=== PATIENT | female | born 1980 | race Two or more races ===

== ENCOUNTER 2016-08-02 19:33 | Emergency (ER) | payer MEDICAID ==
[2016-08-02] MEDS ORDERED: ACETAMINOPHEN 325 MG TABLET PO ONE (20:27)
[2016-08-02] MEDS ORDERED: ONDANSETRON 4 MG TAB.RAPDIS PO ONE (20:27)
--- NOTE | 2016-08-02 20:27 | ER Document Report ---
ED Medical Screen (RME) - General Stated Complaint: ABDOMINAL PAIN/DIARRHEA Mode of Arrival: Ambulatory Information source: Patient Notes: pt c/o migraine [place], bodyaches, n/v/d that started today. Pt's child here with similiar symptoms. TRAVEL OUTSIDE OF THE [place] IN LAST 30 DAYS: No - Related Data Allergies/Adverse Reactions: No Known Allergies Allergy (Verified 08/20/15 14:48) Past Medical History - Social History Family history: Reviewed & Not Pertinent Pulmonary Medical History: Reports: Hx Asthma Psychiatric Medical History: Reports: Hx Anxiety, Hx Bipolar Disorder, Hx Schizophrenia Past Surgical History: Reports: Hx Adenoidectomy, Hx Tonsillectomy - Tonsils and Adenoids, Hx Tubal Ligation, Hx Urinary Tract Surgery - Immunizations Immunizations up to date: Yes Hx Diphtheria, Pertussis, Tetanus Vaccination: No - unk Physical Exam - General General appearance: Appears well, Alert In distress: None
[2016-08-02] MEDS ORDERED: NORMAL SALINE 1000 ML 1,000 ML IV ONE (22:27)
[2016-08-02] MEDS ORDERED: DIPHENHYDRAMINE HCL 50 MG/ML VIAL IV ONE (22:27)
[2016-08-02] MEDS ORDERED: METOCLOPRAMIDE HCL INJ/PF 10 MG/2 ML SDV IV ONE (22:27)
--- NOTE | 2016-08-02 22:32 | ER Document Report ---
ED General - General Chief Complaint: Flu Symptoms Stated Complaint: ABDOMINAL PAIN/DIARRHEA Mode of Arrival: Ambulatory Notes: Patient is a 35-year-old female who presents with complaint of a headache. Patient also has some diarrhea;. Some nausea. Her 2 sons had vomiting diarrheal 2 nights ago. She now has similar symptoms started today. She denies any fevers. She says when she gets sick she gets headaches. She has a headache because of right-sided neck and rest of her head. This is typical with her chronic headaches. She was referred to a neurologist when she lived in [place]. She's referred him because she has a family history of cerebral aneurysms. She missed an appointment and then moved here and has not seen a physician since. She has says headache is gradual in onset. She still concerned with her family history of cerebral aneurysms. No dysuria. No blood in emesis. No blood in stool. No other complaints at this time. TRAVEL OUTSIDE OF THE [place] IN LAST 30 DAYS: No - Related Data Allergies/Adverse Reactions: No Known Allergies Allergy (Verified 08/20/15 14:48) Past Medical History - General Information source: Patient - Social History Smoking Status: Unknown if Ever Smoked Frequency of alcohol use: None Drug Abuse: None Family History: Reviewed & Not Pertinent Patient has suicidal ideation: No Patient has homicidal ideation: No Pulmonary Medical History: Reports: Hx Asthma Psychiatric Medical History: Reports: Hx Anxiety, Hx Bipolar Disorder, Hx Schizophrenia Past Surgical History: Reports: Hx Adenoidectomy, Hx Tonsillectomy - Tonsils and Adenoids, Hx Tubal Ligation, Hx Urinary Tract Surgery - Immunizations Immunizations up to date: Yes Hx Diphtheria, Pertussis, Tetanus Vaccination: No - unk Review of Systems - Review of Systems Notes: My Normal Review Basic REVIEW OF SYSTEMS: CONSTITUTIONAL : Denies fever, chills, or sweats. Denies recent illness. EENT: Denies eye, ear, throat, or mouth pain or symptoms. Denies nasal or sinus congestion. RESPIRATORY: Denies cough, cold, or chest congestion. Denies shortness of breath, difficulty breathing, or wheezing. GASTROINTESTINAL: Denies abdominal pain. Vomiting and diarrhea. Denies constipation. Last BM: MUSCULOSKELETAL: Denies neck or back pain or joint pain or swelling. SKIN: Denies rash or skin lesions. NEUROLOGICAL: Denies altered mental status or loss of consciousness. Has a headache. Denies weakness or paralysis or loss of use of either side. Denies problems with gait or speech. Denies sensory or motor loss. PSYCHIATRIC: Denies anxiety or stress or depression. ALL OTHER SYSTEMS REVIEWED AND NEGATIVE. Physical Exam - Vital signs Vitals: Temp Pulse Resp BP Pulse Ox 98.8 F 80 16 126/69 H 100 08/02/16 20:30 08/02/16 20:30 08/02/16 20:30 08/02/16 20:30 08/02/16 20:30 - Notes Notes: General Appearance: Well nourished, alert, cooperative, no acute distress, moderate obvious discomfort. Vitals: reviewed, See vital signs table. Head: no swelling or tenderness to the head Eyes: PERRL, EOMI, Conjuctiva clear Mouth: No decreasd moisture Neck: Supple, some soreness to palpation of the right side of the neck. Neck tenderness, No thyromegaly Lungs: No wheezing, No rales, No rhonci, No accessory muscle use, good air exchange bilaterally. Heart: Normal rate, Regular rythm, No murmur, no rub Abdomen: Normal BS, soft, No rigidity, No abdominal tenderness, No guarding, no rebound, no abdominal masses, no organomegaly. No reproducible tenderness to palpation of the abdomen. Extremities: strength 5/5 in all extremities, good pulses in all extremities, no swelling or tenderness in the extremities, no edema. Skin: warm, dry, appropriate color, no rash Neuro: speech clear, oriented x 3, normal affect, responds appropriately to questions. They understood to 12 are intact. Distal sensation intact. Patient moves all extremities without difficulty. Course - Vital Signs Vital signs: Temp Pulse Resp BP Pulse Ox 98.8 F 80 16 126/69 H 100 08/02/16 20:30 08/02/16 20:30 08/02/16 20:30 08/02/16 20:30 08/02/16 20:30 - Laboratory Result Diagrams: 08/02/16 23:10 08/02/16 23:10 Laboratory results interpreted by me: 08/02/16 23:10 WBC 3.8 L Hgb 11.5 L Hct 34.1 L Eosinophils % 7.9 H - Transfer of Care Notes: 08/03/16 02:15 On reevaluation patient is feeling much improved. Patient looks well. She's had no further vomiting. Her headache is gone with Benadryl and Reglan. I do not suspect subarachnoid hemorrhage with her. This is because the headache is like a chronic recurrent headaches, gradual in onset, and she has no neurologic deficits so she with it. I did obtain a CT angios only because she doesn't family history of cerebral aneurysms and it would be pertinent to know if she does have any aneurysms on scan so that we can refer her to appropriate specialist to monitor these. Fortunately CTA was negative. I informed her that because her CT is negative does not mean that she cannot develop aneurysms future. Informed her she must return to ER immediately if she has severe and sudden onset headache are not typical of her regular occurrence. I encourage return to ER immediately if she has intractable vomiting, fevers, abdominal pain , or feels unwell. Patient agrees with plan will be discharged home. Dictation of this chart was performed using voice recognition software; therefore, there may be some unintended grammatical errors. Discharge - Discharge Clinical Impression: Vomiting and diarrhea Headache Qualifiers: Headache type: unspecified Headache chronicity pattern: episodic headache Intractability: not intractable Qualified Code(s): R51 - Headache Condition: Good Disposition: HOME, SELF-CARE Additional Instructions: HEADACHE: The physician does not feel that the headache you are experiencing has a serious underlying cause. Most headaches are due to emotional stress, with resultant muscle tension (tension headache). Occasionally, headaches are secondary to changes in the blood vessels of the scalp (vascular headache and migraine headache). Sometimes, a headache is the first symptom of another developing illness, such as a viral infection. You have no evidence of stroke, bleeding, meningitis, or other serious cause of your headache. The treatment of headaches varies with the severity and cause of the pain. Not all headaches need pain shots. In fact, there is evidence that using narcotics for headaches may make them worse in the long run. The physician will determine the therapy that's in your best interest. If you develop a fever, if the headache is different from any you've previously experienced, or if the headache progressively worsens, then call your physician at once or go to the emergency room. REGLAN (METOCLOPRAMIDE): Reglan has been prescribed. This medicine affects the stomach and intestines. It can be used to treat nausea and vomiting, to prevent reflux of stomach acid up into the esophagus, or to increase the contractions of the stomach and intestines. It is often prescribed for esophagitis, and for paralysis of the stomach in diabetics. Reglan can cause either mild restlessness or drowsiness. You should contact the doctor at once if you become extremely restless, anxious, or cannot sleep, or if you develop uncontrollable motions of the lips, tongue, or jaw. Do not take alcohol with this medicine. Do not drive or operate machinery until you have been taking this medicine long enough to know how it affects you. Call the doctor if you develop abdominal pains, lightheadedness, black stool, or blood in the stool or vomitus. USE OF DIPHENHYDRAMINE: Diphenhydramine (Benadryl) is an antihistamine and has been recommended to help treat your headache and to prevent side effects of other medications used to treat headaches. The medication can be repeated four times daily. Age Elixir (12.5 mg/tsp) 25 mg pill adult 1-2 tabs Antihistamines may cause drowsiness, especially with the first dose. Do not operate machinery or drive while under the effects of the medication. Do not combine the medication with alcohol, or with any other medication without talking to your doctor. FOLLOW-UP CARE: If you have been referred to a physician for follow-up care, call the physician s office for an appointment as you were instructed or within the next two days. If you experience worsening or a significant change in your symptoms, notify the physician immediately or return to the Emergency Department at any time for re-evaluation. Please return to ER immediately if you have severe sudden onset headache, intractable vomiting, fevers, abdominal pain, or feel that your symptoms are worsening. Please establish yourself with a primary care physician in the area to help continue monitor your chronic medical problems. Prescriptions: Diphenhydramine HCl [Benadryl] 25 mg PO Q6 PRN #30 capsule PRN Reason: Metoclopramide HCl [Reglan 10 mg Tablet] 1 tab PO ASDIR PRN #25 tablet PRN Reason: Referrals: ORLANDO WHALEY MD [Primary Care Provider] - Follow up in 3-5 days
[2016-08-02 23:31] LABS: ABSOLUTE EOSINOPHILS # (AUTO) 0.3 10^3/uL (0.0-0.6); ABSOLUTE LYMPHOCYTES (AUTO) 1.1 10^3/uL (0.5-4.7); ABSOLUTE MONOCYTES (AUTO) 0.3 10^3/uL (0.1-1.4); ABSOLUTE NEUT (AUTO) 2.1 10^3/uL (1.7-8.2); BASOPHILS % (AUTO) 0.3 % (0-2); EOSINOPHILS % (AUTO) 7.9 % (0-6); HEMATOCRIT 34.1 % (36.0-47.0); HEMOGLOBIN 11.5 g/dL (12.0-15.5); HGB HCT DIFFERENCE 0.4; LYMPHOCYTES % (AUTO) 28.1 % (13-45); MEAN CORPUSCULAR HEMOGLOBIN 29.1 pg (27.0-33.4); MEAN CORPUSCULAR HGB CONC 33.6 g/dL (32.0-36.0); MEAN CORPUSCULAR VOLUME 87 fl (80-97); RED BLOOD COUNT 3.94 10^6/uL (3.72-5.28); RED CELL DISTRIBUTION WIDTH 13.7 % (11.5-14.0); SEGMENTED NEUTROPHILS % (AUTO) 55.7 % (42-78); WHITE BLOOD COUNT 3.8 10^3/uL (4.0-10.5)
[2016-08-02 23:50] LABS: ANION GAP 9 (5-19); BLOOD UREA NITROGEN 11 mg/dL (7-20); CALCIUM 8.9 mg/dL (8.4-10.2); CARBON DIOXIDE 28 mmol/L (22-30); CHLORIDE 104 mmol/L (98-107); CREATININE RESULT 0.57 mg/dL (0.52-1.25); GLUCOSE 94 mg/dL (75-110); POTASSIUM 3.6 mmol/L (3.6-5.0); SODIUM 141.3 mmol/L (137-145)
[2016-08-03 02:21] VITALS: BP 112/56
== END 2016-08-03 02:29 | disposition home or self-care (01) ==
LOC: ER 19:33
DX: R51 Headache (principal); R19.7 Diarrhea, unspecified; R11.2 Nausea with vomiting, unspecified; Z82.49 Family history of ischemic heart disease and other diseases of the circulatory system; J45.909 Unspecified asthma, uncomplicated
CPT/HCPCS: 99284; 96361; 96374; 96375; 36415; 85025; 80048; 70496; J3490; J1200; J2765; J7030

== ENCOUNTER 2016-09-15 17:42 | Emergency (ER) | payer SELFPAY ==
--- NOTE | 2016-09-15 19:34 | ER Document Report ---
ED Medical Screen (RME) - General Stated Complaint: CHEST PAIN Notes: 35 year old female, smoker and former asthmatic reportedly, c/o 2 days of painful chest with cough, painful breathing, and body aches. Denies fever, vomiting, pain without cough. Denies shortness of breath. Used albuterol at home with no change. TRAVEL OUTSIDE OF THE [place] IN LAST 30 DAYS: No - Related Data Allergies/Adverse Reactions: No Known Allergies Allergy (Verified 08/20/15 14:48) Past Medical History - Social History Family history: Reviewed & Not Pertinent Pulmonary Medical History: Reports: Hx Asthma Psychiatric Medical History: Reports: Hx Anxiety, Hx Bipolar Disorder, Hx Schizophrenia Past Surgical History: Reports: Hx Adenoidectomy, Hx Tonsillectomy - Tonsils and Adenoids, Hx Tubal Ligation, Hx Urinary Tract Surgery - Immunizations Immunizations up to date: Yes Hx Diphtheria, Pertussis, Tetanus Vaccination: No - unk Physical Exam - Vital signs Vitals: Temp Pulse Resp BP Pulse Ox 98.3 F 79 14 121/71 100 09/15/16 18:36 09/15/16 18:36 09/15/16 18:36 09/15/16 18:36 09/15/16 18:36 - Respiratory Respiratory status: No respiratory distress. No: Labored, Tachypnea Breath sounds: No: Decreased air movement, Nonproductive cough, Wheezing Course - Vital Signs Vital signs: Temp Pulse Resp BP Pulse Ox 98.3 F 79 14 121/71 100 09/15/16 18:36 09/15/16 18:36 09/15/16 18:36 09/15/16 18:36 09/15/16 18:36
--- NOTE | 2016-09-15 21:50 | EKG REPORT ---
SEVERITY:- NORMAL ECG - SINUS RHYTHM : Confirmed by: Mike Diaz 15-Sep-2016 21:50:10
[2016-09-15] MEDS ORDERED: PREDNISONE 20 MG TABLET PO ONE (23:34)
--- NOTE | 2016-09-15 23:35 | ER Document Report ---
ED General - General Mode of Arrival: Ambulatory Information source: Patient TRAVEL OUTSIDE OF THE [place] IN LAST 30 DAYS: No - HPI Onset: Other - x4 days Onset/Duration: Persistent Quality of pain: Achy Severity: None Associated symptoms: Other - see narrative - General Chief Complaint: Pain All Over Stated Complaint: CHEST PAIN Notes: Patient is a 35-year-old female that presents to the emergency department today with complaints of generalized body aches and a "dry cough" with associated chest wall pain for the last 4 days. Patient states she has a history of asthma and she has inhalers and nebulizer treatments at home. Patient has several family members here that are being evaluated for similar complaints. Patient denies any fevers. (ADELE MCCULLOUGH) - Related Data Allergies/Adverse Reactions: No Known Allergies Allergy (Verified 08/20/15 14:48) Past Medical History - General Information source: Patient, [facility] Records - Social History Smoking Status: Current Every Day Smoker Cigarette use (# per day): Yes - 3 cigarettes/day Chew tobacco use (# tins/day): No Frequency of alcohol use: None Drug Abuse: None Lives with: Family Family History: Reviewed & Not Pertinent Patient has suicidal ideation: No Patient has homicidal ideation: No Pulmonary Medical History: Reports: Hx Asthma Psychiatric Medical History: Reports: Hx Anxiety, Hx Bipolar Disorder, Hx Schizophrenia Past Surgical History: Reports: Hx Adenoidectomy, Hx Tonsillectomy - Tonsils and Adenoids, Hx Tubal Ligation, Hx Urinary Tract Surgery - Immunizations Immunizations up to date: Yes Hx Diphtheria, Pertussis, Tetanus Vaccination: Yes - unk Review of Systems - Review of Systems Constitutional: denies: Fever EENT: No symptoms reported Cardiovascular: No symptoms reported Respiratory: See HPI, Cough - with associated chest pain Gastrointestinal: No symptoms reported Genitourinary: No symptoms reported Female Genitourinary: No symptoms reported Musculoskeletal: See HPI, Joint pain - generalized body aches Skin: No symptoms reported Hematologic/Lymphatic: No symptoms reported Neurological/Psychological: No symptoms reported -: Yes All other systems reviewed and negative Physical Exam - Vital signs Vitals: Temp Pulse Resp BP Pulse Ox 98.3 F 79 14 121/71 100 09/15/16 18:36 09/15/16 18:36 09/15/16 18:36 09/15/16 18:36 09/15/16 18:36 (ADELE MCCULLOUGH) (SAEID TORRES) - Notes Notes: Physical Exam: General: Alert, appears well. HEENT: Normocephalic. Atraumatic. PERRL. Extraocular movements intact. Oropharynx clear. Nasal congestion. Neck: Supple. Non-tender. Respiratory: No respiratory distress. Clear and equal breath sounds bilaterally. Anterior chest wall tenderness with palpation. Cardiovascular: Regular rate and rhythm. Abdominal: Obese. Non-tender. No distension. Normal Bowel Sounds. Back: Non-tender. No deformity or step off. Extremities: Moves all four extremities. Upper extremities: Normal inspection. Normal ROM. Lower extremities: Normal inspection. No edema.Normal ROM. Neurological: Normal cognition. AAOx4. Normal speech. Psychological: Normal affect. Normal Mood. Skin: Warm. Dry. Normal color. (ADELE MCCULLOUGH) Course - Re-evaluation Re-evalutation: 09/16/16 Patient is a 35-year-old female up her respiratory infection. She is chest wall pain that she can take [id number] medication for. No evidence for pneumonia. Vitals are stable. No wheezing. Patient has a history of asthma and states that she has been using her inhaler more and home. Patient be given prednisone and is to follow-up with her doctor. Return if any worsening or concerning symptoms. Stable for discharge. (SAEID TORRES) - Vital Signs Vital signs: Temp Pulse Resp BP Pulse Ox 98.0 F 70 18 113/66 100 09/15/16 23:50 09/15/16 23:50 09/15/16 23:50 09/15/16 23:50 09/15/16 23:50 (ADELE MCCULLOUGH) (SAEID TORRES) Discharge - Discharge Clinical Impression: Upper respiratory infection Qualifiers: URI type: unspecified URI Qualified Code(s): J06.9 - Acute upper respiratory infection, unspecified Asthma Qualifiers: Asthma severity: unspecified severity Asthma complication type: uncomplicated Qualified Code(s): J45.909 - Unspecified asthma, uncomplicated Condition: Stable Disposition: HOME, SELF-CARE Instructions: Upper Respiratory Illness ([facility]), Asthma ([facility]) Prescriptions: Prednisone 40 mg PO DAILY #6 tablet Forms: Return to Work Scribe Attestation: 09/16/16 03:19 I personally performed the services described in the documentation, reviewed and edited the documentation which was dictated to the scribe in my presence, and it accurately records my words and actions. (SAEID TORRES) Scribe Documentation - Scribe Written by Ashleigh:: Ashleigh Montez, [id number] 09/16/16 acting as scribe for :: Geo
[2016-09-15] MEDS ORDERED: ALBUTEROL SULFATE HFA (90 MCG/PUFF) 8 GM MDI (1 MDI/ER DISP) IH ONE (23:37)
[2016-09-16 00:02] VITALS: BP 113/66
== END 2016-09-16 | disposition home or self-care (01) ==
LOC: ER 17:42
DX: J06.9 Acute upper respiratory infection, unspecified (principal); J45.909 Unspecified asthma, uncomplicated; R07.89 Other chest pain; R05 Cough; M25.50 Pain in unspecified joint; F17.210 Nicotine dependence, cigarettes, uncomplicated
CPT/HCPCS: 93005; 99283; 71020; 93010; J7512; J3490

== ENCOUNTER 2016-10-01 21:18 | Emergency (ER) | payer SELFPAY ==
--- NOTE | 2016-10-02 01:53 | ER Document Report ---
ED General - General Chief Complaint: Cough Stated Complaint: COUGH/HEADACHE/BODY PAIN Notes: Patient is a 35-year-old patient, currently an active smoker with a history of asthma who presents with 3 weeks of intermittent cough. States that she was seen several weeks ago for the same complaint and had a normal chest x-ray at that time but has continued to have a persistent cough that has been unchanged since that time. She's been using an albuterol inhaler with minimal to no improvement of her symptoms. 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 States she's had similar symptoms in the past with upper respiratory infections. Denies any associated shortness of breath, vomiting, headache, neck pain or fever. Multiple sick contacts with similar illness. TRAVEL OUTSIDE OF THE [place] IN LAST 30 DAYS: No - Related Data Allergies/Adverse Reactions: No Known Allergies Allergy (Verified 08/20/15 14:48) Past Medical History - General Information source: Patient - Social History Smoking Status: Current Every Day Smoker Chew tobacco use (# tins/day): No Frequency of alcohol use: Occasional Drug Abuse: None Lives with: Family Family History: Reviewed & Not Pertinent Patient has suicidal ideation: No Patient has homicidal ideation: No Pulmonary Medical History: Reports: Hx Asthma Renal/ Medical History: Denies: Hx Peritoneal Dialysis Psychiatric Medical History: Reports: Hx Anxiety, Hx Bipolar Disorder, Hx Schizophrenia Past Surgical History: Reports: Hx Adenoidectomy, Hx Tonsillectomy - Tonsils and Adenoids, Hx Tubal Ligation, Hx Urinary Tract Surgery - Immunizations Immunizations up to date: Yes Hx Diphtheria, Pertussis, Tetanus Vaccination: Yes - unk Review of Systems - Review of Systems Notes: Constitutional: Negative for fever. HENT: Negative for sore throat. Eyes: Negative for visual changes. Cardiovascular: Negative for chest pain. Respiratory: Negative for shortness of breath. Positive for cough Gastrointestinal: Negative for abdominal pain, vomiting or diarrhea. Genitourinary: Negative for dysuria. Musculoskeletal: Negative for back pain. Skin: Negative for rash. Neurological: Negative for headaches, weakness or numbness. 10 point ROS negative except as marked above and in HPI. Physical Exam - Vital signs Vitals: Temp Pulse Resp BP Pulse Ox 98.0 F 81 16 120/62 99 10/01/16 21:49 10/01/16 21:49 10/01/16 21:49 10/01/16 21:49 10/01/16 21:49 Interpretation: Normal Notes: PHYSICAL EXAMINATION: GENERAL: Well-appearing, well-nourished and in no acute distress. HEAD: Atraumatic, normocephalic. EYES: Pupils equal round and reactive to light, extraocular movements intact, sclera anicteric, conjunctiva are normal. ENT: nares patent, oropharynx clear without exudates. Moist mucous membranes. NECK: Normal range of motion, supple without lymphadenopathy LUNGS: Breath sounds clear to auscultation bilaterally and equal. No wheezes rales or rhonchi. HEART: Regular rate and rhythm without murmurs ABDOMEN: Soft, nontender, normoactive bowel sounds. No guarding, no rebound. No masses appreciated. EXTREMITIES: Normal range of motion, no pitting or edema. No cyanosis. NEUROLOGICAL: No focal neurological deficits. Moves all extremities spontaneously and on command. PSYCH: Normal mood, normal affect. SKIN: Warm, Dry, normal turgor, no rashes or lesions noted. Course - Re-evaluation Re-evalutation: 10/02/16 01:52 Presentation is most consistent with a viral upper respiratory infection. Patient is overall well appearance, vitals within normal limits, well-hydrated. Patient denies any headache, neck pain, and has no evidence of meningismus on examination. Lungs are clear bilaterally. No evidence of respiratory distress. Based on clinical exam and history, I do not suspect an acute pneumonia, meningitis, strep pharyngitis, or an acute encephalitis. No laboratory or imaging testing is indicated at this time. At this time will discharge with return precautions and follow-up recommendations. Verbal discharge instructions given a the bedside and opportunity for questions given. Medication warnings reviewed. Patient is in agreement with this plan and has verbalized understanding of return precautions and the need for primary care follow-up in the next 24-72 hours. - Vital Signs Vital signs: Temp Pulse Resp BP Pulse Ox 98.5 F 57 L 16 116/67 98 10/02/16 02:14 10/02/16 02:14 10/02/16 02:14 10/02/16 02:14 10/02/16 02:14 Discharge - Discharge Clinical Impression: Bronchitis Condition: Good Disposition: HOME, SELF-CARE Additional Instructions: You were seen for symptoms most consistent with bronchitis. This can take up to 12 weeks to fully resolve. This is generally due to a viral infection. Please follow-up with your primary doctor in the next 2-3 days. Return if you develop worsening cough, vomiting, fever >100.4, pass out, begin coughing blood, or have any other symptoms that are concerning to you. Please use the medications prescribed today as directed. Forms: Return to Work
[2016-10-02 02:17] VITALS: BP 116/67
== END 2016-10-02 02:20 | disposition home or self-care (01) ==
LOC: ER 21:18
DX: J40 Bronchitis, not specified as acute or chronic (principal); R05 Cough; R51 Headache; R52 Pain, unspecified; F17.210 Nicotine dependence, cigarettes, uncomplicated
CPT/HCPCS: 99283

== ENCOUNTER 2016-11-25 19:06 | Emergency (ER) | payer SELFPAY ==
[2016-11-25 20:26] VITALS: BP 138/65
== END 2016-11-26 01:10 | disposition left against medical advice (07) ==
LOC: ER 19:06
DX: Z53.21 Procedure and treatment not carried out due to patient leaving prior to being seen by health care provider (principal)

== ENCOUNTER 2016-12-01 13:24 | Emergency (ER) | payer BC ==
--- NOTE | 2016-12-01 15:20 | ER Document Report ---
ED Medical Screen (RME) - General Chief Complaint: Headache Stated Complaint: HEADACHE Mode of Arrival: Ambulatory Information source: Patient TRAVEL OUTSIDE OF THE U.[place] IN LAST 30 DAYS: No - HPI Onset: Yesterday - LATE LAST PM Onset/Duration: Sudden, Constant, Waxing and waning Quality of pain: Achy, Dull Severity: Moderate Associated Symptoms: Nausea, Other - PHOTOPHOBIA. denies: Chills, Fever, Vomiting Exacerbated by: Movement, Other - LIGHT Relieved by: Denies Similar symptoms previously: Yes - PRESENT H.A. ENTIRELY TYPICAL Recently seen / treated by doctor: No - Related Data Smoking: Non-smoker Frequency of alcohol use: Rare Drug Abuse: None Allergies/Adverse Reactions: No Known Allergies Allergy (Verified 12/01/16 13:53) Past Medical History - General Information source: Patient - Social History Cigarette use (# per day): No Chew tobacco use (# tins/day): No Frequency of alcohol use: Rare Drug Abuse: None Lives with: Family Family history: Reviewed & Not Pertinent - Past Medical History Cardiac Medical History: Reports: None Pulmonary Medical History: Reports: Hx Asthma EENT Medical History: Reports: None Neurological Medical History: Reports: Hx Migraine Endocrine Medical History: Reports: None Renal/ Medical History: Reports: None. Denies: Hx Peritoneal Dialysis Malignancy Medical History: Reports: None GI Medical History: Reports: None Musculoskeltal Medical History: Reports None Psychiatric Medical History: Reports: Hx Anxiety, Hx Bipolar Disorder, Hx Schizophrenia Past Surgical History: Reports: Hx Adenoidectomy, Hx Breast Surgery - tumor removed, Hx Tonsillectomy - Tonsils and Adenoids, Hx Tubal Ligation, Hx Urinary Tract Surgery - Immunizations Immunizations up to date: Yes Hx Diphtheria, Pertussis, Tetanus Vaccination: Yes - unk Review of Systems - Review of Systems Constitutional: No symptoms reported. denies: Chills, Fever EENT: See HPI Cardiovascular: No symptoms reported Neurological/Psychological: See HPI Physical Exam - Vital signs Vitals: Temp Pulse Resp BP Pulse Ox 98.5 F 59 L 16 133/74 H 100 12/01/16 13:55 12/01/16 13:55 12/01/16 13:55 12/01/16 13:55 12/01/16 13:55 Interpretation: Normal. No: Hypertensive, Tachycardic, Febrile - General General appearance: Appears well, Alert In distress: None - HEENT Head: Normocephalic Eyes: Other - PHOTOPHOBIC O.D. Extraocular movements intact: Yes Neck: Supple Course - Re-evaluation Re-evalutation: 12/01/16 17:33 Patient reports headache is much improved. - Vital Signs Vital signs: Temp Pulse Resp BP Pulse Ox 98.5 F 59 L 16 133/74 H 100 12/01/16 13:55 12/01/16 13:55 12/01/16 13:55 12/01/16 13:55 12/01/16 13:55 Doctor's Discharge - Discharge Clinical Impression: Migraine headache Qualifiers: Migraine type: unspecified Status migrainosus presence: without status migrainosus Intractability: not intractable Qualified Code(s): G43.909 - Migraine, unspecified, not intractable, without status migrainosus Condition: Stable Disposition: HOME, SELF-CARE Instructions: Antinausea Medication ([facility]), Use of Diphenhydramine, Reglan ([facility]) , Migraine Headache ([facility]) Additional Instructions: REST, DRINK PLENTY OF FLUIDS. MEDS DIRECTED. FOLLOW UP WITH YOUR PRIMARY CARE PROVIDER NEEDED. Prescriptions: Metoclopramide HCl [Reglan 10 mg Tablet] 10 mg PO Q6HP PRN #14 tablet PRN Reason: For Headache Ondansetron [Zofran Odt 4 mg Tablet] 1 - 2 tab PO Q4H #10 tab.rapdis Forms: Return to Work
[2016-12-01] MEDS ORDERED: METOCLOPRAMIDE HCL 10 MG TABLET PO ONE (15:38)
[2016-12-01] MEDS ORDERED: DIPHENHYDRAMINE HCL 50 MG CAPSULE PO ONE (15:38)
[2016-12-01] MEDS ORDERED: ONDANSETRON 4 MG TAB.RAPDIS PO ONE (15:38)
[2016-12-01 17:33] VITALS: BP 124/76
== END 2016-12-01 17:36 | disposition home or self-care (01) ==
LOC: ER 13:24
DX: G43.909 Migraine, unspecified, not intractable, without status migrainosus (principal); H53.142 Visual discomfort, left eye; R11.0 Nausea; J45.909 Unspecified asthma, uncomplicated
CPT/HCPCS: 99283; S0119

== ENCOUNTER 2017-01-18 16:46 | Emergency (ER) | payer BC ==
--- NOTE | 2017-01-18 18:34 | ER Document Report ---
ED Medical Screen (RME) - General Chief Complaint: Abdominal Pain Stated Complaint: ABDOMINAL PAINS Time Seen by Provider: 01/18/17 17:10 Mode of Arrival: Ambulatory Information source: Patient TRAVEL OUTSIDE OF THE U.S. IN LAST 30 DAYS: No - HPI Patient complains to provider of: Lower abdominal pain with dysuria and vaginal discharge, fever Onset: Other - 2 days Quality of pain: Achy Notes: 01/18/17 18:34 Patient is a 36-year-old female who presents to the emergency room complaining of lower abdominal pain with dysuria, vaginal discharge and fever that has been present for 2 days, she denies nausea, vomiting or diarrhea, last menstrual period was November 26, she is questioning whether she could be - Related Data Allergies/Adverse Reactions: No Known Allergies Allergy (Verified 01/18/17 18:31) Past Medical History - Social History Family history: Reviewed & Not Pertinent Pulmonary Medical History: Reports: Hx Asthma Neurological Medical History: Reports: Hx Migraine Renal/ Medical History: Denies: Hx Peritoneal Dialysis Psychiatric Medical History: Reports: Hx Anxiety, Hx Bipolar Disorder, Hx Schizophrenia Past Surgical History: Reports: Hx Adenoidectomy, Hx Breast Surgery - tumor removed, Hx Tonsillectomy - Tonsils and Adenoids, Hx Tubal Ligation, Hx Urinary Tract Surgery - Immunizations Immunizations up to date: Yes Hx Diphtheria, Pertussis, Tetanus Vaccination: Yes - unk Physical Exam - Vital signs Vitals: Temp Pulse Resp BP Pulse Ox 99 F 70 16 129/66 H 98 01/18/17 17:04 01/18/17 17:04 01/18/17 17:04 01/18/17 17:04 01/18/17 17:04 Course - Vital Signs Vital signs: Temp Pulse Resp BP Pulse Ox 99 F 70 16 129/66 H 98 01/18/17 17:04 01/18/17 17:04 01/18/17 17:04 01/18/17 17:04 01/18/17 17:04
[2017-01-18 19:14] LABS: ABSOLUTE EOSINOPHILS # (AUTO) 0.3 10^3/uL (0.0-0.6); ABSOLUTE LYMPHOCYTES (AUTO) 1.9 10^3/uL (0.5-4.7); ABSOLUTE MONOCYTES (AUTO) 0.4 10^3/uL (0.1-1.4); ABSOLUTE NEUT (AUTO) 2.6 10^3/uL (1.7-8.2); BASOPHILS % (AUTO) 0.6 % (0-2); EOSINOPHILS % (AUTO) 6.6 % (0-6); HEMATOCRIT 38.5 % (36.0-47.0); HEMOGLOBIN 12.5 g/dL (12.0-15.5); LYMPHOCYTES % (AUTO) 36.3 % (13-45); MEAN CORPUSCULAR HEMOGLOBIN 29.2 pg (27.0-33.4); MEAN CORPUSCULAR HGB CONC 32.4 g/dL (32.0-36.0); MEAN CORPUSCULAR VOLUME 90 fl (80-97); MONOCYTES % (AUTO) 7.4 % (3-13); RED BLOOD COUNT 4.28 10^6/uL (3.72-5.28); RED CELL DISTRIBUTION WIDTH 13.6 % (11.5-14.0); SEGMENTED NEUTROPHILS % (AUTO) 49.1 % (42-78); WHITE BLOOD COUNT 5.2 10^3/uL (4.0-10.5)
[2017-01-18 19:20] LABS: APPEARANCE,URINE SLIGHTLY-CLOUDY; BILIRUBIN,URINE NEGATIVE (NEGATIVE); GLUCOSE, URINE NEGATIVE (NEGATIVE); KETONES,URINE NEGATIVE (NEGATIVE); LEUKOCYTE ESTERASE,URINE NEGATIVE (NEGATIVE); NITRITE,URINE NEGATIVE (NEGATIVE); PROTEIN,URINE NEGATIVE (NEGATIVE); URINE SPECIFIC GRAVITY 1.027; UROBILINOGEN,URINE NEGATIVE mg/dL (<2.0)
[2017-01-18 19:25] LABS: ALANINE AMINOTRANSFERASE 23 U/L (9-52); ALBUMIN 4.2 g/dL (3.5-5.0); ALKALINE PHOSPHATASE 49 U/L (38-126); ANION GAP 9 (5-19); ASPARTATE AMINO TRANSFERASE 13 U/L (14-36); BILIRUBIN,DIRECT 0.3 mg/dL (0.0-0.4); BILIRUBIN,TOTAL 0.4 mg/dL (0.2-1.3); BLOOD UREA NITROGEN 12 mg/dL (7-20); CALCIUM 9.4 mg/dL (8.4-10.2); CARBON DIOXIDE 26 mmol/L (22-30); CHLORIDE 106 mmol/L (98-107); CREATININE RESULT 0.59 mg/dL (0.52-1.25); GLUCOSE 110 mg/dL (75-110); POTASSIUM 4.4 mmol/L (3.6-5.0); SODIUM 140.9 mmol/L (137-145); TOTAL PROTEIN 7.2 g/dL (6.3-8.2)
--- NOTE | 2017-01-18 22:16 | ER Document Report ---
ED General - General Chief Complaint: Abdominal Pain Stated Complaint: ABDOMINAL PAINS Time Seen by Provider: 01/18/17 17:10 Mode of Arrival: Ambulatory Notes: Patient is a 36-year-old female without past medical history, no prior surgical history who presents with several days of lower abdominal pain. Does describe it as a dull, aching, cramping pain in the suprapubic region. Nothing improves or worsens her pain. She notes that she has had associated vaginal discharge. Denies any dysuria or vaginal bleeding. She has not seen a primary care doctor regarding today's concerns. She denies any fever or constitutional symptoms. Denies any history of similar symptoms in the past. She is sexually active and does not use protection. TRAVEL OUTSIDE OF THE [place] IN LAST 30 DAYS: No - Related Data Allergies/Adverse Reactions: No Known Allergies Allergy (Verified 01/18/17 18:31) Past Medical History - General Information source: Patient - Social History Smoking Status: Current Every Day Smoker Chew tobacco use (# tins/day): No Frequency of alcohol use: None Drug Abuse: None Lives with: Spouse/Significant other Family History: Reviewed & Not Pertinent Pulmonary Medical History: Reports: Hx Asthma Neurological Medical History: Reports: Hx Migraine Renal/ Medical History: Denies: Hx Peritoneal Dialysis Psychiatric Medical History: Reports: Hx Anxiety, Hx Bipolar Disorder, Hx Schizophrenia Past Surgical History: Reports: Hx Adenoidectomy, Hx Breast Surgery - tumor removed, Hx Tonsillectomy - Tonsils and Adenoids, Hx Tubal Ligation, Hx Urinary Tract Surgery - Immunizations Immunizations up to date: Yes Hx Diphtheria, Pertussis, Tetanus Vaccination: Yes - unk Review of Systems - Review of Systems Notes: Constitutional: Negative for fever. HENT: Negative for sore throat. Eyes: Negative for visual changes. Cardiovascular: Negative for chest pain. Respiratory: Negative for shortness of breath. Gastrointestinal: Positive for abdominal pain, negative for vomiting or diarrhea. Genitourinary: Positive for vaginal discharge Musculoskeletal: Negative for back pain. Skin: Negative for rash. Neurological: Negative for headaches, weakness or numbness. 10 point ROS negative except as marked above and in HPI. Physical Exam - Vital signs Vitals: Temp Pulse Resp BP Pulse Ox 99 F 70 16 129/66 H 98 01/18/17 17:04 01/18/17 17:04 01/18/17 17:04 01/18/17 17:04 01/18/17 17:04 Interpretation: Normal Notes: PHYSICAL EXAMINATION: GENERAL: Well-appearing, well-nourished and in no acute distress. HEAD: Atraumatic, normocephalic. EYES: Pupils equal round and reactive to light, extraocular movements intact, sclera anicteric, conjunctiva are normal. ENT: nares patent, oropharynx clear without exudates. Moist mucous membranes. NECK: Normal range of motion, supple without lymphadenopathy LUNGS: Breath sounds clear to auscultation bilaterally and equal. No wheezes rales or rhonchi. HEART: Regular rate and rhythm without murmurs ABDOMEN: Soft, nontender, normoactive bowel sounds. No guarding, no rebound. No masses appreciated. : No cervical motion tenderness, adnexal tenderness or suprapubic tenderness on palpation. Moderate amount of vaginal discharge. EXTREMITIES: Normal range of motion, no pitting or edema. No cyanosis. NEUROLOGICAL: No focal neurological deficits. Moves all extremities spontaneously and on command. PSYCH: Normal mood, normal affect. SKIN: Warm, Dry, normal turgor, no rashes or lesions noted. Course - Re-evaluation Re-evalutation: 01/18/17 22:11 Patient presents with 2 days of lower abdominal pain with associated vaginal discharge. On exam she is well in appearance, no distress, vitals within normal limits. She has no focal abdominal tenderness on examination. Pelvic exam without cervical motion tenderness or focal adnexal tenderness. There is a large amount of ivy white vaginal discharge. Patient's wet prep does show signs consistent with bacterial vaginosis. She also notes that she is high risk for sexually transmitted infections and has been empirically treated for gonorrhea and chlamydia. Based on exam and history do not suspect a tubo- ovarian abscess, ovarian torsion, pelvic inflammatory disease, or an acute appendicitis. At this time will discharge with return precautions and follow- up recommendations. Verbal discharge instructions given a the bedside and opportunity for questions given. Medication warnings reviewed. Patient is in agreement with this plan and has verbalized understanding of return precautions and the need for primary care follow-up in the next 24-72 hours. - Vital Signs Vital signs: Temp Pulse Resp BP Pulse Ox 98.7 F 70 18 124/68 100 01/18/17 23:00 01/18/17 23:00 01/18/17 23:00 01/18/17 23:00 01/18/17 23:00 - Laboratory Result Diagrams: 01/18/17 18:45 01/18/17 18:45 Laboratory results interpreted by me: 01/18/17 01/18/17 18:45 18:45 Eosinophils % 6.6 H AST 13 L Discharge - Discharge Clinical Impression: Vaginal discharge, Bacterial vaginosis, Lower abdominal pain Condition: Good Disposition: HOME, SELF-CARE Additional Instructions: You are being treated for bacterial vaginosis, an overgrowth of normal bacteria in the vagina. You are being sent home on an antibiotic called metronidazole. Take exactly as directed. Never drink alcohol while taking this antibiotic. Please return if you develop abdominal pain, fever greater than 101F, some vomiting, or any other symptoms that are concerning to you. You need to use protection every time you have sex. Failure to do so can result in transmission of infections or unintended . You have been treated for an sexually transmitted infection (STI) today. All of your partners should be tested and treated as they are also likely to be infected. Please return if you develop abdominal pain, fever, persistent vomiting, or any other symptoms that are concerning to you. Prescriptions: Metronidazole [Flagyl 500 mg Tablet] 500 mg PO Q6H #28 tablet Referrals: ERNIE SCOTT MD [Primary Care Provider] - Follow up as needed
[2017-01-18] MEDS ORDERED: LIDOCAINE 1% INJ-PF (10 MG/ML) 30 ML SDV INFIL ONE (22:19)
[2017-01-18] MEDS ORDERED: CEFTRIAXONE INJ 250 MG VIAL IM ONE (22:19)
[2017-01-18] MEDS ORDERED: AZITHROMYCIN 250 MG TABLET PO ONE (22:19)
[2017-01-18 23:08] VITALS: BP 124/68
[2017-01-18 23:24] LABS: CHLAM PCR NOT DETECTED (NOT DETECT)
== END 2017-01-18 23:08 | disposition home or self-care (01) ==
LOC: ER 16:46
DX: N76.0 Acute vaginitis (principal); B96.89 Other specified bacterial agents as the cause of diseases classified elsewhere; R10.30 Lower abdominal pain, unspecified; F17.200 Nicotine dependence, unspecified, uncomplicated; J45.909 Unspecified asthma, uncomplicated
CPT/HCPCS: 99284; 96372; 36415; 87086; 87210; 83690; 84703; 85025; 80053; 81001; 87491; 87591; J3490; J0696

== ENCOUNTER 2017-01-29 19:34 | Emergency (ER) | payer BC ==
--- NOTE | 2017-01-29 20:00 | ER Document Report ---
HPI - HPI Pain Level: 4 Notes: Patient is a 36-year-old female presents to the ED complaining of low back pain , right hip pain 2 weeks, but worsening over the last couple days. No known injury or recent trauma. No prior procedures to the back. Patient states that standing erect makes it worse as well as sitting straight up. She leans to the side it helps. She has been taking [id number] meds for symptoms without any relief. The pain does not radiate. Pain is described as aching, sore. She still eating and drinking with no problems. Her urinary and bowel movements remain normal. Patient has a history of anxiety and bipolar for which she takes Seroquel and Klonopin for. Denies any fever, headaches, URI, sore throat, neck pain, chest pain, palpitations, syncope, cough, wheeze, dyspnea, shortness of breath, abdominal pain, nausea/vomiting/diarrhea, melena, nausea, hematuria, dysuria, flank pain, numbness/tingling, muscle weakness/ paralysis, rash. No IV drug use. - ROS Notes: REVIEW OF SYSTEMS: CONSTITUTIONAL : Denies fever, chills, or sweats. Denies recent illness. EENT: Denies eye, ear, throat, or mouth pain or symptoms. Denies nasal or sinus congestion or discharge. Denies throat, tongue, or mouth swelling or difficulty swallowing. CARDIOVASCULAR: Denies chest pain. Denies palpitations or racing or irregular heart beat. Denies ankle edema. RESPIRATORY: Denies cough, cold, or chest congestion. Denies shortness of breath, difficulty breathing, or wheezing. GASTROINTESTINAL: Denies abdominal pain or distention. Denies nausea, vomiting , or diarrhea. Denies blood in vomitus, stools, or per rectum. Denies black, tarry stools. Denies constipation. GENITOURINARY: Denies difficulty urinating, painful urination, burning, frequency, blood in urine, or discharge. FEMALE GENITOURINARY: Denies vaginal bleeding, heavy or abnormal periods, irregular periods. Denies vaginal discharge or odor. MUSCULOSKELETAL: see hpi SKIN: Denies rash, lesions or sores. NEUROLOGICAL: Denies confusion or altered mental status. Denies passing out or loss of consciousness. Denies dizziness or lightheadedness. Denies headache. Denies weakness or paralysis or loss of use of either side. Denies problems with gait or speech. Denies sensory loss, numbness, or tingling. Denies seizures. ALL OTHER SYSTEMS REVIEWED AND NEGATIVE. Dictation was performed using [email or web address] voice recognition software - CARDIOVASCULAR Cardiovascular: DENIES: Chest pain - REPRODUCTIVE Reproductive: DENIES: : - DERM Skin Color: Normal Past Medical History - Social History Smoking Status: Unknown if Ever Smoked Family History: Reviewed & Not Pertinent Patient has suicidal ideation: No Patient has homicidal ideation: No Pulmonary Medical History: Reports: Hx Asthma Neurological Medical History: Reports: Hx Migraine Renal/ Medical History: Denies: Hx Peritoneal Dialysis Psychiatric Medical History: Reports: Hx Anxiety, Hx Bipolar Disorder, Hx Schizophrenia Past Surgical History: Reports: Hx Adenoidectomy, Hx Breast Surgery - tumor removed, Hx Tonsillectomy - Tonsils and Adenoids, Hx Tubal Ligation, Hx Urinary Tract Surgery - Immunizations Immunizations up to date: Yes Hx Diphtheria, Pertussis, Tetanus Vaccination: Yes - unk Vertical Provider Document - CONSTITUTIONAL Notes: PHYSICAL EXAMINATION: GENERAL: Well-appearing, well-nourished and in no acute distress. NECK: Normal range of motion, supple without lymphadenopathy LUNGS: Breath sounds clear to auscultation bilaterally and equal. No wheezes rales or rhonchi. HEART: Regular rate and rhythm without murmurs, rubs, gallops. ABDOMEN: Soft, nontender, nondistended abdomen. No guarding, no rebound. No masses appreciated. Normal bowel sounds present. No CVA tenderness bilaterally. No pulsatile mass. Musculoskeletal: FROM to passive/active. Strength 5+/5. SLR negative b/l. Back: No ecchymosis/deformity noted. FROM to passive/active. Strength 5+/5. No vertebral point tenderness. + tenderness to the rt SI joint. + tenderness to the rt troch bursa. Tenderness elicited is pain described by the patient. Extremities: No cyanosis, clubbing, or edema b/l. Peripheral pulses 2+. Capillary refill less than 3 seconds. NEUROLOGICAL: Normal gait. Normal sensory, motor exams. Reflexes 2+ b/l and peripherally. PSYCH: Normal mood, normal affect. SKIN: Warm, Dry, normal turgor, no rashes or lesions noted. - INFECTION CONTROL TRAVEL OUTSIDE OF THE [place].S. IN LAST 30 DAYS: No - RESPIRATORY O2 Sat by Pulse Oximetry: 100 Course - Re-evaluation Re-evalutation: 01/29/17 21:32 Patient is an afebrile, well-hydrated, 28-year-old female who presents to the ED with right sacroiliitis and right trochanteric bursitis based on H&P today. Vitals are stable. PE otherwise unremarkable. Low suspicion for any cauda equina, spinal abscess, disc herniation causing severe stenosis, dissection, or other systemic or spinal infection. Decadron 10 mg IM given today. Patient to be sent home with naproxen to take twice a day as needed for pain. Conservative measures as reviewed otherwise for symptoms. Conditions reviewed thoroughly with the patient. Reaffirm that she may need further evaluation and other treatment modalities including but not limited to injections, therapy, orthopedic consult. I would like her to get rechecked with her PCM in the next 2-3 days. Return to the ED with any worsening and/or other concerning symptoms as needed. Patient in agreement with plan. - Vital Signs Vital signs: Temp Pulse Resp BP Pulse Ox 98.7 F 72 18 130/70 H 100 01/29/17 19:36 01/29/17 19:36 01/29/17 19:36 01/29/17 19:36 01/29/17 19:36 Discharge - Discharge Clinical Impression: Sacroiliitis Trochanteric bursitis Qualifiers: Laterality: right Qualified Code(s): M70.61 - Trochanteric bursitis, right hip Condition: Stable Disposition: HOME, SELF-CARE Instructions: Ice Packs ([facility]), Low Back Pain ([facility]), Warm Packs ([facility]) Additional Instructions: Rest ice/ice massage heat may help stretch daily strength exercises tylenol/naproxen as needed Recheck with your PCM in 2-3 days for a recheck and possible further work up Return to the ED with any worsening symptoms and/or development of fever, headache, chest pain, palpitations, syncope, shortness of breath, trouble breathing, abdominal pain, n/v/d, blood in stool/urine, urinary retention, muscle weakness/paralysis, or other worsening symptoms that are concerning to you. Prescriptions: Naproxen 500 mg PO BID PRN #10 tablet PRN Reason: Referrals: [facility] [Provider Group] - Follow up as needed
[2017-01-29] MEDS ORDERED: DEXAMETHASONE SOD PHOS INJ 10 MG/1 ML VIAL IM ONE (20:51)
[2017-01-29 21:31] VITALS: BP 119/75
== END 2017-01-29 21:31 | disposition home or self-care (01) ==
LOC: ER 19:34
DX: M70.61 Trochanteric bursitis, right hip (principal); M46.1 Sacroiliitis, not elsewhere classified; M54.5 Low back pain; M25.551 Pain in right hip; F41.9 Anxiety disorder, unspecified; F31.9 Bipolar disorder, unspecified; Z79.899 Other long term (current) drug therapy; J45.909 Unspecified asthma, uncomplicated
CPT/HCPCS: 99283; 96372; J1100

== ENCOUNTER 2017-02-03 16:24 | Emergency (ER) | payer BC ==
[2017-02-03] MEDS ORDERED: DIPHENHYDRAMINE HCL 25 MG CAPSULE PO ONE (16:59)
[2017-02-03] MEDS ORDERED: PROMETHAZINE HCL 25 MG TABLET PO ONE (16:59)
[2017-02-03] MEDS ORDERED: KETOROLAC TROMETHAMINE 60 MG/2 ML SDV IM ONE (16:59)
--- NOTE | 2017-02-03 17:00 | ER Document Report ---
HPI - HPI Patient complains to provider of: headache, hip pain Onset: Other - 2 days Onset/Duration: Persistent Quality of pain: Achy Severity: Severe Pain Level: 4 Context: Patient presents emergency department with complaints of migraine headache and right sided hip pain. Reports this is a typical migraine headache. Patient reports she has a history of migraine headaches diagnosed in [place] by a neurologist. She reports she does not have a neurologist here. She does have a primary care provider, [facility] [place]. Patient reports noise and lights make her headache worse. She denies fever vomiting diarrhea. She has taken Excedrin extra strength and Tylenol for this headache without relief of symptoms. Denies trauma. Also complains of right hip pain. She was just evaluated on January 29 for this hip pain and has an appointment with [facility] for surgery on February 17. Reports her right hip hurts when she stands up for a long time. Associated Symptoms: None Exacerbated by: Denies Relieved by: Denies Similar symptoms previously: Yes - hip pain Recently seen / treated by doctor: Yes - 01/29/17 - REPRODUCTIVE LMP: 02/01/17 Reproductive: DENIES: : - DERM Skin Color: Normal Past Medical History - General Information source: Patient Last Menstrual Period: 02/01/17 - Social History Smoking Status: Current Every Day Smoker Cigarette use (# per day): Yes Frequency of alcohol use: None Drug Abuse: None Lives with: Family Family History: Reviewed & Not Pertinent Patient has suicidal ideation: No Patient has homicidal ideation: No Pulmonary Medical History: Reports: Hx Asthma Neurological Medical History: Reports: Hx Migraine Renal/ Medical History: Denies: Hx Peritoneal Dialysis Psychiatric Medical History: Reports: Hx Anxiety, Hx Bipolar Disorder, Hx Schizophrenia Past Surgical History: Reports: Hx Adenoidectomy, Hx Breast Surgery - tumor removed, Hx Tonsillectomy - Tonsils and Adenoids, Hx Tubal Ligation, Hx Urinary Tract Surgery - Immunizations Immunizations up to date: Yes Hx Diphtheria, Pertussis, Tetanus Vaccination: Yes - unk Vertical Provider Document - CONSTITUTIONAL Agree With Documented VS: Yes Exam Limitations: No Limitations General Appearance: WD/WN, No Apparent Distress - INFECTION CONTROL TRAVEL OUTSIDE OF THE [place] IN LAST 30 DAYS: No - HEENT HEENT: Atraumatic, Normal ENT Exam, Normocephalic, PERRLA. negative: Conjuctival Injection, Pharyngeal Exudate, Pharyngeal Tenderness, Pharyngeal Erythema, Tympanic Membrane Red, Tympanic Membrane Bulging - NECK Neck: Normal Inspection, Supple. negative: Lymphadenopathy-Left, Lymphadenopathy-Right - RESPIRATORY Respiratory: Breath Sounds Normal, No Respiratory Distress O2 Sat by Pulse Oximetry: 100 - CARDIOVASCULAR Cardiovascular: Regular Rate, Regular Rhythm - MUSCULOSKELETAL/EXTREMETIES Musculoskeletal/Extremeties: MAEW, FROM - ambulates without problems, no limp - NEURO Level of Consciousness: Awake, Alert, Appropriate Motor/Sensory: No Motor Deficit - DERM Integumentary: Warm, Dry Course - Re-evaluation Re-evalutation: 02/03/17 17:12 Patient has a ride home. Patient was instructed on the importance of follow-up with her primary care provider and orthopedics for her right hip pain. She verbalized understanding to all instructions. - Vital Signs Vital signs: Temp Pulse Resp BP Pulse Ox 98.3 F 57 L 20 136/80 H 100 02/03/17 16:27 02/03/17 16:27 02/03/17 16:27 02/03/17 16:27 02/03/17 16:27 Discharge - Discharge Clinical Impression: Elevated blood pressure reading Headache Qualifiers: Headache type: unspecified Headache chronicity pattern: unspecified pattern Intractability: not intractable Qualified Code(s): R51 - Headache Hip pain Qualifiers: Laterality: right Qualified Code(s): M25.551 - Pain in right hip Condition: Stable Disposition: HOME, SELF-CARE Instructions: Use of Diphenhydramine, Toradol Injection ([facility]), Antinausea Medication ([facility]), Headache ([facility]), Neurologist Additional Instructions: *You have been evaluated for a migraine headache, history of hip pain, elevated blood pressure reading *Rest, push fluids, take over the counter benadryl as indicated *Follow up with a primary care provider within one week for recheck *Follow up with a neurologist for evaluation within one week *Follow up with the orthopedic as scheduled *Return to ED for worsening condition, changes, needs Monitor your blood pressure. Your blood pressure was elevated today. This may be because you were anxious, in pain or because you need medication. It is important to follow up with your primary care provider for full evaluation. Forms: Elevated Blood Pressure
[2017-02-03 17:39] VITALS: BP 138/77
== END 2017-02-03 17:37 | disposition home or self-care (01) ==
LOC: ER 16:24
DX: G43.909 Migraine, unspecified, not intractable, without status migrainosus (principal); M25.551 Pain in right hip; R03.0 Elevated blood-pressure reading, without diagnosis of hypertension; J45.909 Unspecified asthma, uncomplicated; F17.210 Nicotine dependence, cigarettes, uncomplicated
CPT/HCPCS: 99283; 96372; J1885

== ENCOUNTER 2017-05-27 14:04 | Emergency (ER) | payer BC ==
--- NOTE | 2017-05-27 16:08 | ER Document Report ---
ED Neck/Back Problem - General Chief Complaint: Back Pain Stated Complaint: BACK PAIN Time Seen by Provider: 05/27/17 15:52 Mode of Arrival: Ambulatory Information source: Patient Notes: 36-year-old female presents to ED for complaint of lower back pain that radiates down her right leg. She states she also has right pelvic pain that has been getting worse for the last several days. Her back pain is been worse over the last 2-3 weeks. She states she has a history of trauma history of low back pain and has been considering going to pain management. She says this right pelvic pain is new for the last several days. She states she has been working 7 days a week 8-12 hours a day for the last 6 weeks due to increasing work at her job. TRAVEL OUTSIDE OF THE [place] IN LAST 30 DAYS: No - HPI Patient complains to provider of: Lower back Onset: Other - The pelvic pain has been for several days the low back pain is been 2-3 weeks with a history of chronic low back pain Onset: Chronic - Back pain is chronic pelvic pain is not Quality of pain: Achy, Sharp, Stabbing Severity: Moderate Recent injury: No Associated symptoms: Lower back pain, Other - Right pelvic pain Exacerbated by: Movement of trunk, Sitting position Relieved by: Nothing Similar symptoms previously: Yes Recently seen / treated by doctor: No - Related Data Allergies/Adverse Reactions: No Known Allergies Allergy (Verified 01/29/17 19:36) Past Medical History - General Information source: Patient - Social History Smoking Status: Current Every Day Smoker Cigarette use (# per day): Yes - 4 cigarettes a day Chew tobacco use (# tins/day): No Smoking Education Provided: Yes - Less than 1 minute Frequency of alcohol use: Rare Drug Abuse: None Occupation: [employer] Lives with: Family Family History: Reviewed & Not Pertinent Patient has suicidal ideation: No Patient has homicidal ideation: No - Past Medical History Cardiac Medical History: Reports: None Pulmonary Medical History: Reports: Hx Asthma EENT Medical History: Reports: None Neurological Medical History: Reports: Hx Migraine Endocrine Medical History: Reports: None Renal/ Medical History: Reports: None Malignancy Medical History: Reports: None GI Medical History: Reports: None Musculoskeltal Medical History: Reports Hx Arthritis, Reports Hx Musculoskeletal Deformity, Reports Hx Musculoskeletal Trauma Skin Medical History: Reports None Psychiatric Medical History: Reports: Hx Anxiety, Hx Bipolar Disorder, Hx Schizophrenia Traumatic Medical History: Reports: None Infectious Medical History: Reports: None Past Surgical History: Reports: Hx Adenoidectomy, Hx Breast Surgery - tumor removed, Hx Tonsillectomy, Hx Tubal Ligation, Hx Urinary Tract Surgery - Immunizations Immunizations up to date: Yes Hx Diphtheria, Pertussis, Tetanus Vaccination: Yes - unk Review of Systems - Review of Systems Constitutional: No symptoms reported EENT: No symptoms reported Cardiovascular: No symptoms reported Respiratory: No symptoms reported Gastrointestinal: No symptoms reported Genitourinary: No symptoms reported Female Genitourinary: Other - Right pelvic pain Musculoskeletal: Back pain Skin: No symptoms reported Hematologic/Lymphatic: No symptoms reported Neurological/Psychological: No symptoms reported -: Yes All other systems reviewed and negative Physical Exam - Vital signs Vitals: Temp Pulse Resp BP Pulse Ox 98.3 F 86 19 118/58 L 99 05/27/17 14:23 05/27/17 14:23 05/27/17 14:23 05/27/17 14:23 05/27/17 14:23 Interpretation: Normal - General General appearance: Appears well, Alert - HEENT Head: Normocephalic, Atraumatic Eyes: Normal Pupils: PERRL - Respiratory Respiratory status: No respiratory distress Chest status: Nontender Breath sounds: Normal Chest palpation: Normal - Cardiovascular Rhythm: Regular Heart sounds: Normal auscultation Murmur: No - Abdominal Inspection: Normal Distension: No distension Bowel sounds: Normal Tenderness: Tender - Right pelvic pain Organomegaly: No organomegaly - Back Back: Normal, Tender. No: Deformity/step-off, CVA tenderness, Vertebra tenderness, Scars, Scoliosis, Wounds, Other - Extremities General upper extremity: Normal inspection, Nontender, Normal color, Normal ROM , Normal temperature General lower extremity: Normal inspection, Nontender, Normal color, Normal ROM , Normal temperature, Normal weight bearing. No: Prashant's sign - Neurological Neuro grossly intact: Yes Cognition: Normal Orientation: AAOx4 [place]inio Coma Scale Eye Opening: Spontaneous [place] Coma Scale Verbal: Oriented [place]io Coma Scale Motor: Obeys Commands [place] Coma Scale Total: 15 Speech: Normal Motor strength normal: LUE, RUE, LLE, RLE Sensory: Normal - Psychological Associated symptoms: Normal affect, Normal mood - Skin Skin Temperature: Warm Skin Moisture: Dry Skin Color: Normal Course - Re-evaluation Re-evalutation: 05/27/17 16:15 Denies loss of sensation, loss of muscle control, control of bowel or bladder, no saddle anesthesia, no signs or symptoms of cauda equina. Patient states that the pelvic pain to the right is new. States that her back pain radiates down her right leg. States she has had the pain off and on for a long time but this time it is been for 2-3 weeks after she has worked for the last 6 weeks 10- 12 hours 7 days a week. 05/27/17 20:05 Patient had urine and ultrasound. The ultrasound showed a left ovarian cyst but did not say anything about the right ovary which is where her pain was. Consulted Dr. Mcdonough who recommended a noncontrasted CT as they were not able to visualize the right ovary. CT was completed with no acute processes noted. Patient was discharged home with a EyeLock dispense pack and instructed to follow- up with [employer] as she continued to have right pelvic pain. - Vital Signs Vital signs: Temp Pulse Resp BP Pulse Ox 98.2 F 90 18 127/57 H 99 05/27/17 20:23 05/27/17 20:23 05/27/17 20:23 05/27/17 20:23 05/27/17 20:23 - Laboratory Laboratory results interpreted by me: 05/27/17 16:29 Urine Blood SMALL H - Diagnostic Test Radiology reviewed: Image reviewed, Reports reviewed Discharge - Discharge Clinical Impression: Pelvic pain, Left ovarian cyst Low back pain Qualifiers: Chronicity: acute Back pain laterality: bilateral Sciatica presence: with sciatica Sciatica laterality: sciatica of right side Qualified Code(s): M54.41 - Lumbago with sciatica, right side Condition: Stable Disposition: HOME, SELF-CARE Instructions: Family Physicians / Practices Additional Instructions: LOW BACK PAIN: Three out of every four people will have an episode of disabling back pain during their lifetime. Most commonly the pain is due to straining of the muscles and ligaments in the low back. Usual treatment includes: (1) Rest on a firm surface. Avoid lying on your stomach. (2) Ice pack the painful area. After a few days, gentle heat may be used intermittently to relax the area, or ice packs can be continued. (3) Medication may be needed -- muscle relaxers and antiinflammatory medicines are commonly used. (4) As the back improves, exercises are prescribed to strengthen the back and abdominal muscles. Your doctor will advise you on the proper care for your back at each stage in your recovery. You may be better in a few days -- or healing may take several weeks. If new symptoms of a "herniated disc" (radiation of pain, numbness, or tingling down the back of the leg or weakness in the leg) occur, you should be re-examined. Further testing may be necessary. PELVIC PAIN: There are many causes of pain in the pelvic area. The cause could be the tubes, ovaries, uterus, intestines, appendix, pelvic muscles and connective tissue, or the urinary tract. The cause of your pelvic pain is not clear. However, it seems safe to treat you outside the hospital. If the pain sounds like a temporary problem, we sometimes wait to see if it goes away. Other patients may need additional tests, such as pelvic ultrasound or cultures. Conditions may change. Call us or come back for reexamination if any problems occur, such as: (1) Pain that becomes more severe, steady, or becomes concentrated in one specific area. Also, pain that is more severe with movement or coughing. (2) Vomiting that persists or becomes more frequent. (3) Blood in the vomitus, urine, or bowel movements. Blood in the stool may have a tarry or black appearance. (4) Shaking chills or fever greater than 100 degrees. (5) The abdomen becomes more distended or swollen. (6) Bowel movements cease. (7) Heavy vaginal bleeding. Ovarian Cyst Your examination shows the presence of an ovarian cyst. This is a ball of fluid attached to the ovary. Ovarian cysts in women of child-bearing age are usually innocent. However, the cyst may cause pain when it grows or bursts. An innocent ovarian cyst will usually go away by itself. When the cyst becomes painful, you should rest. Pain medication may be required. Some women find a hot water bottle soothing. The pain usually resolves within one or two days. After menopause, an ovarian cyst may mean a tumor, and requires more aggressive evaluation -- usually surgery is recommended to remove or biopsy the cyst. A very large cyst requires evaluation at any age. Most cysts (even the innocent ones) require follow-up examination. Call the doctor or return at any time if the pain increases significantly, if you become faint, or if you experience vaginal bleeding. ORAL NARCOTIC MEDICATION: You have been given a prescription for pain control. This medication is a narcotic. It's best taken with food, as nausea can result if taken on an empty stomach. Don't operate machinery or drive within six hours of taking this medication. Do not combine this medicine with alcohol, or with any medication which can cause sedation (such as cold tablets or sleeping pills) unless you get permission from the physician. Narcotics tend to cause constipation. If possible, drink plenty of fluids and eat a diet high in fiber and fruits. Please be aware that prescription narcotics also have the potential for abuse. People become addicted to these medications because of the general sense of wellbeing that they induce. This feeling along with a significant reduction in tension, anxiety, and aggression provides a stimulating seductive quality to these drugs. Once your pain is under control, we encourage you to discard your unused narcotics. TORADOL INJECTION: You have been given an injection of ketorolac tromethamine (Toradol). This is an excellent, safe drug for pain control. It also has potent antiinflammatory action. You should have significant pain relief within about one hour. Toradol is not addicting and is non-sedating. It does not interfere with driving or work. Call or return if you develop itching, hives, shortness of breath, or rash. ICE PACKS: Apply ice packs frequently against the painful area. Many different schedules are recommended, such as "20 minutes on, 20 minutes off" or "one hour ice, two hours rest." If you need to work, you may need to go longer between ice treatments. You should plan to have the area ice packed AT LEAST one fourth of the time. The ice should be applied over the wrap, tape, or splint, or over a layer of cloth -- not directly against the skin. Some ice bags have a built-in cloth and can be put directly on the skin. WARM PACKS: After approximately two days, apply gentle heat (such as a heating pad or hot water bottle) for about 20 to 30 minutes about every two hours -- at least four times daily. Warmth and elevation will help you make a more rapid recovery , and will ease the pain considerably. Do not use HOT heat, and never apply heat for longer than 30 minutes. The continuous heat can invisibly damage skin and muscles -- even when no burn is seen on the surface. Damaged muscles can make you MORE sore. FOLLOW-UP CARE: If you have been referred to a physician for follow-up care, call the physician s office for an appointment as you were instructed or within the next two days. If you experience worsening or a significant change in your symptoms, notify the physician immediately or return to the Emergency Department at any time for re-evaluation. A list of primary doctors given to you for follow-up also a name SARAH was given this is . you can follow-up for your back pain. Forms: Smoking Cessation Education, Return to Work Referrals: YUNIEL SMITH MD [ASSOCIATE] - Follow up as needed
[2017-05-27 17:17] LABS: APPEARANCE,URINE CLEAR; BILIRUBIN,URINE NEGATIVE (NEGATIVE); GLUCOSE, URINE NEGATIVE (NEGATIVE); KETONES,URINE NEGATIVE (NEGATIVE); LEUKOCYTE ESTERASE,URINE NEGATIVE (NEGATIVE); NITRITE,URINE NEGATIVE (NEGATIVE); PROTEIN,URINE NEGATIVE (NEGATIVE); URINE SPECIFIC GRAVITY 1.014; UROBILINOGEN,URINE NEGATIVE mg/dL (<2.0)
--- NOTE | 2017-05-27 18:16 | RADIOLOGY REPORT (SQ) ---
EXAM DESCRIPTION: U/S NON-OB PELVIS TV W/O DOP COMPLETED DATE/TIME: 05/27/2017 6:04 pm REASON FOR STUDY: right pelvic pain COMPARISON: 07/28/2016. TECHNIQUE: Dynamic and static grayscale images acquired of the pelvis via transvaginal approach and recorded on PACS. Additional selected color Doppler and spectral images recorded. LIMITATIONS: None. FINDINGS: UTERUS: Contour normal. No mass. ENDOMETRIAL STRIPE: No focal or generalized thickening. No masses. CERVIX: No nabothian cysts. RIGHT OVARY: Ovary not visualized. LEFT OVARY: 2 cm hypoechoic cyst. LEFT OVARY DOPPLER: Normal arterial vascular flow without evidence for torsion. FREE FLUID: None noted. OTHER: No other significant finding. MEASUREMENTS: UTERUS: 5.0 x 5.3 x 10.2 cm. ENDOMETRIAL STRIPE: 12 mm. RIGHT OVARY: Not visualized. LEFT OVARY: 3.3 x 3.6 x 3.9 cm. IMPRESSION: RIGHT OVARY NOT VISUALIZED. 2 CM CYST IN THE LEFT OVARY. TECHNICAL DOCUMENTATION: JOB ID: [id number] [employer]- All Rights Reserved
[2017-05-27] MEDS ORDERED: KETOROLAC TROMETHAMINE 60 MG/2 ML SDV IM ONE (18:26)
--- NOTE | 2017-05-27 19:14 | RADIOLOGY REPORT (SQ) ---
EXAM DESCRIPTION: CT ABD/PELVIS NO ORAL OR IV COMPLETED DATE/TIME: 05/27/2017 7:02 pm REASON FOR STUDY: right pelvic pain COMPARISON: None. TECHNIQUE: CT scan of the abdomen and pelvis performed without intravenous or oral contrast. Images reviewed with lung, soft tissue, and bone windows. Reconstructed coronal and sagittal MPR images revi ewed. All images stored on PACS. All CT scanners at this facility use dose modulation, iterative reconstruction, and/or weight based d osing when appropriate to reduce radiation dose to as low as reasonably achievable (ALARA). [facility]: Dose Right [facility]: CareDose [facility]: Dose Right [facility]: Teradose 4D [facility]: Smart Primitive Makeup RADIATION DOSE: Up-to-date CT equipment and radiation dose reduction techniques were employed. CTDIv ol: 13.2 mGy. DLP: 719 mGy-cm.mGy. LIMITATIONS: None. FINDINGS: LOWER CHEST: No significant findings. No nodules or infiltrates. NON-CONTRASTED LIVER, SPLEEN, ADRENALS: Evaluation limited by lack of IV contrast. No identified sign ificant masses. PANCREAS: No masses. No peripancreatic inflammatory changes. GALLBLADDER: No identified stones by CT criteria. No inflammatory changes to suggest cholecystitis. RIGHT KIDNEY AND URETER: No suspicious masses. Assessment limited by lack of IV contrast. No signif icant calcifications. No hydronephrosis or hydroureter. LEFT KIDNEY AND URETER: No suspicious masses. Assessment limited by lack of IV contrast. No signifi cant calcifications. No hydronephrosis or hydroureter. AORTA AND RETROPERITONEUM: No aneurysm. No retroperitoneal masses or adenopathy. BOWEL AND PERITONEAL CAVITY: No obvious masses or inflammatory changes. No free fluid. APPENDIX: Normal. PELVIS, BLADDER, AND ABDOMINAL WALL:No abnormal masses. No free fluid. Bladder normal. BONES: No significant findings. OTHER: No other significant finding. IMPRESSION: NO SIGNIFICANT OR ACUTE PROCESS IN THE ABDOMEN OR PELVIS. COMMENT: Quality ID # [id number]: Final reports with documentation of one or more dose reduction techniques (e.g., Automated exposure control, adjustment of the mA and/or kV according to patient size, use of iterative reconstruction technique) TECHNICAL DOCUMENTATION: JOB ID: [id number]- All Rights Reserved
[2017-05-27] MEDS ORDERED: HYDROCODONE/ACETAMINOPHEN 5-325 MG 6 TAB/DSPK PO PRN (20:05)
[2017-05-27 20:24] VITALS: BP 127/57
== END 2017-05-27 20:26 | disposition home or self-care (01) ==
LOC: ER 14:04
DX: M54.41 Lumbago with sciatica, right side (principal); N83.202 Unspecified ovarian cyst, left side; R10.2 Pelvic and perineal pain; F17.210 Nicotine dependence, cigarettes, uncomplicated; Z98.51 Tubal ligation status
CPT/HCPCS: 99284; 96372; 81025; 81001; 76830; 74176; J1885

== ENCOUNTER 2017-06-26 20:20 | Emergency (ER) | payer BC ==
[2017-06-26 21:06] VITALS: BP 119/69
[2017-06-26] MEDS ORDERED: ONDANSETRON HCL INJ/PF 4 MG/2 ML SDV IV ONE (21:14)
--- NOTE | 2017-06-26 21:28 | ER Document Report ---
ED General - General Chief Complaint: Pelvic Pain Stated Complaint: LEFT SIDE PAIN Time Seen by Provider: 06/26/17 21:12 TRAVEL OUTSIDE OF THE [place] IN LAST 30 DAYS: No - HPI Notes: Patient is a 36-year-old female with a history of asthma, MH, left ovarian cyst who presents the ED complaining of continued right lower pelvic pain does not radiate along with left side pain without any known injury. Patient states that the pelvic pain has been there over the last 3 weeks since her last evaluation. Patient states that the pain has remained unchanged. Patient did have a workup performed with transvaginal ultrasound that did not visualize the right ovary and a follow-up CT scan which was unremarkable for any acute pathology. Patient states that on occasion she will have intermittent nausea but she does now without any vomiting. Patient states that she is still eating and drinking without difficulties. She still urinating normally and having normal bowel movements. Patient states that she is sexually active. She has not noticed any vaginal discharge or odor. Patient states that the side pain started over the last day and is described as a soreness that is sensitive to the touch. She denies any other significant past medical history or drug allergies. Denies any IV drug use. [place] [facility] [place] Denies any headache, fever, neck pain, URI, sore throat, chest pain, palpitations, syncope, cough, shortness of breath, wheeze, dyspnea, vomiting/diarrhea, urinary retention, dysuria, hematuria, back pain, loss of control of bowel or bladder, numbness/ tingling, saddle anesthesia, muscle paralysis/weakness, or rash. - Related Data Allergies/Adverse Reactions: No Known Allergies Allergy (Verified 06/26/17 21:01) Past Medical History - Social History Smoking Status: Unknown if Ever Smoked Family History: Reviewed & Not Pertinent Pulmonary Medical History: Reports: Hx Asthma Neurological Medical History: Reports: Hx Migraine Renal/ Medical History: Denies: Hx Peritoneal Dialysis Musculoskeltal Medical History: Reports Hx Arthritis, Reports Hx Musculoskeletal Deformity, Reports Hx Musculoskeletal Trauma Psychiatric Medical History: Reports: Hx Anxiety, Hx Bipolar Disorder, Hx Schizophrenia Past Surgical History: Reports: Hx Adenoidectomy, Hx Breast Surgery - tumor removed, Hx Tonsillectomy - Tonsils and Adenoids, Hx Tubal Ligation, Hx Urinary Tract Surgery - Immunizations Immunizations up to date: Yes Hx Diphtheria, Pertussis, Tetanus Vaccination: Yes - unk Review of Systems - Review of Systems Notes: REVIEW OF SYSTEMS: CONSTITUTIONAL : Denies fever, chills, or sweats. Denies recent illness. EENT: Denies eye, ear, throat, or mouth pain or symptoms. Denies nasal or sinus congestion or discharge. Denies throat, tongue, or mouth swelling or difficulty swallowing. CARDIOVASCULAR: Denies chest pain. Denies palpitations or racing or irregular heart beat. Denies ankle edema. RESPIRATORY: Denies cough, cold, or chest congestion. Denies shortness of breath, difficulty breathing, or wheezing. GASTROINTESTINAL: see hpi. Denies blood in vomitus, stools, or per rectum. Denies black, tarry stools. Denies constipation. GENITOURINARY: Denies difficulty urinating, painful urination, burning, frequency, blood in urine, or discharge. FEMALE GENITOURINARY: see hpi. Denies vaginal bleeding, heavy or abnormal periods, irregular periods. Denies vaginal discharge or odor. MUSCULOSKELETAL: see hpi. Denies back or neck pain or stiffness. Denies joint pain or swelling. SKIN: Denies rash, lesions or sores. NEUROLOGICAL: Denies confusion or altered mental status. Denies passing out or loss of consciousness. Denies dizziness or lightheadedness. Denies headache. Denies weakness or paralysis or loss of use of either side. Denies problems with gait or speech. Denies sensory loss, numbness, or tingling. ALL OTHER SYSTEMS REVIEWED AND NEGATIVE. Dictation was performed using [employer] voice recognition software Physical Exam - Vital signs Vitals: Temp Pulse Resp BP Pulse Ox 98.4 F 64 16 119/69 100 06/26/17 21:05 06/26/17 21:05 06/26/17 21:05 06/26/17 21:05 06/26/17 21:05 Notes: PHYSICAL EXAMINATION: GENERAL: Well-appearing, well-nourished and in no acute distress. A&Ox4. Appears comfortable. moving around bed w/o discomfort. LUNGS: Breath sounds clear to auscultation bilaterally and equal. No wheezes rales or rhonchi. HEART: Regular rate and rhythm without murmurs ABDOMEN: Soft, nondistended abdomen. No guarding, no rebound. No masses appreciated. Normal bowel sounds present. CVA tenderness negative bilaterally. + mild tenderness to the rt pelvic area. No McBurney tenderness. Female : No inguinal adenopathy. External genitalia without erythema, lesions , or masses. Vaginal mucosa pink. Cervix parous, pink, and without discharge. Uterus is smooth. No adnexal tenderness. No CMT. Musculoskeletal: Left side: + mild tenderness to light palp of the lower rib approx #9-10 w/o ecchymosis, step-off, deformity, erythema, warmth, or swelling. Ext b/l: FROM to passive/active. Strength 5+/5. Extremities: No cyanosis/clubbing/edema b/l. Peripheral pulses 2+. Capillary refill less than 3 seconds. NEUROLOGICAL: Normal speech, normal gait. Normal sensory, motor exams PSYCH: Normal mood, normal affect. SKIN: Warm, Dry, normal turgor, no rashes or lesions noted. Course - Re-evaluation Re-evalutation: 06/26/17 23:46 Patient is an afebrile, well-hydrated, 36-year-old female who presents the ED with right lower pelvic pain not otherwise specified. Vitals are stable. PE is otherwise unremarkable. Historically this pain has been ongoing for the last 3 weeks It has remained unchanged and is not worsening. Patient had a negative workup at that time. CBC, CMP, , urinalysis, wet mount, chlamydia/gonorrhea are all unremarkable for any acute pathology. Transvaginal ultrasound was also unremarkable for any acute pathology. Patient is not tender to the right lower quadrant of the abdomen. Low suspicion/risk for acute appendicitis, bowel obstruction, acute cholecystitis, acute cholangitis, perforated diverticulitis, incarcerated hernia, pancreatitis, perforated ulcer, peritonitis, sepsis, pelvic inflammatory disease, ectopic , tubo- ovarian abscess, ovarian torsion, or other systemic emergent condition at this time. Patient is aware that her condition can change from initial presentation and she needs to monitor symptoms closely and seek medical attention if any acute changes. Toradol given IV today. Conservative measures otherwise for symptoms. Recheck with OBGYN in 3-5 days. Recheck with your PCM in 3-5 days. Return to the ED with any worsening/concerning symptoms otherwise as reviewed in discharge. Patient is in agreement. - Vital Signs Vital signs: Temp Pulse Resp BP Pulse Ox 98.4 F 64 16 119/69 100 06/26/17 21:05 06/26/17 21:05 06/26/17 21:05 06/26/17 21:05 06/26/17 21:05 - Laboratory Result Diagrams: 06/26/17 21:52 06/26/17 21:52 Laboratory results interpreted by me: 06/26/17 21:52 Eosinophils % 10.0 H Absolute Eosinophils 0.7 H Procedures - Pelvic Exam Pelvic exam Time completed: 21:30 Cultures obtained: Yes Wet prep obtained: Yes Bimanual exam performed: Yes - neg Witnessed by: 2 female nurses and 1 female tech Discharge - Discharge Clinical Impression: Pelvic pain Condition: Stable Disposition: HOME, SELF-CARE Instructions: Pelvic Pain ([facility]), Toradol Injection ([facility]) Additional Instructions: Maintain fluid intake Safe sexual practices with condoms everytime Tylenol/ibuprofen as needed Moist cool/warm compresses may help Your labs and imaging were unremarkable today for an emergent condition Return immediately if symptoms worsen F/u with your PCM in 3-5 days for a recheck F/u with OBGYN in 3-5 days* Return to the ED with any development of D[place]/fever, trouble with vision, eye redness, worsening pain, urethral discharge, urinary retention, blood in the urine, flank pain, abdominal pain, n/v, Chest Pain, shortness of breath, joint pains, trouble breathing, or any other worsening/concerning symptoms as needed otherwise. Referrals: [facility] [Provider Group] - Follow up in 3-5 days
[2017-06-26 21:51] LABS: APPEARANCE,URINE CLEAR; BILIRUBIN,URINE NEGATIVE (NEGATIVE); GLUCOSE, URINE NEGATIVE (NEGATIVE); KETONES,URINE NEGATIVE (NEGATIVE); LEUKOCYTE ESTERASE,URINE NEGATIVE (NEGATIVE); NITRITE,URINE NEGATIVE (NEGATIVE); PROTEIN,URINE NEGATIVE (NEGATIVE); URINE SPECIFIC GRAVITY 1.004; UROBILINOGEN,URINE NEGATIVE mg/dL (<2.0)
[2017-06-26 22:13] LABS: ABSOLUTE EOSINOPHILS # (AUTO) 0.7 10^3/uL (0.0-0.6); ABSOLUTE LYMPHOCYTES (AUTO) 2.4 10^3/uL (0.5-4.7); ABSOLUTE MONOCYTES (AUTO) 0.5 10^3/uL (0.1-1.4); ABSOLUTE NEUT (AUTO) 2.9 10^3/uL (1.7-8.2); BASOPHILS % (AUTO) 0.7 % (0-2); HEMOGLOBIN 12.1 g/dL (12.0-15.5); HGB HCT DIFFERENCE 0.3; LYMPHOCYTES % (AUTO) 36.9 % (13-45); MEAN CORPUSCULAR HEMOGLOBIN 30.1 pg (27.0-33.4); MEAN CORPUSCULAR HGB CONC 33.7 g/dL (32.0-36.0); MEAN CORPUSCULAR VOLUME 89 fl (80-97); RED BLOOD COUNT 4.03 10^6/uL (3.72-5.28); RED CELL DISTRIBUTION WIDTH 13.5 % (11.5-14.0); SEGMENTED NEUTROPHILS % (AUTO) 44.4 % (42-78); WHITE BLOOD COUNT 6.6 10^3/uL (4.0-10.5)
[2017-06-26 22:34] LABS: ALANINE AMINOTRANSFERASE 27 U/L (9-52); ALBUMIN 4.1 g/dL (3.5-5.0); ALKALINE PHOSPHATASE 53 U/L (38-126); ANION GAP 11 (5-19); ASPARTATE AMINO TRANSFERASE 19 U/L (14-36); BILIRUBIN,DIRECT 0.4 mg/dL (0.0-0.4); BILIRUBIN,TOTAL 0.4 mg/dL (0.2-1.3); BLOOD UREA NITROGEN 14 mg/dL (7-20); CALCIUM 9.5 mg/dL (8.4-10.2); CARBON DIOXIDE 29 mmol/L (22-30); CHLORIDE 104 mmol/L (98-107); CREATININE RESULT 0.62 mg/dL (0.52-1.25); GLUCOSE 101 mg/dL (75-110); LIPASE 98.1 U/L (23-300); POTASSIUM 4.6 mmol/L (3.6-5.0); SODIUM 143.5 mmol/L (137-145); TOTAL PROTEIN 6.7 g/dL (6.3-8.2)
[2017-06-26] MEDS ORDERED: LIDOCAINE 1% INJ-PF (10 MG/ML) 30 ML SDV INJ ONE (22:44)
[2017-06-26] MEDS ORDERED: AZITHROMYCIN 250 MG TABLET PO ONE (22:44)
[2017-06-26] MEDS ORDERED: CEFTRIAXONE INJ 250 MG VIAL IM ONE (22:44)
--- NOTE | 2017-06-26 23:14 | RADIOLOGY REPORT (SQ) ---
EXAM DESCRIPTION: U/S NON OB PEL TV W/DOPPLER COMPLETED DATE/TIME: 06/26/2017 10:57 pm REASON FOR STUDY: pelvic pain COMPARISON: 05.27.17 TECHNIQUE: Dynamic and static grayscale images acquired of the pelvis via transvaginal approach and recorded on PACS. Additional selected color Doppler and spectral images recorded. LIMITATIONS: Body habitus and bowel gas artifact. FINDINGS: UTERUS: Contour normal. No mass. ENDOMETRIAL STRIPE: No focal or generalized thickening. No masses. CERVIX: No nabothian cysts. RIGHT OVARY: Ovary not visualized. RIGHT OVARY DOPPLER: Ovary not visualized. LEFT OVARY: No abnormal masses. 4.5 cm left ovary contains a 3.1 cm cystic component within normal li mits. LEFT OVARY DOPPLER: Normal arterial vascular flow without evidence for torsion. FREE FLUID: None noted. OTHER: No other significant finding. MEASUREMENTS: UTERUS: 9 cm. ENDOMETRIAL STRIPE: 0.7 cm. RIGHT OVARY: Not visualized. LEFT OVARY: 4.5 cm. IMPRESSION: No acute findings. Right ovary not directly visualized. TECHNICAL DOCUMENTATION: JOB ID: [id number]- All Rights Reserved
[2017-06-26 23:20] LABS: CHLAM PCR NOT DETECTED (NOT DETECT)
[2017-06-26] MEDS ORDERED: KETOROLAC TROMETHAMINE INJ/PF 30 MG/1 ML SDV IV ONE (23:44)
== END 2017-06-27 00:02 | disposition home or self-care (01) ==
LOC: ER 20:20
DX: R10.2 Pelvic and perineal pain (principal)
CPT/HCPCS: 99284; 96374; 96375; 36415; 87086; 87210; 84702; 83690; 85025; 80053; 81001; 87491; 87591; 76830; 93976; J1885; J2405

== ENCOUNTER 2017-07-31 10:53 | Emergency (ER) | payer BC ==
--- NOTE | 2017-07-31 11:16 | ER Document Report ---
HPI - HPI Patient complains to provider of: Body aches congestion fever cough Onset: Yesterday - Sudden onset Quality of pain: Achy Pain Level: 4 Context: 36-year-old female complaining of sudden onset of body aches fever congestion cough yesterday. [place] [employer]. Chest hurts when she coughs. She did not get a flu shot. Exacerbated by: Denies Relieved by: Denies Similar symptoms previously: No Recently seen / treated by doctor: No - ROS ROS below otherwise negative: Yes Systems Reviewed and Negative: Yes All other systems reviewed and negative - CONSTITUTIONAL Constitutional: REPORTS: Fever, Chills - EENT EENT: REPORTS: Sore Throat, Ear Pain - RESPIRATORY Respiratory: REPORTS: Coughing - REPRODUCTIVE Reproductive: DENIES: : Past Medical History - General Information source: Patient - Social History Smoking Status: Current Every Day Smoker Frequency of alcohol use: None Drug Abuse: None Occupation: [employer] Lives with: Family Family History: Reviewed & Not Pertinent Patient has suicidal ideation: No Patient has homicidal ideation: No Pulmonary Medical History: Reports: Hx Asthma Neurological Medical History: Reports: Hx Migraine Renal/ Medical History: Denies: Hx Peritoneal Dialysis Musculoskeltal Medical History: Reports Hx Arthritis, Reports Hx Musculoskeletal Deformity, Reports Hx Musculoskeletal Trauma Psychiatric Medical History: Reports: Hx Anxiety, Hx Bipolar Disorder, Hx Schizophrenia Past Surgical History: Reports: Hx Adenoidectomy, Hx Breast Surgery - tumor removed Right breast, Hx Tonsillectomy - Tonsils and Adenoids, Hx Tubal Ligation , Hx Urinary Tract Surgery - Immunizations Immunizations up to date: Yes Hx Diphtheria, Pertussis, Tetanus Vaccination: Yes - unk Vertical Provider Document - CONSTITUTIONAL Agree With Documented VS: Yes Exam Limitations: No Limitations General Appearance: No Apparent Distress - INFECTION CONTROL TRAVEL OUTSIDE OF THE [place] IN LAST 30 DAYS: No - HEENT HEENT: Normocephalic, Pharyngeal Erythema. negative: Conjuctival Injection, Tympanic Membrane Red - NECK Neck: Supple. negative: Lymphadenopathy-Left, Lymphadenopathy-Right - RESPIRATORY Respiratory: Breath Sounds Normal, No Respiratory Distress O2 Sat by Pulse Oximetry: 100 - CARDIOVASCULAR Cardiovascular: Regular Rate, Regular Rhythm - MUSCULOSKELETAL/EXTREMETIES Musculoskeletal/Extremeties: FABIOLA HENLEY - NEURO Level of Consciousness: Awake, Alert, Appropriate - DERM Integumentary: Warm, Dry, No Rash Course - Re-evaluation Re-evalutation: 07/31/17 11:22 Patient had a very short period for 2 days and has had tubal ligation. Tamiflu is considered category C I will make sure she is not and if the influenza is positive treat her with Tamiflu since the symptoms started less than 24 hours ago 07/31/17 12:24 test and rapid flu is negative the patient has a viral upper respiratory infection. - Vital Signs Vital signs: Temp Pulse Resp BP Pulse Ox 98.7 F 82 18 133/73 H 100 07/31/17 10:57 07/31/17 10:57 07/31/17 10:57 07/31/17 10:57 07/31/17 10:57 Discharge - Discharge Clinical Impression: Upper respiratory infection Condition: Good Disposition: HOME, SELF-CARE Instructions: Acetaminophen, Use of [id number]-[id number] Ibuprofen ([facility]), Upper Respiratory Illness ([facility]) Additional Instructions: Rest Plenty of fluids Tylenol Motrin Return to the emergency room with any worsening of the symptoms. Forms: Return to Work Referrals: ERNIE SCOTT MD [Primary Care Provider] - Follow up as needed
[2017-07-31 12:07] LABS: A TYPE INFLUENZA AG NEGATIVE (NEGATIVE)
[2017-07-31 12:08] LABS: B INFLUENZA AG NEGATIVE (NEGATIVE)
[2017-07-31 12:35] VITALS: BP 126/77
== END 2017-07-31 12:38 | disposition home or self-care (01) ==
LOC: ER 10:53
DX: J02.8 Acute pharyngitis due to other specified organisms (principal); B97.89 Other viral agents as the cause of diseases classified elsewhere; R07.89 Other chest pain; R05 Cough; R50.9 Fever, unspecified; H92.09 Otalgia, unspecified ear; F17.200 Nicotine dependence, unspecified, uncomplicated; J45.909 Unspecified asthma, uncomplicated
CPT/HCPCS: 81025; 87804; 99283

== ENCOUNTER 2017-08-29 09:53 | Emergency (ER) | payer BC ==
[2017-08-29] MEDS ORDERED: NORMAL SALINE 1000 ML 1,000 ML IV ONE (10:23)
[2017-08-29] MEDS ORDERED: PROCHLORPERAZINE EDISYLATE INJ 10 MG/2 ML VIAL IV ONE (10:23)
[2017-08-29] MEDS ORDERED: DIPHENHYDRAMINE HCL 50 MG/ML VIAL IV ONE (10:23)
[2017-08-29] MEDS ORDERED: KETOROLAC TROMETHAMINE INJ/PF 30 MG/1 ML SDV IV ONE (10:23)
--- NOTE | 2017-08-29 10:48 | ER Document Report ---
ED Headache - General Chief Complaint: Headache Stated Complaint: HEADACHE Time Seen by Provider: 08/29/17 10:06 Mode of Arrival: Ambulatory Information source: Patient Notes: 36-year-old female presents to ED for complaint of headache 2 days. She states she is on her period at this time. She states she has been taken Excedrin migraine which is usually helps but this has not helped this time. She states she has had the Toradol Compazine and Benadryl in the past and it did help. 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 She is able to speak in complete full sentences, pupils are equal and react to light. Patient is alert oriented and answers questions appropriately. Patient is able to walk with the even steady gait. TRAVEL OUTSIDE OF THE [place] IN LAST 30 DAYS: No - HPI Patient complains to provider of: Headache Patient reports: Prior neurologic eval Onset: Other - 2 days Onset was: Gradual Timing: Still present Quality of pain: Pressure, Throbbing Severity: Severe Pain Level: 5 Associated symptoms: denies: Fever, Memory loss, Motion sickness, Motor/sensory loss to arm, Motor/sensory loss to leg, Nausea/vomiting, Neck pain, Stiff neck, Tingling/numb sensation, Trouble walking Exacerbated by: Light, Noise, Movement Similar symptoms previously: Yes Recently seen / treated by doctor: No - Related Data Allergies/Adverse Reactions: No Known Allergies Allergy (Verified 08/29/17 09:54) Past Medical History - General Information source: Patient - Social History Smoking Status: Current Every Day Smoker Cigarette use (# per day): Yes - 1 maybe 2 cigarettes a day Chew tobacco use (# tins/day): No Smoking Education Provided: Yes - 4 minutes Frequency of alcohol use: Rare Drug Abuse: None Occupation: [employer] Lives with: Family Family History: Arthritis, CVA, DM, Hyperlipidemia, Hypertension, Malignancy. denies: CAD, COPD, Thyroid Disfunction Patient has suicidal ideation: No Patient has homicidal ideation: No - Past Medical History Cardiac Medical History: Reports: None Pulmonary Medical History: Reports: Hx Asthma EENT Medical History: Reports: None Neurological Medical History: Reports: Hx Migraine Endocrine Medical History: Reports: None Renal/ Medical History: Reports: None Malignancy Medical History: Reports: None GI Medical History: Reports: None Musculoskeltal Medical History: Reports Hx Arthritis, Reports Hx Musculoskeletal Deformity, Reports Hx Musculoskeletal Trauma Skin Medical History: Reports None Psychiatric Medical History: Reports: Hx Anxiety, Hx Bipolar Disorder, Hx Schizophrenia Traumatic Medical History: Reports: Hx Fractures - Leg Infectious Medical History: Reports: None Past Surgical History: Reports: Hx Adenoidectomy, Hx Breast Surgery - tumor removed Right breast, Hx Tonsillectomy, Hx Tubal Ligation - Immunizations Immunizations up to date: Yes Hx Diphtheria, Pertussis, Tetanus Vaccination: Yes - 08/29/2017 patient states 5 years ago Review of Systems - Review of Systems Constitutional: No symptoms reported EENT: No symptoms reported Cardiovascular: No symptoms reported Respiratory: No symptoms reported Gastrointestinal: No symptoms reported Genitourinary: No symptoms reported Female Genitourinary: No symptoms reported Musculoskeletal: No symptoms reported Skin: No symptoms reported Hematologic/Lymphatic: No symptoms reported Neurological/Psychological: Headaches -: Yes All other systems reviewed and negative Physical Exam - Vital signs Vitals: Temp Pulse Resp BP Pulse Ox 98.0 F 73 20 131/70 H 100 08/29/17 09:57 08/29/17 09:57 08/29/17 09:57 08/29/17 09:57 08/29/17 09:57 Interpretation: Normal - General General appearance: Appears well, Alert - HEENT Head: Normocephalic, Atraumatic Eyes: Normal Pupils: PERRL Ears: Normal External canal: Normal Tympanic membrane: Normal Sinus: Normal Nasal: Swelling, Clear rhinorrhea Mouth/Lips: Normal Mucous membranes: Normal Pharynx: Normal Neck: Normal - Respiratory Respiratory status: No respiratory distress Chest status: Nontender Breath sounds: Normal Chest palpation: Normal - Cardiovascular Rhythm: Regular Heart sounds: Normal auscultation Murmur: No - Abdominal Inspection: Normal Distension: No distension Bowel sounds: Normal Tenderness: Nontender Organomegaly: No organomegaly - Back Back: Normal, Nontender - Extremities General upper extremity: Normal inspection, Nontender, Normal color, Normal ROM , Normal temperature General lower extremity: Normal inspection, Nontender, Normal color, Normal ROM , Normal temperature, Normal weight bearing. No: Prashant's sign - Neurological Neuro grossly intact: Yes Cognition: Normal Orientation: AAOx4 [place] Coma Scale Eye Opening: Spontaneous Higinio Coma Scale Verbal: Oriented Higinio Coma Scale Motor: Obeys Commands [place] Coma Scale Total: 15 Speech: Normal Cranial nerves: Normal Cerebellar coordination: Normal Motor strength normal: LUE, RUE, LLE, RLE Additional motor exam normals: Equal fur buyer Babinski reflex: Normal (flexor plantar) Sensory: Normal Biceps - Reflex grade: 2 = Normal Triceps - Reflex grade: 2 = Normal Brachioradialis - Reflex grade: 2 = Normal Knee - Reflex grade: 2 = Normal Ankle - Reflex grade: 2 = Normal - Psychological Associated symptoms: Normal affect, Normal mood - Skin Skin Temperature: Warm Skin Moisture: Dry Skin Color: Normal Course - Re-evaluation Re-evalutation: 08/29/17 10:49 Patient will be treated with Toradol Benadryl and Compazine IV with IV fluids for her migraine headache. 08/29/17 12:30 Patient was discharged from the emergency room at about 1215. She states she had relief from her headache and was feeling much better. She was discharged home with a prescription for Compazine and ibuprofen and instructed to follow- up with her primary doctor and with her migraine doctor. - Vital Signs Vital signs: Temp Pulse Resp BP Pulse Ox 98.4 F 51 L 18 116/66 100 08/29/17 12:13 08/29/17 12:13 08/29/17 12:13 08/29/17 12:13 08/29/17 12:13 Discharge - Discharge Clinical Impression: Migraine Qualifiers: Migraine type: unspecified Status migrainosus presence: without status migrainosus Intractability: not intractable Qualified Code(s): G43.909 - Migraine, unspecified, not intractable, without status migrainosus HTN (hypertension) Qualifiers: Hypertension type: unspecified Qualified Code(s): I10 - Essential (primary) hypertension Condition: Stable Disposition: HOME, SELF-CARE Additional Instructions: HEADACHE: The physician does not feel that the headache you are experiencing has a serious underlying cause. Most headaches are due to emotional stress, with resultant muscle tension (tension headache). Occasionally, headaches are secondary to changes in the blood vessels of the scalp (vascular headache and migraine headache). Sometimes, a headache is the first symptom of another developing illness, such as a viral infection. You have no evidence of stroke, bleeding, meningitis, or other serious cause of your headache. The treatment of headaches varies with the severity and cause of the pain. Not all headaches need pain shots. In fact, there is evidence that using narcotics for headaches may make them worse in the long run. The physician will determine the therapy that's in your best interest. If you develop a fever, if the headache is different from any you've previously experienced, or if the headache progressively worsens, then call your physician at once or go to the emergency room. USE OF DIPHENHYDRAMINE: Diphenhydramine (Benadryl) is an antihistamine and has been recommended to help treat your headache and to prevent side effects of other medications used to treat headaches. The medication can be repeated four times daily. Age Elixir (12.5 mg/tsp) 25 mg pill adult 1-2 tabs Antihistamines may cause drowsiness, especially with the first dose. Do not operate machinery or drive while under the effects of the medication. Do not combine the medication with alcohol, or with any other medication without talking to your doctor. ANTINAUSEA MEDICATION: You have been given a medication to suppress nausea and vomiting. This type of medication can be given as a shot, pill, or suppository. It will usually last for many hours. Pills and shots usually last six to eight hours, suppositories last about 12 hours. For the typical illness, only one or two doses of the medication may be necessary. Mild lightheadedness may occur. This type of medicine can cause drowsiness. Do not drive or operate dangerous machinery while under its influence. Do not mix with alcohol. See your doctor at once if you have muscle spasms or tightness, or uncontrollable motions (particularly of the neck, mouth, or jaw). Persistent vomiting or severe lightheadedness should also be evaluated by the physician. INTRAVENOUS COMPAZINE FOR HEADACHE: You have received therapy for headaches, using intravenous Compazine. This treatment is dramatically successful in relieving the headache in about 50 percent of cases. When it works, it provides a rapid method of eliminating the headache without resorting to narcotics (and the problems associated with them). Most patients still feel fully alert after the Compazine, but others may be slightly drowsy. It's best not to drive or work with machinery for six to eight hours. Do not take alcohol or other medication unless you discuss it with the doctor. If you develop tightness and spasms in your muscles, especially the neck and tongue, you should return. This is a side effect which can be treated. TORADOL INJECTION: You have been given an injection of ketorolac tromethamine (Toradol). This is an excellent, safe drug for pain control. It also has potent antiinflammatory action. You should have significant pain relief within about one hour. Toradol is not addicting and is non-sedating. It does not interfere with driving or work. Call or return if you develop itching, hives, shortness of breath, or rash. FOLLOW-UP CARE: If you have been referred to a physician for follow-up care, call the physician s office for an appointment as you were instructed or within the next two days. If you experience worsening or a significant change in your symptoms, notify the physician immediately or return to the Emergency Department at any time for re-evaluation. Prescriptions: Ibuprofen 600 mg PO Q6HP PRN #20 tablet PRN Reason: Prochlorperazine Maleate [Compazine 10 mg Tablet] 10 mg PO Q6HP PRN #10 tablet PRN Reason: Forms: Elevated Blood Pressure, Smoking Cessation Education, Return to Work Referrals: IRINA LISA DO [Primary Care Provider] - Follow up as needed
[2017-08-29 12:15] VITALS: BP 116/66
== END 2017-08-29 12:14 | disposition home or self-care (01) ==
LOC: ER 09:53
DX: G43.909 Migraine, unspecified, not intractable, without status migrainosus (principal); I10 Essential (primary) hypertension; J34.89 Other specified disorders of nose and nasal sinuses; J45.909 Unspecified asthma, uncomplicated; F17.210 Nicotine dependence, cigarettes, uncomplicated; Z71.6 Tobacco abuse counseling
CPT/HCPCS: 99406; 99283; 96361; 96374; 96375; J1200; J1885; J0780; J7030

== ENCOUNTER 2017-10-02 12:10 | Emergency (ER) | payer BC ==
[2017-10-02] MEDS ORDERED: PROCHLORPERAZINE EDISYLATE INJ 10 MG/2 ML VIAL IV ONE (12:55)
[2017-10-02] MEDS ORDERED: DIPHENHYDRAMINE HCL 50 MG/ML VIAL IV ONE (12:55)
[2017-10-02] MEDS ORDERED: NORMAL SALINE 1000 ML 1,000 ML IV ONE (12:55)
[2017-10-02] MEDS ORDERED: KETOROLAC TROMETHAMINE INJ/PF 30 MG/1 ML SDV IV ONE (12:55)
--- NOTE | 2017-10-02 12:56 | ER Document Report ---
ED Headache - General Chief Complaint: Headache Stated Complaint: HEADACHE Time Seen by Provider: 10/02/17 12:42 Mode of Arrival: Ambulatory Information source: Patient Notes: Patient presents complaining of headache pain for the past 2 days. Patient states headache is on the right side of her scalp. Patient states she is a history of migraines and this is typical presentation of migraine she has had in the past. Patient does complain of photophobia and phonophobia. Patient does report nausea but denies any vomiting or fever. TRAVEL OUTSIDE OF THE [place] IN LAST 30 DAYS: No - HPI Patient complains to provider of: Headache Onset: Other - 2 days Onset was: Gradual Timing: Still present Quality of pain: Pressure Pain Level: 4 Associated symptoms: Nausea/vomiting, Photophobia. denies: Fever, Neck pain, Stiff neck - Nausea Exacerbated by: Light, Noise Similar symptoms previously: Yes Recently seen / treated by doctor: No - Related Data Allergies/Adverse Reactions: No Known Allergies Allergy (Verified 10/02/17 12:13) Past Medical History - General Information source: Patient - Social History Smoking Status: Current Every Day Smoker Smoking Education Provided: Yes Frequency of alcohol use: None Drug Abuse: None Occupation: [employer] Lives with: Family Family History: Arthritis, CVA, DM, Hyperlipidemia, Hypertension, Malignancy. denies: CAD, COPD, Thyroid Disfunction Pulmonary Medical History: Reports: Hx Asthma Neurological Medical History: Reports: Hx Migraine Renal/ Medical History: Denies: Hx Peritoneal Dialysis Musculoskeltal Medical History: Reports Hx Arthritis, Reports Hx Musculoskeletal Deformity, Reports Hx Musculoskeletal Trauma Psychiatric Medical History: Reports: Hx Anxiety, Hx Bipolar Disorder, Hx Schizophrenia Traumatic Medical History: Reports: Hx Fractures - Leg Past Surgical History: Reports: Hx Adenoidectomy, Hx Breast Surgery - tumor removed Right breast, Hx Tonsillectomy, Hx Tubal Ligation, Hx Urinary Tract Surgery - Immunizations Immunizations up to date: Yes Hx Diphtheria, Pertussis, Tetanus Vaccination: Yes - 08/29/2017 patient states 5 years ago Review of Systems - Review of Systems Constitutional: No symptoms reported. denies: Fever, Recent illness EENT: No symptoms reported Cardiovascular: No symptoms reported. denies: Chest pain Respiratory: No symptoms reported. denies: Cough, Short of breath Gastrointestinal: Nausea. denies: Vomiting Genitourinary: No symptoms reported. denies: Dysuria Female Genitourinary: No symptoms reported Musculoskeletal: No symptoms reported. denies: Neck pain Skin: No symptoms reported Hematologic/Lymphatic: No symptoms reported Neurological/Psychological: Headaches. denies: Weakness Physical Exam - Vital signs Vitals: Temp Pulse Resp BP Pulse Ox 98.5 F 88 16 131/59 H 100 10/02/17 12:26 10/02/17 12:26 10/02/17 12:26 10/02/17 12:26 10/02/17 12:26 - General General appearance: Appears well, Alert In distress: None - HEENT Head: Normocephalic, Atraumatic. No: Racoon's eyes, Tenderness Eyes: Normal Conjunctiva: Normal Extraocular movements intact: Yes Eyelashes: Normal Pupils: PERRL Ears: Normal External canal: Normal Tympanic membrane: Normal Nasal: Normal Mouth/Lips: Normal Mucous membranes: Dry Pharynx: Normal. No: Erythema Neck: Normal, Supple. No: Lymphadenopathy, Meningismus - Respiratory Respiratory status: No respiratory distress Chest status: Nontender Breath sounds: Normal. No: Rales, Rhonchi, Stridor, Wheezing Chest palpation: Normal - Cardiovascular Rhythm: Regular Heart sounds: S1 appreciated, S2 appreciated Murmur: No - Back Back: Normal, Nontender. No: Vertebra tenderness - Extremities General upper extremity: Normal inspection, Nontender, Normal ROM General lower extremity: Normal inspection, Nontender, Normal ROM - Neurological Neuro grossly intact: Yes Cognition: Normal Orientation: AAOx4 Higinio Coma Scale Eye Opening: Spontaneous [place]inio Coma Scale Verbal: Oriented [place] Coma Scale Motor: Obeys Commands Higinio Coma Scale Total: 15 Speech: Normal. No: Dysarthria Cranial nerves: Normal. No: Facial palsy, Tongue deviation Cerebellar coordination: Normal - Psychological Associated symptoms: Normal affect, Normal mood - Skin Skin Temperature: Warm Skin Moisture: Dry Skin Color: Normal Course - Re-evaluation Re-evalutation: 10/02/17 14:18 The patient presents with headache without signs of [employer] bleed, stroke, infection , or other serious etiology. The patient is neurologically intact. Given the extremely low risk of these diagnoses further testing and evaluation for these possibilities does not appear to be indicated at this time. The patient has been instructed to return if the symptoms worsen or change in any way. - Vital Signs Vital signs: Temp Pulse Resp BP Pulse Ox 98.5 F 69 16 121/73 100 10/02/17 12:26 10/02/17 15:00 10/02/17 15:00 10/02/17 15:00 10/02/17 15:00 Discharge - Discharge Clinical Impression: Headache Qualifiers: Headache type: unspecified Headache chronicity pattern: unspecified pattern Intractability: not intractable Qualified Code(s): R51 - Headache Condition: Stable Disposition: HOME, SELF-CARE Instructions: Intravenous Compazine for Headaches ([facility]), Use of Diphenhydramine , Headache ([facility]), Toradol Injection ([facility]) Additional Instructions: Return immediately for any new or worsening symptoms Followup with your primary care provider, call tomorrow to make a followup appointment Prescriptions: Butalb/Acetaminophen/Caffeine [Fioricet (50-325-40 mg) Tablet] 1 - 2 tab PO Q4H PRN #12 each PRN Reason: Forms: Smoking Cessation Education, Return to Work Referrals: ERNIE SCOTT MD [Primary Care Provider] - Follow up as needed
[2017-10-02 15:21] VITALS: BP 121/73
== END 2017-10-02 15:15 | disposition home or self-care (01) ==
LOC: ER 12:10
DX: R51 Headache (principal); R11.2 Nausea with vomiting, unspecified; H53.149 Visual discomfort, unspecified; R11.0 Nausea; F17.200 Nicotine dependence, unspecified, uncomplicated; Z98.51 Tubal ligation status
CPT/HCPCS: 99283; 96361; 96374; 96375; J1200; J1885; J0780; J7030

== ENCOUNTER 2017-10-29 07:30 | Emergency (ER) | payer BC ==
[2017-10-29 08:13] LABS: APPEARANCE,URINE SLIGHTLY HAZY; BILIRUBIN,URINE NEGATIVE (NEGATIVE); COLOR,URINE YELLOW; GLUCOSE, URINE NEGATIVE (NEGATIVE); KETONES,URINE NEGATIVE (NEGATIVE); PROTEIN,URINE 30 mg/dL (NEGATIVE); URINE SPECIFIC GRAVITY 1.026
[2017-10-29 08:14] LABS: LEUKOCYTE ESTERASE,URINE LARGE (NEGATIVE); NITRITE,URINE NEGATIVE (NEGATIVE); UROBILINOGEN,URINE NEGATIVE mg/dL (<2.0)
--- NOTE | 2017-10-29 08:38 | ER Document Report ---
ED General - General Chief Complaint: Abdominal Pain Stated Complaint: ABDOMINAL CRAMPING Time Seen by Provider: 10/29/17 07:52 Mode of Arrival: Ambulatory Information source: Patient TRAVEL OUTSIDE OF THE [place] IN LAST 30 DAYS: No - HPI Notes: 36-year-old female presents today with complaints of right lower quadrant tenderness, right flank pain with vaginal discharge 2 days. Denies any nausea vomiting or diarrhea pain is consistent and constant, 6 out of 10. Patient's last menstrual period was on October 18, she has been sexually active without any protection since that time. Worse with time, nothing makes better. Eating and drinking without issues. Patient's is 9 para 6, states she had 1 stillborn births and 2 miscarriages. History of tubal ligation. Denies fevers , chills, chest pain, palpitations, shortness of breath, dyspnea, nausea, vomiting, diarrhea, hematuria,blurred vision, double vision, loss of vision, speech changes, LH, dizziness, syncope, headaches, wheezing, ST, URI, neck pain , weakness, bowel or bladder dysfunction, saddle anesthesia, numbness or tingling in bilateral upper or lower extremities equally, muscle paralysis, weakness in bilateral upper or lower extremities equally or rash. Denies IV drug use. - Related Data Allergies/Adverse Reactions: No Known Allergies Allergy (Verified 10/29/17 07:31) Past Medical History - Social History Smoking Status: Current Every Day Smoker Chew tobacco use (# tins/day): No Frequency of alcohol use: Occasional Drug Abuse: None Family History: Arthritis, CVA, DM, Hyperlipidemia, Hypertension, Malignancy. denies: CAD, COPD, Thyroid Disfunction Patient has suicidal ideation: No Patient has homicidal ideation: No Pulmonary Medical History: Reports: Hx Asthma Neurological Medical History: Reports: Hx Migraine Renal/ Medical History: Denies: Hx Peritoneal Dialysis Musculoskeltal Medical History: Reports Hx Arthritis, Reports Hx Musculoskeletal Deformity, Reports Hx Musculoskeletal Trauma Psychiatric Medical History: Reports: Hx Anxiety, Hx Bipolar Disorder, Hx Schizophrenia Traumatic Medical History: Reports: Hx Fractures - Leg Past Surgical History: Reports: Hx Adenoidectomy, Hx Breast Surgery - tumor removed Right breast, Hx Tonsillectomy, Hx Tubal Ligation, Hx Urinary Tract Surgery - Immunizations Immunizations up to date: Yes Hx Diphtheria, Pertussis, Tetanus Vaccination: Yes - 08/29/2017 patient states 5 years ago Review of Systems - Review of Systems Notes: REVIEW OF SYSTEMS: CONSTITUTIONAL : Denies fever, chills, or sweats. Denies recent illness. EENT: Denies eye, ear, throat, or mouth pain or symptoms. Denies nasal or sinus congestion or discharge. Denies throat, tongue, or mouth swelling or difficulty swallowing. CARDIOVASCULAR: Denies chest pain. Denies palpitations or racing or irregular heart beat. Denies ankle edema. RESPIRATORY: Denies cough, cold, or chest congestion. Denies shortness of breath, difficulty breathing, or wheezing. GASTROINTESTINAL: reports lower abdominal pain. Denies abdominal distention. Denies nausea, vomiting, or diarrhea. Denies blood in vomitus, stools, or per rectum. Denies black, tarry stools. Denies constipation. GENITOURINARY: Denies difficulty urinating, painful urination, burning, frequency, blood in urine, or discharge. FEMALE GENITOURINARY: Reports vaginal discharge and odor, simliar to when she had BC. Denies vaginal bleeding, heavy or abnormal periods, irregular periods. MUSCULOSKELETAL: Denies back or neck pain or stiffness. Denies joint pain or swelling. SKIN: Denies rash, lesions or sores. HEMATOLOGIC : Denies easy bruising or bleeding. LYMPHATIC: Denies swollen, enlarged glands. NEUROLOGICAL: Denies confusion or altered mental status. Denies passing out or loss of consciousness. Denies dizziness or lightheadedness. Denies headache. Denies weakness or paralysis or loss of use of either side. Denies problems with gait or speech. Denies sensory loss, numbness, or tingling. Denies seizures. PSYCHIATRIC: Denies anxiety or stress. Denies depression, suicidal ideation, or homicidal ideation. ALL OTHER SYSTEMS REVIEWED AND NEGATIVE. PHYSICAL EXAMINATION: GENERAL: Well-appearing, well-nourished and in no acute distress. HEAD: Atraumatic, normocephalic. EYES: Pupils equal round and reactive to light, extraocular movements intact, conjunctiva are normal. ENT: Nares patent, oropharynx clear without exudates. Moist mucous membranes. NECK: Normal range of motion, supple without lymphadenopathy LUNGS: Breath sounds clear to auscultation bilaterally and equal. No wheezes rales or rhonchi. HEART: Regular rate and rhythm without murmurs ABDOMEN: Soft, nontender, nondistended abdomen. Tenderness to right lower quadrant and left lower quadrant, no rebound tenderness noted. Right CVA tenderness appreciated, no CVA tenderness on left. No guarding, no rebound. No masses appreciated. Female : deferred Musculoskeletal: Normal range of motion, no pitting or edema. No cyanosis. NEUROLOGICAL: Cranial nerves grossly intact. Normal speech, normal gait. Normal sensory, motor exams PSYCH: Normal mood, normal affect. SKIN: Warm, Dry, normal turgor, no rashes or lesions noted. Dictation was performed using [employer] voice recognition software Physical Exam - Vital signs Vitals: Temp Pulse Resp BP Pulse Ox 98.5 F 76 18 130/72 H 99 10/29/17 07:32 10/29/17 07:32 10/29/17 07:32 10/29/17 07:32 10/29/17 07:32 Course - Re-evaluation Re-evalutation: 10/29/17 11:19 28-year-old female who is afebrile not in any distress is here for evaluation of right lower quadrant tenderness, right flank pain with vaginal discharge 2 days. CBC negative for any leukocytosis or anemia. CMP negative for any renal or hepatic dysfunction, no electrolyte disturbances. Lipase is negative. Urinalysis shows patient has a UTI. CT abdomen pelvis with IV and oral contrast shows an appendix that is normal, no nephrolithiasis seen bilaterally. No acute findings seen by radiology and CT abdomen pelvis or pelvic ultrasound. Well as pelvic ultrasound unremarkable for an ectopic, ovarian torsion, ovarian cyst or free fluid. will empirically treat for GC chlamydia with 1 g of azithromycin 250 mg IM of Rocephin due to patient having a new sexual partner. pt does not want to wait for wet mount results are GC, will write her prescription for Flagyl though she likely has is due to positive whiff test. Advised her to take Flagyl unless she gets a phone call from me saying that her wet mount was negative for BV. Do not drink alcohol while taking medication as this will cause nausea and vomiting. All questions and concerns answered by this provider. Advised patient to follow-up with [facility] as well as her PCP within 3 days. Return to the emergency room if experiencing any worsening abdominal pain, nausea, vomiting, fever. All questions and concerns answered by this provider. Patient was discharged home with strict instructions to return to the ER for worsening abdominal pain. After performing a Medical Screening Examination, I estimate there is LOW risk for ACUTE APPENDICITIS, BOWEL OBSTRUCTION, ACUTE CHOLECYSTITIS, PERFORATED DIVERTICULITIS, INCARCERATED HERNIA, PANCREATITIS, PELVIC INFLAMMATORY DISEASE, PERFORATED ULCER, ECTOPIC , or TUBO-OVARIAN ABSCESS, thus I consider the discharge disposition reasonable. Also, there is no evidence or peritonitis , sepsis, or toxicity. I have reevaluated this patient multiple times and no significant life threatening changes are noted. The patient and I have discussed the diagnosis and risks, and we agree with discharging home with close follow-up with the understanding that symptoms and presentations can change. We also discussed returning to the Emergency Department immediately if new or worsening symptoms occur. We have discussed the symptoms which are most concerning (e.g., bloody stool, fever, changing or worsening pain, vomiting) that necessitate immediate return. - Vital Signs Vital signs: Temp Pulse Resp BP Pulse Ox 98.5 F 55 L 16 119/59 L 100 10/29/17 13:09 10/29/17 13:09 10/29/17 13:09 10/29/17 13:09 10/29/17 13:09 - Laboratory Result Diagrams: 10/29/17 09:20 10/29/17 09:20 Laboratory results interpreted by me: 10/29/17 07:47 Urine Protein 30 H Ur Leukocyte Esterase LARGE H Discharge - Discharge Clinical Impression: Bacterial vaginosis UTI (urinary tract infection) Qualifiers: Urinary tract infection type: acute cystitis Hematuria presence: without hematuria Qualified Code(s): N30.00 - Acute cystitis without hematuria Condition: Good Disposition: HOME, SELF-CARE Instructions: Nitrofurantoin ([facility]), Observation for Appendicitis ([facility]), Urinary Tract Infection ([facility]), Vaginosis, Bacterial ([facility]) Additional Instructions: Urinary Tract Infection Your evaluation indicates that you have a urinary tract infection. This is due to germs growing in the bladder. This is a common problem. This infection usually responds quickly to antibiotics. Your antibiotic should be taken exactly as prescribed. Drink plenty of fluids -- three to four quarts a day. Occasionally, a bladder anesthetic will be prescribed to help stop the feeling of urgency until the antibiotic has a chance to clear the infection. This may cause your urine to be dark orange. Certain urine infections require a culture. If the doctor obtained a culture, the results will be back in two days. You should call to see if a change in treatment is needed. A repeat urinalysis after you finish treatment is often recommended. The physician will let you know if further testing is required. Call the doctor if you develop fever, chills, flank pain, inability to urinate, or blood in the urine. Vaginosis, Bacterial Your exam shows you have bacterial vaginosis. This condition is due to an overgrowth of bacteria in the vagina. Symptoms may include vaginal itching or pain, a smelly discharge, and sometimes burning with urination. Normally this is not transmitted by sexual contact. Vaginosis can be treated with oral or topical antibiotics. Metronidazole ( Flagyl) pills are usually effective. Topical vaginal creams include Cleocin and Metro-Gel. You should avoid sexual contact until your symptoms are all better. Call the doctor if you develop pelvic pain, fever, or problems with urination, or if you don't improve as expected. Abdominal Pain There are many causes of abdominal pain. Pain can mean a serious problem requiring surgery (such as appendicitis). It can also be an innocent problem that goes away on its own (such as a viral infection). Often, time must pass to determine the cause of pain. The physician does not feel that hospitalization is necessary, at present. Things may change within the next 24 hours. Call the doctor or come back for re- examination if any problems occur, such as: (1) Pain that becomes more severe, steady, or becomes concentrated in one specific area. Also, pain that is more severe with movement or coughing. (2) Vomiting that persists or becomes more frequent. (3) Blood in the vomitus, urine, or bowel movements. Blood in the stool may have a tarry or black appearance. (4) Shaking chills or fever greater than 100 degrees F. (5) The abdomen becomes more distended or swollen. (6) Bowel movements cease. (7) Failure to improve as expected. Take antibiotic as directed for UTI. We will call you with results of your wet mount. Increase oral hydration. If you do not taking Flagyl do not drink nausea vomiting diarrhea. Experiencing fever, nausea related to medication, lower quadrant pain return to the emergency room as soon as possible. Follow- up with primary care provider and [facility] within 3 days. Return immediately for any new or worsening symptoms. Follow up with primary care provider, call tomorrow to make followup appointment. Prescriptions: Metronidazole [Flagyl] 500 mg PO BID #14 tablet Nitrofurantoin Monohyd/M-Cryst [Macrobid 100 mg Capsule] 100 mg PO BID #14 capsule Forms: Return to Work Referrals: CARLOS TORREZ MD [ACTIVE STAFF] - Follow up in 1 week ERNIE SCOTT MD [Primary Care Provider] - Follow up in 3-5 days
[2017-10-29] MEDS ORDERED: NORMAL SALINE 1000 ML 1,000 ML IV ONE (08:40)
[2017-10-29 09:49] LABS: ABSOLUTE EOSINOPHILS # (AUTO) 0.2 10^3/uL (0.0-0.6); ABSOLUTE LYMPHOCYTES (AUTO) 1.7 10^3/uL (0.5-4.7); ABSOLUTE MONOCYTES (AUTO) 0.4 10^3/uL (0.1-1.4); ABSOLUTE NEUT (AUTO) 2.5 10^3/uL (1.7-8.2); BASOPHILS % (AUTO) 0.6 % (0-2); EOSINOPHILS % (AUTO) 4.4 % (0-6); HEMATOCRIT 36.2 % (36.0-47.0); HEMOGLOBIN 12.1 g/dL (12.0-15.5); LYMPHOCYTES % (AUTO) 35.1 % (13-45); MEAN CORPUSCULAR HEMOGLOBIN 29.3 pg (27.0-33.4); MEAN CORPUSCULAR HGB CONC 33.5 g/dL (32.0-36.0); MEAN CORPUSCULAR VOLUME 88 fl (80-97); MONOCYTES % (AUTO) 8.1 % (3-13); PLATELET COUNT 205 10^3/uL (150-450); RED BLOOD COUNT 4.13 10^6/uL (3.72-5.28); RED CELL DISTRIBUTION WIDTH 13.6 % (11.5-14.0); SEGMENTED NEUTROPHILS % (AUTO) 51.8 % (42-78); TOTAL CELLS COUNTED % (AUTO) 100 %; WHITE BLOOD COUNT 4.8 10^3/uL (4.0-10.5)
--- NOTE | 2017-10-29 10:11 | RADIOLOGY REPORT (SQ) ---
EXAM DESCRIPTION: U/S NON-OB PELVIS W/O DOP COMPLETED DATE/TIME: 10/29/2017 9:55 am REASON FOR STUDY: R pelvic tenderness. unsure of preg, LMP 10/18 COMPARISON: None. TECHNIQUE: Dynamic and static grayscale images acquired of the pelvis via transabdominal approach an d recorded on PACS. Additional selected color Doppler and spectral images recorded. LIMITATIONS: None. FINDINGS: UTERUS: Contour normal. No mass. ENDOMETRIAL STRIPE: No focal or generalized thickening. No masses. CERVIX: No nabothian cysts. RIGHT OVARY: No abnormal masses. RIGHT OVARY DOPPLER: Normal arterial vascular flow without evidence for torsion. LEFT OVARY: No abnormal masses. LEFT OVARY DOPPLER: Normal arterial vascular flow without evidence for torsion. FREE FLUID: None noted. OTHER: No other significant finding. MEASUREMENTS: UTERUS: 12.1 x 6.1 x 4.4 cm ENDOMETRIAL STRIPE: 9 mm RIGHT OVARY: 3.8 x 2.6 x 2.3 cm LEFT OVARY: 2.4 x 2.2 x 1.8 cm IMPRESSION: NORMAL PELVIC ULTRASOUND BY TRANSABDOMINAL TECHNIQUE. TECHNICAL DOCUMENTATION: JOB ID: [id number] [employer]- All Rights Reserved Reading location - IP/workstation name: [email or web address]
[2017-10-29 10:15] LABS: ALANINE AMINOTRANSFERASE 23 U/L (9-52); ALBUMIN 4.1 g/dL (3.5-5.0); ALKALINE PHOSPHATASE 55 U/L (38-126); ANION GAP 6 (5-19); ASPARTATE AMINO TRANSFERASE 14 U/L (14-36); BILIRUBIN,DIRECT 0.4 mg/dL (0.0-0.4); BILIRUBIN,TOTAL 0.6 mg/dL (0.2-1.3); BLOOD UREA NITROGEN 9 mg/dL (7-20); CALCIUM 9.2 mg/dL (8.4-10.2); CARBON DIOXIDE 30 mmol/L (22-30); CHLORIDE 106 mmol/L (98-107); GLUCOSE 101 mg/dL (75-110); LIPASE 50.2 U/L (23-300); POTASSIUM 4.3 mmol/L (3.6-5.0); TOTAL PROTEIN 6.7 g/dL (6.3-8.2)
--- NOTE | 2017-10-29 12:02 | RADIOLOGY REPORT (SQ) ---
EXAM DESCRIPTION: CT ABD/PELVIS WITH IV ORAL COMPLETED DATE/TIME: 10/29/2017 11:47 am REASON FOR STUDY: R pelvic tenderness. unsure of preg, LMP 10/18 COMPARISON: 05/27/2017 TECHNIQUE: CT scan of the abdomen and pelvis performed with intravenous and oral contrast using andreina stefany scanning technique with dynamic intravenous contrast injection. Images reviewed with lung, soft t issue, and bone windows. Reconstructed coronal and sagittal MPR images reviewed. Delayed images for e valuation of the urinary system also acquired. All images stored on PACS. All CT scanners at this facility use dose modulation, iterative reconstruction, and/or weight based d osing when appropriate to reduce radiation dose to as low as reasonably achievable (ALARA). [facility]: Dose Right [facility]: CareDose [facility]: Dose Right [facility]: Teradose 4D [facility]: BookingNest CONTRAST TYPE AND DOSE: contrast/concentration: Isovue mg/ml; Total Contrast Delivered: 69.0 ml; To sujata Saline Delivered: 66.0 ml RENAL FUNCTION: GFR > 60. RADIATION DOSE: CT Rad equipment meets quality standard of care and radiation dose reduction techniq ues were employed. CTDIvol: 12.1 - 16.8 mGy. DLP: 1629 mGy-cm. . LIMITATIONS: Patient motion. FINDINGS: LOWER CHEST: No significant findings. No nodules or infiltrates. LIVER: Normal size. No masses. No dilated ducts. SPLEEN: Normal size. No focal lesions. PANCREAS: No masses. No significant calcifications. No adjacent inflammation or peripancreatic fluid collections. Pancreatic duct not dilated. GALLBLADDER: No identified stones by CT criteria. No inflammatory changes to suggest cholecystitis. ADRENAL GLANDS: No significant masses or asymmetry. RIGHT KIDNEY AND URETER: No solid masses. No significant calcifications. No hydronephrosis or hyd roureter. LEFT KIDNEY AND URETER: No solid masses. No significant calcifications. No hydronephrosis or hydr oureter. AORTA AND VESSELS: No aneurysm. No dissection. Renal arteries, SMA, celiac without stenosis. RETROPERITONEUM: No retroperitoneal adenopathy, hemorrhage or masses. BOWEL AND PERITONEAL CAVITY: No obstruction. No visualized masses. No free fluid. No inflammatory ch anges or thickening of bowel wall. APPENDIX: Normal. PELVIS: No significant masses. Normal bladder. No free fluid. ABDOMINAL WALL: No masses. No hernias. BONES: No significant or acute findings. OTHER: No other significant finding. IMPRESSION: NO SIGNIFICANT OR ACUTE FINDINGS IN THE ABDOMEN OR PELVIS. TECHNICAL DOCUMENTATION: JOB ID: [id number] Quality ID # [id number]: Final reports with documentation of one or more dose reduction techniques (e.g., Au tomated exposure control, adjustment of the mA and/or kV according to patient size, use of iterative reconstruction technique) 2010 [employer]- All Rights Reserved Reading location - IP/workstation name: [email or web address]
[2017-10-29] MEDS ORDERED: AZITHROMYCIN 250 MG TABLET PO ONE (12:51)
[2017-10-29 13:14] VITALS: BP 119/59
[2017-10-29 13:20] LABS: BACTERIA (WET MOUNT) 3+ BACTERIA SEEN; EPITHELIALS (WET MOUNT) 4+ EPITHELIALS SEEN; RBCS (WET MOUNT) RARE RBCS SEEN; T.VAGINALIS (WET MOUNT) NO TRICHOMONAS SEEN; WBCS (WET MOUNT) NO WBCS SEEN; YEAST (WET MOUNT) NO YEAST SEEN
[2017-10-29 14:43] LABS: CHLAM PCR NOT DETECTED (NOT DETECT); GON PCR NOT DETECTED (NOT DETECT)
== END 2017-10-29 13:14 | disposition home or self-care (01) ==
LOC: ER 07:30
DX: N76.0 Acute vaginitis (principal); B96.89 Other specified bacterial agents as the cause of diseases classified elsewhere; N30.00 Acute cystitis without hematuria; J45.909 Unspecified asthma, uncomplicated; F17.200 Nicotine dependence, unspecified, uncomplicated; Z87.59 Personal history of other complications of pregnancy, childbirth and the puerperium; Z98.51 Tubal ligation status
CPT/HCPCS: 99284; 96360; 36415; 87086; 87210; 83690; 85025; 81025; 87088; 80053; 81001; 87491; 87591; 76856; 74177; J7030

== ENCOUNTER 2017-12-05 19:21 | Emergency (ER) | payer BC ==
--- NOTE | 2017-12-05 20:17 | ER Document Report ---
HPI - HPI Pain Level: 3 - REPRODUCTIVE Reproductive: DENIES: : Past Medical History - Social History Family History: Arthritis, CVA, DM, Hyperlipidemia, Hypertension, Malignancy. denies: CAD, COPD, Thyroid Disfunction Pulmonary Medical History: Reports: Hx Asthma Neurological Medical History: Reports: Hx Migraine Renal/ Medical History: Denies: Hx Peritoneal Dialysis Musculoskeltal Medical History: Reports Hx Arthritis, Reports Hx Musculoskeletal Deformity, Reports Hx Musculoskeletal Trauma Psychiatric Medical History: Reports: Hx Anxiety, Hx Bipolar Disorder, Hx Schizophrenia Traumatic Medical History: Reports: Hx Fractures - Leg Past Surgical History: Reports: Hx Adenoidectomy, Hx Breast Surgery - tumor removed Right breast, Hx Tonsillectomy, Hx Tubal Ligation, Hx Urinary Tract Surgery - Immunizations Immunizations up to date: Yes Hx Diphtheria, Pertussis, Tetanus Vaccination: Yes - 08/29/2017 patient states 5 years ago Vertical Provider Document - INFECTION CONTROL TRAVEL OUTSIDE OF THE [place] IN LAST 30 DAYS: No Course - Vital Signs Vital signs: Temp Pulse Resp BP Pulse Ox 98.9 F 98 17 136/79 H 99 12/05/17 19:30 12/05/17 19:30 12/05/17 19:30 12/05/17 19:30 12/05/17 19:30
--- NOTE | 2017-12-05 20:24 | ER Document Report ---
HPI - HPI Patient complains to provider of: right low back pain, right pelvic pain Onset: Other - 4 days Onset/Duration: Gradual Pain Level: 3 Context: 37 yo female with new sex partner c/o right low back pain worse with movement, sitting, standing too long, deep breath, and c/o right pelvic pain- both for 4 days. Thinks she has BV again, increased vaginal discharge. No fever. Hx ovarian cyst. No hx std. Associated Symptoms: None Exacerbated by: Other - see above Relieved by: Denies Similar symptoms previously: No Recently seen / treated by doctor: No - ROS ROS below otherwise negative: Yes Systems Reviewed and Negative: Yes All other systems reviewed and negative - REPRODUCTIVE Reproductive: DENIES: : Past Medical History - General Information source: Patient - Social History Smoking Status: Current Every Day Smoker Frequency of alcohol use: Occasional Drug Abuse: None Occupation: [employer] on [employer] Family History: Arthritis, CVA, DM, Hyperlipidemia, Hypertension, Malignancy Pulmonary Medical History: Reports: Hx Asthma Neurological Medical History: Reports: Hx Migraine Renal/ Medical History: Denies: Hx Peritoneal Dialysis Musculoskeltal Medical History: Reports Hx Arthritis, Reports Hx Musculoskeletal Deformity, Reports Hx Musculoskeletal Trauma Psychiatric Medical History: Reports: Hx Anxiety, Hx Bipolar Disorder, Hx Schizophrenia Traumatic Medical History: Reports: Hx Fractures - Leg Past Surgical History: Reports: Hx Adenoidectomy, Hx Breast Surgery - tumor removed Right breast, Hx Tonsillectomy, Hx Tubal Ligation, Hx Urinary Tract Surgery - Immunizations Immunizations up to date: Yes Hx Diphtheria, Pertussis, Tetanus Vaccination: Yes - 08/29/2017 patient states 5 years ago Vertical Provider Document - CONSTITUTIONAL Agree With Documented VS: Yes Exam Limitations: No Limitations General Appearance: No Apparent Distress - INFECTION CONTROL TRAVEL OUTSIDE OF THE [place] IN LAST 30 DAYS: No - HEENT HEENT: Normocephalic - NECK Neck: Supple - RESPIRATORY Respiratory: Breath Sounds Normal, No Respiratory Distress - CARDIOVASCULAR Cardiovascular: Regular Rate, Regular Rhythm - GI/ABDOMEN Gastrointestinal: Abdomen Soft, Abdomen Tender - right low pelvic and suprapubic , No Organomegaly - BACK Back: Normal Inspection. negative: CVA Tenderness-Right, CVA Tenderness-Left Notes: tender right low back over the SI joint and lateral towards hip. - MUSCULOSKELETAL/EXTREMETIES Musculoskeletal/Extremeties: MAEW, Tender - see above - NEURO Level of Consciousness: Awake - DERM Integumentary: Warm, Dry Course - Re-evaluation Re-evalutation: 12/05/17 21:12 ua negative, hcg negative, wet mount-BV, wants tx for std in case they are positive- results pending several hours - Vital Signs Vital signs: Temp Pulse Resp BP Pulse Ox 98.9 F 98 17 136/79 H 99 12/05/17 19:30 12/05/17 19:30 12/05/17 19:30 12/05/17 19:30 12/05/17 19:30 Discharge - Discharge Clinical Impression: Bacterial vaginosis, Pelvic pain Right low back pain Qualifiers: Chronicity: acute Sciatica presence: without sciatica Qualified Code(s): M54.5 - Low back pain Condition: Good Disposition: HOME, SELF-CARE Instructions: Warm Packs ([facility]), Low Back Pain ([facility]), Vaginosis, Bacterial ([facility]) , Metronidazole ([facility]), Acetaminophen, Ibuprofen (General) ([facility]), Pelvic Pain ( [facility]) Additional Instructions: warm compress to low back tylenol motrin rocephin for possible gonorrhea azithromycin for possible chlamydia call me tomorrow for the STD culture results [phone] metronidazole for bacterial vaginosis, no alcohol with this medication to er if worse Prescriptions: Ibuprofen [Motrin 800 mg Tablet] 800 mg PO Q8HP PRN #30 tablet PRN Reason: Metronidazole [Flagyl 500 mg Tablet] 500 mg PO BID #14 tablet Forms: Return to Work Referrals: ISAAK FELIPE MD [ACTIVE STAFF] - Follow up as needed
[2017-12-05 20:57] LABS: APPEARANCE,URINE SLIGHTLY-CLOUDY; BILIRUBIN,URINE NEGATIVE (NEGATIVE); COLOR,URINE YELLOW; GLUCOSE, URINE NEGATIVE (NEGATIVE); KETONES,URINE NEGATIVE (NEGATIVE); LEUKOCYTE ESTERASE,URINE NEGATIVE (NEGATIVE); NITRITE,URINE NEGATIVE (NEGATIVE); PROTEIN,URINE NEGATIVE (NEGATIVE); UROBILINOGEN,URINE NEGATIVE mg/dL (<2.0)
[2017-12-05 20:59] LABS: BACTERIA (WET MOUNT) 3+ BACTERIA SEEN; EPITHELIALS (WET MOUNT) 3+ EPITHELIALS SEEN; T.VAGINALIS (WET MOUNT) NO TRICHOMONAS SEEN; WBCS (WET MOUNT) FEW WBCS SEEN; YEAST (WET MOUNT) NO YEAST SEEN
[2017-12-05] MEDS ORDERED: CEFTRIAXONE INJ 250 MG VIAL IM ONE (21:06)
[2017-12-05] MEDS ORDERED: LIDOCAINE 1% INJ-PF (10 MG/ML) 30 ML SDV INJ ONE (21:07)
[2017-12-05] MEDS ORDERED: ONDANSETRON 4 MG TAB.RAPDIS PO ONE (21:07)
[2017-12-05] MEDS ORDERED: AZITHROMYCIN 250 MG TABLET PO ONE (21:07)
[2017-12-05] MEDS ORDERED: METRONIDAZOLE 500 MG TABLET PO ONE (21:08)
[2017-12-05] MEDS ORDERED: IBUPROFEN 800 MG TABLET PO ONE (21:12)
[2017-12-05 21:56] VITALS: BP 122/63
[2017-12-05 22:23] LABS: CHLAM PCR NOT DETECTED (NOT DETECT); GON PCR NOT DETECTED (NOT DETECT)
== END 2017-12-05 21:57 | disposition home or self-care (01) ==
LOC: ER 19:21
DX: N76.0 Acute vaginitis (principal); B96.89 Other specified bacterial agents as the cause of diseases classified elsewhere; R10.2 Pelvic and perineal pain; M54.5 Low back pain; F17.200 Nicotine dependence, unspecified, uncomplicated; J45.909 Unspecified asthma, uncomplicated
CPT/HCPCS: 99283; 96372; 87086; 87210; 81025; 81001; 87491; 87591; S0119; J3490; J0696

== ENCOUNTER 2018-01-09 17:03 | Emergency (ER) | payer BC ==
[2018-01-09] MEDS ORDERED: KETOROLAC TROMETHAMINE 60 MG/2 ML SDV IM ONE (17:36)
--- NOTE | 2018-01-09 17:38 | ER Document Report ---
ED Medical Screen (RME) - General Chief Complaint: Abdominal Pain Stated Complaint: LOWER ABDOMINAL/BACK PAIN Time Seen by Provider: 01/09/18 17:36 Mode of Arrival: Ambulatory Information source: Patient Notes: This is a 37-year-old female presenting with right adnexal pain, vaginal discharge for a few days. She denies fever, chills, nausea, vomiting. She states she has had ovarian cysts before and it feels like that. I have greeted and performed a rapid initial assessment of this patient. A comprehensive ED assessment and evaluation of the patient, analysis of test results and completion of medical decision making process we will be contacted by additional ED providers. TRAVEL OUTSIDE OF THE [place] IN LAST 30 DAYS: No - Related Data Allergies/Adverse Reactions: No Known Allergies Allergy (Verified 01/09/18 17:03) Past Medical History - Social History Family history: Reviewed & Not Pertinent Pulmonary Medical History: Reports: Hx Asthma Neurological Medical History: Reports: Hx Migraine Renal/ Medical History: Denies: Hx Peritoneal Dialysis Musculoskeltal Medical History: Reports Hx Arthritis, Reports Hx Musculoskeletal Deformity, Reports Hx Musculoskeletal Trauma Psychiatric Medical History: Reports: Hx Anxiety, Hx Bipolar Disorder, Hx Schizophrenia Traumatic Medical History: Reports: Hx Fractures - Leg Past Surgical History: Reports: Hx Adenoidectomy, Hx Breast Surgery - tumor removed Right breast, Hx Tonsillectomy, Hx Tubal Ligation, Hx Urinary Tract Surgery - Immunizations Immunizations up to date: Yes Hx Diphtheria, Pertussis, Tetanus Vaccination: Yes - 08/29/2017 patient states 5 years ago Physical Exam - Vital signs Vitals: Temp Pulse Resp BP Pulse Ox 98.8 F 74 16 134/67 H 98 01/09/18 17:10 01/09/18 17:10 01/09/18 17:10 01/09/18 17:10 01/09/18 17:10 Course - Vital Signs Vital signs: Temp Pulse Resp BP Pulse Ox 98.8 F 74 16 134/67 H 98 01/09/18 17:10 01/09/18 17:10 01/09/18 17:10 01/09/18 17:10 01/09/18 17:10
[2018-01-09 18:32] LABS: APPEARANCE,URINE SLIGHTLY-CLOUDY; BILIRUBIN,URINE NEGATIVE (NEGATIVE); COLOR,URINE YELLOW; GLUCOSE, URINE NEGATIVE (NEGATIVE); KETONES,URINE NEGATIVE (NEGATIVE); LEUKOCYTE ESTERASE,URINE NEGATIVE (NEGATIVE); NITRITE,URINE NEGATIVE (NEGATIVE); PROTEIN,URINE NEGATIVE (NEGATIVE); URINE SPECIFIC GRAVITY 1.028; UROBILINOGEN,URINE NEGATIVE mg/dL (<2.0)
--- NOTE | 2018-01-09 18:38 | ER Document Report ---
ED General - General Chief Complaint: Abdominal Pain Stated Complaint: LOWER ABDOMINAL/BACK PAIN Time Seen by Provider: 01/09/18 17:36 Mode of Arrival: Ambulatory Notes: Patient is a 37-year-old female who presents emergency department the chief complaint of suprapubic pelvic pain and vaginal discharge for the past 4 days. Patient states that she has had symptoms like this in the past admits to history of ovarian cyst versus previous diagnoses of STDs. Patient states that she is sexually active with her boyfriend not using protection. States that her last menstrual period was December 19 and admits to previous tubal ligation. She denies any nausea, vomiting, change in bowel habits, diarrhea constipation. She admits to vaginal discharge which is white and cloudy and thick in consistency without odor denies any associated itching or pain. TRAVEL OUTSIDE OF THE [place] IN LAST 30 DAYS: No - Related Data Allergies/Adverse Reactions: No Known Allergies Allergy (Verified 01/09/18 17:03) Past Medical History - General Information source: Patient - Social History Smoking Status: Current Every Day Smoker Family History: Arthritis, CVA, DM, Hyperlipidemia, Hypertension, Malignancy Patient has suicidal ideation: No Patient has homicidal ideation: No Pulmonary Medical History: Reports: Hx Asthma Neurological Medical History: Reports: Hx Migraine Renal/ Medical History: Denies: Hx Peritoneal Dialysis Musculoskeltal Medical History: Reports Hx Arthritis, Reports Hx Musculoskeletal Deformity, Reports Hx Musculoskeletal Trauma Psychiatric Medical History: Reports: Hx Anxiety, Hx Bipolar Disorder, Hx Schizophrenia Traumatic Medical History: Reports: Hx Fractures - Leg Past Surgical History: Reports: Hx Adenoidectomy, Hx Breast Surgery - tumor removed Right breast, Hx Tonsillectomy, Hx Tubal Ligation, Hx Urinary Tract Surgery - Immunizations Immunizations up to date: Yes Hx Diphtheria, Pertussis, Tetanus Vaccination: Yes - 08/29/2017 patient states 5 years ago Review of Systems - Review of Systems Constitutional: No symptoms reported Cardiovascular: No symptoms reported Respiratory: No symptoms reported Gastrointestinal: No symptoms reported Genitourinary: denies: Burning, Dysuria, Frequency, Urgency Female Genitourinary: See HPI -: Yes All other systems reviewed and negative Physical Exam - Vital signs Vitals: Temp Pulse Resp BP Pulse Ox 98.8 F 74 16 134/67 H 98 01/09/18 17:10 01/09/18 17:10 01/09/18 17:10 01/09/18 17:10 01/09/18 17:10 - Notes Notes: PHYSICAL EXAM GENERAL: Alert, interacts well. HEAD: Normocephalic, atraumatic. EYES: Pupils equal, round, and reactive to light. Extraocular movements intact. ENT: Oral mucosa moist, tongue midline. NECK: Full range of motion. Supple. Trachea midline. LUNGS: Clear to auscultation bilaterally, no wheezes, rales, or rhonchi. No respiratory distress. HEART: Regular rate and rhythm. No murmurs, gallops, or rubs. ABDOMEN: Soft, nondistended, nontender. No guarding, rebound, or rigidity.. Bowel sounds present in all 4 quadrants. FEMALE : Normal external exam. No evidence of lesions, lacerations, bruising or vesicles. Speculum exam normal cervix closed. There is evidence of white vaginal discharge with odor. No evidence of lesions. No vaginal bleeding. Bimanual exam normal no cervical motion tenderness. No adnexal mass or adnexal tenderness. EXTREMITIES: Moves all 4 extremities spontaneously. No edema, radial and dorsalis pedis pulses 2/4 bilaterally. No cyanosis. NEUROLOGICAL: Alert and oriented x4. Normal speech. PSYCH: Normal affect, normal mood. SKIN: Warm, dry, normal turgor. No rashes or lesions noted. Course - Re-evaluation Re-evalutation: 01/09/18 20:22 Presentation of vaginal discharge. Abdominal exam is benign without any focal tenderness. Vitals are normal at the time of arrival. Laboratories are unremarkable without evidence of cystitis, , or leukocytosis. Patient is overall very well in appearance. Based on clinical history and examination I do not suspect an acute appendicitis, tubo-ovarian abscess, related pathology, pelvic inflammatory disease, mesenteric ischemia, or pyelonephritis. Pelvic exam without cervical motion tenderness or focal adnexal tenderness. Will discharge home with return precautions and followup recommendations. - Vital Signs Vital signs: Temp Pulse Resp BP Pulse Ox 97.6 F 59 L 18 126/67 H 100 01/09/18 20:44 01/09/18 20:44 01/09/18 20:44 01/09/18 20:44 01/09/18 20:44 Discharge - Discharge Clinical Impression: Bacterial vaginosis Condition: Good Disposition: HOME, SELF-CARE Instructions: Vaginosis, Bacterial ([facility]) Prescriptions: Metronidazole [Flagyl 500 mg Tablet] 500 mg PO BID #14 tablet Referrals: [facility] [Provider Group] - Follow up in 3-5 days
[2018-01-09 20:10] LABS: T.VAGINALIS (WET MOUNT) NO TRICHOMONAS SEEN; YEAST (WET MOUNT) NO YEAST SEEN
[2018-01-09 20:11] LABS: BACTERIA (WET MOUNT) 3+ BACTERIA SEEN; EPITHELIALS (WET MOUNT) 4+ EPITHELIALS SEEN; WBCS (WET MOUNT) RARE WBCS SEEN
[2018-01-09] MEDS ORDERED: CEFTRIAXONE INJ 250 MG VIAL IM ONE (20:23)
[2018-01-09] MEDS ORDERED: AZITHROMYCIN 250 MG TABLET PO ONE (20:23)
[2018-01-09] MEDS ORDERED: LIDOCAINE 1% INJ-PF (10 MG/ML) 30 ML SDV INJ ONE (20:23)
[2018-01-09] MEDS ORDERED: METRONIDAZOLE 500 MG TABLET PO ONE (20:23)
[2018-01-09 20:46] VITALS: BP 126/67
[2018-01-09 21:34] LABS: CHLAM PCR NOT DETECTED (NOT DETECT); GON PCR NOT DETECTED (NOT DETECT)
== END 2018-01-09 20:45 | disposition home or self-care (01) ==
LOC: ER 17:03
DX: N76.0 Acute vaginitis (principal); B96.89 Other specified bacterial agents as the cause of diseases classified elsewhere; R10.2 Pelvic and perineal pain; F17.200 Nicotine dependence, unspecified, uncomplicated; J45.909 Unspecified asthma, uncomplicated; Z98.51 Tubal ligation status; Z87.42 Personal history of other diseases of the female genital tract
CPT/HCPCS: 99284; 96372; 87210; 81025; 81001; 87491; 87591; J1885; J3490; J0696

== ENCOUNTER 2018-01-27 11:44 | Emergency (ER) | payer BC ==
[2018-01-27] MEDS ORDERED: ACETAMINOPHEN 325 MG TABLET PO ONE (12:15)
[2018-01-27] MEDS ORDERED: ONDANSETRON 4 MG TAB.RAPDIS PO ONE (12:15)
--- NOTE | 2018-01-27 12:16 | ER Document Report ---
ED Medical Screen (RME) - General Chief Complaint: Abdominal Pain Stated Complaint: RIGHT SIDE ABDOMINAL PAIN Time Seen by Provider: 01/27/18 12:12 Notes: RAPID MEDICAL EVALUATION DISCLOSURE I have seen this patient as part of a Rapid Medical Evaluation and, if applicable, placed any initially appropriate orders. The patient will be seen and fully evaluated, including a full history and physical exam, by a provider ( in Main ED or Fast Track) when a room becomes available. 37-year-old female here with complaints of right lower quadrant and pelvic pain that started yesterday, sharp and lancinating, with associated vaginal bleeding that has now resolved however the pain persists. She does not have any vaginal discharge dysuria hematuria frequency hesitancy fevers chills nausea vomiting. She wonders if this could be an ovarian cyst but denies any prior history of similar. EXAM Mild to moderate right lower quadrant and right pelvic pain TRAVEL OUTSIDE OF THE [place] IN LAST 30 DAYS: No - Related Data Allergies/Adverse Reactions: No Known Allergies Allergy (Verified 01/27/18 11:45) Past Medical History - Social History Chew tobacco use (# tins/day): No Frequency of alcohol use: Occasional Drug Abuse: Marijuana Family history: Reviewed & Not Pertinent Pulmonary Medical History: Reports: Hx Asthma Neurological Medical History: Reports: Hx Migraine Renal/ Medical History: Denies: Hx Peritoneal Dialysis Musculoskeltal Medical History: Reports Hx Arthritis, Reports Hx Musculoskeletal Deformity, Reports Hx Musculoskeletal Trauma Psychiatric Medical History: Reports: Hx Anxiety, Hx Bipolar Disorder, Hx Schizophrenia Traumatic Medical History: Reports: Hx Fractures - Leg Past Surgical History: Reports: Hx Adenoidectomy, Hx Breast Surgery - tumor removed Right breast, Hx Tonsillectomy, Hx Tubal Ligation, Hx Urinary Tract Surgery - Immunizations Immunizations up to date: Yes Hx Diphtheria, Pertussis, Tetanus Vaccination: Yes - 08/29/2017 patient states 5 years ago Physical Exam - Vital signs Vitals: Temp Pulse Resp BP Pulse Ox 99.3 F 60 14 134/72 H 98 01/27/18 11:53 01/27/18 11:53 01/27/18 11:53 01/27/18 11:53 01/27/18 11:53 Course - Vital Signs Vital signs: Temp Pulse Resp BP Pulse Ox 99.3 F 60 14 134/72 H 98 01/27/18 11:53 01/27/18 11:53 01/27/18 11:53 01/27/18 11:53 01/27/18 11:53
[2018-01-27 12:51] LABS: APPEARANCE,URINE CLOUDY; BILIRUBIN,URINE NEGATIVE (NEGATIVE); COLOR,URINE YELLOW; GLUCOSE, URINE NEGATIVE (NEGATIVE); KETONES,URINE NEGATIVE (NEGATIVE); LEUKOCYTE ESTERASE,URINE NEGATIVE (NEGATIVE); NITRITE,URINE NEGATIVE (NEGATIVE); PROTEIN,URINE 30 mg/dL (NEGATIVE); URINE SPECIFIC GRAVITY 1.026; UROBILINOGEN,URINE NEGATIVE mg/dL (<2.0)
[2018-01-27] MEDS ORDERED: METOCLOPRAMIDE HCL 10 MG TABLET PO ONE (15:34)
[2018-01-27] MEDS ORDERED: KETOROLAC TROMETHAMINE 60 MG/2 ML SDV IM ONE (15:34)
[2018-01-27] MEDS ORDERED: DIPHENHYDRAMINE HCL 50 MG CAPSULE PO ONE (15:34)
--- NOTE | 2018-01-27 16:26 | ER Document Report ---
ED General - General Chief Complaint: Abdominal Pain Stated Complaint: RIGHT SIDE ABDOMINAL PAIN Time Seen by Provider: 01/27/18 12:12 Mode of Arrival: Ambulatory Information source: Patient Notes: 37-year-old female with history of bipolar depression, asthma presents with complaint of right lower quadrant, right low back pain that started 1 day prior to arrival. Patient states that yesterday while working a triple shift she developed right lower quadrant abdominal pain that she describes as stabbing, intermittent with radiation to her back. Patient's last menstrual period ended 3 days prior to arrival. She states that she had some mild vaginal bleeding yesterday that has now resolved. Patient denies any dysuria, hematuria, vaginal discharge. She has tried Tylenol and Motrin without relief. She denies any history of kidney stones. Patient denies any fever, chills, chest pain, shortness of breath. She does admit to some nausea without vomiting and a headache. TRAVEL OUTSIDE OF THE [place] IN LAST 30 DAYS: No - HPI Onset: Yesterday Onset/Duration: Gradual, Persistent Quality of pain: Achy, Cramping, Stabbing Severity: Moderate Pain Level: 2 Associated symptoms: Nausea. denies: Diarrhea, Fever, Vomiting Exacerbated by: Denies Relieved by: Denies Similar symptoms previously: No Recently seen / treated by doctor: No - Related Data Allergies/Adverse Reactions: No Known Allergies Allergy (Verified 01/27/18 11:45) Past Medical History - General Information source: Patient, [facility] Records - Social History Smoking Status: Current Every Day Smoker Cigarette use (# per day): Yes - 10-15 Chew tobacco use (# tins/day): No Smoking Education Provided: Yes - Patient counselled regarding cessation for 4 minutes Frequency of alcohol use: Occasional Drug Abuse: Marijuana Lives with: Family Family History: Arthritis, CVA, DM, Hyperlipidemia, Hypertension, Malignancy Patient has suicidal ideation: No Patient has homicidal ideation: No Pulmonary Medical History: Reports: Hx Asthma Neurological Medical History: Reports: Hx Migraine Renal/ Medical History: Denies: Hx Peritoneal Dialysis Musculoskeltal Medical History: Reports Hx Arthritis, Reports Hx Musculoskeletal Deformity, Reports Hx Musculoskeletal Trauma Psychiatric Medical History: Reports: Hx Anxiety, Hx Bipolar Disorder, Hx Schizophrenia Traumatic Medical History: Reports: Hx Fractures - Leg Past Surgical History: Reports: Hx Adenoidectomy, Hx Breast Surgery - tumor removed Right breast, Hx Tonsillectomy, Hx Tubal Ligation, Hx Urinary Tract Surgery - Immunizations Immunizations up to date: Yes Hx Diphtheria, Pertussis, Tetanus Vaccination: Yes - 08/29/2017 patient states 5 years ago Review of Systems - Review of Systems Notes: REVIEW OF SYSTEMS: CONSTITUTIONAL : Denies fever, chills, or sweats. Denies recent illness. Denies weight loss, recent hospitalizations. EENT: Denies visual changes, eye pain. Denies nasal or sinus congestion or discharge. Denies sore throat, oral lesions, difficulty swallowing. CARDIOVASCULAR: Denies chest pain. Denies palpitations. Denies lower extremity edema. RESPIRATORY: Denies cough, cold, or chest congestion. Denies shortness of breath, wheezing. GASTROINTESTINAL: Denies abdominal distention. Denies vomiting, or diarrhea. Denies blood in vomitus, stools, or per rectum. Denies black, tarry stools. Denies constipation. GENITOURINARY: Denies difficulty urinating, painful urination, frequency, blood in urine, or vaginal discharge. MUSCULOSKELETAL: Denies neck pain or stiffness. Denies joint pain or swelling. SKIN: Denies rash, lesions or sores. HEMATOLOGIC : Denies easy bruising or bleeding. LYMPHATIC: Denies swollen glands. NEUROLOGICAL: Denies confusion or altered mental status. Denies passing out or loss of consciousness. Denies dizziness or lightheadedness. Denies weakness or paralysis. Denies problems difficulty with ambulation, slurred speech. Denies sensory loss, numbness, or tingling. Denies seizures. PSYCHIATRIC: Denies anxiety or stress. Denies depression, suicidal ideation, or homicidal ideation. Denies visual or auditory hallucinations. Physical Exam - Vital signs Vitals: Temp Pulse Resp BP Pulse Ox 99.3 F 60 14 134/72 H 98 01/27/18 11:53 01/27/18 11:53 01/27/18 11:53 01/27/18 11:53 01/27/18 11:53 - Notes Notes: PHYSICAL EXAMINATION: GENERAL: Well-appearing, well-nourished and in no acute distress. HEAD: Atraumatic, normocephalic. EYES: Pupils equal round and reactive to light, extraocular movements intact, conjunctiva are normal. ENT: Nares patent, oropharynx clear without exudates. Moist mucous membranes. NECK: Normal range of motion, supple without lymphadenopathy LUNGS: Breath sounds clear to auscultation bilaterally and equal. No wheezes rales or rhonchi. HEART: Regular rate and rhythm without murmurs ABDOMEN: Tender to palpation in the right lower quadrant. Right CVA tenderness. No guarding, no rebound. No masses appreciated. Female : Scant vaginal bleeding, no cervical motion tenderness. No external vaginal lesions. No adnexal tenderness. Musculoskeletal: Normal range of motion, no pitting or edema. No cyanosis. NEUROLOGICAL: Cranial nerves grossly intact. Normal speech, normal gait. Normal sensory, motor exams PSYCH: Normal mood, normal affect. SKIN: Warm, Dry, normal turgor, no rashes or lesions noted. Course - Re-evaluation Re-evalutation: 01/27/18 20:15 Laboratory 01/27/18 01/27/18 12:20 16:50 Urine Color YELLOW Urine Appearance CLOUDY Urine pH 5.0 Ur Specific [place] 1.026 Urine Protein 30 H Urine Glucose (UA) NEGATIVE Urine Ketones NEGATIVE Urine Blood MODERATE H Urine Nitrite NEGATIVE Urine Bilirubin NEGATIVE Urine Urobilinogen NEGATIVE Ur Leukocyte Esterase NEGATIVE Urine WBC (Auto) 4 Urine RBC (Auto) 2 Squamous Epi Cells Auto 25 Urine Mucus (Auto) MANY Urine Ascorbic Acid NEGATIVE Urine HCG, Qual NEGATIVE Epi Cells (Wet Prep) 4+ EPITHELIALS SEEN Bacteria (Wet Prep) 4+ BACTERIA SEEN Trichomonas (Wet Prep) NO TRICHOMONAS SEEN Vaginal WBC 1+ WBCS SEEN Vaginal RBC 2+ RBCS SEEN Vaginal Yeast NO YEAST SEEN Transvaginal US 01/27/18 12:14 IMPRESSION: Ovaries not visualized. Otherwise normal. 01/27/18 20:16 37-year-old female with history of bipolar depression, asthma presents with complaint of right lower quadrant, right low back pain that started 1 day prior to arrival. Patient states that yesterday while working a triple shift she developed right lower quadrant abdominal pain that she describes as stabbing, intermittent with radiation to her back. Patient's last menstrual period ended 3 days prior to arrival. She states that she had some mild vaginal bleeding yesterday that has now resolved. Patient denies any dysuria, hematuria, vaginal discharge. She has tried Tylenol and Motrin without relief. She denies any history of kidney stones. Patient was seen by myself upon arrival. Vital signs were reviewed. Patient is afebrile, normotensive and not hypoxic. Patient does not appear toxic or dehydrated. They are in no acute distress. Previous medical records and nursing notes reviewed. Significant findings include hematuria, bacterial vaginosis. Patient is not . Transvaginal ultrasound did not visualize the ovary. Patient received Zofran, Toradol and Tylenol and on reevaluation reports relief in pain. Bedside ultrasound was performed to assess for hydronephrosis which was absent. Patient's exam and symptoms are suspicious for urolithiasis. Patient was discharged home with prescription for Motrin, Zofran. Patient provided the opportunity to ask questions, and express concerns. Discharge instructions discussed. Patient is agreeable with discharge home. Return indications explained and discussed with the patient who displays understanding. Patient encouraged to return to the emergency department immediately with any concerns. 01/27/18 20:16 - Vital Signs Vital signs: Temp Pulse Resp BP Pulse Ox 99.1 F 45 L 14 126/66 H 99 01/27/18 17:50 01/27/18 17:50 01/27/18 11:53 01/27/18 17:50 01/27/18 17:50 - Laboratory Laboratory results interpreted by me: 01/27/18 12:20 Urine Protein 30 H Urine Blood MODERATE H - Diagnostic Test Radiology reviewed: Image reviewed, Reports reviewed Procedures - Ultrasound/Bedside Ultrasound/Bedside Time completed: 17:01 - Renal ultrasound was performed to assess for hydronephrosis which was absent bilaterally. Urine jets visualized bilaterally. Discharge - Discharge Clinical Impression: RLQ abdominal pain, Bacterial vaginosis Hematuria Qualifiers: Hematuria type: unspecified type Qualified Code(s): R31.9 - Hematuria, unspecified Condition: Good Disposition: HOME, SELF-CARE Instructions: Abdominal Pain ([facility]), Hematuria ([facility]), Low Back Pain ([facility]), Observation for Appendicitis ([facility]), Toradol Injection ([facility]), Vaginosis, Bacterial ([facility]) Additional Instructions: Follow up with your physician tomorrow for further care or return to the ED IMMEDIATELY if symptoms worsen or new concerns occur. If you cannot afford to follow up with your primary care physician a list of low cost clinics have been provided at the end of your discharge papers as well. Prescriptions: Ibuprofen [Motrin 600 Mg Tablet] 600 mg PO TID #15 tablet Metronidazole [Flagyl 500 mg Tablet] 500 mg PO BID #14 tablet Ondansetron [Zofran Odt 4 mg Tablet] 1 - 2 tab PO Q4H PRN #15 tab.rapdis PRN Reason: For Nausea/Vomiting Forms: Elevated Blood Pressure, Smoking Cessation Education, Return to Work Referrals: JAVIER LEARY MD [ACTIVE STAFF] - Follow up in 3-5 days
--- NOTE | 2018-01-27 16:28 | RADIOLOGY REPORT (SQ) ---
EXAM DESCRIPTION: U/S NON OB PEL TV W/DOPPLER COMPLETED DATE/TIME: 01/27/2018 4:02 pm REASON FOR STUDY: R pelvic pain; eval cyst torsion COMPARISON: 10/29/2017 and multiple priors TECHNIQUE: Dynamic and static grayscale images acquired of the pelvis via transvaginal approach and recorded on PACS. Additional selected color Doppler and spectral images recorded. LIMITATIONS: None. FINDINGS: UTERUS: Contour normal. No mass. ENDOMETRIAL STRIPE: No focal or generalized thickening. No masses. CERVIX: No nabothian cysts. RIGHT OVARY AND DOPPLER: Ovary not visualized. LEFT OVARY AND DOPPLER: Ovary not visualized. FREE FLUID: None noted. OTHER: No other significant finding. MEASUREMENTS: UTERUS: 9.8 cm ENDOMETRIAL STRIPE: 3.4 mm RIGHT OVARY: Not visualized. LEFT OVARY: Not visualized. IMPRESSION: Ovaries not visualized. Otherwise normal. TECHNICAL DOCUMENTATION: JOB ID: [id number] [employer] All Rights Reserved Rev-12/18 Reading location - IP/workstation name: [email or web address]
[2018-01-27 17:21] LABS: BACTERIA (WET MOUNT) 4+ BACTERIA SEEN; EPITHELIALS (WET MOUNT) 4+ EPITHELIALS SEEN; RBCS (WET MOUNT) 2+ RBCS SEEN; T.VAGINALIS (WET MOUNT) NO TRICHOMONAS SEEN; WBCS (WET MOUNT) 1+ WBCS SEEN; YEAST (WET MOUNT) NO YEAST SEEN
[2018-01-27] MEDS ORDERED: METRONIDAZOLE 500 MG TABLET PO ONE (17:40)
[2018-01-27 17:57] VITALS: BP 126/66
[2018-01-27 20:21] LABS: CHLAM PCR NOT DETECTED (NOT DETECT); GON PCR NOT DETECTED (NOT DETECT)
== END 2018-01-27 17:56 | disposition home or self-care (01) ==
LOC: ER 11:44
DX: N76.0 Acute vaginitis (principal); B96.89 Other specified bacterial agents as the cause of diseases classified elsewhere; R31.9 Hematuria, unspecified; R10.31 Right lower quadrant pain; M54.5 Low back pain; R11.0 Nausea; R51 Headache; F17.210 Nicotine dependence, cigarettes, uncomplicated; J45.909 Unspecified asthma, uncomplicated
CPT/HCPCS: 99284; 96372; 87210; 81025; 81001; 87491; 87591; 76830; 93976; J1885; S0119

== ENCOUNTER 2018-02-10 18:26 | Emergency (ER) | payer BC ==
[2018-02-10] MEDS ORDERED: METOCLOPRAMIDE HCL INJ/PF 10 MG/2 ML SDV IV ONE (19:23)
[2018-02-10] MEDS ORDERED: DIPHENHYDRAMINE HCL 50 MG/ML VIAL IV ONE (19:23)
[2018-02-10] MEDS ORDERED: NORMAL SALINE 1000 ML 1,000 ML IV ONE (19:23)
--- NOTE | 2018-02-10 19:23 | ER Document Report ---
ED Medical Screen (RME) - General Chief Complaint: Headache <24 hrs old Stated Complaint: HEADACHE/NAUSEA Time Seen by Provider: 02/10/18 19:19 Notes: Patient is a 37-year-old female, past medical history migraines, presents with 1 day of her usual right-sided headache and neck pain. She tried Motrin without much relief her symptoms. Says the headache cocktail has helped her in the past multiple times. Has not seen a neurologist yet due to her job. PE: Uncomfortable. 5/5 strength in all 4 extremities. Afebrile. No neck tenderness. I have greeted and performed a rapid initial assessment of this patient. A comprehensive ED assessment and evaluation of the patient, analysis of test results and completion of the medical decision making process will be conducted by additional ED providers. TRAVEL OUTSIDE OF THE [place] IN LAST 30 DAYS: No - Related Data Allergies/Adverse Reactions: No Known Allergies Allergy (Verified 02/10/18 18:28) Past Medical History - Social History Family history: Reviewed & Not Pertinent Pulmonary Medical History: Reports: Hx Asthma Neurological Medical History: Reports: Hx Migraine Renal/ Medical History: Denies: Hx Peritoneal Dialysis Musculoskeltal Medical History: Reports Hx Arthritis, Reports Hx Musculoskeletal Deformity, Reports Hx Musculoskeletal Trauma Psychiatric Medical History: Reports: Hx Anxiety, Hx Bipolar Disorder, Hx Schizophrenia Traumatic Medical History: Reports: Hx Fractures - Leg Past Surgical History: Reports: Hx Adenoidectomy, Hx Breast Surgery - tumor removed Right breast, Hx Tonsillectomy, Hx Tubal Ligation, Hx Urinary Tract Surgery - Immunizations Immunizations up to date: Yes Hx Diphtheria, Pertussis, Tetanus Vaccination: Yes - 08/29/2017 patient states 5 years ago Physical Exam - Vital signs Vitals: Temp Pulse Resp BP Pulse Ox 97.6 F 77 20 139/69 H 100 02/10/18 18:35 02/10/18 18:35 02/10/18 18:35 02/10/18 18:35 02/10/18 18:35 Course - Vital Signs Vital signs: Temp Pulse Resp BP Pulse Ox 97.6 F 77 20 139/69 H 100 02/10/18 18:35 02/10/18 18:35 02/10/18 18:35 02/10/18 18:35 02/10/18 18:35
[2018-02-10 19:55] LABS: APPEARANCE,URINE SLIGHTLY-CLOUDY; BILIRUBIN,URINE NEGATIVE (NEGATIVE); COLOR,URINE YELLOW; GLUCOSE, URINE NEGATIVE (NEGATIVE); KETONES,URINE NEGATIVE (NEGATIVE); LEUKOCYTE ESTERASE,URINE NEGATIVE (NEGATIVE); NITRITE,URINE NEGATIVE (NEGATIVE); PROTEIN,URINE NEGATIVE (NEGATIVE); URINE SPECIFIC GRAVITY 1.023; UROBILINOGEN,URINE NEGATIVE mg/dL (<2.0)
--- NOTE | 2018-02-10 20:37 | ER Document Report ---
ED General - General Chief Complaint: Headache <24 hrs old Stated Complaint: HEADACHE/NAUSEA Time Seen by Provider: 02/10/18 19:19 Mode of Arrival: Ambulatory Information source: Patient Notes: 37-year-old female with anxiety, migraine headaches, bipolar disorder presents with complaint of headache that began this morning upon awakening. Patient states that she took 2 Motrin and then proceeded to go to work. She states at work the headache worsened, migrated to her right eye and that is when the patient knew she was going to have a migraine. Patient was unable to continue work and was brought to the hospital by a coworker. Patient states that she suffers from migraine headaches frequently. She denies any recent illness, fever, neck stiffness. She admits to photophobia, nausea without vomiting. TRAVEL OUTSIDE OF THE [place] IN LAST 30 DAYS: No - HPI Onset: This morning Onset/Duration: Gradual, Persistent, Worse Quality of pain: Throbbing Severity: Moderate Pain Level: 2 Associated symptoms: Nausea Exacerbated by: Denies Relieved by: Denies Similar symptoms previously: Yes Recently seen / treated by doctor: Yes - Related Data Allergies/Adverse Reactions: No Known Allergies Allergy (Verified 02/10/18 18:28) Past Medical History - General Information source: Patient, [facility] Records - Social History Smoking Status: Current Every Day Smoker Cigarette use (# per day): Yes - 10 Smoking Education Provided: Yes - Patient counselled regarding cessation for 4 minutes Frequency of alcohol use: Occasional Drug Abuse: None Lives with: Family Family History: Arthritis, CVA, DM, Hyperlipidemia, Hypertension, Malignancy Patient has suicidal ideation: No Patient has homicidal ideation: No Pulmonary Medical History: Reports: Hx Asthma Neurological Medical History: Reports: Hx Migraine Renal/ Medical History: Denies: Hx Peritoneal Dialysis Musculoskeletal Medical History: Reports Hx Arthritis, Reports Hx Musculoskeletal Deformity, Reports Hx Musculoskeletal Trauma Psychiatric Medical History: Reports: Hx Anxiety, Hx Bipolar Disorder, Hx Schizophrenia Traumatic Medical History: Reports: Hx Fractures - Leg Past Surgical History: Reports: Hx Adenoidectomy, Hx Breast Surgery - tumor removed Right breast, Hx Tonsillectomy, Hx Tubal Ligation, Hx Urinary Tract Surgery - Immunizations Immunizations up to date: Yes Hx Diphtheria, Pertussis, Tetanus Vaccination: Yes - 08/29/2017 patient states 5 years ago Review of Systems - Review of Systems Notes: REVIEW OF SYSTEMS: CONSTITUTIONAL : Denies fever, chills, or sweats. Denies recent illness. Denies weight loss, recent hospitalizations. EENT: Denies visual changes, eye pain. Denies nasal or sinus congestion or discharge. Denies sore throat, oral lesions, difficulty swallowing. CARDIOVASCULAR: Denies chest pain. Denies palpitations. Denies lower extremity edema. RESPIRATORY: Denies cough, cold, or chest congestion. Denies shortness of breath, wheezing. GASTROINTESTINAL: Denies abdominal pain or distention. Denies vomiting, or diarrhea. Denies blood in vomitus, stools, or per rectum. Denies black, tarry stools. Denies constipation. GENITOURINARY: Denies difficulty urinating, painful urination, frequency, blood in urine, or vaginal discharge. MUSCULOSKELETAL: Denies back or neck pain or stiffness. Denies joint pain or swelling. SKIN: Denies rash, lesions or sores. HEMATOLOGIC : Denies easy bruising or bleeding. LYMPHATIC: Denies swollen glands. NEUROLOGICAL: Denies confusion or altered mental status. Denies passing out or loss of consciousness. Denies dizziness or lightheadedness. Denies weakness or paralysis. Denies problems difficulty with ambulation, slurred speech. Denies sensory loss, numbness, or tingling. Denies seizures. PSYCHIATRIC: Denies anxiety or stress. Denies depression, suicidal ideation, or homicidal ideation. Denies visual or auditory hallucinations. Physical Exam - Vital signs Vitals: Temp Pulse Resp BP Pulse Ox 97.6 F 77 20 139/69 H 100 02/10/18 18:35 02/10/18 18:35 02/10/18 18:35 02/10/18 18:35 02/10/18 18:35 Interpretation: Normal - Notes Notes: PHYSICAL EXAMINATION: GENERAL: Well-appearing, well-nourished and in no acute distress. HEAD: Atraumatic, normocephalic. EYES: Pupils equal round and reactive to light, extraocular movements intact, conjunctiva are normal. ENT: Nares patent, oropharynx clear without exudates. Moist mucous membranes. NECK: Normal range of motion, supple without lymphadenopathy LUNGS: Breath sounds clear to auscultation bilaterally and equal. No wheezes rales or rhonchi. HEART: Regular rate and rhythm without murmurs ABDOMEN: Soft, nontender, nondistended abdomen. No guarding, no rebound. No masses appreciated. Female : deferred Musculoskeletal: Normal range of motion, no pitting or edema. No cyanosis. NEUROLOGICAL: Cranial nerves grossly intact. Normal speech, normal gait. Normal sensory, motor exams PSYCH: Normal mood, normal affect. SKIN: Warm, Dry, normal turgor, no rashes or lesions noted. Course - Re-evaluation Re-evalutation: Laboratory 02/10/18 19:20 Urine Color YELLOW Urine Appearance SLIGHTLY-CLOUDY Urine pH 6.0 Ur Specific [place] 1.023 Urine Protein NEGATIVE Urine Glucose (UA) NEGATIVE Urine Ketones NEGATIVE Urine Blood SMALL H Urine Nitrite NEGATIVE Urine Bilirubin NEGATIVE Urine Urobilinogen NEGATIVE Ur Leukocyte Esterase NEGATIVE Urine WBC (Auto) 2 Urine RBC (Auto) 27 Squamous Epi Cells Auto 8 Urine Mucus (Auto) MANY Urine Ascorbic Acid NEGATIVE Urine HCG, Qual NEGATIVE 37-year-old female with anxiety, migraine headaches, bipolar disorder presents with complaint of headache that began this morning upon awakening. Patient states that she took 2 Motrin and then proceeded to go to work. She states at work the headache worsened, migrated to her right eye and that is when the patient knew she was going to have a migraine. Patient states that she suffers from migraine headaches frequently. She denies any recent illness. She admits to photophobia, nausea without vomiting. Upon arrival vitals were reviewed, patient is afebrile, mildly hypertensive. Patient has a normal neurologic funduscopic exam. She was administered Reglan, Benadryl, Toradol during her ED course. 02/10/18 21:58 Patient reevaluated and reports improvement of her headache. She is resting comfortably. 02/10/18 21:58 02/12/18 07:43 Patient provided the opportunity to ask questions, and express concerns. Discharge instructions discussed. Patient is agreeable with discharge home. Return indications explained and discussed with the patient who displays understanding. Patient encouraged to return to the emergency department immediately with any concerns. - Vital Signs Vital signs: Temp Pulse Resp BP Pulse Ox 98 F 65 18 116/56 L 100 02/10/18 23:12 02/10/18 23:12 02/10/18 23:12 02/10/18 23:12 02/10/18 23:12 - Laboratory Laboratory results interpreted by me: 02/10/18 19:20 Urine Blood SMALL H Discharge - Discharge Clinical Impression: Headache Qualifiers: Headache type: unspecified Headache chronicity pattern: unspecified pattern Intractability: not intractable Qualified Code(s): R51 - Headache Condition: Good Disposition: HOME, SELF-CARE Instructions: Headache ([facility]) Additional Instructions: Follow up with your physician tomorrow for further care or return to the ED IMMEDIATELY if symptoms worsen or new concerns occur. If you cannot afford to follow up with your primary care physician a list of low cost clinics have been provided at the end of your discharge papers as well. Prescriptions: Ibuprofen [Motrin 600 Mg Tablet] 600 mg PO TID #15 tablet Forms: Elevated Blood Pressure, Return to Work
[2018-02-10] MEDS ORDERED: LORAZEPAM INJ 2 MG/1 ML VIAL IV ONE (21:57)
[2018-02-10] MEDS ORDERED: KETOROLAC TROMETHAMINE INJ/PF 30 MG/1 ML SDV IV ONE (21:57)
[2018-02-10 23:16] VITALS: BP 116/56
== END 2018-02-10 22:52 | disposition home or self-care (01) ==
LOC: ER 18:26
DX: R51 Headache (principal); R11.0 Nausea
CPT/HCPCS: 99284; 96361; 96374; 96375; 81025; 81001; J1200; J1885; J2765; J2060; J7030

== ENCOUNTER 2018-03-22 08:46 | Emergency (ER) | payer BC ==
[2018-03-22] MEDS ORDERED: KETOROLAC TROMETHAMINE 60 MG/2 ML SDV IM ONE (09:45)
--- NOTE | 2018-03-22 09:51 | ER Document Report ---
HPI - HPI Patient complains to provider of: Sore throat, body aches Pain Level: 4 Context: Patient is a 37-year-old healthy female complaining of body aches, sore throat, pain to her right hip radiating to her right leg and leg cramps times several days. Patient works at the [employer] and admits to working 80 hours + 60 hours over time this past week. She sweats a lot during her job. She admits to inadequate hydration Associated Symptoms: Body/muscle aches, Headache, Sore throat. denies: Nausea, Vomiting, Shortness of breath Exacerbated by: Standing, Movement, Walking Relieved by: Denies Similar symptoms previously: Yes Recently seen / treated by doctor: No - ROS Systems Reviewed and Negative: Yes All other systems reviewed and negative - REPRODUCTIVE Reproductive: DENIES: : Past Medical History - General Information source: Patient - Social History Smoking Status: Current Every Day Smoker Frequency of alcohol use: Rare Drug Abuse: None Lives with: Family Family History: Arthritis, CVA, DM, Hyperlipidemia, Hypertension, Malignancy - Medical History Medical History: Negative Pulmonary Medical History: Reports: Hx Asthma Neurological Medical History: Reports: Hx Migraine Renal/ Medical History: Denies: Hx Peritoneal Dialysis Musculoskeletal Medical History: Reports Hx Arthritis, Reports Hx Musculoskeletal Deformity, Reports Hx Musculoskeletal Trauma Psychiatric Medical History: Reports: Hx Anxiety, Hx Bipolar Disorder, Hx Schizophrenia Traumatic Medical History: Reports: Hx Fractures - Leg Past Surgical History: Reports: Hx Adenoidectomy, Hx Breast Surgery - tumor removed Right breast, Hx Tonsillectomy, Hx Tubal Ligation, Hx Urinary Tract Surgery - Immunizations Immunizations up to date: Yes Hx Diphtheria, Pertussis, Tetanus Vaccination: Yes - 08/29/2017 patient states 5 years ago Vertical Provider Document - CONSTITUTIONAL Agree With Documented VS: Yes Exam Limitations: No Limitations - INFECTION CONTROL TRAVEL OUTSIDE OF THE [place] IN LAST 30 DAYS: No - HEENT HEENT: Atraumatic, PERRLA, Pharyngeal Erythema. negative: Pharyngeal Exudate - NECK Neck: Normal Inspection, Supple - RESPIRATORY Respiratory: Breath Sounds Normal, No Respiratory Distress - CARDIOVASCULAR Cardiovascular: Regular Rate, Regular Rhythm - GI/ABDOMEN Gastrointestinal: Abdomen Soft, Abdomen Non-Tender - BACK Back: Abnormal Inspection Notes: Generalized trapezius muscle tenderness. Mild right lumbar paraspinal tenderness positive right SI tenderness. Negative straight leg test. No foot drop. Walks independently without difficulty - MUSCULOSKELETAL/EXTREMETIES Musculoskeletal/Extremeties: MAEW, FROM, Tender - Generalized muscle tenderness - NEURO Level of Consciousness: Awake, Alert, Appropriate - DERM Integumentary: Warm, Dry, No Rash Course - Vital Signs Vital signs: Temp Pulse Resp BP Pulse Ox 99.0 F 87 16 129/62 H 96 03/22/18 08:58 03/22/18 08:58 03/22/18 08:58 03/22/18 08:58 03/22/18 08:58 Discharge - Discharge Clinical Impression: Myalgia, Mild dehydration, Sore throat Condition: Stable Disposition: HOME, SELF-CARE Instructions: Sore Throat ([facility]), Dehydration ([facility]), Toradol Injection ([facility]), Muscle Relaxers ([facility]), Ibuprofen (General) ([facility]) Additional Instructions: Take meds as prescribed rest and hydrate recommend Gatorade to replace lost electrolytes from excessive sweating Follow-up with your primary care if symptoms persist Prescriptions: Ibuprofen [Motrin 800 Mg Tablet] 800 mg PO Q6H #20 tablet Methocarbamol [Robaxin 500 Mg Tablet] 1,000 mg PO Q6 #30 tablet Forms: Return to Work
[2018-03-22 10:23] VITALS: BP 127/67
== END 2018-03-22 10:23 | disposition home or self-care (01) ==
LOC: ER 08:46
DX: J02.9 Acute pharyngitis, unspecified (principal); E86.0 Dehydration; M79.1 Myalgia; M25.551 Pain in right hip; R51 Headache; F17.200 Nicotine dependence, unspecified, uncomplicated; J45.909 Unspecified asthma, uncomplicated
CPT/HCPCS: 99283; 96372; J1885

== ENCOUNTER 2018-03-31 22:28 | Emergency (ER) | payer BC ==
--- NOTE | 2018-04-01 01:11 | ER Document Report ---
HPI - HPI Pain Level: 4 Notes: Patient is an otherwise healthy 37-year-old female who presents with 3 day history of nasal congestion, productive cough, bilateral ear pain as well as sinus congestion. Patient reports that multiple family members at her home and work are all sick with similar symptoms. Patient denies any fever. - REPRODUCTIVE LMP: 02-14-18 Reproductive: DENIES: : Past Medical History - General Information source: Patient - Social History Smoking Status: Never Smoker Frequency of alcohol use: None Drug Abuse: None Family History: Arthritis, CVA, DM, Hyperlipidemia, Hypertension, Malignancy Pulmonary Medical History: Reports: Hx Asthma Neurological Medical History: Reports: Hx Migraine Renal/ Medical History: Denies: Hx Peritoneal Dialysis Musculoskeletal Medical History: Reports Hx Arthritis, Reports Hx Musculoskeletal Deformity, Reports Hx Musculoskeletal Trauma Psychiatric Medical History: Reports: Hx Anxiety, Hx Bipolar Disorder, Hx Schizophrenia Traumatic Medical History: Reports: Hx Fractures - Leg Past Surgical History: Reports: Hx Adenoidectomy, Hx Breast Surgery - tumor removed Right breast, Hx Tonsillectomy, Hx Tubal Ligation, Hx Urinary Tract Surgery - Immunizations Immunizations up to date: Yes Hx Diphtheria, Pertussis, Tetanus Vaccination: Yes - 08/29/2017 patient states 5 years ago Vertical Provider Document - CONSTITUTIONAL Notes: PHYSICAL EXAMINATION: GENERAL: Well-appearing, well-nourished and in no acute distress. HEAD: Atraumatic, normocephalic. EYES: Pupils equal round extraocular movements intact, conjunctiva are normal. ENT: Nares patent NECK: Normal range of motion LUNGS: No respiratory distress, lung sounds clear and equal bilaterally. Musculoskeletal: Normal range of motion NEUROLOGICAL: Normal speech, normal gait. PSYCH: Normal mood, normal affect. SKIN: Warm, Dry, normal turgor, no rashes or lesions noted. - INFECTION CONTROL TRAVEL OUTSIDE OF THE [place] IN LAST 30 DAYS: No Course - Re-evaluation Re-evalutation: Examination is consistent with viral upper respiratory illness. Patient will be given supportive treatment for symptoms. Patient understands ED return precautions. - Vital Signs Vital signs: Temp Pulse Resp BP Pulse Ox 98.2 F 64 18 119/72 100 03/31/18 23:43 03/31/18 23:43 03/31/18 23:43 03/31/18 23:43 03/31/18 23:43 Discharge - Discharge Clinical Impression: Upper respiratory infection Qualifiers: URI type: unspecified viral URI Qualified Code(s): J06.9 - Acute upper respiratory infection, unspecified Condition: Stable Disposition: HOME, SELF-CARE Additional Instructions: UPPER RESPIRATORY ILLNESS: You have a viral infection of the respiratory passages -- a "cold." This common infection causes nasal congestion, drainage, and often sore throat and cough. It is highly contagious. The disease usually lasts about 10 to 14 days. There is no "cure" for the viral infection -- it must run its course. If there is a complication, such as bacterial infection in the nose, sinuses, middle ear, or bronchial tubes, antibiotics may be required. The antibiotics won't affect the virus. Drink plenty of fluids. A humidifier may help. An expectorant medication or decongestant may make you more comfortable. Use acetaminophen or ibuprofen for fever or aches. See the doctor if fever persists over two days, if there is any significant worsening of your symptoms, or if you simply fail to improve as expected. BRONCHOSPASM: You have tightness in the bronchial tubes, called bronchospasm. This often occurs with bronchial infections. Allergies, inhaled chemicals, and polluted or cold air can also provoke bronchospasm. It's more likely in patients with asthma in the family. Emergency treatment of bronchospasm may include adrenaline shots or bronchodilator aerosol. You may feel lightheaded and have a rapid pulse for an hour or two. Rest and get plenty of fluids. At home, we'll treat you with a bronchodilator inhaler. Antibiotics and corticosteroids may be required for some patients. Until you recover, avoid chemical fumes, dusts, pollens, and exercising in very cold or dry air. If you smoke, stop now!! If you develop a fever, increased wheezing, chest pain, or severe shortness of breath, you should contact the doctor immediately. FOLLOW-UP CARE: If you have been referred to a physician for follow-up care, call the physician s office for an appointment as you were instructed or within the next two days. If you experience worsening or a significant change in your symptoms, notify the physician immediately or return to the Emergency Department at any time for re-evaluation. Prescriptions: Guaifenesin/Codeine Phos [Guiatuss Ac Syrup] 10 ml PO QHS #100 ml Benzonatate [Tessalon Perles 100 mg Capsule] 100 mg PO Q8HP PRN #40 capsule PRN Reason: Fluticasone Propionate [Flonase Nasal [place] 50 Mcg/[place] 16 gm] 2 sprays NASL Q12 #1 inhaler Forms: Return to Work
[2018-04-01 02:10] VITALS: BP 126/82
== END 2018-04-01 02:08 | disposition home or self-care (01) ==
LOC: ER 22:28
DX: J06.9 Acute upper respiratory infection, unspecified (principal); R09.81 Nasal congestion; H92.03 Otalgia, bilateral; Z98.51 Tubal ligation status
CPT/HCPCS: 99283

== ENCOUNTER 2018-06-20 15:25 | Emergency (ER) | payer OTHER, BC ==
[2018-06-20 15:43] VITALS: BP 128/60
--- NOTE | 2018-06-20 16:02 | ER Document Report ---
ED Medical Screen (RME) - General Chief Complaint: Back Pain Stated Complaint: BACK PAIN Time Seen by Provider: 06/20/18 15:55 Mode of Arrival: Ambulatory Information source: Patient TRAVEL OUTSIDE OF THE [place] IN LAST 30 DAYS: No - HPI Patient complains to provider of: R flank pain Onset: Yesterday - pt with onset of R flank/ LBP since yesterday with occasional radiation to R side of abdomen - Related Data Allergies/Adverse Reactions: No Known Allergies Allergy (Verified 03/22/18 08:47) Past Medical History - Social History Chew tobacco use (# tins/day): No Frequency of alcohol use: None Drug Abuse: None Family history: Reviewed & Not Pertinent Pulmonary Medical History: Reports: Hx Asthma Neurological Medical History: Reports: Hx Migraine Renal/ Medical History: Denies: Hx Peritoneal Dialysis Musculoskeltal Medical History: Reports Hx Arthritis, Reports Hx Musculoskeletal Deformity, Reports Hx Musculoskeletal Trauma Psychiatric Medical History: Reports: Hx Anxiety, Hx Bipolar Disorder, Hx Schizophrenia Traumatic Medical History: Reports: Hx Fractures - Leg Past Surgical History: Reports: Hx Adenoidectomy, Hx Breast Surgery - tumor removed Right breast, Hx Tonsillectomy, Hx Tubal Ligation, Hx Urinary Tract Surgery - Immunizations Immunizations up to date: Yes Hx Diphtheria, Pertussis, Tetanus Vaccination: Yes - 08/29/2017 patient states 5 years ago Physical Exam - Vital signs Vitals: Temp Pulse Resp BP Pulse Ox 98.5 F 79 20 128/60 H 98 06/20/18 15:41 06/20/18 15:41 06/20/18 15:41 06/20/18 15:41 06/20/18 15:41 Course - Vital Signs Vital signs: Temp Pulse Resp BP Pulse Ox 98.5 F 79 20 128/60 H 98 06/20/18 15:41 06/20/18 15:41 06/20/18 15:41 06/20/18 15:41 06/20/18 15:41
[2018-06-20 16:17] LABS: APPEARANCE,URINE SLIGHTLY-CLOUDY; BILIRUBIN,URINE NEGATIVE (NEGATIVE); COLOR,URINE YELLOW; GLUCOSE, URINE NEGATIVE (NEGATIVE); KETONES,URINE NEGATIVE (NEGATIVE); LEUKOCYTE ESTERASE,URINE SMALL (NEGATIVE); NITRITE,URINE NEGATIVE (NEGATIVE); PROTEIN,URINE 30 mg/dL (NEGATIVE); URINE SPECIFIC GRAVITY 1.018; UROBILINOGEN,URINE NEGATIVE mg/dL (<2.0)
[2018-06-20 16:40] LABS: ABSOLUTE EOSINOPHILS # (AUTO) 0.1 10^3/uL (0.0-0.6); ABSOLUTE MONOCYTES (AUTO) 0.4 10^3/uL (0.1-1.4); HEMOGLOBIN 12.8 g/dL (12.0-15.5); MEAN CORPUSCULAR VOLUME 88 fl (80-97); RED CELL DISTRIBUTION WIDTH 13.4 % (11.5-14.0); TOTAL CELLS COUNTED % (AUTO) 100 %
[2018-06-20 16:44] LABS: ABSOLUTE BASOPHILS # (AUTO) 0.1 10^3/uL (0.0-0.2); ABSOLUTE LYMPHOCYTES (AUTO) 1.5 10^3/uL (0.5-4.7); BASOPHILS % (AUTO) 0.9 % (0-2); HEMATOCRIT 37.8 % (36.0-47.0); LYMPHOCYTES % (AUTO) 25.1 % (13-45); MEAN CORPUSCULAR HEMOGLOBIN 29.9 pg (27.0-33.4); PLATELET COUNT 213 10^3/uL (150-450); WHITE BLOOD COUNT 6.2 10^3/uL (4.0-10.5)
[2018-06-20 16:57] LABS: ALANINE AMINOTRANSFERASE 13 U/L (9-52); ALBUMIN 4.3 g/dL (3.5-5.0); ALKALINE PHOSPHATASE 50 U/L (38-126); ANION GAP 13 (5-19); ASPARTATE AMINO TRANSFERASE 13 U/L (14-36); BILIRUBIN,DIRECT 0.1 mg/dL (0.0-0.4); BILIRUBIN,TOTAL 0.4 mg/dL (0.2-1.3); BLOOD UREA NITROGEN 14 mg/dL (7-20); CALCIUM 9.9 mg/dL (8.4-10.2); CARBON DIOXIDE 25 mmol/L (22-30); CHLORIDE 106 mmol/L (98-107); GLUCOSE 96 mg/dL (75-110); POTASSIUM 4.2 mmol/L (3.6-5.0); SODIUM 144.4 mmol/L (137-145); TOTAL PROTEIN 7.2 g/dL (6.3-8.2)
--- NOTE | 2018-06-20 16:57 | RADIOLOGY REPORT (SQ) ---
EXAM DESCRIPTION: CT LTD RENAL STONE PROTOCOL ON COMPLETED DATE/TIME: 06/20/2018 4:42 pm REASON FOR STUDY: R flank pain COMPARISON: None. TECHNIQUE: CT scan of the abdomen and pelvis performed without intravenous or oral contrast. Images reviewed with lung, soft tissue, and bone windows. Reconstructed coronal and sagittal MPR images revi ewed. All images stored on PACS. All CT scanners at this facility use dose modulation, iterative reconstruction, and/or weight based d osing when appropriate to reduce radiation dose to as low as reasonably achievable (ALARA). [facility]: Dose Right [facility]: CareDose [facility]: Dose Right [facility]: Teradose 4D [facility]: [employer] RADIATION DOSE: CT Rad equipment meets quality standard of care and radiation dose reduction techniq ues were employed. CTDIvol: 7.8 mGy. DLP: 420 mGy-cm.mGy. LIMITATIONS: None. FINDINGS: LOWER CHEST: No significant findings. No nodules or infiltrates. NON-CONTRASTED LIVER, SPLEEN, ADRENALS: Evaluation limited by lack of IV contrast. No identified sign ificant masses. PANCREAS: No masses. No peripancreatic inflammatory changes. GALLBLADDER: No identified stones by CT criteria. No inflammatory changes to suggest cholecystitis. RIGHT KIDNEY AND URETER: No suspicious masses. Assessment limited by lack of IV contrast. No signif icant calcifications. No hydronephrosis or hydroureter. LEFT KIDNEY AND URETER: No suspicious masses. Assessment limited by lack of IV contrast. No signifi cant calcifications. No hydronephrosis or hydroureter. AORTA AND RETROPERITONEUM: No aneurysm. No retroperitoneal masses or adenopathy. BOWEL AND PERITONEAL CAVITY: No obvious masses or inflammatory changes. No free fluid. APPENDIX: Normal. PELVIS, BLADDER, AND ABDOMINAL WALL:No abnormal masses. No free fluid. Bladder normal. BONES: No significant findings. OTHER: No other significant finding. IMPRESSION: NO SIGNIFICANT OR ACUTE PROCESS IN THE ABDOMEN OR PELVIS. COMMENT: Quality ID # [id number]: Final reports with documentation of one or more dose reduction techniques (e.g., Automated exposure control, adjustment of the mA and/or kV according to patient size, use of iterative reconstruction technique) TECHNICAL DOCUMENTATION: JOB ID: [id number] [employer]- All Rights Reserved Reading location - IP/workstation name: [email or web address]
--- NOTE | 2018-06-20 18:33 | ER Document Report ---
ED General - General Chief Complaint: Back Pain Stated Complaint: BACK PAIN Time Seen by Provider: 06/20/18 15:55 Mode of Arrival: Ambulatory Information source: Patient Notes: 37-year-old female presents emergency department with complaints of right flank pain that radiates into the right lower quadrant and suprapubic area. Patient denies any dysuria, hematuria but she is having some increased urgency and frequency. Patient states that yesterday she did lift a 5 gallon bucket of water while at work. This pain is separate from her R flank pain. She states that immediately she began feeling the back pain. She states that it did not radiate anywhere. Denies numbness, tingling, weakness, bowel or bladder incontinence. Able to ambulate. Patient denies any nausea, vomiting, diarrhea, constipation. TRAVEL OUTSIDE OF THE [place] IN LAST 30 DAYS: No - HPI Onset: Yesterday Onset/Duration: Sudden Quality of pain: Achy Associated symptoms: None Exacerbated by: Denies Relieved by: Denies Similar symptoms previously: No Recently seen / treated by doctor: No - Related Data Allergies/Adverse Reactions: No Known Allergies Allergy (Verified 03/22/18 08:47) Past Medical History - General Information source: Patient - Social History Smoking Status: Current Every Day Smoker Chew tobacco use (# tins/day): No Frequency of alcohol use: None Drug Abuse: None Family History: Arthritis, CVA, DM, Hyperlipidemia, Hypertension, Malignancy Patient has suicidal ideation: No Patient has homicidal ideation: No Pulmonary Medical History: Reports: Hx Asthma Neurological Medical History: Reports: Hx Migraine Renal/ Medical History: Denies: Hx Peritoneal Dialysis Musculoskeletal Medical History: Reports Hx Arthritis, Reports Hx Musculoskeletal Deformity, Reports Hx Musculoskeletal Trauma Psychiatric Medical History: Reports: Hx Anxiety, Hx Bipolar Disorder, Hx Schizophrenia Traumatic Medical History: Reports: Hx Fractures - Leg Past Surgical History: Reports: Hx Adenoidectomy, Hx Breast Surgery - tumor removed Right breast, Hx Tonsillectomy, Hx Tubal Ligation, Hx Urinary Tract Surgery - Immunizations Immunizations up to date: Yes Hx Diphtheria, Pertussis, Tetanus Vaccination: Yes - 08/29/2017 patient states 5 years ago Review of Systems - Review of Systems Constitutional: No symptoms reported EENT: No symptoms reported Cardiovascular: No symptoms reported Gastrointestinal: No symptoms reported Genitourinary: Frequency, Urgency Female Genitourinary: No symptoms reported Musculoskeletal: Back pain Skin: No symptoms reported Hematologic/Lymphatic: No symptoms reported Neurological/Psychological: No symptoms reported -: Yes All other systems reviewed and negative Physical Exam - Vital signs Vitals: Temp Pulse Resp BP Pulse Ox 98.5 F 79 20 128/60 H 98 06/20/18 15:41 06/20/18 15:41 06/20/18 15:41 06/20/18 15:41 06/20/18 15:41 - Notes Notes: PHYSICAL EXAMINATION: GENERAL: Well-appearing, well-nourished and in no acute distress. HEAD: Atraumatic, normocephalic. EYES: Pupils equal round and reactive to light, extraocular movements intact, conjunctiva are normal. ENT: Nares patent, oropharynx clear without exudates. Moist mucous membranes. NECK: Normal range of motion, supple without lymphadenopathy LUNGS: Breath sounds clear to auscultation bilaterally and equal. No wheezes rales or rhonchi. HEART: Regular rate and rhythm without murmurs ABDOMEN: Soft, tenderness to palpation in the R flank, RLQ and suprapubic area. No rebound or guarding. Normal active bowel sounds. Female : deferred Musculoskeletal: Normal range of motion, no pitting or edema. No cyanosis. NEUROLOGICAL: Cranial nerves grossly intact. Normal speech, normal gait. Normal sensory, motor exams PSYCH: Normal mood, normal affect. SKIN: Warm, Dry, normal turgor, no rashes or lesions noted. Course - Re-evaluation Re-evalutation: 06/20/18 18:33 Patient denies any vaginal bleeding, vaginal discharge. She is not concerned about sexually transmitted diseases. Labs and imaging were obtained. CT abdomen pelvis was ordered by the triage physician. No acute process was identified. Patient's white blood cell count is normal. Urine shows signs of infection. Patient does have some increased urgency and frequency. She did have tenderness to palpation in the RLQ and suprapubic area. I will start her on antibiotics and discharge her home. Patient instructed to take the medication prescribed as directed, to follow-up with the primary care physician this week, and to return for worsening symptoms. 06/20/18 18:41 - Vital Signs Vital signs: Temp Pulse Resp BP Pulse Ox 98.5 F 79 20 128/60 H 98 06/20/18 15:41 06/20/18 15:41 06/20/18 15:41 06/20/18 15:41 06/20/18 15:41 - Laboratory Result Diagrams: 06/20/18 16:25 06/20/18 16:25 Laboratory results interpreted by me: 06/20/18 06/20/18 16:05 16:25 AST 13 L Urine Protein 30 H Urine Blood LARGE H Ur Leukocyte Esterase SMALL H Discharge - Discharge Clinical Impression: Urinary tract infection Qualifiers: Urinary tract infection type: site unspecified Hematuria presence: without hematuria Qualified Code(s): N39.0 - Urinary tract infection, site not specified Condition: Good Disposition: HOME, SELF-CARE Instructions: Levofloxacin, Urinary Tract Infection ([facility]) Prescriptions: Levofloxacin [Levaquin 250 mg Tablet] 750 mg PO DAILY #5 tablet
== END 2018-06-20 19:00 | disposition home or self-care (01) ==
LOC: ER 15:25
DX: N39.0 Urinary tract infection, site not specified (principal); M54.9 Dorsalgia, unspecified; X50.0XXA Overexertion from strenuous movement or load, initial encounter; Y99.0 Civilian activity done for income or pay; F17.200 Nicotine dependence, unspecified, uncomplicated; J45.909 Unspecified asthma, uncomplicated
CPT/HCPCS: 36415; 76380; 80053; 81001; 81025; 85025; 99284

== ENCOUNTER 2018-06-24 09:31 | Emergency (ER) | payer BC, OTHER ==
[2018-06-24 09:38] VITALS: BP 126/70
--- NOTE | 2018-06-24 09:41 | ER Document Report ---
ED Hand/Wrist Injury - General Chief Complaint: Thumb Injury Stated Complaint: RIGHT THUMB INJURY Time Seen by Provider: 06/24/18 09:40 Mode of Arrival: Ambulatory Information source: Patient Notes: 37-year-old female presents to ED for complaint of right thumb pain. She states she hit the thumb on the stair railing yesterday causing an injury. She states the swelling bruising and increased pain with palpation and movement. She states she did not yesterday and went to work and came in here today. She states she sometimes smokes rarely drinks no drugs. She works the [email or web address]. Patient is alert and oriented respirations regular and unlabored speaking in full sentences walks with a even steady gait. TRAVEL OUTSIDE OF THE [place] IN LAST 30 DAYS: No - HPI Injury to: Thumb Onset: Yesterday Where: Home, Indoors Timing: Still present Quality of pain: Achy Severity: Moderate Pain Level: 3 Context: Other - Contusion - Related Data Allergies/Adverse Reactions: No Known Allergies Allergy (Verified 06/24/18 09:32) Past Medical History - General Information source: Patient - Social History Smoking Status: Current Some Day Smoker Cigarette use (# per day): Yes Frequency of alcohol use: Rare Drug Abuse: None Occupation: [employer] Lives with: Family Family History: Arthritis, CVA, DM, Hyperlipidemia, Hypertension, Malignancy Patient has suicidal ideation: No Patient has homicidal ideation: No - Past Medical History Cardiac Medical History: Reports: None Pulmonary Medical History: Reports: Hx Asthma EENT Medical History: Reports: None Neurological Medical History: Reports: Hx Migraine Endocrine Medical History: Reports: None GI Medical History: Reports: None Musculoskeletal Medical History: Reports Hx Arthritis, Reports Hx Musculoskeletal Deformity, Reports Hx Musculoskeletal Trauma Skin Medical History: Reports None Psychiatric Medical History: Reports: Hx Anxiety, Hx Bipolar Disorder, Hx Schizophrenia Traumatic Medical History: Reports: Hx Fractures - Leg Infectious Medical History: Reports: None Past Surgical History: Reports: Hx Adenoidectomy, Hx Breast Surgery - tumor removed Right breast, Hx Tonsillectomy, Hx Tubal Ligation, Hx Urinary Tract Surgery - Immunizations Immunizations up to date: Yes Hx Diphtheria, Pertussis, Tetanus Vaccination: Yes - 08/29/2017 patient states 5 years ago Review of Systems - Review of Systems Notes: REVIEW OF SYSTEMS: CONSTITUTIONAL : Denies fever, chills, or sweats. Denies recent illness. EENT: Denies eye, ear, throat, or mouth pain or symptoms. Denies nasal or sinus congestion or discharge. Denies throat, tongue, or mouth swelling or difficulty swallowing. CARDIOVASCULAR: Denies chest pain. Denies palpitations or racing or irregular heart beat. Denies ankle edema. RESPIRATORY: Denies cough, cold, or chest congestion. Denies shortness of breath, difficulty breathing, or wheezing. GASTROINTESTINAL: Denies abdominal pain or distention. Denies nausea, vomiting , or diarrhea. Denies blood in vomitus, stools, or per rectum. Denies black, tarry stools. Denies constipation. GENITOURINARY: Denies difficulty urinating, painful urination, burning, frequency, blood in urine, or discharge. FEMALE GENITOURINARY: Denies vaginal bleeding, heavy or abnormal periods, irregular periods. Denies vaginal discharge or odor. MUSCULOSKELETAL: Denies back or neck pain or stiffness. Pain with swelling and bruising to the right thumb MIP and PIP joint. X-ray negative. SKIN: Denies rash, lesions or sores. HEMATOLOGIC : Denies easy bruising or bleeding. LYMPHATIC: Denies swollen, enlarged glands. NEUROLOGICAL: Denies confusion or altered mental status. Denies passing out or loss of consciousness. Denies dizziness or lightheadedness. Denies headache. Denies weakness or paralysis or loss of use of either side. Denies problems with gait or speech. Denies sensory loss, numbness, or tingling. Denies seizures. PHYSICAL EXAMINATION: GENERAL: Well-appearing, well-nourished and in no acute distress. HEAD: Atraumatic, normocephalic. EYES: Pupils equal round and reactive to light, extraocular movements intact, conjunctiva are normal. ENT: Nares patent, oropharynx clear without exudates. Moist mucous membranes. NECK: Normal range of motion, supple without lymphadenopathy LUNGS: Breath sounds clear to auscultation bilaterally and equal. No wheezes rales or rhonchi. HEART: Regular rate and rhythm without murmurs ABDOMEN: Soft, nontender, nondistended abdomen. No guarding, no rebound. No masses appreciated. Female : deferred Musculoskeletal: Normal range of motion, no pitting or edema. No cyanosis. NEUROLOGICAL: Cranial nerves grossly intact. Normal speech, normal gait. Normal sensory, motor exams PSYCH: Normal mood, normal affect. SKIN: Warm, Dry, normal turgor, no rashes or lesions noted. PSYCHIATRIC: Denies anxiety or stress. Denies depression, suicidal ideation, or homicidal ideation. ALL OTHER SYSTEMS REVIEWED AND NEGATIVE. Dictation was performed using [id number] voice recognition software Physical Exam - Vital signs Vitals: Temp Pulse Resp BP Pulse Ox 98.3 F 93 16 126/70 H 97 06/24/18 09:37 06/24/18 09:37 06/24/18 09:37 06/24/18 09:37 06/24/18 09:37 Course - Re-evaluation Re-evalutation: 06/24/18 10:33 Traction placed on the thumb and patient pulled back and there was a pop and patient received relief from pain. There was no dislocation the thumb was slightly jammed. Splint was applied to the thumb and patient was discharged home with instructions for elevation ice ibuprofen and Tylenol. Patient was instructed to follow-up with orthopedics for continued pain. - Vital Signs Vital signs: Temp Pulse Resp BP Pulse Ox 98.3 F 93 16 126/70 H 97 06/24/18 09:37 06/24/18 09:37 06/24/18 09:37 06/24/18 09:37 06/24/18 09:37 - Diagnostic Test Radiology reviewed: Image reviewed, Reports reviewed Procedures - Immobilization Right Finger Thumb Time completed: 10:27 Immobilizer type: Finger protection Performed by: PCT Post-Proc Neuro Vasc Exam: Normal Alignment checked and good: Yes Discharge - Discharge Clinical Impression: Contusion of right thumb Qualifiers: Encounter type: initial encounter Damage to nail status: without damage Qualified Code(s): S60.011A - Contusion of right thumb without damage to nail, initial encounter Condition: Stable Disposition: HOME, SELF-CARE Additional Instructions: CONTUSION: Your injury has resulted in a contusion -- a crushing of the deep tissues. No injury to important structures was detected during the physician's exam. Contusions vary in the amount of pain they cause, and in the length of time required for healing. Typically, the area will become bruised, and will remain painful to touch for two or three weeks. However, most patients are back to working and playing within a few days. After the initial period of rest and cold-packs, your symptoms (together with the doctor's recommendations) will determine how rapidly you can get back to full activity. Usually this means "do what feels okay, but don't do things that hurt." If re-examination was recommended, it's important to follow up as instructed. Call the doctor or return any time if pain increases, if swelling becomes severe, if you develop numbness or weakness in an injured extremity, or if any other alarming symptoms occur. USE OF TYLENOL (ACETAMINOPHEN): Acetaminophen may be taken for pain relief or fever control. It's much safer than aspirin, offering a wider range of "safe" dosages. It is safe during . Some brand names are Tylenol, Panadol, Datril, Anacin 3, Tempra, and Liquiprin. Acetaminophen can be repeated every four hours. The following are maximum recommended dosages: WEIGHT Dose Drops Elixir Chewable( 80mg) (LBS.) drprs=droppers tsp=teaspoon 6 40 mg 0.4 ml (1/2) 6-11 80 mg 0.8 ml (full) tsp 1 tab 12-16 120 mg 1 1/2 drprs 3/4 tsp 1 1/2 tabs 17-23 160 mg 2 drprs 1 tsp 2 tabs 24-30 240 mg 3 drprs 1 1/2 tsp 3 tabs 30-35 320 mg 2 tsp 4 tabs 36-41 360 mg 2 1/4 tsp 4 1/2 tabs 42-47 400 mg 2 1/2 tsp 5 tabs 48-53 480 mg 3 tsp 6 tabs 54-59 520 mg 3 1/4 tsp 6 1/2 tabs 60-64 560 mg 3 1/2 tsp 7 tabs 65-70 600 mg 3 3/4 tsp 7 1/2 tabs 71-76 640 mg 4 tsp 8 tabs 77-82 720 mg 4 1/2 tsp 9 tabs 83-88 800 mg 5 tsp 10 tabs >89 pounds or adults 650 mg to 900 mg Acetaminophen can be repeated every four hours. Maximum dose not to exceed 4000 mg a day. These maximum recommended dosages are slightly higher than the dosages written on the product container, but these dosages are very safe and below the toxic dosage for acetaminophen. ICE & ELEVATION: Apply ice packs frequently against the painful area. Many different schedules are recommended, such as "20 minutes on, 20 minutes off" or "one hour ice, two hours rest." If you need to work, you may need to go longer between ice treatments. You should plan to have the area ice packed AT LEAST one- fourth of the time. The ice should be applied over the wrap, tape, or splint, or over a layer of cloth -- not directly against the skin. Some ice bags have a built-in cloth and can be put directly on the skin. Your injured part should be elevated as much as possible over the next 48 hours. Try to keep the injury above the level of the heart. Avoid use of the injured area. Elevation and rest will decrease the swelling. USE OF [id number] IBUPROFEN: Ibuprofen (Advil, Nuprin, Medipren, Motrin IB) is a medication for fever and pain control. In addition, it has anti- inflammatory effects which may be beneficial, especially in the treatment of injuries. It's best to take ibuprofen with food. Persons with ulcer disease or allergy to aspirin should notify their physician of this before taking ibuprofen. Ibuprofen can be given every four to six hours, for a total of four doses daily. Age Pain or fever dose Antiinflammatory dose 6-8 yr 200 mg (1 tab) 200 mg (1 tab) 9-11 yr 200 mg (1 tab) 200-400 mg (1-2 tab) 11-14 yr 200-400 mg (1-2 tab) 400 mg (2 tab) 15-adult 400 mg (2 tab) 600 mg (3 tab) FOLLOW-UP CARE: If you have been referred to a physician for follow-up care, call the physician s office for an appointment as you were instructed or within the next two days. If you experience worsening or a significant change in your symptoms, notify the physician immediately or return to the Emergency Department at any time for re-evaluation. Forms: Smoking Cessation Education, Return to Work, Elevated Blood Pressure Referrals: KIKA SOMERS MD [ACTIVE STAFF] - Follow up as needed
[2018-06-24] MEDS ORDERED: IBUPROFEN 800 MG TABLET PO ONE (09:52)
[2018-06-24] MEDS ORDERED: ACETAMINOPHEN 325 MG TABLET PO ONE (09:52)
--- NOTE | 2018-06-24 09:59 | RADIOLOGY REPORT (SQ) ---
EXAM DESCRIPTION: FINGER RIGHT COMPLETED DATE/TIME: 06/24/2018 9:48 am REASON FOR STUDY: sore thumb COMPARISON: None. NUMBER OF VIEWS: Three views right hand and thumb. LIMITATIONS: None. FINDINGS: No bone pathology. Joints maintained. No foreign body. Mild proximal thumb soft tissue swelling is suggested. OTHER: No other significant finding. IMPRESSION: No fracture or foreign body evident. TECHNICAL DOCUMENTATION: JOB ID: [id number] Reading location - IP/workstation name: [email or web address]
== END 2018-06-24 10:37 | disposition home or self-care (01) ==
LOC: ER 09:31
DX: S60.011A Contusion of right thumb without damage to nail, initial encounter (principal); M79.644 Pain in right finger(s); W22.09XA Striking against other stationary object, initial encounter; Y92.009 Unspecified place in unspecified non-institutional (private) residence as the place of occurrence of the external cause; F17.210 Nicotine dependence, cigarettes, uncomplicated; J45.909 Unspecified asthma, uncomplicated
CPT/HCPCS: 99283

== ENCOUNTER 2018-07-25 14:14 | Emergency (ER) | payer BC ==
--- NOTE | 2018-07-25 14:54 | ER Document Report ---
ED Medical Screen (RME) - General Chief Complaint: Flank Pain Stated Complaint: PAIN ON BOTH SIDES Time Seen by Provider: 07/25/18 14:52 Mode of Arrival: Ambulatory Information source: Patient TRAVEL OUTSIDE OF THE [place] IN LAST 30 DAYS: No - HPI Patient complains to provider of: flank pain Onset: Other - pt with bilateral intermittent flank pain for the past 2 days. - Related Data Allergies/Adverse Reactions: No Known Allergies Allergy (Verified 07/25/18 14:15) Past Medical History - Social History Family history: Reviewed & Not Pertinent Pulmonary Medical History: Reports: Hx Asthma Neurological Medical History: Reports: Hx Migraine Renal/ Medical History: Denies: Hx Peritoneal Dialysis Musculoskeltal Medical History: Reports Hx Arthritis, Reports Hx Musculoskeletal Deformity, Reports Hx Musculoskeletal Trauma Psychiatric Medical History: Reports: Hx Anxiety, Hx Bipolar Disorder, Hx Schizophrenia Traumatic Medical History: Reports: Hx Fractures - Leg Past Surgical History: Reports: Hx Adenoidectomy, Hx Breast Surgery - tumor removed Right breast, Hx Tonsillectomy, Hx Tubal Ligation, Hx Urinary Tract Surgery - Immunizations Immunizations up to date: Yes Hx Diphtheria, Pertussis, Tetanus Vaccination: Yes - 08/29/2017 patient states 5 years ago Physical Exam - Vital signs Vitals: Temp Pulse Resp BP Pulse Ox 98.4 F 87 16 121/67 98 07/25/18 14:22 07/25/18 14:22 07/25/18 14:22 07/25/18 14:22 07/25/18 14:22 Course - Vital Signs Vital signs: Temp Pulse Resp BP Pulse Ox 98.4 F 87 16 121/67 98 07/25/18 14:22 07/25/18 14:22 07/25/18 14:22 07/25/18 14:22 07/25/18 14:22
[2018-07-25 15:27] LABS: APPEARANCE,URINE CLEAR; BILIRUBIN,URINE NEGATIVE (NEGATIVE); COLOR,URINE YELLOW; GLUCOSE, URINE NEGATIVE (NEGATIVE); KETONES,URINE NEGATIVE (NEGATIVE); LEUKOCYTE ESTERASE,URINE NEGATIVE (NEGATIVE); NITRITE,URINE NEGATIVE (NEGATIVE); PROTEIN,URINE NEGATIVE (NEGATIVE); URINE SPECIFIC GRAVITY 1.023; UROBILINOGEN,URINE NEGATIVE mg/dL (<2.0)
--- NOTE | 2018-07-25 15:28 | RADIOLOGY REPORT (SQ) ---
EXAM DESCRIPTION: CT LTD RENAL STONE PROTOCOL ON COMPLETED DATE/TIME: 07/25/2018 3:17 pm REASON FOR STUDY: bilateral flank pain COMPARISON: 06/20/2018 TECHNIQUE: CT scan of the abdomen and pelvis performed without intravenous or oral contrast. Images reviewed with lung, soft tissue, and bone windows. Reconstructed coronal and sagittal MPR images revi ewed. All images stored on PACS. All CT scanners at this facility use dose modulation, iterative reconstruction, and/or weight based d osing when appropriate to reduce radiation dose to as low as reasonably achievable (ALARA). [facility]: Dose Right [facility]: CareDose [facility]: Dose Right [facility]: Teradose 4D [facility]: Smart stiQRd RADIATION DOSE: CT Rad equipment meets quality standard of care and radiation dose reduction techniq ues were employed. CTDIvol: 7.0 mGy. DLP: 410 mGy-cm.mGy. LIMITATIONS: None. FINDINGS: LOWER CHEST: No significant findings. No nodules or infiltrates. NON-CONTRASTED LIVER, SPLEEN, ADRENALS: Evaluation limited by lack of IV contrast. No identified sign ificant masses. PANCREAS: No masses. No peripancreatic inflammatory changes. GALLBLADDER: No identified stones by CT criteria. No inflammatory changes to suggest cholecystitis. RIGHT KIDNEY AND URETER: No suspicious masses. Assessment limited by lack of IV contrast. No signif icant calcifications. No hydronephrosis or hydroureter. LEFT KIDNEY AND URETER: No suspicious masses. Assessment limited by lack of IV contrast. No signifi cant calcifications. No hydronephrosis or hydroureter. AORTA AND RETROPERITONEUM: No aneurysm. No retroperitoneal masses or adenopathy. BOWEL AND PERITONEAL CAVITY: No obvious masses or inflammatory changes. No free fluid. APPENDIX: Normal. PELVIS, BLADDER, AND ABDOMINAL WALL:No abnormal masses. Trace free fluid in the dependent pelvis. B ladder normal. BONES: No significant findings. OTHER: No other significant finding. IMPRESSION: Trace nonspecific free fluid in the dependent pelvis, likely functional in the reproduct leigha age setting. No noncontrast CT findings to explain acute bilateral flank pain. No evidence of u rinary tract calculus or hydronephrosis. Normal appendix. COMMENT: Quality ID # [id number]: Final reports with documentation of one or more dose reduction techniques (e.g., Automated exposure control, adjustment of the mA and/or kV according to patient size, use of iterative reconstruction technique) TECHNICAL DOCUMENTATION: JOB ID: [id number] [employer]- All Rights Reserved Reading location - IP/workstation name: [email or web address]
[2018-07-25] MEDS ORDERED: NORMAL SALINE 1000 ML 1,000 ML IV ONE (15:39)
[2018-07-25] MEDS ORDERED: KETOROLAC TROMETHAMINE INJ/PF 30 MG/1 ML SDV IV ONE (15:39)
[2018-07-25 16:13] LABS: ABSOLUTE EOSINOPHILS # (AUTO) 0.3 10^3/uL (0.0-0.6); ABSOLUTE LYMPHOCYTES (AUTO) 1.7 10^3/uL (0.5-4.7); ABSOLUTE MONOCYTES (AUTO) 0.4 10^3/uL (0.1-1.4); ABSOLUTE NEUT (AUTO) 2.5 10^3/uL (1.7-8.2); BASOPHILS % (AUTO) 0.7 % (0-2); EOSINOPHILS % (AUTO) 5.7 % (0-6); HEMATOCRIT 37.3 % (36.0-47.0); HEMOGLOBIN 12.6 g/dL (12.0-15.5); LYMPHOCYTES % (AUTO) 34.3 % (13-45); MEAN CORPUSCULAR HEMOGLOBIN 29.7 pg (27.0-33.4); MEAN CORPUSCULAR HGB CONC 33.9 g/dL (32.0-36.0); MEAN CORPUSCULAR VOLUME 88 fl (80-97); MONOCYTES % (AUTO) 7.8 % (3-13); PLATELET COUNT 219 10^3/uL (150-450); RED BLOOD COUNT 4.25 10^6/uL (3.72-5.28); RED CELL DISTRIBUTION WIDTH 13.7 % (11.5-14.0); SEGMENTED NEUTROPHILS % (AUTO) 51.5 % (42-78); TOTAL CELLS COUNTED % (AUTO) 100 %; WHITE BLOOD COUNT 4.9 10^3/uL (4.0-10.5)
[2018-07-25] MEDS ORDERED: MORPHINE SULFATE 10 MG/ML INJ IV ONE (16:22)
[2018-07-25 16:25] LABS: ALANINE AMINOTRANSFERASE 13 U/L (9-52); ALBUMIN 4.1 g/dL (3.5-5.0); ALKALINE PHOSPHATASE 42 U/L (38-126); ASPARTATE AMINO TRANSFERASE 28 U/L (14-36); BILIRUBIN,DIRECT 0.2 mg/dL (0.0-0.4); BILIRUBIN,TOTAL 0.5 mg/dL (0.2-1.3); BLOOD UREA NITROGEN 15 mg/dL (7-20); CALCIUM 9.5 mg/dL (8.4-10.2); GLUCOSE 112 mg/dL (75-110); POTASSIUM 4.7 mmol/L (3.6-5.0); TOTAL PROTEIN 7.1 g/dL (6.3-8.2)
[2018-07-25 16:31] LABS: ANION GAP 5 (5-19); CARBON DIOXIDE 28 mmol/L (22-30); CHLORIDE 107 mmol/L (98-107); SODIUM 140.3 mmol/L (137-145)
--- NOTE | 2018-07-25 17:50 | RADIOLOGY REPORT (SQ) ---
EXAM DESCRIPTION: U/S NON OB PEL TV W/DOPPLER COMPLETED DATE/TIME: 07/25/2018 5:07 pm REASON FOR STUDY: RLQ/pelvic pain COMPARISON: 07/25/2018 CT TECHNIQUE: Dynamic and static grayscale images acquired of the pelvis via transvaginal approach and recorded on PACS. Additional selected color Doppler and spectral images recorded. LIMITATIONS: Limited visualization due to poor acoustical windows. FINDINGS: UTERUS: Contour normal. No mass. ENDOMETRIAL STRIPE: No focal or generalized thickening. No masses. CERVIX: No nabothian cysts. RIGHT OVARY AND DOPPLER: Ovary not visualized. LEFT OVARY AND DOPPLER: Ovary not visualized. FREE FLUID: Free fluid in the cul de sac. OTHER: No other significant finding. MEASUREMENTS: UTERUS: 0.8 cm ENDOMETRIAL STRIPE: 1.6 cm RIGHT OVARY: Not visualized. LEFT OVARY: Not visualized. IMPRESSION: Ovaries not visualized. Uterus normal. Free fluid in the cul de sac. TECHNICAL DOCUMENTATION: JOB ID: [id number]- All Rights Reserved Rev-12/18 Reading location - IP/workstation name: [email or web address]
[2018-07-25] MEDS ORDERED: HYDROCODONE/ACETAMINOPHEN 5-325 MG (6 TAB/ER DISP) PO PRN (18:48)
--- NOTE | 2018-07-25 18:52 | ER Document Report ---
ED General - General Chief Complaint: Flank Pain Stated Complaint: PAIN ON BOTH SIDES Time Seen by Provider: 07/25/18 14:52 Mode of Arrival: Ambulatory Notes: Patient is an otherwise healthy 37-year-old female who presents with chief complaint of bilateral pain. Patient reports this is been going on for 2-3 days. She denies any associated symptoms to include nausea, vomiting, diarrhea, fever or chills. She denies any urinary symptoms. TRAVEL OUTSIDE OF THE [place] IN LAST 30 DAYS: No - Related Data Allergies/Adverse Reactions: No Known Allergies Allergy (Verified 07/25/18 14:15) Past Medical History - General Information source: Patient - Social History Smoking Status: Current Every Day Smoker Frequency of alcohol use: Occasional Drug Abuse: None Family History: Arthritis, CVA, DM, Hyperlipidemia, Hypertension, Malignancy Patient has suicidal ideation: No Patient has homicidal ideation: No Pulmonary Medical History: Reports: Hx Asthma Neurological Medical History: Reports: Hx Migraine Renal/ Medical History: Denies: Hx Peritoneal Dialysis Musculoskeletal Medical History: Reports Hx Arthritis, Reports Hx Musculoskeletal Deformity, Reports Hx Musculoskeletal Trauma Psychiatric Medical History: Reports: Hx Anxiety, Hx Bipolar Disorder, Hx Schizophrenia Traumatic Medical History: Reports: Hx Fractures - Leg Past Surgical History: Reports: Hx Adenoidectomy, Hx Breast Surgery - tumor removed Right breast, Hx Tonsillectomy, Hx Tubal Ligation, Hx Urinary Tract Surgery - Immunizations Immunizations up to date: Yes Hx Diphtheria, Pertussis, Tetanus Vaccination: Yes - 08/29/2017 patient states 5 years ago Review of Systems - Review of Systems Gastrointestinal: Abdominal pain. denies: Diarrhea, Nausea, Vomiting, Constipation Physical Exam - Vital signs Vitals: Temp Pulse Resp BP Pulse Ox 98.4 F 87 16 121/67 98 07/25/18 14:22 07/25/18 14:22 07/25/18 14:22 07/25/18 14:22 07/25/18 14:22 - Notes Notes: PHYSICAL EXAMINATION: GENERAL: Well-appearing, well-nourished and in no acute distress. HEAD: Atraumatic, normocephalic. EYES: Pupils equal round and reactive to light, extraocular movements intact, conjunctiva are normal. ENT: Nares patent, oropharynx clear without exudates. Moist mucous membranes. NECK: Normal range of motion, supple without lymphadenopathy LUNGS: Breath sounds clear to auscultation bilaterally and equal. No wheezes rales or rhonchi. HEART: Regular rate and rhythm without murmurs ABDOMEN: Soft, nondistended abdomen. No guarding, no rebound. No masses appreciated. Tenderness to palpation to right lower quadrant. Female : No CVA tenderness. Musculoskeletal: Normal range of motion, no pitting or edema. No cyanosis. NEUROLOGICAL: Cranial nerves grossly intact. Normal speech, normal gait. Normal sensory, motor exams PSYCH: Normal mood, normal affect. SKIN: Warm, Dry, normal turgor, no rashes or lesions noted. Course - Re-evaluation Re-evalutation: Patient was initially seen by provider in triage ordered a urine and a CT renal stone protocol. Both of these are unremarkable. There is no evidence of any renal stones and the appendix appears normal. On initial physical examination of this patient she has pain to the right lower quadrant. I will obtain labs and send patient down for a transvaginal ultrasound to evaluate for possible ovarian cyst. CBC and CMP are unremarkable. HCG is negative. Transvaginal ultrasound is rel atively unremarkable however the ovaries were not visualized due to passing bowel gas. Patient will be discharged home in stable condition as she appears much more comfortable in her abdominal assessment is improved. - Vital Signs Vital signs: Temp Pulse Resp BP Pulse Ox 98.0 F 64 16 125/60 100 07/25/18 18:56 07/25/18 18:56 07/25/18 14:22 07/25/18 18:56 07/25/18 18:56 - Laboratory Result Diagrams: 07/25/18 15:58 07/25/18 15:58 Laboratory results interpreted by me: 07/25/18 15:58 Glucose 112 H Discharge - Discharge Clinical Impression: Abdominal pain Qualifiers: Abdominal location: lower abdomen, unspecified Qualified Code(s): R10.30 - Lower abdominal pain, unspecified Condition: Stable Disposition: HOME, SELF-CARE Additional Instructions: Abdominal Pain There are many causes of abdominal pain. Pain can mean a serious problem requiring surgery (such as appendicitis). It can also be an innocent problem that goes away on its own (such as a viral infection). Often, time must pass to determine the cause of pain. The physician does not feel that hospitalization is necessary, at present. Things may change within the next 24 hours. Call the doctor or come back for re- examination if any problems occur, such as: (1) Pain that becomes more severe, steady, or becomes concentrated in one specific area. Also, pain that is more severe with movement or coughing. (2) Vomiting that persists or becomes more frequent. (3) Blood in the vomitus, urine, or bowel movements. Blood in the stool may have a tarry or black appearance. (4) Shaking chills or fever greater than 100 degrees F. (5) The abdomen becomes more distended or swollen. (6) Bowel movements cease. (7) Failure to improve as expected. Ovarian Cyst Your examination shows the presence of an ovarian cyst. This is a ball of fluid attached to the ovary. Ovarian cysts in women of child-bearing age are usually innocent. However, the cyst may cause pain when it grows or bursts. An innocent ovarian cyst will usually go away by itself. When the cyst becomes painful, you should rest. Pain medication may be required. Some women find a hot water bottle soothing. The pain usually resolves within one or two days. After menopause, an ovarian cyst may mean a tumor, and requires more aggressive evaluation -- usually surgery is recommended to remove or biopsy the cyst. A very large cyst requires evaluation at any age. Most cysts (even the innocent ones) require follow-up examination. Call the doctor or return at any time if the pain increases significantly, if you become faint, or if you experience vaginal bleeding. Your blood work and urine were normal today. Your CAT scan showed that your appendix looked fine. There was no evidence of any kidney stones. Your pain is most consistent with an ovarian cyst. Please take the medications as I have prescribed. Return to the emergency department if you develop worsening pain or you develop vomiting that is unrelieved by the nausea medication that I have given you or if you develop a fever with the abdominal pain. Prescriptions: Hydrocodone Bit/Acetaminophen [Hydrocodon-Acetaminophen 5-325] 1 each PO Q4H #8 tablet Ondansetron [Zofran Odt 4 mg Tablet] 1 - 2 tab PO Q4H PRN #15 tab.rapdis PRN Reason: For Nausea/Vomiting Forms: Return to Work
[2018-07-25 18:57] VITALS: BP 125/60
== END 2018-07-25 19:05 | disposition home or self-care (01) ==
LOC: ER 14:14
DX: R10.30 Lower abdominal pain, unspecified (principal); F17.200 Nicotine dependence, unspecified, uncomplicated; Z98.51 Tubal ligation status
CPT/HCPCS: 99284; 96361; 96374; 96375; 36415; 85025; 81025; 80053; 81001; 76830; 93976; 76380; J1885; J2270; J7030

== ENCOUNTER 2018-07-27 20:15 | Emergency (ER) | payer BC ==
[2018-07-27] MEDS ORDERED: NORMAL SALINE 1000 ML 1,000 ML IV ONE ×2 (21:12→21:54)
[2018-07-27 21:14] LABS: ABSOLUTE BASOPHILS # (AUTO) 0.1 10^3/uL (0.0-0.2); ABSOLUTE EOSINOPHILS # (AUTO) 0.3 10^3/uL (0.0-0.6); ABSOLUTE MONOCYTES (AUTO) 0.5 10^3/uL (0.1-1.4); ABSOLUTE NEUT (AUTO) 2.3 10^3/uL (1.7-8.2); BASOPHILS % (AUTO) 1.1 % (0-2); EOSINOPHILS % (AUTO) 5.5 % (0-6); HEMATOCRIT 34.8 % (36.0-47.0); HEMOGLOBIN 11.7 g/dL (12.0-15.5); LYMPHOCYTES % (AUTO) 39.2 % (13-45); MEAN CORPUSCULAR HEMOGLOBIN 29.6 pg (27.0-33.4); MEAN CORPUSCULAR HGB CONC 33.6 g/dL (32.0-36.0); MEAN CORPUSCULAR VOLUME 88 fl (80-97); MONOCYTES % (AUTO) 9.4 % (3-13); PLATELET COUNT 213 10^3/uL (150-450); RED BLOOD COUNT 3.95 10^6/uL (3.72-5.28); RED CELL DISTRIBUTION WIDTH 13.6 % (11.5-14.0); SEGMENTED NEUTROPHILS % (AUTO) 44.8 % (42-78); TOTAL CELLS COUNTED % (AUTO) 100 %; WHITE BLOOD COUNT 5.1 10^3/uL (4.0-10.5)
[2018-07-27] MEDS ORDERED: KETOROLAC TROMETHAMINE INJ/PF 30 MG/1 ML SDV IV ONE (21:16)
[2018-07-27] MEDS ORDERED: ONDANSETRON HCL INJ/PF 4 MG/2 ML SDV IV ONE (21:16)
[2018-07-27 21:30] LABS: ALANINE AMINOTRANSFERASE 17 U/L (9-52); ALBUMIN 4.1 g/dL (3.5-5.0); ALKALINE PHOSPHATASE 45 U/L (38-126); ANION GAP 5 (5-19); ASPARTATE AMINO TRANSFERASE 23 U/L (14-36); BILIRUBIN,DIRECT 0.2 mg/dL (0.0-0.4); BILIRUBIN,TOTAL 0.3 mg/dL (0.2-1.3); BLOOD UREA NITROGEN 18 mg/dL (7-20); CALCIUM 9.2 mg/dL (8.4-10.2); CARBON DIOXIDE 28 mmol/L (22-30); CHLORIDE 108 mmol/L (98-107); GLUCOSE 97 mg/dL (75-110); LIPASE 72.1 U/L (23-300); SODIUM 141.2 mmol/L (137-145)
--- NOTE | 2018-07-27 22:36 | RADIOLOGY REPORT (SQ) ---
EXAM DESCRIPTION: US TRANSVAGINAL COMPLETED DATE/TME: 07/27/2018 21:16 CLINICAL HISTORY: 37 years, Female, right adnexal pain increasing COMPARISON: Prior ultrasound 07/25/2018. TECHNIQUE: Transverse and longitudinal transvaginal sonographic images of the pelvis LIMITATIONS: None. FINDINGS: The uterus measures 9.9 x 6.0 x 4.9 cm. Endometrium measures 9 mm in thickness. The myometrium is homogenous. The right ovary measures 2.7 x 1.8 x 2.0 cm. The left ovary measures 3.2 x 1.8 x 1.9 cm. Doppler and spectral analysis with color flow was utilized. Arterial and venous flow to both ovaries. No adnexal cyst or mass. No free fluid. IMPRESSION: Unremarkable pelvic ultrasound copyright 2010 [employer]- All Rights Reserved
[2018-07-27] MEDS ORDERED: DICYCLOMINE HCL INJ 20 MG/2 ML AMPULE IM ONE (22:46)
[2018-07-27 22:56] LABS: APPEARANCE,URINE CLEAR; BILIRUBIN,URINE NEGATIVE (NEGATIVE); COLOR,URINE YELLOW; GLUCOSE, URINE NEGATIVE (NEGATIVE); KETONES,URINE NEGATIVE (NEGATIVE); LEUKOCYTE ESTERASE,URINE NEGATIVE (NEGATIVE); NITRITE,URINE NEGATIVE (NEGATIVE); PROTEIN,URINE NEGATIVE (NEGATIVE); URINE SPECIFIC GRAVITY 1.023; UROBILINOGEN,URINE NEGATIVE mg/dL (<2.0)
[2018-07-27 23:11] LABS: URINE AMPHETAMINES SCREEN NEGATIVE; URINE BARBITURATES SCREEN NEGATIVE; URINE BENZODIAZEPINES SCREEN NEGATIVE; URINE COCAINE SCREEN NEGATIVE; URINE MARIJUANA (THC) SCREEN NEGATIVE; URINE METHADONE SCREEN NEGATIVE; URINE PHENCYCLIDINE SCREEN NEGATIVE
[2018-07-27 23:15] VITALS: BP 104/56
--- NOTE | 2018-07-27 23:23 | ER Document Report ---
ED General - General Chief Complaint: Abdominal Pain Stated Complaint: LEFT FLANK PAIN, NAUSEA Time Seen by Provider: 07/27/18 20:41 TRAVEL OUTSIDE OF THE [place] IN LAST 30 DAYS: No - HPI Patient complains to provider of: Nausea right lower abdominal pain Notes: Patient was seen approximate 48 hours ago for similar pain and was diagnosed with ovarian cyst. Patient states pain continues therefore came back to the ER for further evaluation. Patient denies any fevers chills states slight nausea no vomiting no diarrhea. Patient denies any trauma. Patient in no obvious distress upon my evaluation - Related Data Allergies/Adverse Reactions: No Known Allergies Allergy (Verified 07/25/18 14:15) Past Medical History - Social History Smoking Status: Current Some Day Smoker Frequency of alcohol use: Occasional Drug Abuse: None Family History: Arthritis, CVA, DM, Hyperlipidemia, Hypertension, Malignancy Patient has suicidal ideation: No Patient has homicidal ideation: No Pulmonary Medical History: Reports: Hx Asthma Neurological Medical History: Reports: Hx Migraine Renal/ Medical History: Denies: Hx Peritoneal Dialysis Musculoskeletal Medical History: Reports Hx Arthritis, Reports Hx Musculoskeletal Deformity, Reports Hx Musculoskeletal Trauma Psychiatric Medical History: Reports: Hx Anxiety, Hx Bipolar Disorder, Hx Schizophrenia Traumatic Medical History: Reports: Hx Fractures - Leg Past Surgical History: Reports: Hx Adenoidectomy, Hx Breast Surgery - tumor removed Right breast, Hx Tonsillectomy, Hx Tubal Ligation, Hx Urinary Tract Surgery - Immunizations Immunizations up to date: Yes Hx Diphtheria, Pertussis, Tetanus Vaccination: Yes - 08/29/2017 patient states 5 years ago Review of Systems - Review of Systems Constitutional: No symptoms reported EENT: No symptoms reported Cardiovascular: No symptoms reported Respiratory: No symptoms reported Gastrointestinal: Abdominal pain Genitourinary: No symptoms reported Female Genitourinary: No symptoms reported Musculoskeletal: No symptoms reported Skin: No symptoms reported Hematologic/Lymphatic: No symptoms reported Neurological/Psychological: No symptoms reported -: Yes All other systems reviewed and negative Physical Exam - Vital signs Vitals: Temp Pulse Resp BP Pulse Ox 98.9 F 77 18 130/70 H 99 07/27/18 20:21 07/27/18 20:21 07/27/18 20:21 07/27/18 20:21 07/27/18 20:21 Interpretation: Normal - General General appearance: Appears well, Alert - HEENT Head: Normocephalic, Atraumatic Eyes: Normal Pupils: PERRL - Respiratory Respiratory status: No respiratory distress Chest status: Nontender Breath sounds: Normal Chest palpation: Normal - Cardiovascular Rhythm: Regular Heart sounds: Normal auscultation Murmur: No - Abdominal Inspection: Normal Distension: No distension Bowel sounds: Normal Tenderness: Nontender Organomegaly: No organomegaly Notes: No tenderness while auscultating the abdomen however patient does wince in pain to palpation inconsistent abdominal tenderness - Back Back: Normal, Nontender - Extremities General upper extremity: Normal inspection, Nontender, Normal color, Normal ROM, Normal temperature General lower extremity: Normal inspection, Nontender, Normal color, Normal ROM, Normal temperature, Normal weight bearing. No: Prashant's sign - Neurological Neuro grossly intact: Yes Cognition: Normal Orientation: AAOx4 Higinio Coma Scale Eye Opening: Spontaneous Higinio Coma Scale Verbal: Oriented Higinio Coma Scale Motor: Obeys Commands Mosca Coma Scale Total: 15 Speech: Normal Motor strength normal: LUE, RUE, LLE, RLE Sensory: Normal - Psychological Associated symptoms: Normal affect, Normal mood - Skin Skin Temperature: Warm Skin Moisture: Dry Skin Color: Normal Course - Re-evaluation Re-evalutation: 07/28/18 02:46 The patient presents with abdominal pain without signs of peritonitis or other life-threatening or serious etiology. The patient appears stable for discharge and has been instructed to return immediately if the symptoms worsen in any way, or in 8-12hr if not improved for re-evaluation. The patient has been instructed to return if the symptoms worsen or change in any way. - Vital Signs Vital signs: Temp Pulse Resp BP Pulse Ox 98.9 F 54 L 16 104/56 L 100 07/27/18 20:21 07/27/18 23:48 07/27/18 23:48 07/27/18 23:48 07/27/18 23:48 - Laboratory Result Diagrams: 07/27/18 21:05 07/27/18 21:05 Laboratory results interpreted by me: 07/27/18 07/27/18 21:05 21:05 Hgb 11.7 L Hct 34.8 L Chloride 108 H Discharge - Discharge Clinical Impression: Abdominal pain Qualifiers: Abdominal location: right lower quadrant Qualified Code(s): R10.31 - Right lower quadrant pain Condition: Good Disposition: HOME, SELF-CARE Instructions: Abdominal Pain ([facility]) Additional Instructions: Your evaluation today does not show any signs of acute pathology or infection. There is no signs of any ovarian cyst on the ultrasound today he may have had a very symptoms ruptured. There is no signs of urinary tract infection. We recommend Tylenol Motrin for your pain control he may take the Bentyl as prescribed for pain return to the ER symptoms worsen Prescriptions: Dicyclomine HCl [Bentyl 20 mg Tablet] 20 mg PO QID #30 tablet Ondansetron [Zofran Odt 4 mg Tablet] 1 - 2 tab PO Q4H PRN #15 tab.rapdis PRN Reason: For Nausea/Vomiting Referrals: ERNIE SCOTT MD [Primary Care Provider] - Follow up as needed
== END 2018-07-27 23:48 | disposition home or self-care (01) ==
LOC: ER 20:15
DX: R10.31 Right lower quadrant pain (principal); R11.0 Nausea; F17.200 Nicotine dependence, unspecified, uncomplicated
CPT/HCPCS: 99284; 96372; 96361; 96374; 96375; 36415; 83690; 84703; 85025; 80053; 81001; 80307; 76830; J0500; J1885; J2405; J7030

== ENCOUNTER 2018-07-31 19:05 | Emergency (ER) | payer BC ==
--- NOTE | 2018-07-31 20:14 | ER Document Report ---
ED Medical Screen (RME) - General Chief Complaint: Abdominal Pain Stated Complaint: ABDOMINAL PAIN Time Seen by Provider: 07/31/18 20:07 Notes: 37-year-old female with chief complaint of abdominal pain, pain is mainly in the right mid to lower abdomen, she does feel radiation is to her back, she states this is her third visit for the pain. Pain started about 1 week ago. She states that pain is worse with eating but only at times. Has had intermittent upper abdominal pain. Denies vomiting, fever, dysuria, vaginal discharge. Past medical history of tubal ligation. TRAVEL OUTSIDE OF THE [place] IN LAST 30 DAYS: No - Related Data Allergies/Adverse Reactions: No Known Allergies Allergy (Verified 07/31/18 19:07) Past Medical History - Social History Family history: Reviewed & Not Pertinent Pulmonary Medical History: Reports: Hx Asthma Neurological Medical History: Reports: Hx Migraine Renal/ Medical History: Denies: Hx Peritoneal Dialysis Musculoskeltal Medical History: Reports Hx Arthritis, Reports Hx Musculoskeletal Deformity, Reports Hx Musculoskeletal Trauma Psychiatric Medical History: Reports: Hx Anxiety, Hx Bipolar Disorder, Hx Schizophrenia Traumatic Medical History: Reports: Hx Fractures - Leg Past Surgical History: Reports: Hx Adenoidectomy, Hx Breast Surgery - tumor removed Right breast, Hx Tonsillectomy, Hx Tubal Ligation, Hx Urinary Tract Surgery - Immunizations Immunizations up to date: Yes Hx Diphtheria, Pertussis, Tetanus Vaccination: Yes - 08/29/2017 patient states 5 years ago Physical Exam - Vital signs Vitals: Temp Pulse Resp BP Pulse Ox 98.5 F 68 16 134/64 H 100 07/31/18 19:13 07/31/18 19:13 07/31/18 19:13 07/31/18 19:13 07/31/18 19:13 - Abdominal Tenderness: Tender - some tenderness in the right mid to lower abdomen; no guarding; exam limited by sitting position Course - Re-evaluation Re-evalutation: I have greeted and performed a rapid initial assessment of this patient. A comprehensive ED assessment and evaluation of the patient, analysis of test results and completion of the medical decision making process will be conducted by additional ED providers. - Vital Signs Vital signs: Temp Pulse Resp BP Pulse Ox 98.5 F 68 16 134/64 H 100 07/31/18 19:13 07/31/18 20:03 07/31/18 19:13 07/31/18 19:13 07/31/18 19:13 Doctor's Discharge - Discharge Referrals: ERNIE SCOTT MD [Primary Care Provider] - Follow up as needed
[2018-07-31 21:29] LABS: ABSOLUTE EOSINOPHILS # (AUTO) 0.3 10^3/uL (0.0-0.6); ABSOLUTE LYMPHOCYTES (AUTO) 2.1 10^3/uL (0.5-4.7); ABSOLUTE MONOCYTES (AUTO) 0.5 10^3/uL (0.1-1.4); ABSOLUTE NEUT (AUTO) 2.2 10^3/uL (1.7-8.2); BASOPHILS % (AUTO) 0.5 % (0-2); EOSINOPHILS % (AUTO) 5.2 % (0-6); HEMATOCRIT 32.2 % (36.0-47.0); HEMOGLOBIN 11.1 g/dL (12.0-15.5); LYMPHOCYTES % (AUTO) 41.8 % (13-45); MEAN CORPUSCULAR HEMOGLOBIN 30.2 pg (27.0-33.4); MEAN CORPUSCULAR HGB CONC 34.4 g/dL (32.0-36.0); MEAN CORPUSCULAR VOLUME 88 fl (80-97); MONOCYTES % (AUTO) 9.2 % (3-13); PLATELET COUNT 217 10^3/uL (150-450); RED BLOOD COUNT 3.68 10^6/uL (3.72-5.28); RED CELL DISTRIBUTION WIDTH 13.3 % (11.5-14.0); SEGMENTED NEUTROPHILS % (AUTO) 43.3 % (42-78); TOTAL CELLS COUNTED % (AUTO) 100 %
[2018-07-31 21:32] LABS: APPEARANCE,URINE SLIGHTLY-CLOUDY; BILIRUBIN,URINE NEGATIVE (NEGATIVE); COLOR,URINE YELLOW; GLUCOSE, URINE NEGATIVE (NEGATIVE); KETONES,URINE NEGATIVE (NEGATIVE); LEUKOCYTE ESTERASE,URINE NEGATIVE (NEGATIVE); NITRITE,URINE NEGATIVE (NEGATIVE); PROTEIN,URINE NEGATIVE (NEGATIVE); URINE SPECIFIC GRAVITY 1.025; UROBILINOGEN,URINE NEGATIVE mg/dL (<2.0)
[2018-07-31 21:50] LABS: ALANINE AMINOTRANSFERASE 19 U/L (9-52); ALBUMIN 3.9 g/dL (3.5-5.0); ALKALINE PHOSPHATASE 45 U/L (38-126); ANION GAP 8 (5-19); ASPARTATE AMINO TRANSFERASE 12 U/L (14-36); BILIRUBIN,DIRECT 0.2 mg/dL (0.0-0.4); BILIRUBIN,TOTAL 0.2 mg/dL (0.2-1.3); BLOOD UREA NITROGEN 14 mg/dL (7-20); CALCIUM 9.5 mg/dL (8.4-10.2); CARBON DIOXIDE 26 mmol/L (22-30); CHLORIDE 106 mmol/L (98-107); GLUCOSE 102 mg/dL (75-110); LIPASE 92.9 U/L (23-300); POTASSIUM 4.4 mmol/L (3.6-5.0); SODIUM 140.3 mmol/L (137-145); TOTAL PROTEIN 6.4 g/dL (6.3-8.2)
--- NOTE | 2018-08-01 00:36 | ER Document Report ---
Addendum entered and electronically signed by SUAD VARGAS PA-C 08/01/18 03:23: Discharge - Discharge Clinical Impression: Bacterial vaginosis Abdominal pain Qualifiers: Abdominal location: right lower quadrant Qualified Code(s): R10.31 - Right lower quadrant pain Constipation Qualifiers: Constipation type: unspecified constipation type Qualified Code(s): K59.00 - Constipation, unspecified Condition: Good Disposition: HOME, SELF-CARE Instructions: Abdominal Pain ([facility]), Antispasmodics ([facility]), Bulk Laxatives Additional Instructions: You are seen in the emergency department this evening for abdominal pain and some chest pain. The chest pain that was in your right upper quadrant was most likely due to constipation because your x-ray showed a large amount of stool in that area that was pressing up against the diaphragm. Your cardiac workup was negative which is reassuring. I have prescribed you magnesium citrate for the constipation. Also, you were diagnosed with bacterial vaginosis and have given you prescription for Flagyl that he should take 2 times a day for 7 days. Please do not drink alcohol while taking this medication as it will make you very sick. If you develop high fever, severe abdominal pain that is intracta ble, severe unremitting chest pain or pass out please immediately return to the emergency department. Prescriptions: Dicyclomine HCl [Bentyl 20 mg Tablet] 20 mg PO QID #40 tablet Magnesium Citrate [Citrate of Magnesia 296 ml Bottle] 296 ml PO DAILY #1 bottle Metronidazole [Flagyl 500 mg Tablet] 500 mg PO BID #14 tablet Referrals: ERNIE SCOTT MD [Primary Care Provider] - Follow up as needed JEREMIAS HENRIQUEZ MD [ACTIVE STAFF] - Follow up as needed Original Note: ED General - General Chief Complaint: Abdominal Pain Stated Complaint: ABDOMINAL PAIN Time Seen by Provider: 07/31/18 20:07 Notes: 37-year-old female presents to the emergency department for right lower quadrant abdominal pain a chest pain. She has been in this emergency department several times recently for similar symptoms and per patient was previously diagnosed with an ovarian cyst on ultrasound. She said she was at work today and the pain returned and was severe enough that she had to leave work. She denies any dizziness, lightheadedness, shortness of breath, endorses chest pain, denies nausea/vomiting, endorses diarrhea, denies dysuria or frequency, denies any vaginal discharge. TRAVEL OUTSIDE OF THE [place] IN LAST 30 DAYS: No - Related Data Allergies/Adverse Reactions: No Known Allergies Allergy (Verified 07/31/18 19:07) Past Medical History - General Information source: Patient - Social History Smoking Status: Unknown if Ever Smoked Family History: Arthritis, CVA, DM, Hyperlipidemia, Hypertension, Malignancy Patient has suicidal ideation: No Patient has homicidal ideation: No Pulmonary Medical History: Reports: Hx Asthma Neurological Medical History: Reports: Hx Migraine Renal/ Medical History: Denies: Hx Peritoneal Dialysis Musculoskeletal Medical History: Reports Hx Arthritis, Reports Hx Musculoskeletal Deformity, Reports Hx Musculoskeletal Trauma Psychiatric Medical History: Reports: Hx Anxiety, Hx Bipolar Disorder, Hx Schizophrenia Traumatic Medical History: Reports: Hx Fractures - Leg Past Surgical History: Reports: Hx Adenoidectomy, Hx Breast Surgery - tumor removed Right breast, Hx Tonsillectomy, Hx Tubal Ligation, Hx Urinary Tract Surgery - Immunizations Immunizations up to date: Yes Hx Diphtheria, Pertussis, Tetanus Vaccination: Yes - 08/29/2017 patient states 5 years ago Review of Systems - Review of Systems Constitutional: See HPI EENT: See HPI Cardiovascular: See HPI Respiratory: No symptoms reported Gastrointestinal: See HPI Genitourinary: See HPI Female Genitourinary: See HPI Musculoskeletal: No symptoms reported Skin: No symptoms reported Hematologic/Lymphatic: No symptoms reported Neurological/Psychological: No symptoms reported Physical Exam - Vital signs Vitals: Temp Pulse Resp BP Pulse Ox 98.5 F 68 16 134/64 H 100 07/31/18 19:13 07/31/18 19:13 07/31/18 19:13 07/31/18 19:13 07/31/18 19:13 - Notes Notes: Reviewed vital signs and nursing note as charted by RN. CONSTITUTIONAL: Well-appearing, well-nourished, acting appropriately for age HEAD: Normocephalic, atraumatic, no swelling EYES: PERRL, Conjunctivae clear, no drainage, EOMI, no scleral icterus ENT: External ears without lesions, External auditory canal is patent, TMs without erythema, landmarks clear and well visualized, no rhinorrhea, Pharynx without erythema or lesions, no tonsillar hypertrophy, airway patent, mucous membranes pink and moist NECK: Supple, no cervical lymphadenopathy, no masses CARD: Regular rate and rhythm, no murmurs, no rubs, no gallops, capillary refill < 2 seconds, symmetric pulses RESP: The lungs are clear to auscultation bilaterally, no wheezing, no rales, no rhonchi. Respiratory rate and effort are normal, normal chest excursion. No respiratory distress, no retractions, no stridor, no nasal flaring, no accessory muscle use. Reproducible chest wall tenderness over sternum and left breast area ABD/GI: Normal bowel sounds, non-distended, soft, tender to palpation right lower quadrant and right mid quadrant, no rebound, no guarding, no palpable organomegaly EXT: Normal ROM in all joints, non-tender to palpation, no effusions, no edema SKIN: Normal color for age and race, warm, dry, good turgor, no acute lesions noted NEURO: No facial asymmetry, moves all extremities equally, motor and sensory function intact Course - Re-evaluation Re-evalutation: 08/01/18 00:32 37-year-old female presents to the emergency department for right lower quadrant abdominal pain that is sharp and stabbing and some chest pain that is reproducib le with breathing and palpation. Patient has not had a recent pelvic exam. Plan is to address the chest pain with an EKG and one troponin since the pain has been occurring for a couple of days. Will get a pelvic exam as well. If everything returns as normal then the best course of action for the patient is a gastroenterology referral as there is no emergent condition that needs to be addressed here in the emergency department this evening. 08/01/18 02:49 Lab work completed. No leukocytosis, no anemia, no electrolyte derangements. Troponin was negative. I have a very low suspicion for cardiac etiology therefore will not repeat troponin. KUB showed abundant stool which is consistent with patient's symptoms of abdominal pain. Pelvic exam performed and wet mount showed 4+ WBCs consistent with bacterial vaginosis. This correlates with the clinical exam as there was moderate white discharge in the vaginal vault. Will give Flagyl 500 mg p.o. tablet 1 time now in the emergency depar tment and sent her home with a prescription for Flagyl 500 mg p.o. tablet twice daily for 7 days. Also, I will give her a prescription for mag citrate and instructed her take half a bottle weight 24 hours and then take the other half if she does not start having bowel movements. Patient is safe for discharge. - Vital Signs Vital signs: Temp Pulse Resp BP Pulse Ox 98.5 F 68 16 134/64 H 100 07/31/18 19:13 07/31/18 20:03 07/31/18 19:13 07/31/18 19:13 07/31/18 19:13 - Laboratory Result Diagrams: 07/31/18 20:15 07/31/18 20:15 Laboratory results interpreted by me: 07/31/18 07/31/18 20:15 20:15 RBC 3.68 L Hgb 11.1 L Hct 32.2 L AST 12 L Discharge - Discharge Clinical Impression: Bacterial vaginosis Abdominal pain Qualifiers: Abdominal location: right lower quadrant Qualified Code(s): R10.31 - Right lower quadrant pain Constipation Qualifiers: Constipation type: unspecified constipation type Qualified Code(s): K59.00 - Constipation, unspecified Condition: Good Disposition: HOME, SELF-CARE Instructions: Abdominal Pain ([facility]), Antispasmodics ([facility]), Bulk Laxatives Additional Instructions: You are seen in the emergency department this evening for abdominal pain and some chest pain. The chest pain that was in your right upper quadrant was most likely due to constipation because your x-ray showed a large amount of stool in that area that was pressing up against the diaphragm. Your cardiac workup was negative which is reassuring. I have prescribed you magnesium citrate for the constipation. Also, you were diagnosed with bacterial vaginosis and have given you prescription for Flagyl that he should take 2 times a day for 7 days. Please do not drink alcohol while taking this medication as it will make you very sick. If you develop high fever, severe abdominal pain that is intractable, severe unremitting chest pain or pass out please immediately return to the emergency department. Prescriptions: Dicyclomine HCl [Bentyl 20 mg Tablet] 20 mg PO QID #40 tablet Magnesium Citrate [Citrate of Magnesia 296 ml Bottle] 296 ml PO DAILY #1 bottle Metronidazole [Flagyl 500 mg Tablet] 500 mg PO BID #14 tablet Referrals: ERNIE SCOTT MD [Primary Care Provider] - Follow up as needed
--- NOTE | 2018-08-01 02:02 | RADIOLOGY REPORT (SQ) ---
EXAM DESCRIPTION: XR ABDOMEN 1 VIEW (KUB) COMPLETED DATE/TME: 07/31/2018 23:46 CLINICAL HISTORY: 37 years, Female, abdominal pain COMPARISON: 07/28/2016 abdomen NUMBER OF VIEWS: 2 TECHNIQUE: AP abdomen LIMITATIONS: None. FINDINGS: Evaluation for free air limited on a supine view. The bowel gas pattern is nonspecific. Large amount stool throughout colon. IMPRESSION: Abundant stool in the colon copyright 2010 [employer]- All Rights Reserved
[2018-08-01 02:09] LABS: BACTERIA (WET MOUNT) 4+ BACTERIA SEEN; EPITHELIALS (WET MOUNT) 4+ EPITHELIALS SEEN; RBCS (WET MOUNT) RARE RBCS SEEN; T.VAGINALIS (WET MOUNT) NO TRICHOMONAS SEEN; WBCS (WET MOUNT) FEW WBCS SEEN; YEAST (WET MOUNT) NO YEAST SEEN
[2018-08-01] MEDS ORDERED: METRONIDAZOLE 500 MG TABLET PO ONE (02:47)
[2018-08-01 03:36] LABS: CHLAM PCR NOT DETECTED (NOT DETECT); GON PCR NOT DETECTED (NOT DETECT)
[2018-08-01 03:45] VITALS: BP 116/69
--- NOTE | 2018-08-01 08:54 | EKG REPORT ---
SEVERITY:- NORMAL ECG - SINUS RHYTHM : Confirmed by: Mike Diaz 01-Aug-2018 08:53:31
== END 2018-08-01 03:35 | disposition home or self-care (01) ==
LOC: ER 19:05
DX: N76.0 Acute vaginitis (principal); B96.89 Other specified bacterial agents as the cause of diseases classified elsewhere; R10.31 Right lower quadrant pain; K59.00 Constipation, unspecified; J45.909 Unspecified asthma, uncomplicated
CPT/HCPCS: 36415; 74018; 80053; 81001; 81025; 83690; 84484; 85025; 87210; 87491; 87591; 93005; 93010; 99284

== ENCOUNTER 2018-08-17 21:53 | Emergency (ER) | payer BC ==
[2018-08-17] MEDS ORDERED: ONDANSETRON HCL INJ/PF 4 MG/2 ML SDV IV ONE (23:40)
--- NOTE | 2018-08-17 23:41 | ER Document Report ---
ED Medical Screen (RME) - General Chief Complaint: Abdominal Pain Stated Complaint: ABDOMINAL PAIN Time Seen by Provider: 08/17/18 23:39 Notes: Patient is a 37-year-old female presents to the emergency department complaining of right lower pelvic pain. Patient is also complaining of nausea and diarrhea x5 in the last 24 hours denying any blood. Patient states she was recently treated for bacterial vaginosis but continues with malodorous and itchy vaginal discharge. Past medical history: Bipolar Medications: None Allergies: None Patient's last menstrual period was August 03, 2018 Physical exam: Generalized tenderness right pelvic region. Generalized epigastric and left upper quadrant pain. No McBurney's point tenderness, no Bear sign noted. I have greeted and performed a rapid initial assessment of this patient. A comprehensive ED assessment and evaluation of the patient, analysis of test results and completion of the medical decision making process will be conducted by additional ED providers.. TRAVEL OUTSIDE OF THE [place] IN LAST 30 DAYS: No - Related Data Allergies/Adverse Reactions: No Known Allergies Allergy (Verified 07/31/18 19:07) Past Medical History - Social History Family history: Reviewed & Not Pertinent Pulmonary Medical History: Reports: Hx Asthma Neurological Medical History: Reports: Hx Migraine Renal/ Medical History: Denies: Hx Peritoneal Dialysis Musculoskeltal Medical History: Reports Hx Arthritis, Reports Hx Musculoskeletal Deformity, Reports Hx Musculoskeletal Trauma Psychiatric Medical History: Reports: Hx Anxiety, Hx Bipolar Disorder, Hx Schizophrenia Traumatic Medical History: Reports: Hx Fractures - Leg Past Surgical History: Reports: Hx Adenoidectomy, Hx Breast Surgery - tumor removed Right breast, Hx Tonsillectomy, Hx Tubal Ligation, Hx Urinary Tract Surgery - Immunizations Immunizations up to date: Yes Hx Diphtheria, Pertussis, Tetanus Vaccination: Yes - 08/29/2017 patient states 5 years ago Physical Exam - Vital signs Vitals: Temp Pulse Resp BP Pulse Ox 98.0 F 85 14 126/69 H 100 08/17/18 22:00 08/17/18 22:00 08/17/18 22:00 08/17/18 22:00 08/17/18 22:00 Course - Vital Signs Vital signs: Temp Pulse Resp BP Pulse Ox 98.0 F 85 14 126/69 H 100 08/17/18 22:00 08/17/18 22:00 08/17/18 22:00 08/17/18 22:00 08/17/18 22:00 Doctor's Discharge - Discharge Referrals: ERNIE SCOTT MD [Primary Care Provider] - Follow up as needed
[2018-08-18 00:26] LABS: APPEARANCE,URINE SLIGHTLY-CLOUDY; BILIRUBIN,URINE NEGATIVE (NEGATIVE); COLOR,URINE YELLOW; GLUCOSE, URINE NEGATIVE (NEGATIVE); KETONES,URINE NEGATIVE (NEGATIVE); LEUKOCYTE ESTERASE,URINE MODERATE (NEGATIVE); NITRITE,URINE NEGATIVE (NEGATIVE); PROTEIN,URINE NEGATIVE (NEGATIVE); URINE SPECIFIC GRAVITY 1.018; UROBILINOGEN,URINE NEGATIVE mg/dL (<2.0)
[2018-08-18 00:31] LABS: ABSOLUTE EOSINOPHILS # (AUTO) 0.2 10^3/uL (0.0-0.6); ABSOLUTE LYMPHOCYTES (AUTO) 2.6 10^3/uL (0.5-4.7); ABSOLUTE MONOCYTES (AUTO) 0.4 10^3/uL (0.1-1.4); ABSOLUTE NEUT (AUTO) 2.1 10^3/uL (1.7-8.2); BASOPHILS % (AUTO) 0.8 % (0-2); EOSINOPHILS % (AUTO) 3.6 % (0-6); HEMATOCRIT 36.6 % (36.0-47.0); HEMOGLOBIN 12.3 g/dL (12.0-15.5); LYMPHOCYTES % (AUTO) 48.7 % (13-45); MEAN CORPUSCULAR HEMOGLOBIN 29.4 pg (27.0-33.4); MEAN CORPUSCULAR HGB CONC 33.6 g/dL (32.0-36.0); MEAN CORPUSCULAR VOLUME 87 fl (80-97); MONOCYTES % (AUTO) 8.1 % (3-13); PLATELET COUNT 251 10^3/uL (150-450); RED BLOOD COUNT 4.19 10^6/uL (3.72-5.28); RED CELL DISTRIBUTION WIDTH 13.1 % (11.5-14.0); SEGMENTED NEUTROPHILS % (AUTO) 38.8 % (42-78); TOTAL CELLS COUNTED % (AUTO) 100 %; WHITE BLOOD COUNT 5.4 10^3/uL (4.0-10.5)
[2018-08-18 00:44] LABS: ALANINE AMINOTRANSFERASE 28 U/L (9-52); ALBUMIN 4.5 g/dL (3.5-5.0); ALKALINE PHOSPHATASE 63 U/L (38-126); ANION GAP 6 (5-19); ASPARTATE AMINO TRANSFERASE 13 U/L (14-36); BILIRUBIN,DIRECT 0.1 mg/dL (0.0-0.4); BILIRUBIN,TOTAL 0.4 mg/dL (0.2-1.3); BLOOD UREA NITROGEN 12 mg/dL (7-20); CALCIUM 9.6 mg/dL (8.4-10.2); CARBON DIOXIDE 31 mmol/L (22-30); CHLORIDE 104 mmol/L (98-107); GLUCOSE 107 mg/dL (75-110); LIPASE 58.1 U/L (23-300); POTASSIUM 4.2 mmol/L (3.6-5.0); SODIUM 140.9 mmol/L (137-145); TOTAL PROTEIN 7.1 g/dL (6.3-8.2)
[2018-08-18 01:47] LABS: CHLAM PCR NOT DETECTED (NOT DETECT); GON PCR NOT DETECTED (NOT DETECT)
--- NOTE | 2018-08-18 02:09 | RADIOLOGY REPORT (SQ) ---
EXAM DESCRIPTION: US PELVIS COMPLETED DATE/TME: 08/17/2018 23:39 CLINICAL HISTORY: 37 years, Female, right pelvic pain COMPARISON: None. TECHNIQUE: Grayscale and Doppler sonogram of the pelvis. Transabdominal technique was used. LIMITATIONS: None. FINDINGS: Uterus: Measures 8.8 x 5.8 x 4.3 cm. Endometrial stripe: Measures 1.5 cm which is not thickened. Right ovary: Measures 3.3 x 2.4 x 2.1 cm. Normal doppler flow. Left ovary: Measures 2.8 x 2.0 x 2.2 cm. Normal doppler flow. Other: Free fluid: None. IMPRESSION: Unremarkable pelvic ultrasound copyright 2010 [employer] [facility] [employer]- All Rights Reserved
[2018-08-18 03:12] LABS: BACTERIA (WET MOUNT) 3+ BACTERIA SEEN; EPITHELIALS (WET MOUNT) 4+ EPITHELIALS SEEN; RBCS (WET MOUNT) RARE RBCS SEEN; T.VAGINALIS (WET MOUNT) NO TRICHOMONAS SEEN; WBCS (WET MOUNT) RARE WBCS SEEN; YEAST (WET MOUNT) NO YEAST SEEN
[2018-08-18] MEDS ORDERED: CEPHALEXIN 500 MG CAPSULE PO ONE (03:57)
[2018-08-18] MEDS ORDERED: METRONIDAZOLE 500 MG TABLET PO ONE (03:57)
--- NOTE | 2018-08-18 04:00 | ER Document Report ---
ED General - General Chief Complaint: Abdominal Pain Stated Complaint: ABDOMINAL PAIN Time Seen by Provider: 08/17/18 23:39 Notes: Patient is a 37-year-old female presents to the emergency department complaining of right lower pelvic pain. Patient is also complaining of nausea and diarrhea x5 in the last 24 hours denying any blood. Patient states she was recently treated for bacterial vaginosis but continues with malodorous and itchy vaginal discharge. Pt. also admits to urinary frequency and at times dysuria. Past medical history: Bipolar Medications: None Allergies: None Patient's last menstrual period was August 03, 2018 TRAVEL OUTSIDE OF THE [place] IN LAST 30 DAYS: No - Related Data Allergies/Adverse Reactions: No Known Allergies Allergy (Verified 07/31/18 19:07) Past Medical History - General Information source: Patient - Social History Smoking Status: Current Every Day Smoker Drug Abuse: None Family History: Arthritis, CVA, DM, Hyperlipidemia, Hypertension, Malignancy Patient has suicidal ideation: No Patient has homicidal ideation: No Pulmonary Medical History: Reports: Hx Asthma Neurological Medical History: Reports: Hx Migraine Renal/ Medical History: Denies: Hx Peritoneal Dialysis Musculoskeletal Medical History: Reports Hx Arthritis, Reports Hx Musculoskeletal Deformity, Reports Hx Musculoskeletal Trauma Psychiatric Medical History: Reports: Hx Anxiety, Hx Bipolar Disorder, Hx Schizophrenia Traumatic Medical History: Reports: Hx Fractures - Leg Past Surgical History: Reports: Hx Adenoidectomy, Hx Breast Surgery - tumor removed Right breast, Hx Tonsillectomy, Hx Tubal Ligation, Hx Urinary Tract Surgery - Immunizations Immunizations up to date: Yes Hx Diphtheria, Pertussis, Tetanus Vaccination: Yes - 08/29/2017 patient states 5 years ago Review of Systems - Review of Systems Constitutional: No symptoms reported EENT: No symptoms reported Cardiovascular: No symptoms reported Respiratory: No symptoms reported Gastrointestinal: See HPI Genitourinary: See HPI Female Genitourinary: See HPI Musculoskeletal: No symptoms reported Skin: No symptoms reported Hematologic/Lymphatic: No symptoms reported Neurological/Psychological: No symptoms reported Physical Exam - Vital signs Vitals: Temp Pulse Resp BP Pulse Ox 98.0 F 85 14 126/69 H 100 08/17/18 22:00 08/17/18 22:00 08/17/18 22:00 08/17/18 22:00 08/17/18 22:00 - Notes Notes: GENERAL: Alert, interacts well. No acute distress. HEAD: Normocephalic, atraumatic. EYES: Pupils equal, round, and reactive to light. Extraocular movements intact. ENT: Oral mucosa moist, tongue midline. NECK: Full range of motion. Supple. Trachea midline. LUNGS: Clear to auscultation bilaterally, no wheezes, rales, or rhonchi. No respiratory distress. HEART: Regular rate and rhythm. No murmur ABDOMEN: Soft, Non-distended. Bowel sounds present in all 4 quadrants. No McBurney's point tenderness, no Bear sign. Patient has generalized left upper quadrant pain, patient states is more of a nausea feeling than a pain. Patient also has minor suprapubic tenderness no right or left pelvic tenderness upon palpation. EXTREMITIES: Moves all 4 extremities spontaneously. No edema, normal radial and dorsalis pedis pulses bilaterally. No cyanosis. BACK: no cervical, thoracic, lumbar midline tenderness. No saddle anesthesia, normal distal neurovascular exam. NEUROLOGICAL: Alert and oriented x3. Normal speech. cranial nerves II through XII grossly intact PSYCH: Normal affect, normal mood. SKIN: Warm, dry, normal turgor. No rashes or lesions noted. Pelvic: Malodorous, white discharge in the cul-de-sac, no cervical motion tenderness noted, no right or left adnexal tenderness noted. Course - Re-evaluation Re-evalutation: 08/18/18 05:29 Transvaginal pelvic ultrasound was ordered and RME due to patient complaining of lower pelvic pain. Patient's ultrasound reveals no signs of abnormalities. Patient now denies any pelvic pain only minor suprapubic pain on palpation. Patient's labs showed no signs of anemia, no signs of ptosis, no signs of electrolyte abnormalities, hCG is negative. Patient's urine does show signs of infection and due to urinary frequency will treat for UTI. Patient's wet mount does show signs of bacterial vaginosis, negative gonorrhea or chlamydia. Discussed treatment modalities with patient at length at bedside she is agreeable. Close return precautions discussed. Stable for discharge. Patient has had no more episodes of vomiting, able to p.o. fluids with no difficulty. - Vital Signs Vital signs: Temp Pulse Resp BP Pulse Ox 97.6 F 68 18 114/86 H 100 08/18/18 04:06 08/18/18 04:06 08/18/18 04:06 08/18/18 04:06 08/18/18 04:06 - Laboratory Result Diagrams: 08/18/18 00:20 08/18/18 00:20 Laboratory results interpreted by me: 08/18/18 08/18/18 08/18/18 00:00 00:20 00:20 Seg Neutrophils % 38.8 L Lymphocytes % 48.7 H Carbon Dioxide 31 H AST 13 L Ur Leukocyte Esterase MODERATE H Discharge - Discharge Clinical Impression: Bacterial vaginosis Urinary tract infection Qualifiers: Urinary tract infection type: acute cystitis Hematuria presence: without hematuria Qualified Code(s): N30.00 - Acute cystitis without hematuria Condition: Stable Disposition: HOME, SELF-CARE Instructions: Cephalexin ([facility]), Urinary Tract Infection ([facility]), Vaginosis, Bacterial ([facility]) Additional Instructions: As we discussed you have been seen and treated in the emergency department for bacterial vaginosis and a urinary tract infection. Please take antibiotics as prescribed. Please follow-up with primary care provider in the next 24-48 hours. Please return to the emergency room for any other concerning symptoms. Prescriptions: Cephalexin Monohydrate [Keflex 500 mg Capsule] 500 mg PO BID 7 Days #14 capsule Metronidazole [Flagyl] 500 mg PO BID 7 Days #14 tablet Forms: Return to Work Referrals: ERNIE SCOTT MD [Primary Care Provider] - Follow up as needed
[2018-08-18 04:07] VITALS: BP 114/86
== END 2018-08-18 04:13 | disposition home or self-care (01) ==
LOC: ER 21:53
DX: N76.0 Acute vaginitis (principal); B96.89 Other specified bacterial agents as the cause of diseases classified elsewhere; N30.00 Acute cystitis without hematuria; R10.2 Pelvic and perineal pain; R11.0 Nausea; R19.7 Diarrhea, unspecified; R10.12 Left upper quadrant pain; F17.200 Nicotine dependence, unspecified, uncomplicated; J45.909 Unspecified asthma, uncomplicated
CPT/HCPCS: 99284; 96374; 36415; 87086; 87210; 83690; 84703; 85025; 80053; 81001; 87491; 87591; 76856; 93976; J2405

== ENCOUNTER 2018-09-24 07:37 | Emergency (ER) | payer BC ==
[2018-09-24] MEDS ORDERED: DIPHENHYDRAMINE HCL 50 MG CAPSULE PO ONE (08:05)
[2018-09-24] MEDS ORDERED: METOCLOPRAMIDE HCL 10 MG TABLET PO ONE (08:05)
[2018-09-24] MEDS ORDERED: NAPROXEN 250 MG TABLET PO ONE (08:05)
[2018-09-24] MEDS ORDERED: ONDANSETRON 4 MG TAB.RAPDIS PO ONE (08:05)
[2018-09-24 10:23] VITALS: BP 106/48
--- NOTE | 2018-09-27 08:57 | ER Document Report ---
Entered by ADELE MCCULLOUGH SCRIBE 09/24/18 0811 Acting as scribe for:TASHIA POLO MD ED Headache - General Chief Complaint: Headache Stated Complaint: HEADACHE Time Seen by Provider: 09/24/18 07:58 Primary Care Provider: ERNIE SCOTT MD [Primary Care Provider] - Follow up as needed Mode of Arrival: Ambulatory Information source: Patient Notes: 37-year-old female who presents to the emergency department today with complaints of a headache since yesterday. Patient states her headache began yesterday at work and has increased since onset. Patient was seen here about a month ago for a headache as well. Patient states her headache responded well to Reglan, Zofran, and Benadryl. Patient states she is nauseated but denies any vomiting. TRAVEL OUTSIDE OF THE [place] IN LAST 30 DAYS: No - Related Data Allergies/Adverse Reactions: No Known Allergies Allergy (Verified 09/24/18 08:25) Past Medical History - General Information source: Patient - Social History Smoking Status: Current Every Day Smoker Cigarette use (# per day): Yes Lives with: Family Family History: Arthritis, CVA, DM, Hyperlipidemia, Hypertension, Malignancy Pulmonary Medical History: Reports: Hx Asthma Neurological Medical History: Reports: Hx Migraine Musculoskeletal Medical History: Reports Hx Arthritis, Reports Hx Musculoskeletal Deformity, Reports Hx Musculoskeletal Trauma Psychiatric Medical History: Reports: Hx Anxiety, Hx Bipolar Disorder, Hx Schizophrenia Traumatic Medical History: Reports: Hx Fractures - Leg Past Surgical History: Reports: Hx Adenoidectomy, Hx Breast Surgery - tumor removed Right breast, Hx Tonsillectomy, Hx Tubal Ligation, Hx Urinary Tract Surgery - Immunizations Immunizations up to date: Yes Hx Diphtheria, Pertussis, Tetanus Vaccination: Yes - 08/29/2017 patient states 5 years ago Review of Systems - Review of Systems Constitutional: No symptoms reported EENT: No symptoms reported Cardiovascular: No symptoms reported Respiratory: No symptoms reported Gastrointestinal: See HPI, Nausea. denies: Vomiting Genitourinary: No symptoms reported Female Genitourinary: No symptoms reported Musculoskeletal: No symptoms reported Skin: No symptoms reported Hematologic/Lymphatic: No symptoms reported Neurological/Psychological: See HPI, Headaches -: Yes All other systems reviewed and negative Physical Exam - Vital signs Vitals: Temp Pulse Resp BP Pulse Ox 98.8 F 69 16 119/66 98 09/24/18 07:42 02/22/19 07:42 09/24/18 07:42 09/24/18 07:42 09/24/18 07:42 - Notes Notes: Physical Exam: General: Alert, appears uncomfortable. HEENT: Normocephalic. Atraumatic. PERRLA. Extraocular movements intact. Oropharynx clear. Right-sided temporal scalp musculature tenderness to palpation, no left-sided tenderness to palpation. Neck: Supple. Right-sided posterior cervical and right-sided trapezius musculature tenderness to palpation, no left-sided tenderness. Respiratory: No respiratory distress. Abdominal: Normal Inspection. No distension. Extremities: Moves all four extremities. Neurological: Normal cognition. AAOx4. Normal speech. Photophobic. Psychological: Normal affect. Normal Mood. Skin: Warm. Dry. Normal color. Course - Re-evaluation Re-evalutation: 09/24/18 09:39 Patient is sleeping soundly at this time. - Vital Signs Vital signs: Temp Pulse Resp BP Pulse Ox 98.8 F 69 16 119/66 98 09/24/18 07:42 09/24/18 07:42 09/24/18 07:42 09/24/18 07:42 09/24/18 07:42 Discharge - Discharge Clinical Impression: Headache Qualifiers: Headache type: tension-type Headache chronicity pattern: acute headache Intractability: not intractable Qualified Code(s): G44.209 - Tension-type headache, unspecified, not intractable Condition: Stable Disposition: HOME, SELF-CARE Additional Instructions: Tension Headache: Your problem has been diagnosed as muscle tension headache. This very common type of headache occurs because of tightness in the muscles of the head and neck. The headache may last hours or days. The treatment of uncomplicated tension headaches is rest and pain m edication. Often, the newer antiinflammatory pain medications are prescribed, as these also decrease the irritability of the painful tissues. Cold packs, or warm packs or alternating ice packs and moist heat are sometimes helpful. Anti- anxiety medication or narcotics are sometimes needed temporarily, but are best avoided in the long run. Your doctor has evaluated your headache problem, and finds no evidence of a serious health problem as a cause for the headache. If your headache becomes more severe, or if new symptoms develop (such as fever, stiff neck, vomiting, or decreasing alertness) you should be re-examined by the physician. Rest and sleep in a cool quiet dark room today. Take Tylenol and Motrin or ibuprofen for headache if needed. Follow-up with your doctor if not improving, or if the headaches become more frequent. RETURN TO THE EMERGENCY ROOM IF ANY NEW OR WORSENING SYMPTOMS. Forms: Return to Work Referrals: ERNIE SCOTT MD [Primary Care Provider] - Follow up as needed Scribe Attestation: 09/24/18 09:42 I personally performed the services described in the documentation, reviewed and edited the documentation which was dictated to the scribe in my presence, and it accurately records my words and actions. I personally performed the services described in the documentation, reviewed and edited the documentation which was dictated to the scribe in my presence, and it accurately records my words and actions.
== END 2018-09-24 10:23 | disposition home or self-care (01) ==
LOC: ER 07:37
DX: G44.209 Tension-type headache, unspecified, not intractable (principal); R11.0 Nausea; Z98.51 Tubal ligation status
CPT/HCPCS: 99283; S0119

== ENCOUNTER 2018-10-30 14:44 | Emergency (ER) | payer BC ==
--- NOTE | 2018-10-30 16:13 | ER Document Report ---
ED Medical Screen (RME) - General Stated Complaint: ABDOMINAL PAIN Time Seen by Provider: 10/30/18 16:08 Primary Care Provider: ERNIE SCOTT MD [Primary Care Provider] - Follow up as needed Notes: 37-year-old female patient comes emergency room complaining of right lower quadrant abdominal pain with some diarrhea for the past 3 days. She reports she can feel it in the right back also. She does indicate a lumbar region as the area she can feel it in her back. There is no fever, but she has felt chilled. She has not tried any medications such as Tylenol or Motrin. Her last menstrual period was 10/01/2018. I have greeted and performed a rapid initial assessment of this patient. A comprehensive ED assessment and evaluation of the patient, analysis of test results and completion of the medical decision making process will be conducted by additional ED providers. TRAVEL OUTSIDE OF THE [place] IN LAST 30 DAYS: No - Related Data Allergies/Adverse Reactions: No Known Allergies Allergy (Verified 10/30/18 14:47) Past Medical History - Social History Frequency of alcohol use: Occasional Drug Abuse: None Family history: Reviewed & Not Pertinent Pulmonary Medical History: Reports: Hx Asthma Neurological Medical History: Reports: Hx Migraine Renal/ Medical History: Denies: Hx Peritoneal Dialysis Musculoskeltal Medical History: Reports Hx Arthritis, Reports Hx Musculoskeletal Deformity, Reports Hx Musculoskeletal Trauma Psychiatric Medical History: Reports: Hx Anxiety, Hx Bipolar Disorder, Hx Schizophrenia Traumatic Medical History: Reports: Hx Fractures - Leg Past Surgical History: Reports: Hx Adenoidectomy, Hx Breast Surgery - tumor removed Right breast, Hx Tonsillectomy, Hx Tubal Ligation, Hx Urinary Tract Surgery - Immunizations Immunizations up to date: Yes Hx Diphtheria, Pertussis, Tetanus Vaccination: Yes - 08/29/2017 patient states 5 years ago Physical Exam - Vital signs Vitals: Temp Pulse Resp BP Pulse Ox 98.3 F 74 18 144/71 H 100 10/30/18 15:10 10/30/18 15:10 10/30/18 15:10 10/30/18 15:10 10/30/18 15:10 Course - Vital Signs Vital signs: Temp Pulse Resp BP Pulse Ox 98.3 F 74 18 144/71 H 100 10/30/18 15:10 10/30/18 15:10 10/30/18 15:10 10/30/18 15:10 10/30/18 15:10 Doctor's Discharge - Discharge Referrals: ERNIE SCOTT MD [Primary Care Provider] - Follow up as needed
[2018-10-30 16:26] LABS: APPEARANCE,URINE CLEAR; BILIRUBIN,URINE NEGATIVE (NEGATIVE); COLOR,URINE YELLOW; GLUCOSE, URINE NEGATIVE (NEGATIVE); KETONES,URINE NEGATIVE (NEGATIVE); LEUKOCYTE ESTERASE,URINE NEGATIVE (NEGATIVE); NITRITE,URINE NEGATIVE (NEGATIVE); PROTEIN,URINE NEGATIVE (NEGATIVE); URINE SPECIFIC GRAVITY 1.012; UROBILINOGEN,URINE NEGATIVE mg/dL (<2.0)
[2018-10-30 16:38] LABS: ABSOLUTE EOSINOPHILS # (AUTO) 0.1 10^3/uL (0.0-0.6); ABSOLUTE LYMPHOCYTES (AUTO) 1.3 10^3/uL (0.5-4.7); ABSOLUTE MONOCYTES (AUTO) 0.3 10^3/uL (0.1-1.4); BASOPHILS % (AUTO) 0.7 % (0-2); EOSINOPHILS % (AUTO) 1.9 % (0-6); HEMOGLOBIN 12.5 g/dL (12.0-15.5); MEAN CORPUSCULAR HEMOGLOBIN 29.1 pg (27.0-33.4); MEAN CORPUSCULAR HGB CONC 33.7 g/dL (32.0-36.0); MEAN CORPUSCULAR VOLUME 86 fl (80-97); MONOCYTES % (AUTO) 7.4 % (3-13); PLATELET COUNT 226 10^3/uL (150-450); RED BLOOD COUNT 4.29 10^6/uL (3.72-5.28); RED CELL DISTRIBUTION WIDTH 14.1 % (11.5-14.0); TOTAL CELLS COUNTED % (AUTO) 100 %; WHITE BLOOD COUNT 3.7 10^3/uL (4.0-10.5)
[2018-10-30 16:52] LABS: ALANINE AMINOTRANSFERASE 20 U/L (9-52); ALBUMIN 4.4 g/dL (3.5-5.0); ALKALINE PHOSPHATASE 56 U/L (38-126); ANION GAP 10 (5-19); ASPARTATE AMINO TRANSFERASE 10 U/L (14-36); BILIRUBIN,DIRECT 0.2 mg/dL (0.0-0.4); BILIRUBIN,TOTAL 0.4 mg/dL (0.2-1.3); BLOOD UREA NITROGEN 10 mg/dL (7-20); CALCIUM 9.4 mg/dL (8.4-10.2); CARBON DIOXIDE 26 mmol/L (22-30); CHLORIDE 106 mmol/L (98-107); GLUCOSE 102 mg/dL (75-110); POTASSIUM 3.9 mmol/L (3.6-5.0); SODIUM 141.8 mmol/L (137-145); TOTAL PROTEIN 6.9 g/dL (6.3-8.2)
--- NOTE | 2018-10-30 18:09 | ER Document Report ---
ED GI/ - General Chief Complaint: Abdominal Pain Stated Complaint: ABDOMINAL PAIN Time Seen by Provider: 10/30/18 16:08 Primary Care Provider: ERNIE SCOTT MD [ACTIVE STAFF] - Follow up as needed Mode of Arrival: Ambulatory Information source: Patient Notes: Patient is a 37-year-old female who presents to the emergency department with right upper quadrant and right lower quadrant abdominal pain that has been ongoing for 3 days. Patient reports associated nausea but denies any vomiting. She does report several episodes of diarrhea. She denies any fevers. She denies any abnormal vaginal discharge, pelvic pain or dysuria. TRAVEL OUTSIDE OF THE [place] IN LAST 30 DAYS: No - Related Data Allergies/Adverse Reactions: No Known Allergies Allergy (Verified 10/30/18 14:47) Past Medical History - General Information source: Patient - Social History Smoking Status: Current Every Day Smoker Frequency of alcohol use: Occasional Drug Abuse: None Family History: Arthritis, CVA, DM, Hyperlipidemia, Hypertension, Malignancy Patient has suicidal ideation: No Patient has homicidal ideation: No Pulmonary Medical History: Reports: Hx Asthma Neurological Medical History: Reports: Hx Migraine Renal/ Medical History: Denies: Hx Peritoneal Dialysis Musculoskeletal Medical History: Reports Hx Arthritis, Reports Hx Musculoskeletal Deformity, Reports Hx Musculoskeletal Trauma Psychiatric Medical History: Reports: Hx Anxiety, Hx Bipolar Disorder, Hx Schizophrenia Traumatic Medical History: Reports: Hx Fractures - Leg Past Surgical History: Reports: Hx Adenoidectomy, Hx Breast Surgery - tumor removed Right breast, Hx Tonsillectomy, Hx Tubal Ligation, Hx Urinary Tract Surgery - Immunizations Immunizations up to date: Yes Hx Diphtheria, Pertussis, Tetanus Vaccination: Yes - 08/29/2017 patient states 5 years ago Review of Systems - Review of Systems Constitutional: No symptoms reported. denies: Fever EENT: No symptoms reported Cardiovascular: No symptoms reported Respiratory: No symptoms reported Gastrointestinal: No symptoms reported, Abdominal pain, Diarrhea, Nausea. denies: Vomiting, Constipation Genitourinary: No symptoms reported. denies: Dysuria, Frequency, Hematuria Female Genitourinary: No symptoms reported Musculoskeletal: No symptoms reported Skin: No symptoms reported Hematologic/Lymphatic: No symptoms reported Neurological/Psychological: No symptoms reported Physical Exam - Vital signs Vitals: Temp Pulse Resp BP Pulse Ox 98.3 F 74 18 144/71 H 100 10/30/18 15:10 10/30/18 15:10 10/30/18 15:10 10/30/18 15:10 10/30/18 15:10 - Notes Notes: PHYSICAL EXAMINATION: GENERAL: Well-appearing, well-nourished and in no acute distress. HEAD: Atraumatic, normocephalic. EYES: Pupils equal round and reactive to light, extraocular movements intact, conjunctiva are normal. ENT: Nares patent, oropharynx clear without exudates. Moist mucous membranes. NECK: Normal range of motion, supple without lymphadenopathy LUNGS: Breath sounds clear to auscultation bilaterally and equal. No wheezes rales or rhonchi. HEART: Regular rate and rhythm without murmurs ABDOMEN: Soft, nondistended abdomen. Tenderness to palpation to right upper and lower quadrants. No guarding, no rebound. No masses appreciated. Female : No CVA tenderness. Musculoskeletal: Normal range of motion, no pitting or edema. No cyanosis. NEUROLOGICAL: Cranial nerves grossly intact. Normal speech, normal gait. Normal sensory, motor exams PSYCH: Normal mood, normal affect. SKIN: Warm, Dry, normal turgor, no rashes or lesions noted. Course - Re-evaluation Re-evalutation: 10/30/18 19:43 CBC, CMP and urinalysis are unremarkable. An ultrasound was performed of the right upper quadrant to evaluate patient's gallbladder and this ultrasound is without acute findings. Transvaginal ultrasound was also performed to evaluate for ovarian cyst. The ovaries were unfortunately unable to be identified. At this time patient's abdomen is soft, nontender with no guarding and no rebound. Given the patient's pain has been ongoing for 3 days and she does not have elevated white blood count nor does she have a fever I do not think that a CT is indicated at this time. I did discuss this with the patient and discussed ED return precautions to include worsening abdominal pain, development of fever or persistent vomiting and patient agrees to return if the symptoms occur. - Vital Signs Vital signs: Temp Pulse Resp BP Pulse Ox 98.3 F 74 18 144/71 H 100 10/30/18 15:10 10/30/18 15:10 10/30/18 15:10 10/30/18 15:10 10/30/18 15:10 - Laboratory Result Diagrams: 10/30/18 16:29 03/30/19 16:29 Laboratory results interpreted by me: 10/30/18 10/30/18 10/30/18 15:29 16:29 16:29 WBC 3.7 L RDW 14.1 H AST 10 L Urine Blood SMALL H Discharge - Discharge Clinical Impression: Abdominal pain Qualifiers: Abdominal location: unspecified location Qualified Code(s): R10.9 - Unspecified abdominal pain Condition: Stable Disposition: HOME, SELF-CARE Additional Instructions: Abdominal Pain There are many causes of abdominal pain. Pain can mean a serious problem requiring surgery (such as appendicitis). It can also be an innocent problem that goes away on its own (such as a viral infection). Often, time must pass to determine the cause of pain. The physician does not feel that hospitalization is necessary, at present. Things may change within the next 24 hours. Call the doctor or come back for re- examination if any problems occur, such as: (1) Pain that becomes more severe, steady, or becomes concentrated in one specific area. Also, pain that is more severe with movement or coughing. (2) Vomiting that persists or becomes more frequent. (3) Blood in the vomitus, urine, or bowel movements. Blood in the stool may have a tarry or black appearance. (4) Shaking chills or fever greater than 100 degrees F. (5) The abdomen becomes more distended or swollen. (6) Bowel movements cease. (7) Failure to improve as expected. Your workup today was normal. All of your blood work, urine and ultrasounds did not show any life-threatening cause of your abdominal pain. I have given you a prescription for Zofran to help with your nausea. Please return to the emergency department if you experience any the above warning signs as we have discussed. Please also call your primary care provider on Thursday to schedule a follow-up appointment for your chronic abdominal pain. Prescriptions: Ondansetron [Zofran Odt 4 mg Tablet] 1 - 2 tab PO Q4H PRN #15 tab.rapdis PRN Reason: For Nausea/Vomiting Forms: Return to Work Referrals: ERNIE SCOTT MD [ACTIVE STAFF] - Follow up as needed
[2018-10-30] MEDS ORDERED: KETOROLAC TROMETHAMINE INJ/PF 30 MG/1 ML SDV IV ONE (18:11)
[2018-10-30] MEDS ORDERED: KETOROLAC TROMETHAMINE 60 MG/2 ML SDV IM ONE (18:29)
--- NOTE | 2018-10-30 19:17 | RADIOLOGY REPORT (SQ) ---
EXAM DESCRIPTION: U/S ABDOMEN LIMITED W/O DOP COMPLETED DATE/TIME: 10/30/2018 7:12 pm REASON FOR STUDY: RUQ and RLQ pain COMPARISON: None. TECHNIQUE: Dynamic and static grayscale images acquired of the abdomen and recorded on PACS. Additio nal selected color Doppler and spectral images recorded. LIMITATIONS: None. FINDINGS: PANCREAS: No masses. Visualized pancreatic duct normal caliber. LIVER: No masses. Echotexture normal. LIVER VASCULATURE: Normal directional flow of the main portal vein and hepatic veins. GALLBLADDER: No stones. Normal wall thickness. No pericholecystic fluid. ULTRASOUND-DETECTED MEYER'S SIGN: Negative. INTRAHEPATIC DUCTS AND COMMON DUCT: CBD and intrahepatic ducts normal caliber. No filling defects. INFERIOR VENA CAVA: Normal flow. AORTA: No aneurysm. RIGHT KIDNEY: Normal size. Normal echogenicity. No solid or suspicious masses. No hydronephrosis. No calcifications. PERITONEAL AND RIGHT PLEURAL SPACE: No ascites or effusions. OTHER: No other significant findings. IMPRESSION: NORMAL RIGHT UPPER QUADRANT ULTRASOUND. TECHNICAL DOCUMENTATION: JOB ID: [id number]- All Rights Reserved Reading location - IP/workstation name: [email or web address]
--- NOTE | 2018-10-30 19:24 | RADIOLOGY REPORT (SQ) ---
EXAM DESCRIPTION: U/S NON OB PEL LTD W/DOPPLER COMPLETED DATE/TIME: 10/30/2018 7:15 pm REASON FOR STUDY: RUQ and RLQ pain COMPARISON: 08/18/2018. TECHNIQUE: Dynamic and static grayscale images acquired of the pelvis via transvaginal approach and recorded on PACS. Additional selected color Doppler and spectral images recorded. LIMITATIONS: None. FINDINGS: UTERUS: Contour normal. No mass. ENDOMETRIAL STRIPE: No focal or generalized thickening. No masses. CERVIX: No nabothian cysts. RIGHT OVARY AND DOPPLER: Ovary not visualized. LEFT OVARY AND DOPPLER: Ovary not visualized. FREE FLUID: None noted. OTHER: No other significant finding. MEASUREMENTS: UTERUS: 4.5 x 5.5 x 9.7 cm. ENDOMETRIAL STRIPE: 1.6 mm RIGHT OVARY: Not visualized. LEFT OVARY: Not visualized. IMPRESSION: OVARIES NOT VISUALIZED. OTHERWISE UNREMARKABLE TRANSVAGINAL PELVIC ULTRASOUND. TECHNICAL DOCUMENTATION: JOB ID: [id number] [employer]- All Rights Reserved Rev-12/18 Reading location - IP/workstation name: [email or web address]
[2018-10-30 20:00] VITALS: BP 115/52
== END 2018-10-30 20:00 | disposition home or self-care (01) ==
LOC: ER 14:44
DX: R10.11 Right upper quadrant pain (principal); R19.7 Diarrhea, unspecified; F17.200 Nicotine dependence, unspecified, uncomplicated; Z98.51 Tubal ligation status
CPT/HCPCS: 99284; 96372; 36415; 84703; 85025; 80053; 81001; 76705; 76857; 93976; J1885

== ENCOUNTER 2018-11-23 19:33 | Emergency (ER) | payer BC ==
[2018-11-23] MEDS ORDERED: KETOROLAC TROMETHAMINE INJ/PF 30 MG/1 ML SDV IM ONE (20:48)
[2018-11-23] MEDS ORDERED: METOCLOPRAMIDE HCL INJ/PF 10 MG/2 ML SDV IM ONE (20:48)
[2018-11-23] MEDS ORDERED: DIPHENHYDRAMINE HCL 50 MG/ML VIAL IM ONE (20:48)
--- NOTE | 2018-11-23 20:52 | ER Document Report ---
ED Headache - General Chief Complaint: Headache <24 hrs old Stated Complaint: HEADACHE Time Seen by Provider: 11/23/18 20:43 Mode of Arrival: Ambulatory Information source: Patient TRAVEL OUTSIDE OF THE [place] IN LAST 30 DAYS: No - HPI Patient complains to provider of: Headache, "Migraine" Notes: Patient here with complaints of migraine headache. The patient has a history of migraines. She states headache started this morning and is progressively gotten worse. Headache was not sudden onset, thunderclap in nature. No head injury. No fever. No blood thinners. Pain is constant, moderate, worse with light. She has nausea, but denies vomiting or diarrhea. No unilateral numbness, tingling, weakness. No chest pain or shortness of breath. No fever. No neck stiffness. Patient states this feels exactly like previous migraines that she has had in the past. She denies any other specific complaints at this time. - Related Data Allergies/Adverse Reactions: No Known Allergies Allergy (Verified 10/30/18 14:47) Past Medical History - Social History Smoking Status: Unknown if Ever Smoked Family History: Arthritis, CVA, DM, Hyperlipidemia, Hypertension, Malignancy Pulmonary Medical History: Reports: Hx Asthma Neurological Medical History: Reports: Hx Migraine Renal/ Medical History: Denies: Hx Peritoneal Dialysis Musculoskeletal Medical History: Reports Hx Arthritis, Reports Hx Musculoskeletal Deformity, Reports Hx Musculoskeletal Trauma Psychiatric Medical History: Reports: Hx Anxiety, Hx Bipolar Disorder, Hx Schizophrenia Traumatic Medical History: Reports: Hx Fractures - Leg Past Surgical History: Reports: Hx Adenoidectomy, Hx Breast Surgery - tumor removed Right breast, Hx Tonsillectomy, Hx Tubal Ligation, Hx Urinary Tract Surgery - Immunizations Immunizations up to date: Yes Hx Diphtheria, Pertussis, Tetanus Vaccination: Yes - 08/29/2017 patient states 5 years ago Review of Systems - Review of Systems -: Yes All other systems reviewed and negative Physical Exam - Vital signs Vitals: Temp Pulse Resp BP Pulse Ox 98.0 F 72 18 123/63 99 11/23/18 19:41 11/23/18 19:41 11/23/18 19:41 11/23/18 19:41 11/23/18 19:41 - Notes Notes: GENERAL: alert, cooperative, nontoxic, no distress. HEAD: normocephalic, atraumatic EYES: conjunctiva pink without discharge, no external redness or swelling. Pupils are equal, round, reactive to light. EARS: no external swelling, no external redness NOSE: atraumatic, no external swelling MOUTH/THROAT: mucous membranes moist and pink, posterior pharynx without erythema, swelling, exudate. No trismus or drooling. NECK: soft, supple, full range of motion, no meningismus. CHEST: no distress, lungs clear and equal throughout. No wheezing, rales, rhonchi. CARDIAC: regular rate and rhythm, no murmur, normal capillary refill, normal pulses. No peripheral edema noted. BACK: full range of motion, no CVA tenderness. EXTREMITIES: full range of motion of all extremities. No redness, no swelling. NEURO: alert and oriented x 3, cranial nerves II through XII are grossly intact. Upper and lower extremities are equal throughout. Normal sensation. No focal deficits, full range of motion of all extremities. normal finger to nose. PYSCH: appropriate mood, affect. Patient is cooperative. SKIN: pink, warm, dry, no rash. Course - Re-evaluation Re-evalutation: 11/23/18 20:49 Patient is nontoxic-appearing with stable vitals. Patient here with complaints of migraine headache. She has a history of migraines. She states this pain started this morning is gradually gotten worse throughout the day. No head injury, no blood thinners. This feels exactly like previous migraine she had in the past. She has a nonfocal exam. No fever. No neck stiffness or meningiomas. No sign of subarachnoid hemorrhage, abscess, infection, meningitis. Patient will be given a dose of Toradol, Reglan, Benadryl. I offered to keep her here and determine if her medications worked or to go ahead and let her go home when she is been watched for her shot time. She states she would prefer to go home and lay down in a quiet room her house. I do believe that this is reasonable. This sounds like the patient's typical migraines and not typical of any serious headache. The patient's emergency department workup and current diagnosis were explained to the patient and or family. Follow-up instructions were provided. Medications if prescribed were discussed. Instructions for when to return to the emergency department including specific worrisome symptoms were discussed with the patient and/or family. - Vital Signs Vital signs: Temp Pulse Resp BP Pulse Ox 98.0 F 72 18 123/63 99 11/23/18 19:41 11/23/18 19:41 11/23/18 19:41 11/23/18 19:41 11/23/18 19:41 Discharge - Discharge Clinical Impression: Headache Qualifiers: Headache type: unspecified Headache chronicity pattern: acute headache Intractability: not intractable Qualified Code(s): R51 - Headache Condition: Stable Disposition: HOME, SELF-CARE Instructions: Headache ([facility]), Migraine Headache ([facility]) Additional Instructions: Tylenol or Motrin as needed for pain. Drink plenty fluids. Follow-up if not better in the next 24 hours. Follow-up sooner for worsening pain, fever, numbness, tingling, weakness, persistent vomiting, neck stiffness, or for any further concerns. Forms: Return to Work Referrals: [facility] [Provider Group] - Follow up as needed
[2018-11-24 01:06] VITALS: BP 127/63
== END 2018-11-23 21:40 | disposition home or self-care (01) ==
LOC: ER 19:33
DX: R51 Headache (principal); R11.0 Nausea; J45.909 Unspecified asthma, uncomplicated
CPT/HCPCS: 99283; 96372; J1200; J1885; J2765

== ENCOUNTER → 2018-12-01 | Outpatient (CLI) | payer BC ==
--- NOTE | 2018-12-01 14:10 | WOMENS IMAGING REPORT ---
EXAM DESCRIPTION: BILAT SCREENING MAMMO W/CAD COMPLETED DATE/TIME: 12/01/2018 8:16 am REASON FOR STUDY: Z12.31 ENCOUNTER FOR SCREENING MAMMOGRAM FOR MALIGNANT NEOPLASM OF BREAST Z12.31 ENCNTR SCREEN MAMMOGRAM FOR MALIGNANT NEOPLASM OF [place] COMPARISON: No previous TECHNIQUE: Standard craniocaudal and mediolateral oblique views of each breast recorded using digita l acquisition. LIMITATIONS: None. FINDINGS: No masses, calcifications or architectural distortion. No areas of suspicion. Read with the assistance of CAD. IMPRESSION: NORMAL MAMMOGRAM. BIRADS 1. BREAST DENSITY: b. There are scattered areas of fibroglandular density. BIRAD: 1 NEGATIVE RECOMMENDATION: ROUTINE SCREENING COMMENT: The patient has been notified of the results by letter per MQSA requirements. Additional no tification policies are in place for contacting patient with suspicious or incomplete findings. Quality ID #[id number]: The [employer] recommends an annual screening mammogram for women aged 40 years or over. This facility utilizes a reminder system to ensure that all patients receive reminder letters, and/or direct phone calls for appointments. This includes reminders for routine scr eening mammograms, diagnostic mammograms, or other Breast Imaging Interventions when appropriate. Th is patient will be placed in the appropriate reminder system. TECHNICAL DOCUMENTATION: FINDING NUMBER: (1) ASSESSMENT: (1) JOB ID: [id number] [employer]- All Rights Reserved Reading location - IP/workstation name: [email or web address]
== END ==
LOC: WI 07:06
PROVIDERS: ATTEND Family Medicine
DX: Z12.31 Encounter for screening mammogram for malignant neoplasm of breast (principal)
CPT/HCPCS: 77067

== ENCOUNTER 2018-12-03 14:11 | Emergency (ER) | payer BC, MEDICAID ==
--- NOTE | 2018-12-03 15:21 | ER Document Report ---
ED Medical Screen (RME) - General Chief Complaint: Chest Pain Stated Complaint: TINGLING/NUMBNESS, LEFT ARM AND NECK Time Seen by Provider: 12/03/18 15:12 Primary Care Provider: IRINA LISA DO [Primary Care Provider] - Follow up as needed Mode of Arrival: Ambulatory Information source: Patient TRAVEL OUTSIDE OF THE [place] IN LAST 30 DAYS: No - HPI Patient complains to provider of: CHEST PAIN, LEFT ARM N/T Notes: 12/03/18 15:19 Patient is here with complaints of some intermittent chest pain for the last few days. She states that the pain is only present when she takes a deep breath. She also reports having numbness and tingling to her left arm and left leg for the last 2 days. No weakness. She feels like she is been having some intermittent periods of dizziness like everything is spinning. No blood thinners. No history of hypertension, high cholesterol, diabetes, CAD. No fevers. Exam No distress, nontoxic-appearing. Lungs clear and equal throughout. Heart sounds normal. Cranial nerves II through XII are grossly intact. Equal strength to the upper and lower extremities. Decreased sensation to the left upper and lower extremities. Normal pulses to the upper and lower extremity's. Plan CBC, CMP, coags, troponin, EKG, chest x-ray , Head CT An initial examination was made on the patient as part of the triage process, and it was determined a more comprehensive evaluation was necessary. Initial labs were ordered and patient was transferred to another provider in the ED who assumed care and finished evaluation and plan. - Related Data Allergies/Adverse Reactions: No Known Allergies Allergy (Verified 10/30/18 14:47) Past Medical History - Social History Frequency of alcohol use: Occasional Drug Abuse: None Family history: Reviewed & Not Pertinent Pulmonary Medical History: Reports: Hx Asthma Neurological Medical History: Reports: Hx Migraine Renal/ Medical History: Denies: Hx Peritoneal Dialysis Musculoskeltal Medical History: Reports Hx Arthritis, Reports Hx Musculoskeletal Deformity, Reports Hx Musculoskeletal Trauma Psychiatric Medical History: Reports: Hx Anxiety, Hx Bipolar Disorder, Hx Schizophrenia Traumatic Medical History: Reports: Hx Fractures - Leg Past Surgical History: Reports: Hx Adenoidectomy, Hx Breast Surgery - tumor removed Right breast, Hx Tonsillectomy, Hx Tubal Ligation, Hx Urinary Tract Surgery - Immunizations Immunizations up to date: Yes Hx Diphtheria, Pertussis, Tetanus Vaccination: Yes - 08/29/2017 patient states 5 years ago Physical Exam - Vital signs Vitals: Temp Pulse Resp BP 98.3 F 80 18 121/52 L 12/03/18 14:27 12/03/18 14:27 12/03/18 14:27 12/03/18 14:27 Course - Vital Signs Vital signs: Temp Pulse Resp BP Pulse Ox 98.3 F 80 18 121/52 L 12/03/18 14:27 12/03/18 14:27 12/03/18 14:27 12/03/18 14:27 Doctor's Discharge - Discharge Referrals: IRINA LISA DO [Primary Care Provider] - Follow up as needed
--- NOTE | 2018-12-03 15:44 | RADIOLOGY REPORT (SQ) ---
EXAM DESCRIPTION: CT HEAD WITHOUT COMPLETED DATE/TIME: 12/03/2018 3:36 pm REASON FOR STUDY: NUMBNESS LEFT ARM AND LEG COMPARISON: None. TECHNIQUE: Axial images acquired through the brain without intravenous contrast. Images reviewed wi th bone, brain and subdural windows. Additional sagittal and coronal reconstructions were generated. Images stored on PACS. All CT scanners at this facility use dose modulation, iterative reconstruction, and/or weight based d osing when appropriate to reduce radiation dose to as low as reasonably achievable (ALARA). [facility]: Dose Right [facility]: CareDose [facility]: Dose Right [facility]: Teradose 4D [facility]: InnoCyte RADIATION DOSE: CT Rad equipment meets quality standard of care and radiation dose reduction techniq ues were employed. CTDIvol: 53.2 mGy. DLP: 1070 mGy-cm. mGy. LIMITATIONS: None. FINDINGS: VENTRICLES: Normal size and contour. CEREBRUM: No masses. No hemorrhage. No midline shift. No evidence for acute infarction. Normal gra y/white matter differentiation. No areas of low density in the white matter. CEREBELLUM: No masses. No hemorrhage. No alteration of density. No evidence for acute infarction. EXTRAAXIAL SPACES: No fluid collections. No masses. ORBITS AND GLOBE: No intra- or extraconal masses. Normal contour of globe without masses. CALVARIUM: No fracture. PARANASAL SINUSES: No fluid or mucosal thickening. SOFT TISSUES: No mass or hematoma. OTHER: No other significant finding. IMPRESSION: NORMAL BRAIN CT WITHOUT CONTRAST. EVIDENCE OF ACUTE STROKE: NO. COMMENT: Quality ID # [id number]: Final reports with documentation of one or more dose reduction techniques (e.g., Automated exposure control, adjustment of the mA and/or kV according to patient size, use of iterative reconstruction technique) TECHNICAL DOCUMENTATION: JOB ID: [id number] [email or web address]- All Rights Reserved Reading location - IP/workstation name: [facility], [facility]-RR
--- NOTE | 2018-12-03 15:46 | RADIOLOGY REPORT (SQ) ---
EXAM DESCRIPTION: CHEST SINGLE VIEW COMPLETED DATE/TIME: 12/03/2018 3:38 pm REASON FOR STUDY: CP COMPARISON: 10/13/2016 NUMBER OF VIEWS: One view. TECHNIQUE: Single frontal radiographic view of the chest acquired. LIMITATIONS: None. FINDINGS: LUNGS AND PLEURA: No opacities, masses or pneumothorax. No pleural effusion. MEDIASTINUM AND HILAR STRUCTURES: No masses. Contour normal. HEART AND VASCULAR STRUCTURES: Heart normal in size. Normal vasculature. BONES: No acute findings. HARDWARE: None in the chest. OTHER: No other significant finding. IMPRESSION: NO SIGNIFICANT RADIOGRAPHIC FINDING IN THE CHEST. TECHNICAL DOCUMENTATION: JOB ID: [id number] [employer]- All Rights Reserved Reading location - IP/workstation name: [email or web address]
[2018-12-03 17:06] LABS: ABSOLUTE EOSINOPHILS # (AUTO) 0.3 10^3/uL (0.0-0.6); ABSOLUTE LYMPHOCYTES (AUTO) 1.9 10^3/uL (0.5-4.7); ABSOLUTE MONOCYTES (AUTO) 0.4 10^3/uL (0.1-1.4); ABSOLUTE NEUT (AUTO) 2.1 10^3/uL (1.7-8.2); BASOPHILS % (AUTO) 0.6 % (0-2); HEMATOCRIT 36.9 % (36.0-47.0); HEMOGLOBIN 12.1 g/dL (12.0-15.5); LYMPHOCYTES % (AUTO) 40.1 % (13-45); MEAN CORPUSCULAR HEMOGLOBIN 28.9 pg (27.0-33.4); MEAN CORPUSCULAR HGB CONC 32.7 g/dL (32.0-36.0); MEAN CORPUSCULAR VOLUME 89 fl (80-97); MONOCYTES % (AUTO) 8.5 % (3-13); PLATELET COUNT 231 10^3/uL (150-450); RED BLOOD COUNT 4.17 10^6/uL (3.72-5.28); RED CELL DISTRIBUTION WIDTH 14.6 % (11.5-14.0); SEGMENTED NEUTROPHILS % (AUTO) 44.8 % (42-78); TOTAL CELLS COUNTED % (AUTO) 100 %; WHITE BLOOD COUNT 4.7 10^3/uL (4.0-10.5)
[2018-12-03 17:18] LABS: INTERNATIONAL RATION (INR) 0.97; PARTIAL THROMBOPLASTIN TIME 21.7 SEC (23.5-35.8); PROTHROMBIN TIME 13.4 SEC (11.4-15.4)
[2018-12-03 17:25] LABS: ALANINE AMINOTRANSFERASE 19 U/L (9-52); ALBUMIN 4.3 g/dL (3.5-5.0); ALKALINE PHOSPHATASE 48 U/L (38-126); ANION GAP 8 (5-19); ASPARTATE AMINO TRANSFERASE 13 U/L (14-36); BILIRUBIN,DIRECT 0.2 mg/dL (0.0-0.4); BILIRUBIN,TOTAL 0.3 mg/dL (0.2-1.3); BLOOD UREA NITROGEN 15 mg/dL (7-20); CALCIUM 9.6 mg/dL (8.4-10.2); CARBON DIOXIDE 28 mmol/L (22-30); CHLORIDE 106 mmol/L (98-107); GLUCOSE 85 mg/dL (75-110); POTASSIUM 4.2 mmol/L (3.6-5.0); SODIUM 141.5 mmol/L (137-145); TOTAL PROTEIN 7.3 g/dL (6.3-8.2)
--- NOTE | 2018-12-03 18:51 | EKG REPORT ---
SEVERITY:- NORMAL ECG - SINUS RHYTHM : Confirmed by: Mike Diaz 03-Dec-2018 18:50:12
--- NOTE | 2018-12-03 23:01 | ER Document Report ---
ED General - General Chief Complaint: Chest Pain Stated Complaint: TINGLING/NUMBNESS, LEFT ARM AND NECK Time Seen by Provider: 12/03/18 15:12 Primary Care Provider: IRINA LISA DO [Primary Care Provider] - Follow up as needed Mode of Arrival: Ambulatory TRAVEL OUTSIDE OF THE [place] IN LAST 30 DAYS: No - HPI Notes: Patient is a 38-year-old female who presents to the emergency department for evaluation. She complains Primarily of numbness and tingling on the left side of her body. This is been happening intermittently for about the last 5 days. She states is primarily in her left leg and left arm. She states it happens intermittently, lasts a few hours. Nothing seems to make it better or worse. On occasion when this happens, she gets a chest pain, that sounds more just like palpitations. She states she can take a few breaths, calm herself down, and the palpitations will subside. It does not seem to be brought in by exertion. She denies any recent head injuries. She does state that she gets some dizziness and vertigo type symptoms when she moves her eyes or her head quickly. No difficulty seeing, speaking, swallowing. She states that when her hand feels numb she has some difficulty with pattern marker, but otherwise has no weakness. - Related Data Allergies/Adverse Reactions: No Known Allergies Allergy (Verified 10/30/18 14:47) Past Medical History - General Information source: Patient - Social History Smoking Status: Current Every Day Smoker Frequency of alcohol use: Occasional Drug Abuse: None Family History: Arthritis, CVA, DM, Hyperlipidemia, Hypertension, Malignancy Patient has suicidal ideation: No Patient has homicidal ideation: No Pulmonary Medical History: Reports: Hx Asthma Neurological Medical History: Reports: Hx Migraine Renal/ Medical History: Denies: Hx Peritoneal Dialysis Musculoskeletal Medical History: Reports Hx Arthritis, Reports Hx Musculoskeletal Deformity, Reports Hx Musculoskeletal Trauma Psychiatric Medical History: Reports: Hx Anxiety, Hx Bipolar Disorder, Hx Schizophrenia Traumatic Medical History: Reports: Hx Fractures - Leg Past Surgical History: Reports: Hx Adenoidectomy, Hx Breast Surgery - tumor removed Right breast, Hx Tonsillectomy, Hx Tubal Ligation, Hx Urinary Tract Surgery - Immunizations Immunizations up to date: Yes Hx Diphtheria, Pertussis, Tetanus Vaccination: Yes - 08/29/2017 patient states 5 years ago Review of Systems - Review of Systems Constitutional: No symptoms reported EENT: See HPI Cardiovascular: See HPI Respiratory: See HPI Gastrointestinal: No symptoms reported Genitourinary: No symptoms reported Musculoskeletal: No symptoms reported Skin: No symptoms reported Neurological/Psychological: No symptoms reported Physical Exam - Vital signs Vitals: Temp Pulse Resp BP 98.3 F 80 18 121/52 L 12/03/18 14:27 12/03/18 14:27 12/03/18 14:27 12/03/18 14:27 - Notes Notes: Vital signs reviewed, please refer to chart. Patient is normocephalic, atrauma tic. Pupils equal round, reactive to light. Mucosa is moist, pharynx is without erythema or exudate. TMs are pearly ivy with good light reflex. Neck is supple without meningismus. Heart is regular rate and rhythm. Lungs are clear to auscultation bilaterally. Abdomen is soft, nontender, normoactive bowel sounds throughout. Extremities without cyanosis, clubbing, edema. Peripheral pulses are equal. Skin is warm and dry. Patient is awake, alert, oriented x3. Cranial nerves II through XII are grossly intact without focal neurological deficits. Strength is plus 5 out of 5 bilateral upper and lower extremities. Reflexes symmetrical. Sensation is intact, equal, to light touch, pressure, two-point discrimination all 4 extremities. Intact [id number], rapid altering movements, [id number]. Course - Re-evaluation Re-evalutation: 12/03/18 22:59 Patient presented to the emergency department for evaluation of a litany of issues. She complains of chest pain, palpitations, left body numbness, as well as dizziness. Initial orders are as placed by triage. EKG fails to show anything acute or remarkable. Chest x-ray and head CT are unremarkable. Patient's neurological exam at this time she is absolutely no deficits. She does see her primary care physician regularly. She is actually not having any s ymptoms at this time. Certainly it sounds as if she is having vertigo that is positional only. Her chest pain is likely more anxiety induced, and she really describes more of a palpitation sensation then any sort of anginal type equivalent. I do not have a clear explanation for her numbness at this time. I told her that she needs to follow-up, she may require neurology referral. She voiced understanding to this. She is to return to the ED with worsening or new concerning symptoms of any sort. - Vital Signs Vital signs: Temp Pulse Resp BP Pulse Ox 98.3 F 80 18 121/52 L 12/03/18 14:27 12/03/18 14:27 12/03/18 14:27 12/03/18 14:27 - Laboratory Result Diagrams: 12/03/18 16:31 12/03/18 16:31 Laboratory results interpreted by me: 12/03/18 12/03/18 12/03/18 16:31 16:31 16:31 RDW 14.6 H APTT 21.7 L AST 13 L - Diagnostic Test Radiology reviewed: Reports reviewed Radiology results interpreted by me: 12/03/18 23:00 Chest X-Ray 12/03/18 15:18 IMPRESSION: NO SIGNIFICANT RADIOGRAPHIC FINDING IN THE CHEST. Head CT 12/03/18 15:18 IMPRESSION: NORMAL BRAIN CT WITHOUT CONTRAST. EVIDENCE OF ACUTE STROKE: NO. - EKG Interpretation by Me Additional EKG results interpreted by me: 12/03/18 23:01 Sinus mechanism with a rate of 75 bpm. Normal axis and intervals, no acute ST changes concerning for ischemia or infarction. Discharge - Discharge Clinical Impression: Palpitations, Numbness and tingling Chest pain Qualifiers: Chest pain type: unspecified Qualified Code(s): R07.9 - Chest pain, unspecified Benign paroxysmal positional vertigo Qualifiers: Laterality: unspecified laterality Qualified Code(s): H81.10 - Benign paroxysmal vertigo, unspecified ear Condition: Stable Disposition: HOME, SELF-CARE Instructions: Chest Pain of Unclear Cause ([facility]), Numbness or Paresthesia ([facility]), Palpitations (Irregular or Rapid Heartrate) ([facility]), Vertigo ([facility]) Additional Instructions: Follow-up with your primary care physician next week. You may require ENT or neurology referral for further evaluation. Return to the emergency department with worsening or new concerning symptoms of any sort. Referrals: IRINA LISA DO [Primary Care Provider] - Follow up as needed
[2018-12-03 23:39] VITALS: BP 112/54
== END 2018-12-03 23:39 | disposition home or self-care (01) ==
LOC: ER 14:11
DX: R00.2 Palpitations (principal); R20.0 Anesthesia of skin; R07.9 Chest pain, unspecified; H81.10 Benign paroxysmal vertigo, unspecified ear; F17.200 Nicotine dependence, unspecified, uncomplicated
CPT/HCPCS: 36415; 70450; 71045; 80053; 84484; 85025; 85610; 85730; 93005; 93010; 99284

== ENCOUNTER 2018-12-16 12:23 | Emergency (ER) | payer BC ==
[2018-12-16 12:30] VITALS: BP 113/61
--- NOTE | 2018-12-16 12:40 | ER Document Report ---
HPI - HPI Time Seen by Provider: 12/16/18 12:33 Pain Level: 4 Notes: Patient is an otherwise healthy 38-year-old female presented to the emergency department with chief complaint of diarrhea and vomiting that started early this morning. Patient reports her 12-year-old son has the same symptoms. She states that they ate the same thing for dinner last night. Patient denies any abdominal pain or fever. - REPRODUCTIVE Reproductive: DENIES: : Past Medical History - General Information source: Patient - Social History Smoking Status: Never Smoker Frequency of alcohol use: None Drug Abuse: None Family History: Arthritis, CVA, DM, Hyperlipidemia, Hypertension, Malignancy Pulmonary Medical History: Reports: Hx Asthma Neurological Medical History: Reports: Hx Migraine Renal/ Medical History: Denies: Hx Peritoneal Dialysis Musculoskeletal Medical History: Reports Hx Arthritis, Reports Hx Musculoskeletal Deformity, Reports Hx Musculoskeletal Trauma Psychiatric Medical History: Reports: Hx Anxiety, Hx Bipolar Disorder, Hx Schizophrenia Traumatic Medical History: Reports: Hx Fractures - Leg Past Surgical History: Reports: Hx Adenoidectomy, Hx Breast Surgery - tumor removed Right breast, Hx Tonsillectomy, Hx Tubal Ligation, Hx Urinary Tract Surgery - Immunizations Immunizations up to date: Yes Hx Diphtheria, Pertussis, Tetanus Vaccination: Yes - 08/29/2017 patient states 5 years ago Vertical Provider Document - CONSTITUTIONAL Notes: PHYSICAL EXAMINATION: GENERAL: Well-appearing, well-nourished and in no acute distress. HEAD: Atraumatic, normocephalic. EYES: Pupils equal round and reactive to light, extraocular movements intact, conjunctiva are normal. ENT: Nares patent, oropharynx clear without exudates. Moist mucous membranes. NECK: Normal range of motion, supple without lymphadenopathy LUNGS: Breath sounds clear to auscultation bilaterally and equal. No wheezes rales or rhonchi. HEART: Regular rate and rhythm without murmurs ABDOMEN: Soft, nontender, nondistended abdomen. No guarding, no rebound. No masses appreciated. Female : deferred Musculoskeletal: Normal range of motion, no pitting or edema. No cyanosis. NEUROLOGICAL: Cranial nerves grossly intact. Normal speech, normal gait. Normal sensory, motor exams PSYCH: Normal mood, normal affect. SKIN: Warm, Dry, normal turgor, no rashes or lesions noted. - INFECTION CONTROL TRAVEL OUTSIDE OF THE [place] IN LAST 30 DAYS: No Course - Re-evaluation Re-evalutation: Patient presents with her child with symptoms of nausea, vomiting and diarrhea. Patient appears well, nontoxic and her abdomen is soft and nontender. Patient afebrile and is not tachycardic. Her blood pressure is normal. Likely viral gastroenteritis. Patient will be discharged home with Zofran. Patient is agreeable to this plan. - Vital Signs Vital signs: Temp Pulse Resp BP Pulse Ox 98.4 F 96 16 113/61 98 12/16/18 12:28 12/16/18 12:28 12/16/18 12:28 12/16/18 12:28 12/16/18 12:28 Discharge - Discharge Clinical Impression: Nausea vomiting and diarrhea Condition: Stable Disposition: HOME, SELF-CARE Additional Instructions: As discussed I feel that your symptoms are most likely being caused by either a virus or food poisoning. Please drink plenty of fluids. Take the antinausea medication as prescribed. Allow the diarrhea to run its course. Return to the emergency department with any new or worsening symptoms to include development of abdominal pain, fever, persistent vomiting or any other symptom that is concerning to you. Prescriptions: Ondansetron [Zofran Odt 4 mg Tablet] 1 - 2 tab PO Q4H PRN #15 tab.rapdis PRN Reason: For Nausea/Vomiting Forms: Return to Work Referrals: IRINA LISA DO [Primary Care Provider] - Follow up as needed
== END 2018-12-16 12:49 | disposition home or self-care (01) ==
LOC: ER 12:23
DX: R19.7 Diarrhea, unspecified (principal); R11.2 Nausea with vomiting, unspecified; J45.909 Unspecified asthma, uncomplicated; Z98.51 Tubal ligation status
CPT/HCPCS: 99283

== ENCOUNTER 2018-12-21 09:07 | Emergency (ER) | payer BC, MEDICAID ==
[2018-12-21 09:15] VITALS: BP 138/75
[2018-12-21] MEDS ORDERED: KETOROLAC TROMETHAMINE INJ/PF 30 MG/1 ML SDV IM ONE (10:38)
[2018-12-21] MEDS ORDERED: METOCLOPRAMIDE HCL INJ/PF 10 MG/2 ML SDV IM ONE (10:38)
[2018-12-21] MEDS ORDERED: DIPHENHYDRAMINE HCL 50 MG/ML VIAL IM ONE (10:38)
--- NOTE | 2018-12-21 10:40 | ER Document Report ---
ED Medical Screen (RME) - General Chief Complaint: Headache Stated Complaint: HEADACHE Time Seen by Provider: 12/21/18 10:33 Primary Care Provider: IRINA LISA DO [Primary Care Provider] - Follow up as needed Mode of Arrival: Ambulatory Information source: Patient TRAVEL OUTSIDE OF THE [place] IN LAST 30 DAYS: No - HPI Patient complains to provider of: H/A Onset: Yesterday Notes: 12/21/18 10:38 Patient here with complaints of headache. The patient has a history of migraine headaches. She states that this feels exactly like previous headache she is had in the past. Headache is on the right side of her head. No head injury. No blood thinners. She has photophobia with nausea, no vomiting. No numbness, tingling, weakness. No fever. Patient had recent head CT earlier this month that was unremarkable. This headache was not sudden onset, thunderclap in nature. Exam Nontoxic, no distress. Patient does appear to be uncomfortable with obvious photophobia. Lungs clear and equal throughout. Heart sounds normal. Nonfocal neuro exam. Plan IM Toradol, Reglan, Benadryl and reassess. An initial examination was made on the patient as part of the triage process, and it was determined a more comprehensive evaluation was necessary. Initial labs were ordered and patient was transferred to another provider in the ED who assumed care and finished evaluation and plan. - Related Data Allergies/Adverse Reactions: No Known Allergies Allergy (Verified 12/21/18 09:07) Past Medical History - Social History Family history: Reviewed & Not Pertinent Pulmonary Medical History: Reports: Hx Asthma Neurological Medical History: Reports: Hx Migraine Renal/ Medical History: Denies: Hx Peritoneal Dialysis Musculoskeltal Medical History: Reports Hx Arthritis, Reports Hx Musculoskeletal Deformity, Reports Hx Musculoskeletal Trauma Psychiatric Medical History: Reports: Hx Anxiety, Hx Bipolar Disorder, Hx Schizophrenia Traumatic Medical History: Reports: Hx Fractures - Leg Past Surgical History: Reports: Hx Adenoidectomy, Hx Breast Surgery - tumor removed Right breast, Hx Tonsillectomy, Hx Tubal Ligation, Hx Urinary Tract Surgery - Immunizations Immunizations up to date: Yes Hx Diphtheria, Pertussis, Tetanus Vaccination: Yes - 08/29/2017 patient states 5 years ago Physical Exam - Vital signs Vitals: Temp Pulse Resp BP Pulse Ox 98.1 F 78 16 138/75 H 98 12/21/18 09:14 12/21/18 09:14 12/21/18 09:14 12/21/18 09:14 12/21/18 09:14 Course - Vital Signs Vital signs: Temp Pulse Resp BP Pulse Ox 98.1 F 78 16 138/75 H 98 12/21/18 09:14 12/21/18 09:14 12/21/18 09:14 12/21/18 09:14 12/21/18 09:14 Doctor's Discharge - Discharge Referrals: IRINA LISA DO [Primary Care Provider] - Follow up as needed
--- NOTE | 2018-12-21 12:24 | ER Document Report ---
ED Headache - General Chief Complaint: Headache Stated Complaint: HEADACHE Time Seen by Provider: 12/21/18 10:33 Primary Care Provider: IRINA LISA DO [Primary Care Provider] - Follow up as needed Mode of Arrival: Ambulatory Information source: Patient Notes: 38-year-old female who presents today with the onset last night of a left-sided slow progressive headache. No blurry vision, fevers, trauma, weakness or numbness. Patient states she has around 2 migraines per month for "many years". She does not have a neurologist. She does have a primary care physician. She states this feels just like her previous migraines. She states she has had imaging that has been unremarkable in the past for these headaches. Patient was given medications in triage and states that the headache is much improved. She still denies any blurry vision. TRAVEL OUTSIDE OF THE [place] IN LAST 30 DAYS: No - Related Data Allergies/Adverse Reactions: No Known Allergies Allergy (Verified 12/21/18 09:07) Past Medical History - General Information source: Patient - Social History Smoking Status: Current Every Day Smoker Family History: Arthritis, CVA, DM, Hyperlipidemia, Hypertension, Malignancy Patient has suicidal ideation: No Patient has homicidal ideation: No Pulmonary Medical History: Reports: Hx Asthma Neurological Medical History: Reports: Hx Migraine Renal/ Medical History: Denies: Hx Peritoneal Dialysis Musculoskeletal Medical History: Reports Hx Arthritis, Reports Hx Musculoskeletal Deformity, Reports Hx Musculoskeletal Trauma Psychiatric Medical History: Reports: Hx Anxiety, Hx Bipolar Disorder, Hx Schizophrenia Traumatic Medical History: Reports: Hx Fractures - Leg Past Surgical History: Reports: Hx Adenoidectomy, Hx Breast Surgery - tumor removed Right breast, Hx Tonsillectomy, Hx Tubal Ligation, Hx Urinary Tract Surgery - Immunizations Immunizations up to date: Yes Hx Diphtheria, Pertussis, Tetanus Vaccination: Yes - 08/29/2017 patient states 5 years ago Review of Systems - Review of Systems Constitutional: denies: Fever EENT: denies: Eye discharge, Blurred vision, Nose discharge Cardiovascular: denies: Chest pain, Palpitations Respiratory: denies: Short of breath Gastrointestinal: denies: Vomiting Genitourinary: denies: Dysuria Musculoskeletal: denies: Leg swelling Skin: Other - no hives. denies: Rash Neurological/Psychological: Other - no slurred speech -: Yes All other systems reviewed and negative Physical Exam - Vital signs Vitals: Temp Pulse Resp BP Pulse Ox 98.1 F 78 16 138/75 H 98 12/21/18 09:14 12/21/18 09:14 12/21/18 09:14 12/21/18 09:14 12/21/18 09:14 Notes: Reviewed vital signs and nursing note as charted by RN. CONSTITUTIONAL: Alert and oriented and responds appropriately to questions. Well-appearing; well-nourished HEAD: Normocephalic; atraumatic EYES: PERRL NECK: Supple without meningismus; non-tender CARD: Regular rate and rhythm; no murmurs; symmetric distal pulses RESP: Normal chest excursion without splinting or tachypnea; breath sounds clear and equal bilaterally ABD/GI: Normal bowel sounds; non-distended; soft, non-tender BACK: The back appears normal and is non-tender to palpation EXT: Normal ROM in all joints; non-tender to palpation; no edema SKIN: No acute lesions noted NEURO: CN 2-12 intact; 5/5 bilateral upper and lower extremity strength with sensation intact to light touch PSYCH: The patient's mood and manner are appropriate. Grooming and personal hygiene are appropriate. Course - Re-evaluation Re-evalutation: 12/21/18 12:22 Given the history and physical examination, resolution of the pain, no focal yuan rological deficits, soft globes, equal reactive pupils, no temporal redness or swelling, no trauma, no fever, do not believe any other imaging or laboratory work is necessary. Patient will be discharged home with strict return precautions and follow-up with her scheduled appointment tomorrow with her primary care physician. - Vital Signs Vital signs: Temp Pulse Resp BP Pulse Ox 98.1 F 78 16 138/75 H 98 12/21/18 09:14 12/21/18 09:14 12/21/18 09:14 12/21/18 09:14 12/21/18 09:14 Discharge - Discharge Clinical Impression: Headache Qualifiers: Headache type: unspecified Headache chronicity pattern: unspecified pattern Intractability: not intractable Qualified Code(s): R51 - Headache Condition: Good Disposition: HOME, SELF-CARE Additional Instructions: Come back immediately with any worsening headache, change in location or quality of the headache, fevers or vomiting, or any other acute problems. Please follow-up with your primary care physician tomorrow as discussed as well as possibly the neurologist as provided. Prescriptions: Promethazine HCl [Phenergan 25 mg Tablet] 25 mg PO Q6H PRN #10 tablet PRN Reason: Referrals: IRINA LISA DO [Primary Care Provider] - Follow up as needed LAN BOWENS MD [NO LOCAL MD] - Follow up as needed
== END 2018-12-21 12:39 | disposition home or self-care (01) ==
LOC: ER 09:07
DX: R51 Headache (principal); F17.200 Nicotine dependence, unspecified, uncomplicated; Z98.51 Tubal ligation status
CPT/HCPCS: 99283; 96372; J1200; J1885; J2765

== ENCOUNTER 2018-12-27 20:20 | Emergency (ER) | payer BC ==
[2018-12-27 20:32] VITALS: BP 122/72
[2018-12-27] MEDS ORDERED: DIPHENHYDRAMINE HCL 25 MG CAPSULE PO ONE (21:17)
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
== END 2018-12-27 22:00 | disposition home or self-care (01) ==
LOC: ER 20:20
DX: L29.9 Pruritus, unspecified (principal); R09.89 Other specified symptoms and signs involving the circulatory and respiratory systems; T50.905A Adverse effect of unspecified drugs, medicaments and biological substances, initial encounter; J45.909 Unspecified asthma, uncomplicated
CPT/HCPCS: 99283

== ENCOUNTER 2019-01-02 20:37 | Emergency (ER) | payer BC ==
[2019-01-02 22:54] LABS: ABSOLUTE EOSINOPHILS # (AUTO) 0.3 10^3/uL (0.0-0.6); ABSOLUTE LYMPHOCYTES (AUTO) 2.1 10^3/uL (0.5-4.7); ABSOLUTE MONOCYTES (AUTO) 0.4 10^3/uL (0.1-1.4); ABSOLUTE NEUT (AUTO) 2.1 10^3/uL (1.7-8.2); BASOPHILS % (AUTO) 0.9 % (0-2); EOSINOPHILS % (AUTO) 5.1 % (0-6); HEMATOCRIT 38.8 % (36.0-47.0); HEMOGLOBIN 12.9 g/dL (12.0-15.5); LYMPHOCYTES % (AUTO) 42.7 % (13-45); MEAN CORPUSCULAR HEMOGLOBIN 29.1 pg (27.0-33.4); MEAN CORPUSCULAR HGB CONC 33.3 g/dL (32.0-36.0); MEAN CORPUSCULAR VOLUME 88 fl (80-97); MONOCYTES % (AUTO) 8.5 % (3-13); PLATELET COUNT 240 10^3/uL (150-450); RED BLOOD COUNT 4.43 10^6/uL (3.72-5.28); RED CELL DISTRIBUTION WIDTH 13.9 % (11.5-14.0); SEGMENTED NEUTROPHILS % (AUTO) 42.8 % (42-78); TOTAL CELLS COUNTED % (AUTO) 100 %
[2019-01-02 23:00] LABS: APPEARANCE,URINE CLEAR; BILIRUBIN,URINE NEGATIVE (NEGATIVE); COLOR,URINE YELLOW; GLUCOSE, URINE NEGATIVE (NEGATIVE); KETONES,URINE NEGATIVE (NEGATIVE); LEUKOCYTE ESTERASE,URINE NEGATIVE (NEGATIVE); NITRITE,URINE NEGATIVE (NEGATIVE); PROTEIN,URINE NEGATIVE (NEGATIVE); URINE SPECIFIC GRAVITY 1.025; UROBILINOGEN,URINE NEGATIVE mg/dL (<2.0)
[2019-01-02 23:13] LABS: ALANINE AMINOTRANSFERASE 13 U/L (9-52); ALBUMIN 4.7 g/dL (3.5-5.0); ALKALINE PHOSPHATASE 52 U/L (38-126); ANION GAP 11 (5-19); ASPARTATE AMINO TRANSFERASE 13 U/L (14-36); BILIRUBIN,DIRECT 0.2 mg/dL (0.0-0.4); BILIRUBIN,TOTAL 0.2 mg/dL (0.2-1.3); BLOOD UREA NITROGEN 20 mg/dL (7-20); CALCIUM 9.7 mg/dL (8.4-10.2); CARBON DIOXIDE 23 mmol/L (22-30); CHLORIDE 108 mmol/L (98-107); LIPASE 91.9 U/L (23-300); POTASSIUM 4.5 mmol/L (3.6-5.0); SODIUM 141.9 mmol/L (137-145); TOTAL PROTEIN 7.5 g/dL (6.3-8.2)
[2019-01-02 23:19] LABS: GLUCOSE 69 mg/dL (75-110)
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
--- NOTE | 2019-01-03 01:04 | RADIOLOGY REPORT (SQ) ---
EXAM DESCRIPTION: XR CHEST 1 VIEW COMPLETED DATE/TME: 01/03/2019 00:08 CLINICAL HISTORY: 38 years, Female, chest discomfort COMPARISON: 12/03/2018 chest NUMBER OF VIEWS: 1 TECHNIQUE: Portable chest LIMITATIONS: None. FINDINGS: Heart size normal. Lungs clear. No pneumothorax IMPRESSION: Negative chest copyright 2010 [employer]- All Rights Reserved
[2019-01-03 02:10] VITALS: BP 110/60
== END 2019-01-03 01:30 | disposition home or self-care (01) ==
LOC: ER 20:37
DX: M94.0 Chondrocostal junction syndrome [Tietze] (principal); R19.7 Diarrhea, unspecified; F17.200 Nicotine dependence, unspecified, uncomplicated; J45.909 Unspecified asthma, uncomplicated
CPT/HCPCS: 36415; 71045; 80053; 81001; 81025; 83690; 85025; 99283

== ENCOUNTER 2019-01-24 19:01 | Emergency (ER) | payer BC ==
[2019-01-24] MEDS ORDERED: ACETAMINOPHEN 325 MG TABLET PO ONE (19:56)
[2019-01-24] MEDS ORDERED: DIPH/PERTUSS(ACELL)/TETANUS VAC/PF 0.5 ML SYR (>=10YO) IM ONE (19:58)
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
[2019-01-24 20:10] VITALS: BP 112/51
== END 2019-01-24 20:10 | disposition home or self-care (01) ==
LOC: ER 19:01
DX: S01.511A Laceration without foreign body of lip, initial encounter (principal); S01.81XA Laceration without foreign body of other part of head, initial encounter; W20.8XXA Other cause of strike by thrown, projected or falling object, initial encounter; Z23 Encounter for immunization
CPT/HCPCS: 90471; 90715; 99283

== ENCOUNTER 2019-03-04 05:03 | Emergency (ER) | payer BC ==
[2019-03-04] MEDS ORDERED: METOCLOPRAMIDE HCL INJ/PF 10 MG/2 ML SDV IV ONE (06:27)
[2019-03-04] MEDS ORDERED: DIPHENHYDRAMINE HCL 50 MG/ML VIAL IV ONE (06:27)
[2019-03-04] MEDS ORDERED: KETOROLAC TROMETHAMINE INJ/PF 30 MG/1 ML SDV IV ONE (06:27)
[2019-03-04 07:19] LABS: ALANINE AMINOTRANSFERASE 22 U/L (9-52); ALBUMIN 3.7 g/dL (3.5-5.0); ALKALINE PHOSPHATASE 41 U/L (38-126); ANION GAP 5 (5-19); ASPARTATE AMINO TRANSFERASE 17 U/L (14-36); BILIRUBIN,DIRECT 0.1 mg/dL (0.0-0.4); BILIRUBIN,TOTAL 0.2 mg/dL (0.2-1.3); BLOOD UREA NITROGEN 15 mg/dL (7-20); CALCIUM 8.8 mg/dL (8.4-10.2); CARBON DIOXIDE 28 mmol/L (22-30); CHLORIDE 108 mmol/L (98-107); GLUCOSE 118 mg/dL (75-110); POTASSIUM 3.9 mmol/L (3.6-5.0); TOTAL PROTEIN 6.3 g/dL (6.3-8.2)
[2019-03-04 07:25] LABS: ABSOLUTE EOSINOPHILS # (AUTO) 0.4 10^3/uL (0.0-0.6); ABSOLUTE LYMPHOCYTES (AUTO) 1.4 10^3/uL (0.5-4.7); ABSOLUTE MONOCYTES (AUTO) 0.4 10^3/uL (0.1-1.4); ABSOLUTE NEUT (AUTO) 3.1 10^3/uL (1.7-8.2); BASOPHILS % (AUTO) 0.8 % (0-2); EOSINOPHILS % (AUTO) 7.1 % (0-6); HEMOGLOBIN 11.1 g/dL (12.0-15.5); MEAN CORPUSCULAR HEMOGLOBIN 29.2 pg (27.0-33.4); MEAN CORPUSCULAR HGB CONC 33.6 g/dL (32.0-36.0); MEAN CORPUSCULAR VOLUME 87 fl (80-97); MONOCYTES % (AUTO) 7.4 % (3-13); PLATELET COUNT 203 10^3/uL (150-450); RED BLOOD COUNT 3.79 10^6/uL (3.72-5.28); SEGMENTED NEUTROPHILS % (AUTO) 57.7 % (42-78); TOTAL CELLS COUNTED % (AUTO) 100 %; WHITE BLOOD COUNT 5.3 10^3/uL (4.0-10.5)
[2019-03-04] MEDS ORDERED: NORMAL SALINE 1000 ML 1,000 ML IV ONE (07:42)
--- NOTE | 2019-03-04 07:47 | ER Document Report ---
ED General - General Chief Complaint: Headache Stated Complaint: HEADACHE Time Seen by Provider: 03/04/19 06:24 Primary Care Provider: IRINA LISA DO [Primary Care Provider] - Follow up as needed Notes: Patient is a 38-year-old female who presents emergency department with a chief complaint of a migraine headache. She states that she has had migraines in the past. Her headache started yesterday and has progressively worse. She was prescribed Fioricet and states that she has not gotten her prescription filled. Patient states that she feels nauseated and lightheaded. Pain is primarily on the right side of her head and it feels like her normal migraine headaches. Denies any paresthesias, weakness, or any other symptoms at this time. Admits to some nausea, but no vomiting. TRAVEL OUTSIDE OF THE [place] IN LAST 30 DAYS: No - Related Data Allergies/Adverse Reactions: metronidazole [From Flagyl] Adverse Reaction (Verified 03/04/19 05:05) Hives Past Medical History - Social History Smoking Status: Unknown if Ever Smoked Chew tobacco use (# tins/day): No Family History: Arthritis, CVA, DM, Hyperlipidemia, Hypertension, Malignancy Patient has suicidal ideation: No Patient has homicidal ideation: No Pulmonary Medical History: Reports: Hx Asthma Neurological Medical History: Reports: Hx Migraine Renal/ Medical History: Denies: Hx Peritoneal Dialysis Musculoskeletal Medical History: Reports Hx Arthritis, Reports Hx Musculoskeletal Deformity, Reports Hx Musculoskeletal Trauma Psychiatric Medical History: Reports: Hx Anxiety, Hx Bipolar Disorder, Hx Schizophrenia Traumatic Medical History: Reports: Hx Fractures - Leg Past Surgical History: Reports: Hx Adenoidectomy, Hx Breast Surgery - tumor removed Right breast, Hx Tonsillectomy, Hx Tubal Ligation, Hx Urinary Tract Surgery - Immunizations Immunizations up to date: Yes Hx Diphtheria, Pertussis, Tetanus Vaccination: Yes - 08/29/2017 patient states 5 years ago Review of Systems - Review of Systems Notes: REVIEW OF SYSTEMS: CONSTITUTIONAL : Denies recent illness. Denies recent unintentional weight loss. Denies fever, chills, or sweats. EENT: Denies eye, ear, throat, or mouth pain, discharge, or symptoms. Denies nasal or sinus congestion. CARDIOVASCULAR: Denies chest pain. RESPIRATORY: Denies shortness of breath, cough, congestion, difficulty breathing, or wheezing. GASTROINTESTINAL: Denies nausea, vomiting, and diarrhea. Denies abdominal pain. Denies constipation. GENITOURINARY: Denies difficulty urinating, burning, blood in urine, urgency or frequency. MUSCULOSKELETAL: Denies neck and back pain. Denies joint pain or swelling. SKIN: Denies rash, itchiness, or lesions HEMATOLOGIC : Denies easy bruising or bleeding. LYMPHATIC: Denies swollen, painful, enlarged glands. NEUROLOGICAL: See HPI PSYCHIATRIC: Denies stress, anxiety, alteration in sleep patterns, or dep ression. All other systems reviewed and negative. Physical Exam - Vital signs Vitals: Temp Pulse Resp BP Pulse Ox 98.2 F 75 20 143/92 H 99 03/04/19 05:06 03/04/19 05:06 03/04/19 05:06 03/04/19 05:06 03/04/19 05:06 - Notes Notes: PHYSICAL EXAMINATION: GENERAL: Appears well, healthy, well-nourished, no acute distress. HEAD: Normocephalic, atraumatic. EYES: PERRL, conjunctiva normal, all extraocular movements intact, sclera nonicteric ENT: Moist mucous membranes. NECK: Supple, no noticeable swelling, redness, rash. Normal range of motion. LUNGS: Equal breath sounds bilaterally and clear to auscultation. No wheezes rales or rhonchi. CARDIOVASCULAR: S1-S2, regular rate, regular rhythm. Radial pulses 2+, normal. ABDOMEN: Normoactive bowel sounds. Soft, nontender, no guarding, no rebound tenderness, and no masses palpated. EXTREMITIES: Normal strength and range of motion, no pitting or edema. No cyanosis. NEUROLOGICAL: Moves all extremities upon command. Strength 5/5 in all extremities. PSYCH: Normal mood, normal affect. SKIN: Warm, dry. No rash, lesions, ulcerations noted. Normal skin turgor. Course - Re-evaluation Re-evalutation: 03/05/19 07:00 Presentation of a headache that appears to be most consistent with tension versus migrainous type headache. Headache was not maximal in onset, patient has no focal neurologic deficits, no nuchal rigidity, vital signs within normal limits, no papilledema, and patient is overall well in appearance. Based on clinical history and examination I do not suspect an acute subarachnoid hemorrhage, dural venous sinus thrombosis, acute meningitis, or intercranial mass. Given my low clinical suspicion for any acute life-threatening etiology, I do not feel advanced neuro imaging or laboratory testing is indicated at this time. Will proceed with headache cocktail and reassess. 03/04/19 07:46 Patient states that she feels better after receiving migraine cocktail. Awaiting labs. 03/04/19 08:00 Chemistry and hematology are unremarkable at this time. Patient states that she has a complete resolution of her headache. I gave her instructions on Benadryl and ibuprofen use for migraine headache. She will follow-up with her neurologist. Follow-up precautions were given. Verbal discharge instructions were given to the patient. They verbalized understanding. They are stable for discharge. - Vital Signs Vital signs: Temp Pulse Resp BP Pulse Ox 98.2 F 57 L 18 111/55 L 100 03/04/19 05:06 03/04/19 09:18 03/04/19 09:18 03/04/19 09:18 03/04/19 09:18 - Laboratory Result Diagrams: 03/04/19 06:25 03/04/19 06:25 Laboratory results interpreted by me: 03/04/19 03/04/19 06:25 06:25 Hgb 11.1 L Hct 33.0 L Eosinophils % 7.1 H Chloride 108 H Glucose 118 H Discharge - Discharge Clinical Impression: Headache Qualifiers: Headache type: unspecified Headache chronicity pattern: acute headache Intractability: intractable Qualified Code(s): R51 - Headache Condition: Stable Disposition: HOME, SELF-CARE Instructions: Use of Diphenhydramine, Headache ([facility]) Additional Instructions: You were seen today for a migraine headache. Please follow-up with your primary care doctor regarding today's ED visit. Return to emergency department immediately if you develop a headache that gets to its maximum severity within 20 minutes of onset, you pass out, you develop weakness, numbness, changes in your vision, become unable to keep any fluids down for more than 12 hours, or develop a fever greater than 100.4 degrees Fahrenheit. If you develop a similar migraine headache in the future I recommend that you immediately take 600 mg of ibuprofen and 50 mg of Benadryl and go to sleep as quickly as possible. This can often prevent your migraine headache from becoming severe. Forms: Return to Work Referrals: IRINA LISA, [Primary Care Provider] - Follow up as needed
[2019-03-04 09:25] VITALS: BP 111/55
== END 2019-03-04 09:18 | disposition home or self-care (01) ==
LOC: ER 05:03
DX: R51 Headache (principal); R11.0 Nausea; R42 Dizziness and giddiness; J45.909 Unspecified asthma, uncomplicated
CPT/HCPCS: 99283; 96361; 96374; 96375; 36415; 85025; 80053; J1200; J1885; J2765; J7030

== ENCOUNTER 2019-06-16 19:17 | Emergency (ER) | payer BC, MEDICAID ==
[2019-06-16] MEDS ORDERED: CYCLOBENZAPRINE HCL 10 MG TABLET PO ONE (21:16)
[2019-06-16] MEDS ORDERED: KETOROLAC TROMETHAMINE INJ/PF 30 MG/1 ML SDV IM ONE (21:16)
--- NOTE | 2019-06-16 21:17 | ER Document Report ---
ED Medical Screen (RME) - General Chief Complaint: Back Pain Stated Complaint: BACK PAIN Time Seen by Provider: 06/16/19 21:12 Primary Care Provider: IRINA LISA DO [Primary Care Provider] - Follow up as needed Notes: Patient is a 38-year-old female who presents to emergency department with chief complaint of right lower back pain. Patient reports around 5 PM this afternoon she was attempting to lift a box that weighs about 50 pounds when she injured her right lower back during the movement. Patient reports the pain radiates down at the back of her right leg behind her knee. Patient reports movement makes it worse. Patient states she did not take anything for her discomfort. Patient denies numbness or tingling to her lower extremities. TRAVEL OUTSIDE OF THE [place] IN LAST 30 DAYS: No - Related Data Allergies/Adverse Reactions: metronidazole [From Flagyl] Adverse Reaction (Verified 03/04/19 05:05) Hives Past Medical History - Social History Family history: Reviewed & Not Pertinent Pulmonary Medical History: Reports: Hx Asthma Neurological Medical History: Reports: Hx Migraine Renal/ Medical History: Denies: Hx Peritoneal Dialysis Musculoskeltal Medical History: Reports Hx Arthritis, Reports Hx Musculoskeletal Deformity, Reports Hx Musculoskeletal Trauma Psychiatric Medical History: Reports: Hx Anxiety, Hx Bipolar Disorder, Hx S chizophrenia Traumatic Medical History: Reports: Hx Fractures - Leg Past Surgical History: Reports: Hx Adenoidectomy, Hx Breast Surgery - tumor removed Right breast, Hx Tonsillectomy, Hx Tubal Ligation, Hx Urinary Tract Surgery - Immunizations Immunizations up to date: Yes Hx Diphtheria, Pertussis, Tetanus Vaccination: Yes - 08/29/2017 patient states 5 years ago Physical Exam - Vital signs Vitals: Temp Pulse Resp BP Pulse Ox 98.3 F 80 20 121/60 100 06/16/19 19:48 06/16/19 19:48 06/16/19 19:48 06/16/19 19:48 06/16/19 19:48 Course - Re-evaluation Re-evalutation: 06/16/19 21:17 I have greeted and performed a rapid initial assessment of this patient. A comprehensive ED assessment and evaluation of the patient, analysis of test results and completion of the medical decision making process will be conducted by additional ED providers. - Vital Signs Vital signs: Temp Pulse Resp BP Pulse Ox 98.3 F 80 20 121/60 100 06/16/19 19:48 06/16/19 19:48 06/16/19 19:48 06/16/19 19:48 06/16/19 19:48 Doctor's Discharge - Discharge Referrals: IRINA LISA DO [Primary Care Provider] - Follow up as needed
--- NOTE | 2019-06-16 21:24 | ER Document Report ---
ED General - General Chief Complaint: Back Pain Stated Complaint: BACK PAIN Time Seen by Provider: 06/16/19 21:12 Primary Care Provider: IRINA LISA DO [Primary Care Provider] - Follow up as needed TRAVEL OUTSIDE OF THE [place] IN LAST 30 DAYS: No - HPI Patient complains to provider of: lower back pain Notes: 38 y/o presenting to ED for evaluation of right sided lower back pain onset after lifting a heavy box she states she has a h/o similar pain denies urinary symptoms no medications attempted for symptoms prior to coming to the ED no weakenss, numbness, incontinence, falls, h/o malignancy pain is a sharp shooting pain that goes into R leg - Related Data Allergies/Adverse Reactions: metronidazole [From Flagyl] Adverse Reaction (Verified 03/04/19 05:05) Hives Past Medical History - Social History Smoking Status: Current Every Day Smoker Frequency of alcohol use: Occasional Drug Abuse: None Family History: Arthritis, CVA, DM, Hyperlipidemia, Hypertension, Malignancy Patient has suicidal ideation: No Patient has homicidal ideation: No Pulmonary Medical History: Reports: Hx Asthma Neurological Medical History: Reports: Hx Migraine Renal/ Medical History: Denies: Hx Peritoneal Dialysis Musculoskeletal Medical History: Reports Hx Arthritis, Reports Hx Musculoskeletal Deformity, Reports Hx Musculoskeletal Trauma Psychiatric Medical History: Reports: Hx Anxiety, Hx Bipolar Disorder, Hx Schizophrenia Traumatic Medical History: Reports: Hx Fractures - Leg Past Surgical History: Reports: Hx Adenoidectomy, Hx Breast Surgery - tumor removed Right breast, Hx Tonsillectomy, Hx Tubal Ligation, Hx Urinary Tract Surgery - Immunizations Immunizations up to date: Yes Hx Diphtheria, Pertussis, Tetanus Vaccination: Yes - 08/29/2017 patient states 5 years ago Review of Systems - Review of Systems Constitutional: No symptoms reported EENT: No symptoms reported Cardiovascular: No symptoms reported Respiratory: No symptoms reported Gastrointestinal: No symptoms reported Genitourinary: No symptoms reported Female Genitourinary: No symptoms reported Musculoskeletal: Back pain Skin: No symptoms reported Hematologic/Lymphatic: No symptoms reported Neurological/Psychological: No symptoms reported Physical Exam - Vital signs Vitals: Temp Pulse Resp BP Pulse Ox 98.3 F 80 20 121/60 100 06/16/19 19:48 06/16/19 19:48 06/16/19 19:48 06/16/19 19:48 06/16/19 19:48 Interpretation: Normal - General General appearance: Appears well, Alert - HEENT Head: Normocephalic, Atraumatic Eyes: Normal Pupils: PERRL - Respiratory Respiratory status: No respiratory distress Chest status: Nontender Breath sounds: Normal Chest palpation: Normal - Cardiovascular Rhythm: Regular Heart sounds: Normal auscultation Murmur: No - Abdominal Inspection: Normal Distension: No distension Bowel sounds: Normal Tenderness: Nontender Organomegaly: No organomegaly - Back Back: Normal, Tender - R paraspinal lumbar region - Extremities General upper extremity: Normal inspection, Nontender, Normal color, Normal ROM, Normal temperature General lower extremity: Normal inspection, Nontender, Normal color, Normal ROM, Normal temperature, Normal weight bearing. No: Prashant's sign - Neurological Neuro grossly intact: Yes Cognition: Normal Orientation: AAOx4 [place] Coma Scale Eye Opening: Spontaneous [place] Coma Scale Verbal: Oriented [place] Coma Scale Motor: Obeys Commands [place] Coma Scale Total: 15 Speech: Normal Motor strength normal: LUE, RUE, LLE, RLE Sensory: Normal - Psychological Associated symptoms: Normal affect, Normal mood - Skin Skin Temperature: Warm Skin Moisture: Dry Skin Color: Normal Course - Re-evaluation Re-evalutation: 06/16/19 21:34 neuro intact w/o red flag symptoms on history treat w/ toradol/depomedrol IM and flexeril/ibuprofen at home recommend pcp follow up for persistent symptoms for consideration of PT/advanced imaging if pain continues - Vital Signs Vital signs: Temp Pulse Resp BP Pulse Ox 98.3 F 80 20 121/60 100 06/16/19 19:48 06/16/19 19:48 06/16/19 19:48 06/16/19 19:48 06/16/19 19:48 Discharge - Discharge Clinical Impression: Radicular low back pain Condition: Stable Disposition: HOME, SELF-CARE Instructions: Low Back Pain ([facility]) Additional Instructions: follow up with primary doctor for ongoing pain return to the ED with worsening take medicine as directed Prescriptions: Cyclobenzaprine HCl [Flexeril 10 mg Tablet] 10 mg PO TIDP PRN #15 tab PRN Reason: Ibuprofen [Motrin 800 mg Tablet] 800 mg PO Q8H PRN #30 tab PRN Reason: Referrals: IRINA LISA DO [Primary Care Provider] - Follow up as needed
[2019-06-16] MEDS ORDERED: METHYLPREDNISOLONE ACETATE INJ 80 MG/1 ML VIAL IM ONE (21:32)
[2019-06-16 22:12] VITALS: BP 124/61
== END 2019-06-16 22:13 | disposition home or self-care (01) ==
LOC: ER 19:17
DX: M54.5 Low back pain (principal); F17.200 Nicotine dependence, unspecified, uncomplicated; Z98.51 Tubal ligation status
CPT/HCPCS: J1040; J1885

== ENCOUNTER 2019-07-28 19:09 | Emergency (ER) | payer BC ==
[2019-07-28] MEDS ORDERED: DIPHENHYDRAMINE HCL 50 MG/ML VIAL IV ONE (22:13)
[2019-07-28] MEDS ORDERED: KETOROLAC TROMETHAMINE INJ/PF 30 MG/1 ML SDV IV ONE (22:13)
[2019-07-28] MEDS ORDERED: METOCLOPRAMIDE HCL INJ/PF 10 MG/2 ML SDV IV ONE (22:13)
--- NOTE | 2019-07-28 22:16 | ER Document Report ---
ED Medical Screen (RME) - General Chief Complaint: Headache Stated Complaint: FALL/HEAD PAIN Time Seen by Provider: 07/28/19 22:13 Primary Care Provider: IRINA LISA DO [Primary Care Provider] - Follow up as needed Notes: Patient is a 38-year-old female with a history of bipolar, schizophrenia migraines who presents emergency department with 2 complaints. Patient reports having a migraine headache for the past 3 days. Patient reports she has not taken anything for this. Patient reports this does feel like her typical migraine and is primarily on the right side of her face. Patient reports at times she does have some light sensitivity. Patient denies nausea or vomiting. Patient reports that she has had migraines that are worse in nature but she feels like this is the start of 1 that would not go away. Patient reports her last menstrual cycle was 2 weeks ago. Patient reports also yesterday she was walking to her home down a small hill when she slipped and fell. Patient reports she fell on her lower back. Patient complains of lower back pain that radiates to the right lower back. TRAVEL OUTSIDE OF THE [place] IN LAST 30 DAYS: No - Related Data Allergies/Adverse Reactions: metronidazole [From Flagyl] Adverse Reaction (Verified 07/28/19 22:12) Hives Past Medical History - Social History Family history: Reviewed & Not Pertinent Pulmonary Medical History: Reports: Hx Asthma Neurological Medical History: Reports: Hx Migraine Renal/ Medical History: Denies: Hx Peritoneal Dialysis Musculoskeltal Medical History: Reports Hx Arthritis, Reports Hx Musculoskeletal Deformity, Reports Hx Musculoskeletal Trauma Psychiatric Medical History: Reports: Hx Anxiety, Hx Bipolar Disorder, Hx Schizophrenia Traumatic Medical History: Reports: Hx Fractures - Leg Past Surgical History: Reports: Hx Adenoidectomy, Hx Breast Surgery - tumor removed Right breast, Hx Tonsillectomy, Hx Tubal Ligation, Hx Urinary Tract Surgery - Immunizations Immunizations up to date: Yes Hx Diphtheria, Pertussis, Tetanus Vaccination: Yes - 08/29/2017 patient states 5 years ago Physical Exam - Vital signs Vitals: Temp Pulse Resp BP Pulse Ox 98.2 F 69 17 122/59 L 100 07/28/19 19:42 07/28/19 19:42 07/28/19 19:42 07/28/19 19:42 07/28/19 19:42 - Back Back: Normal Notes: Patient does have lumbar midline spine spinal tenderness with palpation. Course - Re-evaluation Re-evalutation: 07/28/19 22:15 Patient reports she has had success with our migraine cocktail including Benadryl, Toradol and Reglan. We will go ahead and order this to treat the headache. We will also order a lumbar x-ray due to fall and trauma. Patient in agreement with this plan and denies questions. Patient nontoxic-appearing in triage. I have greeted and performed a rapid initial assessment of this patient. A comprehensive ED assessment and evaluation of the patient, analysis of test results and completion of the medical decision making process will be conducted by additional ED providers. - Vital Signs Vital signs: Temp Pulse Resp BP Pulse Ox 98.2 F 69 17 122/59 L 100 07/28/19 19:45 07/28/19 19:45 07/28/19 19:45 07/28/19 19:45 07/28/19 19:45 Doctor's Discharge - Discharge Referrals: IRINA LISA DO [Primary Care Provider] - Follow up as needed
--- NOTE | 2019-07-28 23:16 | RADIOLOGY REPORT (SQ) ---
EXAM DESCRIPTION: XR LUMBAR SPINE ANTEROPOSTERIOR, LATERAL, AND OBLIQUES COMPLETED DATE/TME: 07/28/2019 22:13 CLINICAL HISTORY: 38 years ,Female low back pain, fall yesterday COMPARISON: 11/30/2015. TECHNIQUE: Five views FINDINGS: Vertebral body alignment is unremarkable. No acute fractures are identified. No evidence of spondylolysis or spondylolisthesis. IMPRESSION: No acute fracture is identified.
[2019-07-29] MEDS ORDERED: METOCLOPRAMIDE HCL INJ/PF 10 MG/2 ML SDV IV ONE (03:00)
[2019-07-29] MEDS ORDERED: KETOROLAC TROMETHAMINE INJ/PF 30 MG/1 ML SDV IV ONE (03:00)
[2019-07-29] MEDS ORDERED: DIPHENHYDRAMINE HCL 50 MG/ML VIAL IV ONE (03:00)
[2019-07-29] MEDS ORDERED: METOCLOPRAMIDE HCL 10 MG TABLET PO ONE (03:13)
[2019-07-29] MEDS ORDERED: KETOROLAC TROMETHAMINE 60 MG/2 ML SDV IM ONE (03:13)
[2019-07-29] MEDS ORDERED: DIPHENHYDRAMINE HCL 50 MG CAPSULE PO ONE (03:13)
--- NOTE | 2019-07-29 03:39 | ER Document Report ---
ED General - General Chief Complaint: Headache Stated Complaint: FALL/HEAD PAIN Time Seen by Provider: 07/28/19 22:13 Primary Care Provider: IRINA LISA DO [Primary Care Provider] - Follow up as needed Notes: Patient is a 38-year-old female with a history of migraines that comes to the emergency department for chief complaint of migraine. She also states that she fell and landed on her lower back and wants this evaluated. Patient states she has had a headache for the past 3 days intermittently and it will not go away. She reports photophobia, nausea but denies vomiting. She states that she gets tight of the back of her head occasionally and along her neck. She denies neck stiffness, neck injury, head injury, fever. She states she has headaches that were much more severe than the one currently. Patient states she was walking on a small hill when she slipped and fell on her buttocks yesterday, she has generalized lower back pain that is mainly on the right side. She denies incontinence, numbness, fever, history of IV drug abuse. TRAVEL OUTSIDE OF THE [place] IN LAST 30 DAYS: No - Related Data Allergies/Adverse Reactions: metronidazole [From Flagyl] Adverse Reaction (Verified 07/28/19 22:12) Hives Past Medical History - General Information source: Patient - Social History Smoking Status: Current Every Day Smoker Frequency of alcohol use: Occasional Drug Abuse: None Lives with: Family Family History: Arthritis, CVA, DM, Hyperlipidemia, Hypertension, Malignancy Patient has suicidal ideation: No Patient has homicidal ideation: No Pulmonary Medical History: Reports: Hx Asthma Neurological Medical History: Reports: Hx Migraine Renal/ Medical History: Denies: Hx Peritoneal Dialysis Musculoskeletal Medical History: Reports Hx Arthritis, Reports Hx Musculoskelet al Deformity, Reports Hx Musculoskeletal Trauma Psychiatric Medical History: Reports: Hx Anxiety, Hx Bipolar Disorder, Hx Schizophrenia Traumatic Medical History: Reports: Hx Fractures - Leg Past Surgical History: Reports: Hx Adenoidectomy, Hx Breast Surgery - tumor removed Right breast, Hx Tonsillectomy, Hx Tubal Ligation, Hx Urinary Tract Surgery - Immunizations Immunizations up to date: Yes Hx Diphtheria, Pertussis, Tetanus Vaccination: Yes - 08/29/2017 patient states 5 years ago Review of Systems - Review of Systems Constitutional: No symptoms reported EENT: No symptoms reported Cardiovascular: No symptoms reported Respiratory: No symptoms reported Gastrointestinal: No symptoms reported Genitourinary: No symptoms reported Female Genitourinary: No symptoms reported Musculoskeletal: See HPI Skin: No symptoms reported Hematologic/Lymphatic: No symptoms reported Neurological/Psychological: See HPI Physical Exam - Vital signs Vitals: Temp Pulse Resp BP Pulse Ox 98.2 F 69 17 122/59 L 100 07/28/19 19:42 07/28/19 19:42 07/28/19 19:42 07/28/19 19:42 07/28/19 19:42 - Notes Notes: GENERAL: Alert, interacts well. No acute distress. HEAD: Normocephalic, atraumatic. EYES: Pupils equal, round, and reactive to light. Extraocular movements intact. ENT: Oral mucosa moist, tongue midline. Oropharynx unremarkable. Airway patent. NECK: Full range of motion. Supple. Trachea midline. LUNGS: Clear to auscultation bilaterally, no wheezes, rales, or rhonchi. No respiratory distress. HEART: Regular rate and rhythm. No murmur ABDOMEN: Soft, non-tender. Non-distended. Bowel sounds present in all 4 quadrants. GENITOURINARY: Deferred EXTREMITIES: Moves all 4 extremities spontaneously. No edema, normal radial and dorsalis pedis pulses bilaterally. No cyanosis. BACK: no cervical, thoracic, lumbar midline tenderness. No saddle anesthesia, normal distal neurovascular exam. Moves all extremities in full range of motion. NEUROLOGICAL: Alert and oriented x3. Normal speech. Cranial nerves II through XII grossly intact. PSYCH: Normal affect, normal mood. SKIN: Warm, dry, normal turgor. No rashes or lesions noted. Course - Re-evaluation Re-evalutation: Patient is actually extremely well-appearing. No signs of distress, talkative, alert, normal neurologic exam, nontender back, no signs of concerning back injury, no nuchal rigidity, no stiffness of the neck, completely normal physical exam. Patient states that she actually feels a lot better, she wants treatment by mouth instead of by IV and is requesting to be discharged. I did discuss negative x-ray, recommendations, provided with Fioricet for headaches later, discussed follow-up and return precautions. Patient states appreciation and agreement. Stable at time of discharge. - Vital Signs Vital signs: Temp Pulse Resp BP Pulse Ox 98.4 F 76 17 130/70 H 100 07/29/19 04:34 07/29/19 04:34 07/29/19 04:34 07/29/19 04:34 07/29/19 04:34 Discharge - Discharge Clinical Impression: Headache Qualifiers: Headache type: unspecified Headache chronicity pattern: acute headache Intractability: not intractable Qualified Code(s): R51 - Headache Fall Qualifiers: Encounter type: initial encounter Qualified Code(s): W19.XXXA - Unspecified fall, initial encounter Lower back pain Qualifiers: Chronicity: acute Back pain laterality: bilateral Sciatica presence: without sciatica Qualified Code(s): M54.5 - Low back pain Condition: Stable Disposition: HOME, SELF-CARE Additional Instructions: Your x-ray was normal, your evaluation from the fall is reassuring. Symptoms should simply resolve with time. Your evaluation is also consistent with a migraine, you also are likely having tension headaches. You can take the prescribed medication if needed for headaches in the future. Follow-up with primary care for additional evaluation and management of headaches and lower back pain. Return if you worsen including returned or severe headache, vomiting, fever, numbness in your legs, inability to control your bowel or bladder, or any other concerning or worsening symptoms. Prescriptions: Butalb/Acetaminophen/Caffeine [Fioricet (50-325-40 mg) Tablet] 1 tab PO Q4HP PRN #20 tab PRN Reason: Forms: Return to Work Referrals: IRINA LISA DO [Primary Care Provider] - Follow up as needed
[2019-07-29 04:38] VITALS: BP 130/70
== END 2019-07-29 04:34 | disposition home or self-care (01) ==
LOC: ER 19:09
DX: R51 Headache (principal); M54.5 Low back pain; R11.0 Nausea; H53.149 Visual discomfort, unspecified; W18.30XA Fall on same level, unspecified, initial encounter; F17.200 Nicotine dependence, unspecified, uncomplicated; Z98.51 Tubal ligation status
CPT/HCPCS: 99283; 96372; 72110; J1885

== ENCOUNTER 2019-08-12 11:23 | Emergency (ER) | payer SELFPAY ==
[2019-08-12] MEDS ORDERED: NORMAL SALINE 1000 ML 1,000 ML IV ONE (11:49)
[2019-08-12] MEDS ORDERED: DIPHENHYDRAMINE HCL 50 MG/ML VIAL IV ONE (11:49)
[2019-08-12] MEDS ORDERED: KETOROLAC TROMETHAMINE INJ/PF 30 MG/1 ML SDV IV ONE (11:49)
[2019-08-12] MEDS ORDERED: PROCHLORPERAZINE EDISYLATE INJ 10 MG/2 ML VIAL IV ONE (11:49)
--- NOTE | 2019-08-12 11:50 | ER Document Report ---
ED Medical Screen (RME) - General Chief Complaint: Headache Stated Complaint: HEADACHE,CHILLS,VOMITING Time Seen by Provider: 08/12/19 11:47 Primary Care Provider: IRINA LISA DO [Primary Care Provider] - Follow up as needed TRAVEL OUTSIDE OF THE [place] IN LAST 30 DAYS: No - HPI Notes: 08/12/19 11:49 Patient is a 38-year-old female with a history of migraines who presents com plaining of headache for the past 3 days. Patient states that she has flareups like this frequently and this is not the worst headache of her life and did not start as a thunderclap. Patient has been using medicines at home without any relief of symptoms. She did wake up today and had some nausea and vomiting. She does have some light sensitivity associated. No fever, chest pain, shortness of breath, abdominal pain. I have treated and performed a rapid initial assessment of this patient. A comprehensive ED assessment and evaluation of the patient, analysis of test results and completion of medical decision making process will be conducted by additional ED providers. PHYSICAL EXAMINATION: GENERAL: Well-appearing, well-nourished and in no acute distress. A&Ox4. Answers questions appropriately. Neuro: Cranial nerves grossly intact. NIH 0. GCS 15. Abdomen: Limited exam, otherwise grossly nontender. - Related Data Allergies/Adverse Reactions: metronidazole [From Flagyl] Adverse Reaction (Verified 07/28/19 22:12) Hives Past Medical History - Social History Frequency of alcohol use: Occasional Drug Abuse: None Family history: Reviewed & Not Pertinent Pulmonary Medical History: Reports: Hx Asthma Neurological Medical History: Reports: Hx Migraine Renal/ Medical History: Denies: Hx Peritoneal Dialysis Musculoskeltal Medical History: Reports Hx Arthritis, Reports Hx Musculoskeletal Deformity, Reports Hx Musculoskeletal Trauma Psychiatric Medical History: Reports: Hx Anxiety, Hx Bipolar Disorder, Hx Schizophrenia Traumatic Medical History: Reports: Hx Fractures - Leg Past Surgical History: Reports: Hx Adenoidectomy, Hx Breast Surgery - tumor removed Right breast, Hx Tonsillectomy, Hx Tubal Ligation, Hx Urinary Tract Surgery - Immunizations Immunizations up to date: Yes Hx Diphtheria, Pertussis, Tetanus Vaccination: Yes - 08/29/2017 patient states 5 years ago Physical Exam - Vital signs Vitals: Temp Pulse Resp BP Pulse Ox 97.6 F 65 18 134/69 H 100 08/12/19 11:32 08/12/19 11:32 08/12/19 11:32 08/12/19 11:32 08/12/19 11:32 Course - Vital Signs Vital signs: Temp Pulse Resp BP Pulse Ox 97.6 F 65 18 134/69 H 100 08/12/19 11:32 08/12/19 11:32 08/12/19 11:32 08/12/19 11:32 08/12/19 11:32 Doctor's Discharge - Discharge Referrals: IRINA LISA DO [Primary Care Provider] - Follow up as needed
[2019-08-12] MEDS ORDERED: ONDANSETRON ODT 4 MG TAB (6 TAB/ER DISP) PO PRN (13:39)
--- NOTE | 2019-08-12 13:39 | ER Document Report ---
ED General - General Chief Complaint: Headache Stated Complaint: HEADACHE,CHILLS,VOMITING Time Seen by Provider: 08/12/19 11:47 Primary Care Provider: IRINA LISA DO [Primary Care Provider] - Follow up as needed TRAVEL OUTSIDE OF THE [place] IN LAST 30 DAYS: No - HPI Notes: Patient is a 38-year-old female who presents emergency department for evaluation of a headache. It is right-sided, she has a history of migraines. She states it feels similar, except normally her headaches are constant, this and seems to come and go. It is worsened with bright light and loud noises. Nothing seems to make it better. She has had nausea with a few episodes of nonbloody, nonbilious emesis. No fevers. No sore throat, no neck stiffness. No rashes. She denies any difficulty seeing, speaking, swallowing. - Related Data Allergies/Adverse Reactions: metronidazole [From Flagyl] Adverse Reaction (Verified 07/28/19 22:12) Hives Past Medical History - General Information source: Patient - Social History Smoking Status: Never Smoker Frequency of alcohol use: Occasional Drug Abuse: None Family History: Arthritis, CVA, DM, Hyperlipidemia, Hypertension, Malignancy Patient has suicidal ideation: No Patient has homicidal ideation: No Pulmonary Medical History: Reports: Hx Asthma Neurological Medical History: Reports: Hx Migraine Renal/ Medical History: Denies: Hx Peritoneal Dialysis Musculoskeletal Medical History: Reports Hx Arthritis, Reports Hx Musculoskeletal Deformity, Reports Hx Musculoskeletal Trauma Psychiatric Medical History: Reports: Hx Anxiety, Hx Bipolar Disorder, Hx Schizophrenia Traumatic Medical History: Reports: Hx Fractures - Leg Past Surgical History: Reports: Hx Adenoidectomy, Hx Breast Surgery - tumor removed Right breast, Hx Tonsillectomy, Hx Tubal Ligation, Hx Urinary Tract Surgery - Immunizations Immunizations up to date: Yes Hx Diphtheria, Pertussis, Tetanus Vaccination: Yes - 08/29/2017 patient states 5 years ago Review of Systems - Review of Systems Constitutional: No symptoms reported EENT: See HPI Cardiovascular: No symptoms reported Respiratory: No symptoms reported Gastrointestinal: No symptoms reported Genitourinary: No symptoms reported Musculoskeletal: No symptoms reported Skin: No symptoms reported Neurological/Psychological: No symptoms reported Physical Exam - Vital signs Vitals: Temp Pulse Resp BP Pulse Ox 97.6 F 65 18 134/69 H 100 08/12/19 11:32 08/12/19 11:32 08/12/19 11:32 08/12/19 11:32 08/12/19 11:32 - Notes Notes: Vital signs reviewed, please refer to chart. Head is normocephalic, atraumatic. Pupils equal round, reactive to light. Neck is supple without meningismus. Heart is regular rate and rhythm. Lungs are clear to auscultation bilaterally. Abdomen is soft, nontender, normoactive bowel sounds throughout. Extremities without cyanosis, clubbing. Posterior calves are nontender. Peripheral pulses are equal. Skin is warm and dry. Patient is awake, alert, neurological exam is nonfocal. Patient is awake, alert, oriented x3. Cranial nerves II - XII are grossly intact without focal neurological deficits. Strength is plus 5 out of 5 bilateral upper and lower extremities. Sensation is intact. Reflexes symmetrical. Intact [id number], rapid alternating movements, heel-to- ramírez. Course - Re-evaluation Re-evalutation: 08/12/19 13:38 Patient presents to the emergency department for evaluation. She is a right- sided migraine. This is typical for her migraines. She does not get as many as she used to. I do not believe she qualifies for prophylactic medication. She is feeling significantly improved with treatment here. I will send her home with Zofran and close follow-up. She is to return to the ED with worsening. - Vital Signs Vital signs: Temp Pulse Resp BP Pulse Ox 97.6 F 65 18 134/69 H 100 08/12/19 11:32 08/12/19 11:32 08/12/19 11:32 08/12/19 11:32 08/12/19 11:32 Discharge - Discharge Clinical Impression: Migraine Qualifiers: Migraine type: without aura Status migrainosus presence: without status migr ainosus Intractability: not intractable Qualified Code(s): G43.009 - Migraine without aura, not intractable, without status migrainosus Condition: Stable Disposition: HOME, SELF-CARE Instructions: Headache ([facility]) Additional Instructions: Rest and stay well-hydrated. Zofran as needed for nausea. Follow-up with primary care next week. Return to the emergency department for worsening or new concerning symptoms of any sort. Referrals: IRINA LISA DO [Primary Care Provider] - Follow up as needed
[2019-08-12 14:56] VITALS: BP 111/62
== END 2019-08-12 14:53 | disposition home or self-care (01) ==
LOC: ER 11:23
DX: G43.909 Migraine, unspecified, not intractable, without status migrainosus (principal); R11.2 Nausea with vomiting, unspecified; J45.909 Unspecified asthma, uncomplicated
CPT/HCPCS: 99283; 96361; 96374; 96375; J1200; J1885; J0780; J7030

== ENCOUNTER 2019-08-25 17:26 | Emergency (ER) | payer SELFPAY ==
[2019-08-25 17:48] VITALS: BP 121/68
--- NOTE | 2019-08-25 19:10 | ER Document Report ---
ED Medical Screen (RME) - General Chief Complaint: Abdominal Pain Stated Complaint: LOWER BACK PAIN Time Seen by Provider: 08/25/19 19:06 Primary Care Provider: IRINA LISA DO [Primary Care Provider] - Follow up as needed Information source: Patient Notes: Patient presents complaining of right lower quadrant pelvic pain for the past 4 days that radiates to right flank area. Patient denies any fever nausea vomiting or diarrhea. Patient denies any vaginal bleeding. Patient does report vaginal discharge. I have greeted and performed a rapid initial assessment of this patient. A com prehensive ED assessment and evaluation of the patient, analysis of test results and completion of the medical decision making process will be conducted by additional ED providers. TRAVEL OUTSIDE OF THE [place] IN LAST 30 DAYS: No - Related Data Allergies/Adverse Reactions: metronidazole [From Flagyl] Adverse Reaction (Verified 07/28/19 22:12) Hives Past Medical History - Social History Chew tobacco use (# tins/day): No Frequency of alcohol use: None Drug Abuse: None Family history: Reviewed & Not Pertinent Pulmonary Medical History: Reports: Hx Asthma Neurological Medical History: Reports: Hx Migraine Renal/ Medical History: Denies: Hx Peritoneal Dialysis Musculoskeltal Medical History: Reports Hx Arthritis, Reports Hx Musculoskeletal Deformity, Reports Hx Musculoskeletal Trauma Psychiatric Medical History: Reports: Hx Anxiety, Hx Bipolar Disorder, Hx Schizophrenia Traumatic Medical History: Reports: Hx Fractures - Leg Past Surgical History: Reports: Hx Adenoidectomy, Hx Breast Surgery - tumor paulino marquis Right breast, Hx Tonsillectomy, Hx Tubal Ligation, Hx Urinary Tract Surgery - Immunizations Immunizations up to date: Yes Hx Diphtheria, Pertussis, Tetanus Vaccination: Yes - 08/29/2017 patient states 5 years ago Physical Exam - Vital signs Vitals: Temp Pulse Resp BP Pulse Ox 98.2 F 68 16 121/68 100 08/25/19 17:44 08/25/19 17:44 08/25/19 17:44 08/25/19 17:44 08/25/19 17:44 - Abdominal Tenderness: Tender - Right lower pelvic tenderness Course - Vital Signs Vital signs: Temp Pulse Resp BP Pulse Ox 98.2 F 68 16 121/68 100 08/25/19 17:44 08/25/19 17:44 08/25/19 17:44 08/25/19 17:44 08/25/19 17:44 Doctor's Discharge - Discharge Referrals: IRINA LISA DO [Primary Care Provider] - Follow up as needed
[2019-08-25 20:08] LABS: ABSOLUTE EOSINOPHILS # (AUTO) 0.2 10^3/uL (0.0-0.6); ABSOLUTE LYMPHOCYTES (AUTO) 1.8 10^3/uL (0.5-4.7); ABSOLUTE MONOCYTES (AUTO) 0.4 10^3/uL (0.1-1.4); ABSOLUTE NEUT (AUTO) 2.2 10^3/uL (1.7-8.2); BASOPHILS % (AUTO) 0.5 % (0-2); EOSINOPHILS % (AUTO) 5.2 % (0-6); HEMOGLOBIN 11.8 g/dL (12.0-15.5); LYMPHOCYTES % (AUTO) 37.5 % (13-45); MEAN CORPUSCULAR HEMOGLOBIN 29.9 pg (27.0-33.4); MEAN CORPUSCULAR HGB CONC 33.6 g/dL (32.0-36.0); MEAN CORPUSCULAR VOLUME 89 fl (80-97); MONOCYTES % (AUTO) 9.3 % (3-13); PLATELET COUNT 178 10^3/uL (150-450); RED BLOOD COUNT 3.93 10^6/uL (3.72-5.28); RED CELL DISTRIBUTION WIDTH 14.1 % (11.5-14.0); SEGMENTED NEUTROPHILS % (AUTO) 47.5 % (42-78); TOTAL CELLS COUNTED % (AUTO) 100 %; WHITE BLOOD COUNT 4.7 10^3/uL (4.0-10.5)
[2019-08-25 20:38] LABS: ALBUMIN 4.2 g/dL (3.5-5.0); ALKALINE PHOSPHATASE 41 U/L (38-126); ANION GAP 8 (5-19); ASPARTATE AMINO TRANSFERASE 17 U/L (14-36); BILIRUBIN,DIRECT 0.2 mg/dL (0.0-0.4); BILIRUBIN,TOTAL 0.2 mg/dL (0.2-1.3); BLOOD UREA NITROGEN 20 mg/dL (7-20); CALCIUM 9.5 mg/dL (8.4-10.2); CARBON DIOXIDE 27 mmol/L (22-30); CHLORIDE 104 mmol/L (98-107); GLUCOSE 89 mg/dL (75-110); POTASSIUM 4.3 mmol/L (3.6-5.0); TOTAL PROTEIN 6.9 g/dL (6.3-8.2)
--- NOTE | 2019-08-25 21:00 | RADIOLOGY REPORT (SQ) ---
US PELVIS TRANSVAGINAL HISTORY: 38 years Female right lower quadrant pain. COMPARISON: Pelvic ultrasound October 30, 2018 Technique: Endovaginal Imaging of the pelvis was performed. Color and spectral imaging was performed. Uterus: Is anteverted. The uterus measures 9.2 x 5.4 x 4.7 cm. Endometrium is normal measures 6.4 mm. Cervix is closed and measures 2.5 cm. No uterine mass.. Right Ovary: Measures 2.5 x 1.9 x 1.6 cm and is morphologically normal. Normal color and spectral doppler waveforms Left Ovary: Measures 3.6 x 2.9 x 2.5 cm and contains an anechoic cyst measuring 2.9 x 1.9 x 2.1 cm. No torsion.. Normal color and spectral doppler waveforms Other: No free fluid IMPRESSION: 1. Normal-appearing uterus and right ovary. 2. Simple cyst in the left ovary. No torsion.
[2019-08-25 21:46] LABS: CHLAM PCR NOT DETECTED (NOT DETECT)
--- NOTE | 2019-08-25 22:50 | ER Document Report ---
ED GI/ - General Chief Complaint: Abdominal Pain Stated Complaint: LOWER BACK PAIN Time Seen by Provider: 08/25/19 19:06 Primary Care Provider: IRINA LISA DO [Primary Care Provider] - Follow up as needed Notes: Patient is a 38-year-old female that comes emergency department for chief complaint of lower abdominal pain mainly in the pelvic areas, vaginal discharge, and painful intercourse. This is been going on for about 1 week. She denies fever, vomiting, or any other complaints. She has had a tubal ligation, denies surgeries otherwise. She does report a history of ovarian cysts. TRAVEL OUTSIDE OF THE [place] IN LAST 30 DAYS: No - Related Data Allergies/Adverse Reactions: metronidazole [From Flagyl] Adverse Reaction (Verified 07/28/19 22:12) Hives Past Medical History - General Information source: Patient - Social History Smoking Status: Never Smoker Chew tobacco use (# tins/day): No Frequency of alcohol use: None Drug Abuse: None Lives with: Family Family History: Arthritis, CVA, DM, Hyperlipidemia, Hypertension, Malignancy Patient has suicidal ideation: No Patient has homicidal ideation: No Pulmonary Medical History: Reports: Hx Asthma Neurological Medical History: Reports: Hx Migraine Renal/ Medical History: Denies: Hx Peritoneal Dialysis Musculoskeletal Medical History: Reports Hx Arthritis, Reports Hx Musculoskeletal Deformity, Reports Hx Musculoskeletal Trauma Psychiatric Medical History: Reports: Hx Anxiety, Hx Bipolar Disorder, Hx Schizophrenia Traumatic Medical History: Reports: Hx Fractures - Leg Past Surgical History: Reports: Hx Adenoidectomy, Hx Breast Surgery - tumor removed Right breast, Hx Tonsillectomy, Hx Tubal Ligation, Hx Urinary Tract Surgery - Immunizations Immunizations up to date: Yes Hx Diphtheria, Pertussis, Tetanus Vaccination: Yes - 08/29/2017 patient states 5 years ago Review of Systems - Review of Systems Constitutional: No symptoms reported EENT: No symptoms reported Cardiovascular: No symptoms reported Respiratory: No symptoms reported Gastrointestinal: See HPI Genitourinary: See HPI Female Genitourinary: See HPI Musculoskeletal: No symptoms reported Skin: No symptoms reported Hematologic/Lymphatic: No symptoms reported Neurological/Psychological: No symptoms reported Physical Exam - Vital signs Vitals: Temp Pulse Resp BP Pulse Ox 98.2 F 68 16 121/68 100 08/25/19 17:44 08/25/19 17:44 08/25/19 17:44 08/25/19 17:44 08/25/19 17:44 - Notes Notes: GENERAL: Alert, interacts well. No acute distress. HEAD: Normocephalic, atraumatic. EYES: Pupils equal, round, and reactive to light. Extraocular movements intact. ENT: Oral mucosa moist, tongue midline. Oropharynx unremarkable. Airway patent. LUNGS: Clear to auscultation bilaterally, no wheezes, rales, or rhonchi. No respiratory distress. HEART: Regular rate and rhythm. No murmur ABDOMEN: Soft, non-tender. Non-distended. Bowel sounds present in all 4 quadrants. GENITOURINARY: Unremarkable external exam, speculum exam shows scant minimal discharge, no cervical motion tenderness, no bleeding, no lesions. Exam performed with Jenniffer DIAZ at bedside. EXTREMITIES: Moves all 4 extremities spontaneously. No edema, normal radial and dorsalis pedis pulses bilaterally. No cyanosis. BACK: no cervical, thoracic, lumbar midline tenderness. No saddle anesthesia, normal distal neurovascular exam. Moves all extremities in full range of motion. NEUROLOGICAL: Alert and oriented x3. Normal speech. Cranial nerves II through XII grossly intact. PSYCH: Normal affect, normal mood. SKIN: Warm, dry, normal turgor. No rashes or lesions noted. Course - Re-evaluation Re-evalutation: Patient well-appearing. Soft benign abdomen. Unremarkable pelvic exam. CBC, chemistry, urinalysis unremarkable. Pelvic work-up unremarkable. Ultrasound showing left-sided ovarian cyst with no concerning findings. Simple cyst only. No torsion. Patient very well-appearing on reevaluation. Discussed findings. Patient is very pleased with this, discussed expectations, follow-up, and return precautions. Patient states appreciation and agreement. Stable time of discharge. - Vital Signs Vital signs: Temp Pulse Resp BP Pulse Ox 98.2 F 68 16 121/68 100 08/26/19 00:13 08/26/19 00:13 08/26/19 00:13 08/26/19 00:13 08/26/19 00:13 - Laboratory Result Diagrams: 08/25/19 19:25 08/25/19 19:25 Laboratory results interpreted by me: 08/25/19 19:25 Hgb 11.8 L Hct 35.0 L RDW 14.1 H Discharge - Discharge Clinical Impression: Lower abdominal pain Condition: Stable Disposition: HOME, SELF-CARE Additional Instructions: You have an ovarian cyst on the left side. This appears to be the cause of your pain. The remaining work-up does not show any concerning findings. This should resolve with time. Follow-up with primary care for additional management. If needed take the provided pain medication, otherwise take the naproxen. Stay hydrated. Return for any concerning symptoms including severe worsening pain, vomiting, fever, or any other concerning symptoms. Prescriptions: Naproxen 500 mg PO BID PRN #20 tablet PRN Reason: Referrals: IRINA LISA DO [Primary Care Provider] - Follow up as needed
[2019-08-25 23:19] LABS: APPEARANCE,URINE CLEAR; BILIRUBIN,URINE NEGATIVE (NEGATIVE); COLOR,URINE YELLOW; GLUCOSE, URINE NEGATIVE (NEGATIVE); KETONES,URINE NEGATIVE (NEGATIVE); LEUKOCYTE ESTERASE,URINE NEGATIVE (NEGATIVE); NITRITE,URINE NEGATIVE (NEGATIVE); PROTEIN,URINE NEGATIVE (NEGATIVE); URINE SPECIFIC GRAVITY 1.025; UROBILINOGEN,URINE NEGATIVE mg/dL (<2.0)
[2019-08-25 23:43] LABS: RBCS (WET MOUNT) RARE RBCS SEEN; T.VAGINALIS (WET MOUNT) NO TRICHOMONAS SEEN; WBCS (WET MOUNT) FEW WBCS SEEN; YEAST (WET MOUNT) NO YEAST SEEN
[2019-08-25] MEDS ORDERED: HYDROCODONE/ACETAMINOPHEN 5-325 MG (6 TAB/ER DISP) PO PRN (23:51)
== END 2019-08-26 00:13 | disposition home or self-care (01) ==
LOC: ER 17:26
DX: N83.202 Unspecified ovarian cyst, left side (principal); R10.2 Pelvic and perineal pain; N89.8 Other specified noninflammatory disorders of vagina; N94.10 Unspecified dyspareunia; J45.909 Unspecified asthma, uncomplicated; Z98.51 Tubal ligation status
CPT/HCPCS: 36415; 76830; 80053; 81001; 84703; 85025; 87210; 87491; 87591; 93976; 99284

== ENCOUNTER 2019-10-18 17:20 | Emergency (ER) | payer SELFPAY ==
[2019-10-18 17:25] VITALS: BP 129/85
--- NOTE | 2019-10-18 17:48 | ER Document Report ---
ED Respiratory Problem - General Chief Complaint: Cough Stated Complaint: COUGH Time Seen by Provider: 10/18/19 17:40 Primary Care Provider: IRINA LISA DO [Primary Care Provider] - Follow up as needed Mode of Arrival: Ambulatory Information source: Patient Notes: 38-year-old female presented to ED for complaint of cough cold congestion runny nose and chest discomfort with coughing for the last 2 days. She is alert oriented respirations regular nonlabored speaking in full sentences. She does not have any fever. TRAVEL OUTSIDE OF THE [place] IN LAST 30 DAYS: No - HPI Patient complains to provider of: Asthma, Cough Onset: Other - 2 days Duration: Intermittent episodes Initiating Event: URI Quality of pain: No pain Severity: None Pain Level: Denies Context: Hx asthma Cough: Nonproductive Sputum amount: None Associated symptoms: Cough, PND, Runny nose, Sinus pain/pressure. denies: Fever Similar symptoms previously: Yes Recently seen / treated by doctor: No - Related Data Allergies/Adverse Reactions: metronidazole [From Flagyl] Adverse Reaction (Verified 07/28/19 22:12) Hives Past Medical History - General Information source: Patient - Social History Smoking Status: Former Smoker Frequency of alcohol use: Rare Drug Abuse: None Lives with: Family Family History: Arthritis, CVA, DM, Hyperlipidemia, Hypertension, Malignancy Patient has suicidal ideation: No Patient has homicidal ideation: No - Past Medical History Cardiac Medical History: Reports: None Pulmonary Medical History: Reports: Hx Asthma EENT Medical History: Reports: None Neurological Medical History: Reports: Hx Migraine Endocrine Medical History: Reports: None Renal/ Medical History: Reports: None Malignancy Medical History: Reports: None GI Medical History: Reports: None Musculoskeletal Medical History: Reports Hx Arthritis, Reports Hx Musculoskeletal Deformity, Reports Hx Musculoskeletal Trauma Psychiatric Medical History: Reports: Hx Anxiety, Hx Bipolar Disorder, Hx Schizophrenia Traumatic Medical History: Reports: Hx Fractures - Leg Infectious Medical History: Reports: None Past Surgical History: Reports: Hx Adenoidectomy, Hx Breast Surgery - tumor removed Right breast, Hx Tonsillectomy, Hx Tubal Ligation, Hx Urinary Tract Surgery - Immunizations Immunizations up to date: Yes Hx Diphtheria, Pertussis, Tetanus Vaccination: Yes - 08/29/2017 patient states 5 years ago Review of Systems - Review of Systems Constitutional: No symptoms reported EENT: Nose congestion, Nose discharge, Sinus pressure, Sinus discharge Cardiovascular: No symptoms reported Respiratory: Cough Gastrointestinal: No symptoms reported Genitourinary: No symptoms reported Female Genitourinary: No symptoms reported Musculoskeletal: No symptoms reported Skin: No symptoms reported Hematologic/Lymphatic: No symptoms reported Neurological/Psychological: No symptoms reported -: Yes All other systems reviewed and negative Physical Exam - Vital signs Vitals: Temp Pulse Resp BP Pulse Ox 97.6 F 91 16 129/85 H 98 10/18/19 17:24 10/18/19 17:24 10/18/19 17:24 10/18/19 17:24 10/18/19 17:24 Interpretation: Normal - General General appearance: Appears well, Alert - HEENT Head: Normocephalic, Atraumatic Eyes: Normal Pupils: PERRL Ears: Normal External canal: Normal Tympanic membrane: Normal Sinus: Normal Nasal: Purulent discharge, Swelling Mouth/Lips: Normal Mucous membranes: Normal Pharynx: Post nasal drainage Neck: Normal - Respiratory Respiratory status: No respiratory distress Chest status: Nontender Breath sounds: Nonproductive cough Chest palpation: Normal - Cardiovascular Rhythm: Regular Heart sounds: Normal auscultation Murmur: No - Abdominal Inspection: Normal Distension: No distension Bowel sounds: Normal Tenderness: Nontender Organomegaly: No organomegaly - Back Back: Normal, Nontender - Extremities General upper extremity: Normal inspection, Nontender, Normal color, Normal ROM, Normal temperature General lower extremity: Normal inspection, Nontender, Normal color, Normal ROM, Normal temperature, Normal weight bearing. No: Prashant's sign - Neurological Neuro grossly intact: Yes Cognition: Normal Orientation: AAOx4 Higinio Coma Scale Eye Opening: Spontaneous [place] Coma Scale Verbal: Oriented Higinio Coma Scale Motor: Obeys Commands [place] Coma Scale Total: 15 Speech: Normal Motor strength normal: LUE, RUE, LLE, RLE Sensory: Normal - Psychological Associated symptoms: Normal affect, Normal mood - Skin Skin Temperature: Warm Skin Moisture: Dry Skin Color: Normal Course - Vital Signs Vital signs: Temp Pulse Resp BP Pulse Ox 97.6 F 91 16 129/85 H 98 10/18/19 17:24 10/18/19 17:24 10/18/19 17:24 10/18/19 17:24 10/18/19 17:24 Discharge - Discharge Clinical Impression: URI (upper respiratory infection) Qualifiers: URI type: unspecified viral URI Qualified Code(s): J06.9 - Acute upper respiratory infection, unspecified Condition: Stable Disposition: HOME, SELF-CARE Additional Instructions: UPPER RESPIRATORY ILLNESS: You have a viral infection of the respiratory passages -- a "cold." This common infection causes nasal congestion, drainage, and often sore throat and cough. It is highly contagious. The disease usually lasts about 10 to 14 days. There is no "cure" for the viral infection -- it must run its course. If there is a complication, such as bacterial infection in the nose, sinuses, middle ear, or bronchial tubes, antibiotics may be required. The antibiotics won't affect the virus. Drink plenty of fluids. A humidifier may help. An expectorant medication or decongestant may make you more comfortable. Use acetaminophen or ibuprofen for fever or aches. See the doctor if fever persists over two days, if there is any significant worsening of your symptoms, or if you simply fail to improve as expected. You have been recommended treatment with Flonase which is [id number] 1 spray each nostril twice a day. You could also use salt soda solution gargles. These will help to remove the drainage from the back your throat. Chloraseptic spray was [id number] that will also help with your sore throat. Salt and soda solution gargle 1 quart of water 1 tablespoon of salt 1 teaspoon of baking soda Mixed 3 ingredients together and boil for 1 minute Placed in a covered quart jar Use 1/2 ounce of cold solution to gargle 3 times a day USE OF ACETAMINOPHEN (Tylenol): Acetaminophen may be taken for pain relief or fever control. It's much safer than aspirin, offering a wider range of "safe" dosages. It is safe during . Some brand names are Tylenol, Panadol, Datril, Anacin 3, Tempra, and Liquiprin. Acetaminophen can be repeated every four hours. The following are maximum recommended dosages: >89 pounds or adults 650 mg to 900 mg Acetaminophen can be repeated every four hours. Maximum dose not to exceed 4000 mg a day. FOLLOW-UP CARE: If you have been referred to a physician for follow-up care, call the physicians office for an appointment as you were instructed or within the next two days. If you experience worsening or a significant change in your symptoms, notify the physician immediately or return to the Emergency Department at any time for re-evaluation. Forms: Elevated Blood Pressure, Return to Work Referrals: IRINA LISA DO [Primary Care Provider] - Follow up as needed
== END 2019-10-18 17:48 | disposition home or self-care (01) ==
LOC: ER 17:20
DX: J06.9 Acute upper respiratory infection, unspecified (principal); R05 Cough; R09.81 Nasal congestion; R09.89 Other specified symptoms and signs involving the circulatory and respiratory systems; R07.9 Chest pain, unspecified; R09.82 Postnasal drip; J45.909 Unspecified asthma, uncomplicated; Z88.8 Allergy status to other drugs, medicaments and biological substances; Z87.891 Personal history of nicotine dependence
CPT/HCPCS: 99283

== ENCOUNTER 2019-12-04 20:07 | Emergency (ER) | payer SELFPAY ==
--- NOTE | 2019-12-04 22:07 | RADIOLOGY REPORT (SQ) ---
EXAM DESCRIPTION: CLINICAL HISTORY: 39 years Female ,stepped in hole in yard; popping sensation and pain COMPARISON: None. TECHNIQUE: Left ankle, 3 view FINDINGS: No acute fractures or dislocations are identified. No osseous destructive lesions. No ankle joint effusion noted. IMPRESSION: No acute fracture is identified. Soft tissue swelling laterally
--- NOTE | 2019-12-04 22:09 | ER Document Report ---
ED Extremity Problem, Lower - General Chief Complaint: Ankle Injury Stated Complaint: FALL-LEFT ANKLE PAIN Time Seen by Provider: 12/04/19 22:08 Primary Care Provider: IRINA LISA DO [Primary Care Provider] - Follow up as needed ANA HEART DO [ACTIVE STAFF] - Follow up as needed (call if not improving in 2 to 3 days. ) Mode of Arrival: Wheelchair Information source: Patient Notes: 39 y/o female no previous medical history presents to the emergency room complaining of left ankle pain. was running when she fell into a ditch twisting her left ankle. Describes it as throbbing to left lateral ankle. No history of previous trauma or injury to her ankle. No medications for symptoms. is able to walk but is painful. Denies . TRAVEL OUTSIDE OF THE [place] IN LAST 30 DAYS: No - Related Data Allergies/Adverse Reactions: metronidazole [From Flagyl] Adverse Reaction (Verified 12/04/19 20:46) Hives Past Medical History - General Information source: Patient - Social History Smoking Status: Current Some Day Smoker Frequency of alcohol use: Occasional Drug Abuse: None Lives with: Family Family History: Arthritis, CVA, DM, Hyperlipidemia, Hypertension, Malignancy Patient has homicidal ideation: No Pulmonary Medical History: Reports: Hx Asthma Neurological Medical History: Reports: Hx Migraine Musculoskeletal Medical History: Reports Hx Arthritis, Reports Hx M usculoskeletal Deformity, Reports Hx Musculoskeletal Trauma Psychiatric Medical History: Reports: Hx Anxiety, Hx Bipolar Disorder, Hx Schizophrenia Traumatic Medical History: Reports: Hx Fractures - Leg Past Surgical History: Reports: Hx Adenoidectomy, Hx Breast Surgery - tumor removed Right breast, Hx Tonsillectomy, Hx Tubal Ligation, Hx Urinary Tract Surgery - Immunizations Immunizations up to date: Yes Hx Diphtheria, Pertussis, Tetanus Vaccination: Yes - 08/29/2017 patient states 5 years ago Review of Systems - Review of Systems Constitutional: No symptoms reported Cardiovascular: No symptoms reported Respiratory: No symptoms reported Gastrointestinal: No symptoms reported Musculoskeletal: Joint pain, Ankle swelling Skin: No symptoms reported Neurological/Psychological: No symptoms reported -: Yes All other systems reviewed and negative Physical Exam - Vital signs Vitals: Temp 98.4 F 12/04/19 20:46 - General General appearance: Appears well, Alert In distress: Mild - HEENT Head: Normocephalic, Atraumatic Eyes: Normal Pupils: PERRL - Respiratory Respiratory status: No respiratory distress Chest status: Nontender Breath sounds: Normal Chest palpation: Normal - Cardiovascular Rhythm: Regular Heart sounds: Normal auscultation Murmur: No - Back Back: Normal, Nontender - Extremities Ankle: Tender - Tenderness and swelling noted over the left lateral malleolus. Painful range of motion with flexion, extension, inversion of the left ankle. Nontender with eversion of the left ankle. There is no obvious deformity noted., Limited ROM, Unable to bear weight. No: Positive Ba's test - Neurological Neuro grossly intact: Yes Cognition: Normal Orientation: AAOx4 Motor strength normal: LLE Notes: Able to move all toes on left foot without difficulty. Positive left pedal pulse. Capillary refill less than 3 seconds. Course - Re-evaluation Re-evalutation: 12/04/19 23:02 Patient able to ambulate with splint in place, Awaiting crutches neurovasuclar intact. Counseled to rest, ice and elevate leg, Tylenol and or Motrin as needed for pain. Outpatient follow up with orthopaedics as discussed if not improving in 2 to 3 days, Given strict return to the emergency room guidelines, return for any new or worsening symptoms. All questions were answered, patient verbalizes u nderstanding and agrees with plan of care. - Vital Signs Vital signs: Temp Pulse Resp BP Pulse Ox 98.8 F 73 15 138/61 H 100 12/04/19 23:56 12/04/19 23:56 12/04/19 23:56 12/04/19 23:56 12/04/19 23:56 Discharge - Discharge Clinical Impression: Left ankle sprain Qualifiers: Encounter type: initial encounter Involved ligament of ankle: unspecified ligament Qualified Code(s): S93.402A - Sprain of unspecified ligament of left ankle, initial encounter Condition: Stable Disposition: HOME, SELF-CARE Instructions: Ankle Stirrup Splint ([facility]), Use of Crutches ([facility]), Sprained Ankle ([facility]) Additional Instructions: Rest, ice and elevate left leg, Call orthopaedics for outpatient follow up appoi ntment if not improving in 2 to 3 days, return to the emergency room for any new or worsening symptoms. Tylenol and or Motrin as needed for pain, Return to the emergency room for any new or worsening symptoms. Referrals: IRINA LISA, [Primary Care Provider] - Follow up as needed ANA HEART, [ACTIVE STAFF] - Follow up as needed (call if not improving in 2 to 3 days. )
[2019-12-04] MEDS ORDERED: HYDROCODONE/ACETAMINOPHEN 5-325 MG TABLET PO ONE (22:18)
[2019-12-05] VITALS: BP 138/61
== END 2019-12-04 23:55 | disposition home or self-care (01) ==
LOC: ER 20:07
DX: S93.402A Sprain of unspecified ligament of left ankle, initial encounter (principal); W17.89XA Other fall from one level to another, initial encounter; Y93.02 Activity, running; Y92.009 Unspecified place in unspecified non-institutional (private) residence as the place of occurrence of the external cause; F17.200 Nicotine dependence, unspecified, uncomplicated; J45.909 Unspecified asthma, uncomplicated
CPT/HCPCS: 99283

== ENCOUNTER 2019-12-09 23:10 | Emergency (ER) | payer SELFPAY ==
--- NOTE | 2019-12-10 01:28 | ER Document Report ---
ED Extremity Problem, Lower - General Chief Complaint: left foot pain Stated Complaint: LEFT ANKLE PAIN Time Seen by Provider: 12/10/19 01:25 Primary Care Provider: IRINA LISA DO [Primary Care Provider] - Follow up as needed Notes: 39-year-old woman presents to the emergency department with a history of injury to the left ankle on 12/04/2019. Apparently she was running and fell in the ditch injuring the left ankle. She was seen in the emergency department at that time and x-rays were performed which revealed soft tissue injury, no bony dislocation or fracture. She has attempted to work on her feet Thursday and Thursday and now presents to the emergency department with a complaint of increased pain and difficulty. He denies any new injury to her Left ankle. TRAVEL OUTSIDE OF THE [place] IN LAST 30 DAYS: No - Related Data Allergies/Adverse Reactions: metronidazole [From Flagyl] Adverse Reaction (Verified 12/04/19 20:46) Hives Past Medical History - Social History Smoking Status: Current Some Day Smoker Frequency of alcohol use: Occasional Drug Abuse: None Family History: Arthritis, CVA, DM, Hyperlipidemia, Hypertension, Malignancy Patient has homicidal ideation: No Pulmonary Medical History: Reports: Hx Asthma Neurological Medical History: Reports: Hx Migraine Musculoskeletal Medical History: Reports Hx Arthritis, Reports Hx Musculoskeletal Deformity, Reports Hx Musculoskeletal Trauma Psychiatric Medical History: Reports: Hx Anxiety, Hx Bipolar Disorder, Hx Schizophrenia Traumatic Medical History: Reports: Hx Fractures - Leg Past Surgical History: Reports: Hx Adenoidectomy, Hx Breast Surgery - tumor paulino marquis Right breast, Hx Tonsillectomy, Hx Tubal Ligation, Hx Urinary Tract Surgery - Immunizations Immunizations up to date: Yes Hx Diphtheria, Pertussis, Tetanus Vaccination: Yes - 08/29/2017 patient states 5 years ago Review of Systems - Review of Systems Notes: Constitutional: Negative for fever. HENT: Negative for sore throat. Eyes: Negative for visual changes. Cardiovascular: Negative for chest pain. Respiratory: Negative for shortness of breath. Gastrointestinal: Negative for abdominal pain, vomiting or diarrhea. Genitourinary: Negative for dysuria. Musculoskeletal: + Left ankle pain Skin: Negative for rash. Neurological: Negative for headaches, weakness or numbness. 10 point ROS negative except as marked above and in HPI. Physical Exam - Vital signs Vitals: Temp Pulse Resp BP Pulse Ox 98.7 F 86 16 128/67 H 100 12/09/19 23:13 12/09/19 23:13 12/09/19 23:13 12/09/19 23:13 12/09/19 23:13 - Notes Notes: PHYSICAL EXAMINATION: Physical Exam: General: Well-nourished well-developed in no acute distress HEENT: NC/AT, pupils equal round and reactive to light, MM moist,nares clear, oropharynx clear, airway patent Neck: supple, no adenopathy, no masses. Good range of motion Lungs: clear, no wheezing, no rales no rhonchi CVS: Regular rate and rhythm no murmur gallop or rub Abdomen: Soft, active, nontender, no masses, no hepatosplenomegaly Ext: + Anterior lateral left ankle pain, mild swelling noted left ankle. Neuro: Alert and responsive, moving all 4 extremities on command, cranial nerves intact, no focal findings Skin: Intact no open lesions, no rash PSYCH: Normal mood, normal affect. Course - Re-evaluation Re-evalutation: 12/10/19 01:36 We will treat patient with Toradol 60 mg IM and prescription for diclofenac will be given. Encouraged Navi wrap to be placed on the ankle with ice, elevation and rest. - Vital Signs Vital signs: Temp Pulse Resp BP Pulse Ox 98.7 F 86 16 128/67 H 100 12/09/19 23:15 12/09/19 23:13 12/09/19 23:13 12/09/19 23:13 12/09/19 23:13 Discharge - Discharge Clinical Impression: Left ankle sprain Qualifiers: Encounter type: sequela Involved ligament of ankle: unspecified ligament Qualified Code(s): S93.402S - Sprain of unspecified ligament of left ankle, sequela Left ankle pain Qualifiers: Chronicity: unspecified Qualified Code(s): M25.572 - Pain in left ankle and joints of left foot Condition: Good Disposition: HOME, SELF-CARE Instructions: Ice & Elevation ([facility]) Additional Instructions: Use diclofenac 75 mg twice daily for pain Continue to elevate ice and rest your ankle. You may follow-up with orthopedics as per previous recommendation HOME CARE INSTRUCTIONS & INFORMATION: Thank you for choosing us for your medical needs. We hope you're satisfied with the care you received. After you leave, you must properly care for your problem and, at the same time, observe its progress. Any condition can change. Some illnesses can change rapidly over hours or days. If your condition worsens, return to the Emergency Department or see your physician promptly. ABOUT YOUR X-RAYS AND EKG'S: If you had an EKG or X-rays taken, they have been read by the Emergency Physician. The X-rays and EKG's will also be read by a Radiologist or Diesel Engine Inspector within 24 hours. If discrepancies are noted, you will be notified by telephone. Please be certain the ED has a correct telephone number & address where you can be reached. Also, realize that some fractures or abnormalities do not show up on initial X-rays. If your symptoms continue, see your physician. ABOUT YOUR LABORATORY TEST: If you had laboratory tests, the results have been reviewed by the Emergency Physician. Some test results (for example cultures) may not be available for several days. You will be contacted if any test result shows you need additional treatment. Please be certain the ED has a correct telephone number and address where you can be reached. ABOUT YOUR MEDICATIONS: You will receive instructions on how to take your medicine on the prescription label you receive. Additional information may be provided by the Pharmacy. If you have questions afterwards, call the ED for clarification or further instructions. Some prescribed medications may cause drowsiness. Do not perform tasks such as driving a car or operating machinery without consulting your Pharmacist. If you feel you need a refill of pain medication, your condition will need re-evaluation. Please do not call for a refill of any medication. ABOUT YOUR SIGNATURE: Signature of this document acknowledges to followin. Understanding that you received emergency treatment and that you may be released before al medical problems are known or treated. Please be certain the ED has a correct phone number & address where you can be reached. 2. Acknowledgement that you will arrange for follow-up care as recommended. 3. Authorization for the Emergency Physician to provide information to your follow-up Physician in order to maximize your care. AT ANY TIME, IF YOUR SYMPTOMS CHANGE SIGNIFICANTLY OR WORSEN OR YOU DEVELOP NEW SYMPTOMS, RETURN TO THE EMERGENCY DEPARTMENT IMMEDIATELY FOR RE-EVALUATION. OUR GOAL IS TO PROVIDE EXCELLENT MEDICAL CARE! WE HOPE THAT WE HAVE MET YOUR EXPECTATIONS DURING YOUR EMERGENCY DEPARTMENT VISIT AND THAT YOU FEEL YOU HAVE RECEIVED EXCELLENT CARE! Prescriptions: Diclofenac Sodium 75 mg PO BID #20 tablet.dr Forms: Return to Work Referrals: IRINA LISA, [Primary Care Provider] - Follow up as needed
[2019-12-10] MEDS ORDERED: KETOROLAC TROMETHAMINE 60 MG/2 ML SDV IM ONE (01:37)
[2019-12-10 02:25] VITALS: BP 126/70
== END 2019-12-10 02:25 | disposition home or self-care (01) ==
LOC: ER 23:10
DX: M25.572 Pain in left ankle and joints of left foot (principal); S93.402S Sprain of unspecified ligament of left ankle, sequela; W19.XXXS Unspecified fall, sequela; F17.200 Nicotine dependence, unspecified, uncomplicated
CPT/HCPCS: 99283; 96372; J1885

== ENCOUNTER 2020-03-10 00:48 | Emergency (ER) | payer MEDICAID ==
[2020-03-10 01:28] LABS: BASOPHILS % (AUTO) 0.7 % (0-2); EOSINOPHILS % (AUTO) 2.4 % (0-6); HEMATOCRIT 34.8 % (36.0-47.0); HEMOGLOBIN 11.9 g/dL (12.0-15.5); LYMPHOCYTES % (AUTO) 22.3 % (13-45); MEAN CORPUSCULAR HEMOGLOBIN 29.6 pg (27.0-33.4); MEAN CORPUSCULAR HGB CONC 34.3 g/dL (32.0-36.0); MEAN CORPUSCULAR VOLUME 86 fl (80-97); MONOCYTES % (AUTO) 8.7 % (3-13); PLATELET COUNT 182 10^3/uL (150-450); RED BLOOD COUNT 4.03 10^6/uL (3.72-5.28); RED CELL DISTRIBUTION WIDTH 14.1 % (11.5-14.0); SEGMENTED NEUTROPHILS % (AUTO) 65.9 % (42-78); WHITE BLOOD COUNT 6.8 10^3/uL (4.0-10.5)
[2020-03-10 01:29] LABS: ABSOLUTE EOSINOPHILS # (AUTO) 0.2 10^3/uL (0.0-0.6); ABSOLUTE LYMPHOCYTES (AUTO) 1.5 10^3/uL (0.5-4.7); ABSOLUTE MONOCYTES (AUTO) 0.6 10^3/uL (0.1-1.4); ABSOLUTE NEUT (AUTO) 4.5 10^3/uL (1.7-8.2); TOTAL CELLS COUNTED % (AUTO) 100 %
[2020-03-10 01:33] LABS: APPEARANCE,URINE CLOUDY; BILIRUBIN,URINE NEGATIVE (NEGATIVE); COLOR,URINE YELLOW; GLUCOSE, URINE NEGATIVE (NEGATIVE); KETONES,URINE NEGATIVE (NEGATIVE); LEUKOCYTE ESTERASE,URINE LARGE (NEGATIVE); NITRITE,URINE NEGATIVE (NEGATIVE); PROTEIN,URINE 100 mg/dL (NEGATIVE); URINE SPECIFIC GRAVITY 1.023
[2020-03-10 01:49] LABS: ALBUMIN 4.1 g/dL (3.5-5.0); ALKALINE PHOSPHATASE 59 U/L (38-126); ANION GAP 7 (5-19); ASPARTATE AMINO TRANSFERASE 16 U/L (14-36); BILIRUBIN,TOTAL 0.3 mg/dL (0.2-1.3); BLOOD UREA NITROGEN 12 mg/dL (7-20); CALCIUM 9.4 mg/dL (8.4-10.2); CARBON DIOXIDE 27 mmol/L (22-30); CHLORIDE 107 mmol/L (98-107); GLUCOSE 98 mg/dL (75-110); POTASSIUM 4.6 mmol/L (3.6-5.0)
--- NOTE | 2020-03-10 07:49 | ER Document Report ---
ED General - General Chief Complaint: Abdominal Pain Stated Complaint: LOWER ABDOMINAL PAIN,BACK PAIN,SPOTTING Time Seen by Provider: 03/10/20 07:21 Primary Care Provider: IRINA LISA DO [Primary Care Provider] - Follow up as needed TRAVEL OUTSIDE OF THE [place] IN LAST 30 DAYS: No - HPI Notes: Chief complaint: Lower abdominal pain History of present illness: 39-year-old female 7 para 6 AB 1 with previous tubal ligation and no other abdominal surgery and normal menstrual period reported 2 weeks ago now presents with 3-day history of worsening right lower quadrant pain radiating to right flank. Pain presently 8/10 intensity and has been gradually increasing. She has had some vaginal spotting. No vaginal d ischarge. Mild urinary frequency and minimal dysuria. No nausea vomiting. No fever or chills. No diarrhea. Good appetite. Taking no regular medications. Allergy to metronidazole. - Related Data Allergies/Adverse Reactions: metronidazole [From Flagyl] Adverse Reaction (Verified 12/04/19 20:46) Hives Past Medical History - General Information source: Patient - Social History Smoking Status: Current Some Day Smoker Frequency of alcohol use: Occasional Drug Abuse: None Occupation: Works in a [employer] Lives with: Family Family History: Arthritis, CVA, DM, Hyperlipidemia, Hypertension, Malignancy Pulmonary Medical History: Reports: Hx Asthma Neurological Medical History: Reports: Hx Migraine Renal/ Medical History: Denies: Hx Kidney Stones Musculoskeletal Medical History: Reports Hx Arthritis, Reports Hx Mus culoskeletal Deformity, Reports Hx Musculoskeletal Trauma Psychiatric Medical History: Reports: Hx Anxiety, Hx Bipolar Disorder, Hx Schizophrenia Traumatic Medical History: Reports: Hx Fractures - Leg Past Surgical History: Reports: Hx Adenoidectomy, Hx Breast Surgery - tumor removed Right breast, Hx Tonsillectomy, Hx Tubal Ligation, Hx Urinary Tract Surgery - Immunizations Immunizations up to date: Yes Hx Diphtheria, Pertussis, Tetanus Vaccination: Yes - 08/29/2017 patient states 5 years ago Review of Systems - Review of Systems Notes: Constitutional: Negative for fever. HENT: Negative for sore throat. Eyes: Negative for visual changes. Cardiovascular: Negative for chest pain. Respiratory: Negative for shortness of breath. Gastrointestinal: As per HPI. Genitourinary: As per HPI. Musculoskeletal: Negative. Skin: Negative for rash. Neurological: Negative for headaches, weakness or numbness. 10 point ROS negative except as marked above and in HPI. Physical Exam - Vital signs Vitals: Temp Pulse Resp BP Pulse Ox 98.5 F 82 17 149/77 H 99 03/10/20 04:57 03/10/20 04:57 03/10/20 04:57 03/10/20 04:57 03/10/20 04:57 - Notes Notes: GENERAL: Well-developed well-nourished appearing in no acute distress. SKIN: Good turgor no rashes. HEAD: Normocephalic atraumatic. EYES: PERRLA. EOMI. Conjunctivae and sclerae clear. EARS: CANALS AND TMS CLEAR. NOSE: CLEAR. MOUTH: Moist mucosa. Good dentition. No stridor or edema. No drooling. NECK: Supple. No masses or thyromegaly. No adenopathy. Carotids 2+ without bruits. No JVD. BACK: Symmetrical with mild right CVA tenderness. CHEST: Respirations unlabored. Breath sounds clear and symmetrical. HEART: Regular rhythm. No murmur gallop or rub. ABDOMEN: Minimal tenderness right lower quadrant. Soft without masses, organomegaly or rebound. Bowel sounds normally active. No bruits. PELVIC: Normal external genitalia and hair distribution. Minimal white vaginal discharge. Cervix is parous with mild cervical motion tenderness. There is diffuse tenderness over the pelvis with no palpable masses or uterine enlargement. EXTREMITIES: No edema. No calf tenderness. Cap refill less than 1.5 seconds. Dorsalis pedis and posterior tibial pulses 3+ and symmetrical. NEUROLOGICAL: GCS 15. Alert and oriented x3. Normal gait. Fluent speech. Cranial nerves II through XII intact. Sensorimotor and cerebellar normal. Normal tone. PSYCHIATRIC: Appropriate affect. Course - Re-evaluation Re-evalutation: 03/10/20 11:11 CT scan shows no evidence of appendicitis. Patient has a dirty urine and on CT she has significant thickening of the bladder wall. I am giving her some IV Rocephin here and will send her out on some oral Keflex. She symptomatically improved after getting some IV Toradol. Will place her on some NSAID for relief her discomfort at home and have her follow-up with PMD. 03/10/20 11:15 Findings, clinical impression and plan of treatment have been discussed with patient/family. Understanding of current findings and recommendations has been acknowledged by them and there is agreement regarding disposition and follow-up. - Vital Signs Vital signs: Temp Pulse Resp BP Pulse Ox 98.5 F 82 17 149/77 H 99 03/10/20 04:57 03/10/20 04:57 03/10/20 04:57 03/10/20 04:57 03/10/20 04:57 - Laboratory Result Diagrams: 03/10/20 01:17 03/10/20 01:17 Laboratory results interpreted by me: 03/10/20 03/10/20 01:17 01:17 Hgb 11.9 L Hct 34.8 L RDW 14.1 H Urine Protein 100 H Urine Blood LARGE H Urine Urobilinogen 2.0 H Ur Leukocyte Esterase LARGE H - Diagnostic Test Radiology reviewed: Reports reviewed - CT abdomen pelvis with IV contrast per radiologist: Normal appendix. Significant thickening of the bladder wall consistent with chronic cystitis with possible superimposed acute urinary tract infection. No stones. Discharge - Discharge Clinical Impression: Urinary tract infection Qualifiers: Urinary tract infection type: site unspecified Hematuria presence: with h ematuria Qualified Code(s): N39.0 - Urinary tract infection, site not specified; R31.9 - Hematuria, unspecified Condition: Stable Disposition: HOME, SELF-CARE Instructions: Cephalexin ([facility]), Urinary Tract Infection ([facility]) Additional Instructions: Increase oral fluids. Take prescribed medication as directed. You will be provided a note for work for the next 3 days. Return here as needed for new or worsening symptoms: Pain that is worsening or unimproved Uncontrolled vomiting High fever or shaking chills Overall worsening Prescriptions: Cephalexin Monohydrate [Keflex 500 mg Capsule] 500 mg PO Q6H 5 Days #20 capsule Naproxen 500 mg PO BID PRN 7 Days #14 tablet PRN Reason: Forms: Return to Work Referrals: IRINA LISA DO [Primary Care Provider] - Follow up as needed
--- NOTE | 2020-03-10 07:58 | RADIOLOGY REPORT (SQ) ---
EXAM DESCRIPTION: CT HEAD WITHOUT IV CONTRAST COMPLETED DATE/TME: 03/10/2020 07:30 CLINICAL HISTORY: seizure COMPARISON: 12/03/2018 TECHNIQUE: Axial CT of the head obtained from the skull apex to the skull base without contrast. FINDINGS: No acute intracranial hemorrhage identified. No mass, mass effect, shift of the midline, abnormal extra-axial fluid collection or CT evidence of acute ischemic change identified. The ventricular system is unremarkable. No acute abnormalities of the supratentorial white matter, basal ganglia, cerebellum, or brainstem. The visualized paranasal sinuses and the mastoids are relatively well aerated. No skull fracture identified. Visualized orbits and globes are unremarkable. IMPRESSION: 1. No acute intracranial abnormality identified. This exam was performed according to our departmental dose-optimization program, which includes automated exposure control, adjustment of the mA and/or kV according to patient size and/or use of iterative reconstruction technique.
--- NOTE | 2020-03-10 08:01 | RADIOLOGY REPORT (SQ) ---
CLINICAL HISTORY: seizure COMPARISON: 01/03/2019. TECHNIQUE: XR CHEST 1 VIEW 03/10/2020 7:29 AM CDT FINDINGS: Cardiac silhouette is normal in size. Lungs are clear without consolidation, atelectasis, mass or edema. There is no pleural effusion. There is no pneumothorax. There are no acute osseous findings. IMPRESSION: Clear lungs.
[2020-03-10] MEDS ORDERED: KETOROLAC TROMETHAMINE INJ/PF 30 MG/1 ML SDV IV ONE (08:52)
[2020-03-10 09:30] LABS: BACTERIA (WET MOUNT) 3+ BACTERIA SEEN; EPITHELIALS (WET MOUNT) 3+ EPITHELIALS SEEN; T.VAGINALIS (WET MOUNT) NO TRICHOMONAS SEEN; WBCS (WET MOUNT) 1+ WBCS SEEN; YEAST (WET MOUNT) NO YEAST SEEN
--- NOTE | 2020-03-10 09:51 | RADIOLOGY REPORT (SQ) ---
EXAM DESCRIPTION: CT ABD/PELVIS WITH IV ONLY IMAGES COMPLETED DATE/TIME: 03/10/2020 8:37 am REASON FOR STUDY: RLQ pain COMPARISON: 10/29/2017. TECHNIQUE: CT scan of the abdomen and pelvis performed using helical scanning technique with dynamic intravenous contrast injection. No oral contrast. Images reviewed with lung, soft tissue, and bone windows. Reconstructed coronal and sagittal MPR images reviewed. Delayed images for evaluation of the urinary system also acquired. All images stored on PACS. All CT scanners at this facility use dose modulation, iterative reconstruction, and/or weight based d osing when appropriate to reduce radiation dose to as low as reasonably achievable (ALARA). [facility]: Dose Right [facility]: CareDose [facility]: Dose Right [facility]: Teradose 4D [facility]: Spectralmind CONTRAST TYPE AND DOSE: contrast/concentration: Isovue 350.00 mmol/ml; Total Contrast Delivered: 88. 0 ml; Total Saline Delivered: 70.0 ml RENAL FUNCTION: GFR > 60. RADIATION DOSE: CT Rad equipment meets quality standard of care and radiation dose reduction techniq ues were employed. CTDIvol: 11.2 - 15.7 mGy. DLP: 1404 mGy-cm.. LIMITATIONS: None. FINDINGS: LOWER CHEST: No significant findings. No nodules or infiltrates. LIVER: Normal size. No masses. No dilated ducts. SPLEEN: Normal size. No focal lesions. PANCREAS: No masses. No significant calcifications. No adjacent inflammation or peripancreatic fluid collections. Pancreatic duct not dilated. GALLBLADDER: No identified stones by CT criteria. No inflammatory changes to suggest cholecystitis. ADRENAL GLANDS: No significant masses or asymmetry. RIGHT KIDNEY AND URETER: No solid masses. No significant calcifications. No hydronephrosis or hyd roureter. LEFT KIDNEY AND URETER: No solid masses. No significant calcifications. No hydronephrosis or hydr oureter. AORTA AND VESSELS: No aneurysm. No dissection. Renal arteries, SMA, celiac without stenosis. RETROPERITONEUM: No retroperitoneal adenopathy, hemorrhage or masses. BOWEL AND PERITONEAL CAVITY: No masses or inflammatory changes. No free fluid or peritoneal masses. APPENDIX: Normal. PELVIS: The urinary bladder is relatively decompressed. Mild thickening of the bladder wall measurin g up to a 10 mm thickness. Uterus and ovaries have normal size. No adnexal mass. ABDOMINAL WALL: No masses. No hernias. BONES: No significant or acute findings. OTHER: No other significant finding. IMPRESSION: 1. Mild urinary bladder wall thickening which may be related to underdistention, however acute or chr onic cystitis can have this appearance. Clinical correlation and correlation with urinalysis recomme nded. TECHNICAL DOCUMENTATION: JOB ID: [id number] Quality ID # [id number]: Final reports with documentation of one or more dose reduction techniques (e.g., Au tomated exposure control, adjustment of the mA and/or kV according to patient size, use of iterative reconstruction technique) 2010 [employer]- All Rights Reserved Reading location - IP/workstation name: [email or web address]
[2020-03-10 10:59] LABS: CHLAM PCR NOT DETECTED (NOT DETECT)
[2020-03-10] MEDS ORDERED: CEFTRIAXONE INJ 1000 MG VIAL IV ONE (11:09)
[2020-03-10 11:50] VITALS: BP 118/60
[2020-03-10] MEDS ORDERED: NORMAL SALINE 1000 ML 1,000 ML with POTASSIUM CHLORIDE 20 MEQ, MAGNESIUM SULFATE 8 MEQ,... IV SCH ×5 (18:00)
== END 2020-03-10 11:54 | disposition home or self-care (01) ==
LOC: ER 00:48
DX: N39.0 Urinary tract infection, site not specified (principal); R31.9 Hematuria, unspecified; R10.31 Right lower quadrant pain; R10.813 Right lower quadrant abdominal tenderness; F17.200 Nicotine dependence, unspecified, uncomplicated; J45.909 Unspecified asthma, uncomplicated; Z98.51 Tubal ligation status; Z86.69 Personal history of other diseases of the nervous system and sense organs
CPT/HCPCS: 99284; 96374; 96375; 36415; 87210; 83690; 85025; 80053; 81001; 87491; 87591; 71045; 70450; 74177; J1885; J0696

== ENCOUNTER 2020-04-13 11:14 | Emergency (ER) | payer MEDICAID ==
[2020-04-13] MEDS ORDERED: IBUPROFEN 800 MG TABLET PO ONE (12:26)
[2020-04-13] MEDS ORDERED: PROCHLORPERAZINE MALEATE 10 MG TABLET PO ONE (12:26)
[2020-04-13] MEDS ORDERED: DIPHENHYDRAMINE HCL 25 MG CAPSULE PO ONE (12:27)
--- NOTE | 2020-04-13 12:31 | ER Document Report ---
ED Headache - General Chief Complaint: Headache Stated Complaint: MIGRAINE Time Seen by Provider: 04/13/20 12:22 Primary Care Provider: IRINA LISA DO [Primary Care Provider] - Follow up as needed Mode of Arrival: Ambulatory Information source: Patient Notes: 39-year-old female presented to ED for migraine that started yesterday. She states she took Tylenol and Benadryl which usually works but this did not work. She states she is nauseated at this time but no emesis. She is alert oriented respirations regular nonlabored speaking in full sentences. Did offer give her Compazine Benadryl and ibuprofen and sent her home and she states she is willing to try this. We will give her the Compazine Benadryl and ibuprofen and she is calling her right now if she feels better she will go home at that time. REVIEW OF SYSTEMS: CONSTITUTIONAL : Denies fever, chills, or sweats. Denies recent illness. EENT: Denies eye, ear, throat, or mouth pain or symptoms. Denies nasal or sinus congestion. CARDIOVASCULAR: Denies chest pain. RESPIRATORY: Denies cough, cold, or chest congestion. Denies shortness of breath, difficulty breathing, or wheezing. GASTROINTESTINAL: Denies abdominal pain. Denies nausea, vomiting, or diarrhea. Denies constipation. Last BM: GENITOURINARY: Denies difficulty urinating, painful urination, burning, frequency, or blood in urine. FEMALE GENITOURINARY: Denies vaginal bleeding, abnormal or irregular periods. LMP: MUSCULOSKELETAL: Denies neck or back pain or joint pain or swelling. SKIN: Denies rash or skin lesions. HEMATOLOGIC : Denies easy bruising or bleeding. LYMPHATIC: Denies swollen, enlarged glands. NEUROLOGICAL: Denies altered mental status or loss of consciousness. Denies weakness or paralysis or loss of use of either side. Denies problems with gait or speech. Denies sensory or motor loss. She states she has a migraine. She states she has a history of migraines. She states Tylenol and Benadryl usually take care of it but it did not last night. We will give her Compazine Benadryl and ibuprofen at this time. She stated if she felt better after that she would go home. PSYCHIATRIC: Denies anxiety or stress or depression. ALL OTHER SYSTEMS REVIEWED AND NEGATIVE. PHYSICAL EXAMINATION: GENERAL: Well-appearing, well-nourished and in no acute distress. HEAD: Atraumatic, normocephalic. EYES: Pupils equal round extraocular movements intact, conjunctiva are normal. ENT: Nares patent NECK: Normal range of motion LUNGS: No respiratory distress Musculoskeletal: Normal range of motion NEUROLOGICAL: Normal speech, normal gait. PSYCH: Normal mood, normal affect. SKIN: Warm, Dry, normal turgor, no rashes or lesions noted. TRAVEL OUTSIDE OF THE [place] IN LAST 30 DAYS: No - HPI Patient complains to provider of: Headache Patient reports: Hx chronic headaches Onset: Yesterday Onset was: Gradual Timing: Still present Quality of pain: Achy Severity: Moderate Pain Level: 3 Associated symptoms: Dizzy, Double/blurred vision, Nausea/vomiting Exacerbated by: Light, Noise, Movement, Position Similar symptoms previously: Yes Recently seen / treated by doctor: Yes - Related Data Allergies/Adverse Reactions: metronidazole [From Flagyl] Adverse Reaction (Verified 12/04/19 20:46) Hives Past Medical History - General Information source: Patient - Social History Smoking Status: Former Smoker Chew tobacco use (# tins/day): No Frequency of alcohol use: Rare Drug Abuse: None Lives with: Family Family History: Arthritis, CVA, DM, Hyperlipidemia, Hypertension, Malignancy - Past Medical History Cardiac Medical History: Reports: None Pulmonary Medical History: Reports: Hx Asthma EENT Medical History: Reports: None Neurological Medical History: Reports: Hx Migraine Endocrine Medical History: Reports: None Renal/ Medical History: Reports: None Malignancy Medical History: Reports: None GI Medical History: Reports: None Musculoskeletal Medical History: Reports Hx Arthritis, Reports Hx Musculoskeletal Deformity, Reports Hx Musculoskeletal Trauma Psychiatric Medical History: Reports: Hx Anxiety, Hx Bipolar Disorder, Hx Schizophrenia Traumatic Medical History: Reports: Hx Fractures - Leg Infectious Medical History: Reports: None Past Surgical History: Reports: Hx Adenoidectomy, Hx Breast Surgery - tumor removed Right breast, Hx Tonsillectomy, Hx Tubal Ligation, Hx Urinary Tract Surgery - Immunizations Immunizations up to date: Yes Hx Diphtheria, Pertussis, Tetanus Vaccination: Yes - 08/29/2017 patient states 5 years ago Physical Exam - Vital signs Vitals: Temp Pulse Resp BP Pulse Ox 97.8 F 81 16 144/92 H 99 04/13/20 11:47 04/13/20 11:47 04/13/20 11:47 04/13/20 11:47 04/13/20 11:47 Course - Re-evaluation Re-evalutation: 04/13/20 13:20 Presentation of a headache that appears to be most consistent with tension versus migrainous type headache. Headache was not maximal in onset, patient has no focal neurologic deficits, no nuchal rigidity, vital signs within normal limits, no papilledema, and patient is overall well in appearance. Based on clinical history and examination I do not suspect an acute subarachnoid hemorrhage, dural venous sinus thrombosis, acute meningitis, or intercranial mass. Given my low clinical suspicion for any acute life-threatening etiology, I do not feel advanced neuro imaging or laboratory testing is indicated at this time. Will proceed with headache cocktail and reassess. - Vital Signs Vital signs: Temp Pulse Resp BP Pulse Ox 97.7 F 73 18 132/88 H 100 04/13/20 13:16 04/13/20 13:16 04/13/20 13:16 04/13/20 13:16 04/13/20 13:16 Discharge - Discharge Clinical Impression: Headache Qualifiers: Headache type: unspecified Headache chronicity pattern: unspecified pattern Intractability: not intractable Qualified Code(s): R51 - Headache Condition: Stable Disposition: HOME, SELF-CARE Additional Instructions: HEADACHE: The physician does not feel that the headache you are experiencing has a serious underlying cause. Most headaches are due to emotional stress, with resultant muscle tension (tension headache). Occasionally, headaches are secondary to changes in the blood vessels of the scalp (vascular headache and migraine headache). Sometimes, a headache is the first symptom of another developing illness, such as a viral infection. You have no evidence of stroke, bleeding, meningitis, or other serious cause of your headache. The treatment of headaches varies with the severity and cause of the pain. Not all headaches need pain shots. In fact, there is evidence that using narcotics for headaches may make them worse in the long run. The physician will determine the therapy that's in your best interest. If you develop a fever, if the headache is different from any you've previously experienced, or if the headache progressively worsens, then call your physician at once or go to the emergency room. USE OF DIPHENHYDRAMINE: Diphenhydramine (Benadryl) is an antihistamine and has been recommended to help treat your headache and to prevent side effects of other medications used to treat headaches. The medication can be repeated four times daily. Age Elixir (12.5 mg/tsp) 25 mg pill adult 1-2 tabs Antihistamines may cause drowsiness, especially with the first dose. Do not operate machinery or drive while under the effects of the medication. Do not combine the medication with alcohol, or with any other medication without talking to your doctor. ANTINAUSEA MEDICATION: You have been given a medication to suppress nausea and vomiting. This type of medication can be given as a shot, pill, or suppository. It will usually last for many hours. Pills and shots usually last six to eight hours, suppositories last about 12 hours. For the typical illness, only one or two doses of the medication may be necessary. Mild lightheadedness may occur. This type of medicine can cause drowsiness. Do not drive or operate dangerous machinery while under its influence. Do not mix with alcohol. See your doctor at once if you have muscle spasms or tightness, or uncontrollable motions (particularly of the neck, mouth, or jaw). Persistent vomiting or severe lightheadedness should also be evaluated by the physician. COMPAZINE FOR HEADACHE: You have received therapy for headaches, using Compazine. This treatment is dramatically successful in relieving the headache in about 50 percent of cases. When it works, it provides a rapid method of eliminating the headache without resorting to narcotics (and the problems associated with them). Most patients still feel fully alert after the Compazine, but others may be slightly drowsy. It's best not to drive or work with machinery for six to eight hours. Do not take alcohol or other medication unless you discuss it with the doctor. If you develop tightness and spasms in your muscles, especially the neck and tongue, you should return. This is a side effect which can be treated. Ibuprofen Ibuprofen is an excellent, safe drug for pain control. In addition, it has potent antiinflammatory effects which are beneficial, especially in the treatment of injuries, arthritis, or tendonitis. It's best to take ibuprofen with food. Persons with ulcer disease or allergy to aspirin should notify their physician of this before taking ibuprofen. Take the medication exactly as prescribed. Don't take additional doses unless instructed to do so by your doctor. If you develop wheezing, shortness of breath, hives, faintness, stomach pain, vomiting, or dark black stools, return for re-evaluation at once. FOLLOW-UP CARE: If you have been referred to a physician for follow-up care, call the physicians office for an appointment as you were instructed or within the next two days. If you experience worsening or a significant change in your symptoms, notify the physician immediately or return to the Emergency Department at any time for re-evaluation. Prescriptions: Prochlorperazine Maleate [Compazine 10 mg Tablet] 10 mg PO Q6HP PRN #10 tablet PRN Reason: Forms: Elevated Blood Pressure, Return to Work Referrals: IRINA LISA DO [Primary Care Provider] - Follow up as needed
[2020-04-13 13:17] VITALS: BP 132/88
== END 2020-04-13 13:21 | disposition home or self-care (01) ==
LOC: ER 11:14
DX: R51 Headache (principal); Z79.899 Other long term (current) drug therapy; R42 Dizziness and giddiness; H53.8 Other visual disturbances; R11.2 Nausea with vomiting, unspecified; Z87.891 Personal history of nicotine dependence; J45.909 Unspecified asthma, uncomplicated
CPT/HCPCS: 99283; J3490 ×2; S0183

== ENCOUNTER 2020-06-05 21:01 | Emergency (ER) | payer MEDICAID ==
--- NOTE | 2020-06-05 21:23 | ER Document Report ---
ED Medical Screen (RME) - General Stated Complaint: DIZZINESS ANXIETY Time Seen by Provider: 06/05/20 21:18 Primary Care Provider: IRINA LISA DO [Primary Care Provider] - Follow up as needed Notes: Patient presents complaining of palpitations off and on for the past 2 weeks. Patient does report symptoms worsen with exertion and she does become dizzy. Patient describes dizziness as a rotational movement. Patient denies any shortness of breath or cough. Patient states that a few time she did have some lateral chest discomfort although none recently. Patient has a history of anxiety, bipolar disorder schizophrenia and asthma. I have greeted and performed a rapid initial assessment of this patient. A comprehensive ED assessment and evaluation of the patient, analysis of test results and completion of the medical decision making process will be conducted by additional ED providers. TRAVEL OUTSIDE OF THE [place] IN LAST 30 DAYS: No - Related Data Allergies/Adverse Reactions: metronidazole [From Flagyl] Adverse Reaction (Verified 12/04/19 20:46) Hives Past Medical History - Social History Family history: Reviewed & Not Pertinent Pulmonary Medical History: Reports: Hx Asthma Neurological Medical History: Reports: Hx Migraine Musculoskeltal Medical History: Reports Hx Arthritis, Reports Hx Musculoskeletal Deformity, Reports Hx Musculoskeletal Trauma Psychiatric Medical History: Reports: Hx Anxiety, Hx Bipolar Disorder, Hx Schizophrenia Traumatic Medical History: Reports: Hx Fractures - Leg Past Surgical History: Reports: Hx Adenoidectomy, Hx Breast Surgery - tumor removed Right breast, Hx Tonsillectomy, Hx Tubal Ligation, Hx Urinary Tract Surgery - Immunizations Immunizations up to date: Yes Hx Diphtheria, Pertussis, Tetanus Vaccination: Yes - 08/29/2017 patient states 5 years ago Physical Exam - Vital signs Vitals: Temp Pulse Resp BP Pulse Ox 98.9 F 80 18 136/69 H 98 06/05/20 21:09 06/05/20 21:09 06/05/20 21:09 06/05/20 21:09 06/05/20 21:09 - Cardiovascular Rhythm: Regular. No: Tachycardia Heart sounds: S1 appreciated, S2 appreciated Course - Vital Signs Vital signs: Temp Pulse Resp BP Pulse Ox 98.9 F 80 18 136/69 H 98 06/05/20 21:09 06/05/20 21:09 06/05/20 21:09 06/05/20 21:09 06/05/20 21:09 Doctor's Discharge - Discharge Referrals: IRINA LISA DO [Primary Care Provider] - Follow up as needed
[2020-06-05 22:37] LABS: ABSOLUTE EOSINOPHILS # (AUTO) 0.4 10^3/uL (0.0-0.6); ABSOLUTE LYMPHOCYTES (AUTO) 1.9 10^3/uL (0.5-4.7); ABSOLUTE MONOCYTES (AUTO) 0.5 10^3/uL (0.1-1.4); ABSOLUTE NEUT (AUTO) 2.1 10^3/uL (1.7-8.2); BASOPHILS % (AUTO) 0.7 % (0-2); EOSINOPHILS % (AUTO) 7.6 % (0-6); HEMATOCRIT 38.8 % (36.0-47.0); LYMPHOCYTES % (AUTO) 39.5 % (13-45); MEAN CORPUSCULAR HEMOGLOBIN 29.4 pg (27.0-33.4); MEAN CORPUSCULAR HGB CONC 33.6 g/dL (32.0-36.0); MEAN CORPUSCULAR VOLUME 88 fl (80-97); MONOCYTES % (AUTO) 9.7 % (3-13); PLATELET COUNT 218 10^3/uL (150-450); RED BLOOD COUNT 4.43 10^6/uL (3.72-5.28); RED CELL DISTRIBUTION WIDTH 13.6 % (11.5-14.0); SEGMENTED NEUTROPHILS % (AUTO) 42.5 % (42-78); TOTAL CELLS COUNTED % (AUTO) 100 %; WHITE BLOOD COUNT 4.9 10^3/uL (4.0-10.5)
[2020-06-05 22:57] LABS: ALBUMIN 4.5 g/dL (3.5-5.0); ALKALINE PHOSPHATASE 59 U/L (38-126); ANION GAP 9 (5-19); ASPARTATE AMINO TRANSFERASE 17 U/L (14-36); BILIRUBIN,DIRECT 0.1 mg/dL (0.0-0.4); BILIRUBIN,TOTAL 0.3 mg/dL (0.2-1.3); BLOOD UREA NITROGEN 17 mg/dL (7-20); CALCIUM 9.7 mg/dL (8.4-10.2); CARBON DIOXIDE 27 mmol/L (22-30); CHLORIDE 104 mmol/L (98-107); GLUCOSE 108 mg/dL (75-110); TOTAL PROTEIN 7.4 g/dL (6.3-8.2)
--- NOTE | 2020-06-05 23:47 | RADIOLOGY REPORT (SQ) ---
CLINICAL INDICATION: palpitations. TECHNIQUE: A single portable AP view was obtained of the chest at 2233 hours. COMPARISON: March 10, 2020. FINDINGS: The cardiomediastinal silhouette is normal. The lungs are grossly clear. No evidence of effusion or pneumothorax. The visualized bones are unremarkable. IMPRESSION: No evidence of active intrathoracic disease.
--- NOTE | 2020-06-06 03:02 | ER Document Report ---
ED General - General Chief Complaint: Dizziness Stated Complaint: DIZZINESS ANXIETY Time Seen by Provider: 06/05/20 21:18 Primary Care Provider: LAN BOWENS MD [NO LOCAL MD] - Follow up as needed IRINA LISA DO [Primary Care Provider] - Follow up as needed RICARDO ROBLERO MD [ACTIVE STAFF] - Follow up as needed TRAVEL OUTSIDE OF THE [place] IN LAST 30 DAYS: No - HPI Notes: Patient is a 39 y/o female with a hx of anxiety, bipolar and schizophrenia who presents with palpitations and dizziness for the past two weeks. Patient attributes her palpitations to anxiety but she is concerned with the new dizziness. She describes the dizziness as the room spinning. She denies headache, blurred vision chest pain, shortness of breath, abdominal pain, nausea, vomiting, diarrhea, and constipation. She currently does not take any prescription pain medication. She also has a hx of migraines and asthma. - Related Data Allergies/Adverse Reactions: metronidazole [From Flagyl] Adverse Reaction (Verified 12/04/19 20:46) Hives Past Medical History - General Information source: Patient - Social History Smoking Status: Current Some Day Smoker Family History: Arthritis, CVA, DM, Hyperlipidemia, Hypertension, Malignancy Pulmonary Medical History: Reports: Hx Asthma Neurological Medical History: Reports: Hx Migraine Musculoskeletal Medical History: Reports Hx Arthritis, Reports Hx Musculoskeletal Deformity, Reports Hx Musculoskeletal Trauma Psychiatric Medical History: Reports: Hx Anxiety, Hx Bipolar Disorder, Hx Schizophrenia Traumatic Medical History: Reports: Hx Fractures - Leg Past Surgical History: Reports: Hx Adenoidectomy, Hx Breast Surgery - tumor removed Right breast, Hx Tonsillectomy, Hx Tubal Ligation, Hx Urinary Tract Surgery - Immunizations Immunizations up to date: Yes Hx Diphtheria, Pertussis, Tetanus Vaccination: Yes - 08/29/2017 patient states 5 years ago Review of Systems - Review of Systems Constitutional: No symptoms reported EENT: No symptoms reported Cardiovascular: See HPI Respiratory: No symptoms reported Gastrointestinal: No symptoms reported Genitourinary: No symptoms reported Female Genitourinary: No symptoms reported Musculoskeletal: No symptoms reported Skin: No symptoms reported Hematologic/Lymphatic: No symptoms reported Neurological/Psychological: See HPI Physical Exam - Vital signs Vitals: Temp Pulse Resp BP Pulse Ox 98.9 F 80 18 136/69 H 98 06/05/20 21:09 06/05/20 21:09 06/05/20 21:09 06/05/20 21:09 06/05/20 21:09 - Notes Notes: PHYSICAL EXAMINATION: VITALS: Vitals reviewed and within normal limits. GENERAL: Well-appearing, well-nourished and in no acute distress. HEAD: Atraumatic, normocephalic. EYES: Pupils equal, round, and reactive to light, extraocular movements intact, sclera anicteric, conjunctiva are normal. ENT: Nares patent. Moist mucous membranes. NECK: Normal range of motion, supple without lymphadenopathy. LUNGS: Breath sounds clear to auscultation bilaterally and equal. No wheezes, rales, or rhonchi. HEART: Regular, rate, and rhythm without murmurs. ABDOMEN: Soft, nontender, normoactive bowel sounds. No guarding, no rebound. No masses appreciated. EXTREMITIES: Normal range of motion, no pitting or edema. No cyanosis. NEUROLOGICAL: No focal neurological deficits. Moves all extremities spontaneously and on command. 5/5 strength in all extremities. Sensation intact. CN II-XII grossly intact. Normal gait with steady ambulation. PSYCH: Normal mood, normal affect. SKIN: Warm, Dry, normal turgor, no rashes or lesions noted. Course - Re-evaluation Re-evalutation: Patient is a 39 y/o female with a hx of anxiety who presents with palpitations and dizziness. Patient attributes her palpitations to anxiety. Vital signs are within normal limits. Physical exam is normal with no concerning findings. CBC and CMP are unremarkable and within normal limits. TSH is normal at 0.87. Troponin is negative. Serum HCG negative. Chest XR negative. EKG shows NSR with no ST segment changes. I have a low suspicion for TIA as patient is under the age of 65, neuro exam findings were normal, and she has minimal risk factors. Signs and symptoms of TIA discussed with patient and she was advised to immediately come back if any presented. Based on risk factors, negative troponin and EKG, patient's palpitations are likely related to anxiety rather than cardiac, I recommended she follow up with primary care for further evaluation. I feel it is safe to discharge the patient home but I discussed the importance of prompt follow up. I advised that the patient follow up with primary care and neurology to further evaluate her dizziness. If needed she can also follow up with ENT. Patient prescribed meclizine and given return precautions. Patient understands and is in agreement with the plan. - Vital Signs Vital signs: Temp Pulse Resp BP Pulse Ox 97.9 F 82 18 121/58 L 99 06/06/20 03:56 06/06/20 03:56 06/06/20 03:56 06/06/20 03:56 06/06/20 03:56 - Laboratory Result Diagrams: 06/05/20 22:14 06/05/20 22:14 Laboratory results interpreted by me: 06/05/20 22:14 Eos % (Auto) 7.6 H - Diagnostic Test Radiology reviewed: Reports reviewed Radiology results interpreted by me: Chest X-Ray 06/05/20 21:22 IMPRESSION: No evidence of active intrathoracic disease. - EKG Interpretation by Me Additional EKG results interpreted by me: Sinus rhythm with a rate of 80. QTc 430. Normal axis. No T wave inversions or ST segment changes in consecutive leads. Discharge - Discharge Clinical Impression: Palpitations, Dizziness, Anxiety Condition: Stable Disposition: HOME, SELF-CARE Additional Instructions: Follow up with your primary care provider and neurology concerning your dizziness. If workup with neurology is inconclusive, follow up with ENT for further evaluation. Take meclazine as needed for dizziness. Dizziness Under normal circumstances, your sense of balance is controlled by a number of signals that your brain receives from several locations: Eyes. No matter what your position, visual signals help you determine where your body is in space and how it's moving. Sensory nerves. These are in your skin, muscles and joints. Sensory nerves send messages to your brain about body movements and positions. Inner ear. The organ of balance in your inner ear is the vestibular labyrinth. It includes loop-shaped structures (semicircular canals) that contain fluid and fine, hair-like sensors that monitor the rotation of your head. Near the semicircular canals are the utricle and saccule, which contain tiny particl es called otoconia ([id number]). These particles are attached to sensors that help detect gravity and [id number] motion. Good balance depends on at least two of these three sensory systems working well. For instance, closing your eyes while washing your hair in the shower doesn't mean you'll lose your balance. Signals from your inner ear and sensory nerves help keep you upright. However, if your central nervous system can't process signals from all of these locations, if the messages are contradictory, or if the sensory systems aren't functioning properly, you may experience loss of balance. Dizziness may have a number of potential causes. These may include: Vertigo Vertigo - the false sense of motion or spinning - is the most common symptom of dizziness. Sitting up or moving around may make it worse. Sometimes vertigo is severe enough to cause nausea and vomiting. Vertigo usually results from a problem with the nerves and the structures of the balance mechanism in your inner ear (vestibular system), which sense movement and changes in your head position. Abnormal rhythmic eye movements (nystagmus) almost always accompany vertigo. Causes of vertigo may include: Benign paroxysmal positional vertigo (BPPV). BPPV involves intense, brief episodes of vertigo associated with a change in the position of your head, often when you turn over in bed or sit up in the morning. It occurs when normal calcium carbonate crystals (otoconia) break loose and fall into the wrong part of the canals in your inner ear. When these particles shift, they stimulate sensors in your ear, producing an episode of vertigo. Doctors don't know what causes BPPV, but it may be a natural result of aging. Trauma to your head also may lead to BPPV. Inflammation in the inner ear. Signs and symptoms of inflammation of the inner ear (acute vestibular neuronitis or labyrinthitis) include sudden, intense vertigo that may persist for several days, with nausea and vomiting. It can be incapacitating, requiring bed rest to minimize the signs and symptoms. Fortunately, vestibular neuronitis generally subsides and clears up on its own. Recovery time may be shorter with vestibular rehabilitation exercises. Although the cause of this condition is unknown, it may be a viral infection. Meniere's disease. This disease involves the excessive buildup of fluid in your inner ear. It may affect adults at any age and is characterized by sudden episodes of vertigo lasting 30 minutes to an hour or longer. Other signs and symptoms include the feeling of fullness in your ear, buzzing or ringing in your ear (tinnitus), and fluctuating hearing loss. The cause of Meniere's disease is unknown. Vestibular migraine. People who experience a vestibular migraine are very sensitive to motion. Dizziness and vertigo caused by a vestibular migraine may be triggered by turning your head quickly, being in a crowded or confusing place, driving or riding in a vehicle, or even watching movement on TV. A vestibular migraine may cause feelings of imbalance or unsteadiness, hearing loss, "muffled" hearing, or ringing in your ears (tinnitus). For most people with a vestibular migraine, vertigo doesn't necessarily happen at the same time as the headache. Instead, typical migraine triggers may lead to vertigo without an actual migraine. Attacks of migrainous vertigo can last from a few minutes to several days. Acoustic neuroma. An acoustic neuroma (schwannoma) is a noncancerous ( benign) growth on the acoustic nerve, which connects the inner ear to your brain. Signs and symptoms of an acoustic neuroma may include dizziness, loss of balance, hearing loss and tinnitus. Rapid changes in motion. Riding on roller coasters or in boats, cars or even airplanes may on occasion make you dizzy. Other causes. Rarely, vertigo can be a symptom of a more serious neurological problem such as a stroke, brain hemorrhage or multiple sclerosis. Feeling of faintness (presyncope) "Presyncope" is the medical term for feeling faint and lightheaded without losing consciousness. Sometimes nausea, pale skin and a sense of dizziness accompany a feeling of faintness. Causes of presyncope include: Drop in blood pressure (orthostatic hypotension). A dramatic drop in your systolic blood pressure - the higher number in your blood pressure reading - may result in lightheadedness or a feeling of faintness. It can occur after sitting up or standing too quickly. Inadequate output of blood from the heart. Conditions such as partially blocked arteries (atherosclerosis), disease of the heart muscle (cardiomyopathy), abnormal heart rhythm (arrhythmia) or a decrease in blood volume may cause inadequate blood flow from your heart. Loss of balance (disequilibrium) Disequilibrium is the loss of balance or the feeling of unsteadiness when you walk. Causes may include: Inner ear (vestibular) problems. Abnormalities with your inner ear can cause you to feel like you are floating, have a heavy head or are unsteady in the dark. Sensory disorders. Failing vision and nerve damage in your legs (peripheral neuropathy) are common in older adultsand may result in difficulty maintaining your balance. Joint and muscle problems. Muscle weakness and osteoarthritis - the type of arthritis that involves wear and tear of your joints - can contribute to loss of balance when it involves your weight-bearing joints. Medications. Loss of balance can be a side effect of certain medications, such as anti-seizure drugs, sedatives and tranquilizers. Lightheadedness and other kinds of 'dizziness' Feeling lightheaded is the feeling of being "spaced out" or having the sensation of spinning inside your head. It can also give you the sensation that if your lightheadedness worsens, you might lose consciousness. Causes may include: Inner ear disorders. These abnormalities of your inner ear can lead to illusions of motion and make you feel like you're floating. Anxiety disorders. Certain anxiety disorders, such as panic attacks and a fear of leaving home or being in large, open spaces (agoraphobia), may cause lightheadedness. Hyperventilation. Abnormally rapid breathing that often accompanies anxiety disorders may make you feel lightheaded. Prescriptions: Meclizine HCl [Antivert 25 mg Tablet] 25 mg PO TID PRN #21 tablet PRN Reason: Referrals: IRINA LISA DO [Primary Care Provider] - Follow up as needed RICARDO ROBLERO MD [ACTIVE STAFF] - Follow up as needed LAN BOWENS MD [NO LOCAL MD] - Follow up as needed
[2020-06-06 03:56] VITALS: BP 121/58
== END 2020-06-06 03:59 | disposition home or self-care (01) ==
LOC: ER 21:01
DX: R42 Dizziness and giddiness (principal); F41.9 Anxiety disorder, unspecified; R00.2 Palpitations; J45.909 Unspecified asthma, uncomplicated; F17.200 Nicotine dependence, unspecified, uncomplicated
CPT/HCPCS: 36415; 71045; 80053; 83735; 84443; 84484; 84703; 85025; 99284

== ENCOUNTER 2020-07-08 19:08 | Emergency (ER) | payer MEDICAID ==
[2020-07-08] MEDS ORDERED: KETOROLAC TROMETHAMINE INJ/PF 30 MG/1 ML SDV IV ONE (19:33)
[2020-07-08] MEDS ORDERED: ONDANSETRON HCL INJ/PF 4 MG/2 ML SDV IV ONE (19:33)
[2020-07-08] MEDS ORDERED: RINGERS SOLUTION,LACTATED 1,000 ML IV ONE (19:33)
[2020-07-08] MEDS ORDERED: DIPHENHYDRAMINE HCL 50 MG/ML VIAL IV ONE (19:33)
--- NOTE | 2020-07-08 19:36 | ER Document Report ---
ED Medical Screen (RME) - General Chief Complaint: Headache >24 hrs old Stated Complaint: POSSIBLE MIGRAINE Time Seen by Provider: 07/08/20 19:28 Primary Care Provider: IRINA LISA DO [Primary Care Provider] - Follow up as needed Mode of Arrival: Ambulatory Information source: Patient Notes: HPI; 39-year-old female with history of chronic migraines presents to the emergency room complaining of a headache for the past 3 days. States it is similar to her previous migraines. Is not keeping her awake at night. Denies sudden thunderclap. Denies worst headache of her life. States she normally takes Benadryl with Tylenol and Motrin with relief has not tried that remedy since her headache started. States she did take Excedrin approximately 1 hour ago without relief. Complains of nausea but no vomiting. Complains of photophobia. Denies any chance of . PE: Alert and oriented x3. PERRLA, EOMI lungs: Clear to auscultation without rales, rhonchi, wheezes. Heart: Regular rate rhythm without murmurs, rubs, gallops. I have greeted and performed a rapid initial assessment of this patient. A comprehensive ED assessment and evaluation of the patient, analysis of test results and completion of the medical decision making process will be conducted by additional ED providers. I have specifically instructed the patient or family members with the patient to immediately return to any nursing staff should anything change in the patient's condition or with their chief complaint. TRAVEL OUTSIDE OF THE [place] IN LAST 30 DAYS: No - Related Data Allergies/Adverse Reactions: metronidazole [From Flagyl] Adverse Reaction (Verified 12/04/19 20:46) Hives Past Medical History - Social History Family history: Reviewed & Not Pertinent Pulmonary Medical History: Reports: Hx Asthma Neurological Medical History: Reports: Hx Migraine Musculoskeltal Medical History: Reports Hx Arthritis, Reports Hx Musculoskeletal Deformity, Reports Hx Musculoskeletal Trauma Psychiatric Medical History: Reports: Hx Anxiety, Hx Bipolar Disorder, Hx Schizophrenia Traumatic Medical History: Reports: Hx Fractures - Leg Past Surgical History: Reports: Hx Adenoidectomy, Hx Breast Surgery - tumor removed Right breast, Hx Tonsillectomy, Hx Tubal Ligation, Hx Urinary Tract Surgery - Immunizations Immunizations up to date: Yes Hx Diphtheria, Pertussis, Tetanus Vaccination: Yes - 08/29/2017 patient states 5 years ago Physical Exam - Vital signs Vitals: Temp Pulse Resp BP Pulse Ox 98.2 F 74 16 133/78 H 99 07/08/20 19:16 07/08/20 19:16 07/08/20 19:16 07/08/20 19:16 07/08/20 19:16 Course - Vital Signs Vital signs: Temp Pulse Resp BP Pulse Ox 98.2 F 74 16 133/78 H 99 07/08/20 19:16 07/08/20 19:16 07/08/20 19:16 07/08/20 19:16 07/08/20 19:16 Doctor's Discharge - Discharge Referrals: IRINA LISA DO [Primary Care Provider] - Follow up as needed
--- NOTE | 2020-07-08 21:46 | ER Document Report ---
ED General - General Chief Complaint: Headache >24 hrs old Stated Complaint: POSSIBLE MIGRAINE Time Seen by Provider: 07/08/20 19:28 Primary Care Provider: IRINA LISA DO [Primary Care Provider] - Follow up as needed Mode of Arrival: Ambulatory TRAVEL OUTSIDE OF THE [place] IN LAST 30 DAYS: No - HPI Context: Time:[1928] Chief Complaint: [Migraine headache] [This is a 39-year-old female with history of migraine headaches that presents to the emergency department complaining of headache x3 days. Patient states that she has been trying to her typical remedies including Excedrin Migraine without relief of symptoms. Patient states after having received Toradol, Zofran, Benadryl and IV fluids she is now pain-free. ] History obtained from [patient] Symptoms began:[3 days ago] Onset: [Gradual] Timing: [Gradual] Quality: [Pounding] Intensity: [Headache was a 4 out of 5 initially, now it is a 0 out of 5] Location: [Head] Radiation: [Denies] [The pain does not migrate to a new location.] Aggravating factors: [none] Relieving factors: [none] [Denies] SOB [Denies] nausea [Denies] vomiting [Denies] sweats [Denies] fever [Denies] cough [Denies] calf or leg swelling or pain - Related Data Allergies/Adverse Reactions: metronidazole [From Flagyl] Adverse Reaction (Verified 12/04/19 20:46) Hives Past Medical History - General Information source: Patient - Social History Smoking Status: Current Some Day Smoker Family History: Reviewed & Not Pertinent, Arthritis, CVA, DM, Hyperlipidemia, Hypertension, Malignancy Pulmonary Medical History: Reports: Hx Asthma Neurological Medical History: Reports: Hx Migraine Musculoskeletal Medical History: Reports Hx Arthritis, Reports Hx Muscul oskeletal Deformity, Reports Hx Musculoskeletal Trauma Psychiatric Medical History: Reports: Hx Anxiety, Hx Bipolar Disorder, Hx Schizophrenia Traumatic Medical History: Reports: Hx Fractures - Leg Past Surgical History: Reports: Hx Adenoidectomy, Hx Breast Surgery - tumor removed Right breast, Hx Tonsillectomy, Hx Tubal Ligation, Hx Urinary Tract Surgery - Immunizations Immunizations up to date: Yes Hx Diphtheria, Pertussis, Tetanus Vaccination: Yes - 08/29/2017 patient states 5 years ago Review of Systems - Review of Systems Notes: Review of systems as below unless otherwise stated in HPI. CONSTITUTIONAL [No] fever, [No] chills. EYES [No] eye pain. ENT [No] URI symptoms, [No] sore throat, [No] ear pain. CARDIOVASCULAR [No] chest pain, [No] palpitations, [No] edema. RESPIRATORY [No] Cough, [No] SOB, [No] wheezing. GASTROINTESTINAL [No] abdominal pain, [No] nausea, [No] Diarrhea, [No] Vomiting, [No] constipation, [No] melena, [No] rectal bleeding. GENITOURINARY [No] dysuria, [No] urinary frequency, [No] hematuria, [No] urinary urgency, [No] vaginal discharge, [No] vaginal bleeding. MUSCULOSKELETAL [No] Back pain. SKIN [No] Rash. NEUROLOGIC Positive headache, [No] recent seizures, [No] paralysis,[No] parathesias. ENDOCRINE [No] polyuria. HEMO/LYMPATIC [No] easy brusing PSYCHIATRIC [No] depression. Physical Exam - Vital signs Vitals: Temp Pulse Resp BP Pulse Ox 98.2 F 74 16 133/78 H 99 07/08/20 19:16 07/08/20 19:16 07/08/20 19:16 07/08/20 19:16 07/08/20 19:16 - Notes Notes: CONSTITUTIONAL [Vital signs reviewed, Patient appears comfortable, Alert and oriented X 3, Normal stature.] HEAD [Atraumatic, Normocephalic.] EYES [Eyes are normal to inspection, No discharge from eyes, Extraocular muscles intact, Sclera are normal, Conjunctiva are normal.] ENT [External ears normal to inspection, Nose examination normal, Mouth normal to inspection.] NECK [Normal ROM, No jugular venous distention, No meningeal signs, ] RESPIRATORY CHEST [Chest is nontender, Breath sounds normal, No respiratory distress.] CARDIOVASCULAR [RRR, No murmurs, Normal S1 S2, No rub, No gallop.] ABDOMEN [Abdomen is nontender, No pulsatile masses, No other masses, Bowel sounds normal, No distension, No peritoneal signs, No hernias.] BACK [There is no CVA Tenderness, There is no tenderness to palpation, Normal inspection.] UPPER EXTREMITY [Inspection normal, No cyanosis, No clubbing, No edema, LOWER EXTREMITY [Inspection normal, No cyanosis, No clubbing, No edema, No calf tenderness, NEURO [No focal motor deficits, No focal sensory deficits, Speech normal.] SKIN [Skin is warm, Skin is dry, Skin is normal color.] PSYCHIATRIC [Normal affect. ] Course - Re-evaluation Re-evalutation: 07/09/20 07:36 Diagnosis, discharge prescriptions, follow-up all discussed with patient. All questions were answered prior to discharge. Emergency signs and symptoms, reasons to return to the emergency department discussed with patient. - Vital Signs Vital signs: Temp Pulse Resp BP Pulse Ox 98.1 F 67 17 137/72 H 100 07/08/20 21:59 07/08/20 21:59 07/08/20 21:59 07/08/20 21:59 07/08/20 21:59 Discharge - Discharge Clinical Impression: Migraine headache Qualifiers: Migraine type: unspecified Status migrainosus presence: without status migrainosus Intractability: not intractable Qualified Code(s): G43.909 - Migraine, unspecified, not intractable, without status migrainosus Condition: Stable Disposition: HOME, SELF-CARE Additional Instructions: Return to the Emergency Department without delay if any worse. HOME CARE INSTRUCTIONS & INFORMATION: Thank you for choosing us for your medical needs. We hope you're satisfied with the care you received. After you leave, you must properly care for your problem and, at the same time, observe its progress. Any condition can change. Some illnesses can change rapidly over hours or days. If your condition worsens, return to the Emergency Department or see your physician promptly. ABOUT YOUR X-RAYS AND EKG'S: If you had an EKG or X-rays taken, they have been read by the Emergency Physician. The X-rays and EKG's will also be read by a Radiologist or Barrel Coater within 24 hours. If discrepancies are noted, you will be notified by telephone. Please be certain the ED has a correct telephone number & address where you can be reached. Also, realize that some fractures or abnormalities do not show up on initial X-rays. If your symptoms continue, see your physician. ABOUT YOUR LABORATORY TEST: If you had laboratory tests, the results have been reviewed by the Emergency Physician. Some test results (for example cultures) may not be available for several days. You will be contacted if any test result shows you need additional treatment. Please be certain the ED has a correct telephone number and address where you can be reached. ABOUT YOUR MEDICATIONS: You will receive instructions on how to take your medicine on the prescription label you receive. Additional information may be provided by the Pharmacy. If you have questions afterwards, call the ED for clarification or further instructions. Some prescribed medications may cause drowsiness. Do not perform tasks such as driving a car or operating machinery without consulting your Pharmacist. If you feel you need a refill of pain medication, your condition will need re-evaluation. Please do not call for a refill of any medication. ABOUT YOUR SIGNATURE: Signature of this document acknowledges to followin. Understanding that you received emergency treatment and that you may be released before al medical problems are known or treated. Please be certain the ED has a correct phone number & address where you can be reached. 2. Acknowledgement that you will arrange for follow-up care as recommended. 3. Authorization for the Emergency Physician to provide information to your follow-up Physician in order to maximize your care. AT ANY TIME, IF YOUR SYMPTOMS CHANGE SIGNIFICANTLY OR WORSEN OR YOU DEVELOP NEW SYMPTOMS, RETURN TO THE EMERGENCY DEPARTMENT IMMEDIATELY FOR RE-EVALUATION. OUR GOAL IS TO PROVIDE EXCELLENT MEDICAL CARE! WE HOPE THAT WE HAVE MET YOUR EXPECTATIONS DURING YOUR EMERGENCY DEPARTMENT VISIT AND THAT YOU FEEL YOU HAVE RECEIVED EXCELLENT CARE! Migraine Headache The physician feels that your symptoms are due to a migraine attack. Migraines are caused by changes in the blood vessels of the head. Arteries go into spasm, often causing warning symptoms that a headache may begin soon. As the spasm goes away, the vessels dilate and throb, causing the pounding pain of a migraine headache. Migraines often cause nausea and vomiting. The treatment of headaches varies with severity and cause of pain. Not all headaches need pain shots -- in fact, there is evidence that using narcotics for headaches may make them worse in the long run. The physician will determine the therapy that's in your best interest for this particular headache. Medications are available that may prevent migraines, or stop them as they first occur. If one medication is not helpful, try another. If migraines are frequent, be patient -- follow the doctor's recommendations. Call the physician if you are worsening, or if new symptoms arise. Prescriptions: Diphenhydramine HCl [Benadryl 25 mg Capsule] 25 mg PO Q6HP PRN #12 capsule PRN Reason: onset of headache Ketorolac Tromethamine [Toradol 10 mg Tablet] 10 mg PO Q6HP PRN #12 tablet PRN Reason: onset of migraine Ondansetron [Zofran Odt 4 mg Tablet] 1 tab PO Q8HP PRN #12 tab.rapdis PRN Reason: at onset of migraine Forms: Return to Work Referrals: IRINA LISA DO [Primary Care Provider] - Follow up as needed
[2020-07-08 22:08] VITALS: BP 137/72
== END 2020-07-08 22:07 | disposition home or self-care (01) ==
LOC: ER 19:08
DX: G43.909 Migraine, unspecified, not intractable, without status migrainosus (principal); F17.200 Nicotine dependence, unspecified, uncomplicated; J45.909 Unspecified asthma, uncomplicated
CPT/HCPCS: 99284; 96361; 96374; 96375; J1200; J1885; J2405; J7120

== ENCOUNTER 2020-08-09 19:06 | Emergency (ER) | payer MEDICAID ==
[2020-08-09 19:41] VITALS: BP 125/66
[2020-08-09] MEDS ORDERED: KETOROLAC TROMETHAMINE INJ/PF 30 MG/1 ML SDV IM ONE (20:58)
--- NOTE | 2020-08-09 21:01 | ER Document Report ---
ED Neck/Back Problem - General Chief Complaint: Back Pain Stated Complaint: BACK PAIN Time Seen by Provider: 08/09/20 20:49 Primary Care Provider: IRINA LISA DO [Primary Care Provider] - Follow up as needed Mode of Arrival: Ambulatory Information source: Patient TRAVEL OUTSIDE OF THE [place] IN LAST 30 DAYS: No - HPI Patient complains to provider of: Pain, Lower back Notes: Patient here with complaints of low back pain. The patient states she is had intermittent episodes of low back pain in the past. For the last few days she has had some low back pain and today while at work the pain got severe and almost caused her to fall. She states the pain starts in her upper lumbar area and radiates down to her sacral area and down both of her legs. No trauma or fall. No fever. No abdominal pain. She denies nausea, vomiting, diarrhea. She denies IV drug use. She denies bowel or bladder dysfunction. She denies numbness, tingling, weakness. She does report some increased urination, but denies any dysuria or hematuria. Pain in her back is moderate, constant, worse with movement and positions, better with rest. She denies any other complaints at this time. - Related Data Allergies/Adverse Reactions: metronidazole [From Flagyl] Adverse Reaction (Verified 12/04/19 20:46) Hives Home Medications: none except. OTC motrin for mckeon Past Medical History - Social History Smoking Status: Former Smoker Chew tobacco use (# tins/day): No Frequency of alcohol use: Occasional Drug Abuse: None Family History: Reviewed & Not Pertinent, Arthritis, CVA, DM, Hyperlipidemia, Hypertension, Malignancy Pulmonary Medical History: Reports: Hx Asthma Neurological Medical History: Reports: Hx Migraine Musculoskeletal Medical History: Reports Hx Arthritis, Reports Hx Musculoskeletal Deformity, Reports Hx Musculoskeletal Trauma Psychiatric Medical History: Reports: Hx Anxiety, Hx Bipolar Disorder, Hx Schizophrenia Traumatic Medical History: Reports: Hx Fractures - Leg Past Surgical History: Reports: Hx Adenoidectomy, Hx Breast Surgery - tumor removed Right breast, Hx Tonsillectomy, Hx Tubal Ligation, Hx Urinary Tract Surgery - Immunizations Immunizations up to date: Yes Hx Diphtheria, Pertussis, Tetanus Vaccination: Yes - 08/29/2017 patient states 5 years ago Review of Systems - Review of Systems -: Yes All other systems reviewed and negative Physical Exam - Vital signs Vitals: Temp Pulse Resp BP Pulse Ox 98.1 F 71 16 125/66 100 08/09/20 19:40 08/09/20 19:40 08/09/20 19:40 08/09/20 19:40 08/09/20 19:40 - Notes Notes: GENERAL: alert, cooperative, nontoxic, no distress. HEAD: normocephalic, atraumatic EYES: conjunctiva pink without discharge, no external redness or swelling. EARS: no external swelling, no external redness NOSE: atraumatic, no external swelling MOUTH/THROAT: mucous membranes moist and pink, posterior pharynx without erythema, swelling, exudate. No trismus or drooling. NECK: soft, supple, full range of motion, no meningismus. CHEST: no distress, lungs clear and equal throughout. No wheezing, rales, rhonchi. CARDIAC: regular rate and rhythm, no murmur, normal capillary refill, normal pulses. No peripheral edema noted. ABDOMEN: soft, nontender, no pusatile mass. BACK: No CVA tenderness. Tenderness to palpation to the mid lumbar spine. No step-offs or crepitus. Full range of motion. No rash. No swelling. EXTREMITIES: full range of motion of all extremities. No redness, no swelling. NEURO: alert and oriented A&O x 3, no focal deficits, full range of motion of all extremities. 5 out of 5 flexion and extension of the lower extremities bilaterally. Patellar and Achilles deep tendon reflexes are +2 bilaterally. Normal sensation with no saddle anesthesia. Patient can dorsiflex the great toes bilaterally. PYSCH: appropriate mood, affect. Patient is cooperative. SKIN: pink, warm, dry, no rash. Course - Re-evaluation Re-evalutation: 08/09/20 22:31 Patient resting comfortably at this time. Abdominal results with the patient. Questions of been answered. Will discharge home. Patient here with complaints of some lower back pain. She states the pain got quite severe today and it caused her to almost fall. She denies any recent trauma or fall. She has no sign of cauda equina, epidural abscess/bleed, discitis, osteomyelitis, pyelonephritis, AAA. She was complaining some increased urinary frequency. She denies any dysuria. No abdominal tenderness on exam. Urinalysis shows no signs of infection, urine is negative. X-rays of the lumbar spine show no acute findings. At this point and not finding any significant abnormalities on exam. I believe the patient can be discharged home with a prescription for NSAIDs and muscle relaxers. Instructions to follow-up with her primary care doctor if not better in the next 3 to 5 days, sooner for worsening pain, fever, numbness, tingling, weakness, bowel or bladder dysfunction, severe abdominal pain, persistent vomiting, or any further concerns. The patient's emergency department workup and current diagnosis were explained to the patient and or family. Follow-up instructions were provided. Medications if prescribed were discussed. Instructions for when to return to the emergency department including specific worrisome symptoms were discussed with the patient and/or family. - Vital Signs Vital signs: Temp Pulse Resp BP Pulse Ox 98.1 F 71 16 125/66 100 08/09/20 19:40 08/09/20 19:40 08/09/20 19:40 08/09/20 19:40 08/09/20 19:40 - Laboratory Results Laboratory Results Interpreted: 08/09/20 21:05 Ur Leukocyte Esterase SMALL H Critical Laboratory Results Reviewed: No Critical Results - Radiology Results Critical Radiology Results Reviewed: No Critical Results Discharge - Discharge Clinical Impression: Low back pain Qualifiers: Chronicity: acute Back pain laterality: midline Sciatica presence: without sciatica Qualified Code(s): M54.5 - Low back pain Condition: Stable Disposition: HOME, SELF-CARE Instructions: Low Back Pain ([facility]) Additional Instructions: Take medications as prescribed. Drink plenty of fluids. Ice or heat to the sore area. Follow-up if not better in the next 3 to 5 days, sooner for worsening pain, fever, numbness, tingling, weakness, bowel or bladder dysfunction, persistent vomiting, or any further concerns. Prescriptions: Diclofenac Sodium [Voltaren 50 Mg Tablet.] 50 mg PO BID #20 tablet. Tizanidine HCl [Zanaflex 4 Mg Tablet] 4 mg PO BID PRN #10 tablet PRN Reason: Referrals: IRINA LISA DO [Primary Care Provider] - Follow up as needed
[2020-08-09 21:25] LABS: APPEARANCE,URINE CLEAR; BILIRUBIN,URINE NEGATIVE (NEGATIVE); COLOR,URINE YELLOW; GLUCOSE, URINE NEGATIVE (NEGATIVE); KETONES,URINE NEGATIVE (NEGATIVE); LEUKOCYTE ESTERASE,URINE SMALL (NEGATIVE); NITRITE,URINE NEGATIVE (NEGATIVE); PROTEIN,URINE NEGATIVE (NEGATIVE); URINE SPECIFIC GRAVITY 1.017; UROBILINOGEN,URINE NEGATIVE mg/dL (<2.0)
--- NOTE | 2020-08-09 21:48 | RADIOLOGY REPORT (SQ) ---
EXAM DESCRIPTION: L SPINE WHOLE five views CLINICAL HISTORY: 39 years Female, low back pain COMPARISON: Radiograph of the lumbar spine July 28, 2019 FINDINGS: There is mild curvature of the lumbar spine convex left. Five nonrib-bearing lumbar vertebral bodies are seen. Bowel gas pattern is normal. Sacrum and SI joints are unremarkable. On the lateral view there is straightening of the normal lumbar lordosis. There is mild disc height narrowing at L3-4 with endplate spondylosis. The appearance is stable. Oblique views demonstrate no lysis. IMPRESSION: No acute process. No significant interval change. No fracture.
== END 2020-08-09 22:30 | disposition home or self-care (01) ==
LOC: ER 19:06
DX: M54.5 Low back pain (principal); J45.909 Unspecified asthma, uncomplicated; R51.9 Headache, unspecified; Z79.1 Long term (current) use of non-steroidal anti-inflammatories (NSAID)
CPT/HCPCS: 99284; 96372; 81025; 81001; 72110; J1885